=== PATIENT | male | born 1975 | race Caucasian/White ===

== ENCOUNTER 2020-09-12 13:49 | Emergency (ER) | payer OTHER, SELFPAY ==
--- NOTE | 2020-09-12 13:53 | ED.EYEPROB ---
HPI - Eye Problem General Chief complaint: Eye Problems Stated complaint: EYE IRRITATION Time Seen by Provider: 09/12/20 13:53 Source: patient and RN notes reviewed History of Present Illness HPI Narrative: Patient is a 44-year-old male who presents the urgent care with complaints of right eye irritation. Patient states that he tends to have eyelashes in his eyes and thinks one may be in the right eye . Patient states he woke up with the irritation at 11 AM today. Patient denies any known injury or trauma. Denies use of contacts. Denies of any matting in the eye or changes in vision. Patient appears to be high or under the influence of drugs, rather it be prescription or illicit drug use. No other acute complaints. Patient aware of the plan of care. Some parts of this dictation were generated by voice recognition software and may contain typographical and/or grammatical inaccuracies. Related Data Allergies Allergy/AdvReac Type Severity Reaction Status Date / Time amitriptyline Allergy Mild unknown Verified 07/20/20 13:40 ranitidine AdvReac Unknown BLURRED Verified 07/20/20 13:40 VISION Review of Systems Review of Systems: Narrative: CONSTITUTIONAL: Denies fever, chills, or sweats. EYES: Denies visual changes. Reports of right eye irritation and clear drainage ENT: Denies rhinorrhea, congestion, sore throat, or otalgia. CARDIOVASCULAR: Denies chest pain, palpitations, or edema. RESPIRATORY: Denies cough or dyspnea. GASTROINTESTINAL: Denies abdominal pain, nausea, vomiting, or diarrhea. GENITOURINARY: Denies dysuria or hematuria. SKIN: Denies rash or itching. MUSCULOSKELETAL: Denies back pain, joint pain, or myalgia. NEUROLOGIC: Denies headache, numbness, or weakness. All other systems reviewed are negative, except as documented in HPI. PMFSH Social History Social History (Updated 07/20/20 @ 13:35 by Sheryl Quick MA) Smoking status: Current every day smoker Alcohol intake: never Comments At the time of my signature, I reviewed and agree with the nursing past medical, surgical, social, and family history. There is no relevant family history pertinent to the patient complaint. Exam Narrative: Exam Narrative: GENERAL: This is a well-nourished, well-developed patient, in no apparent distress. HEAD: normocephalic, atraumatic. EYES: PERRL. Sclera clear/white. Vision is grossly intact. Mild injected conjunctive on the right EARS: External ears normal NOSE: External nose normal with no obvious nasal discharge, nares without redness, no rhinorrhea. THROAT: Mucous membranes moist NECK: Neck supple CARDIOVASCULAR: Regular rate and rhythm without murmurs, gallops, or rubs. RESPIRATORY: Clear to auscultation. Breath sounds equal bilaterally. No wheezes, rales, or rhonchi. SKIN: warm, intact with no suspicious lesions or rash, good texture and turgor. NEURO: awake, alert, and oriented to person, place and time. There were no obvious focal neurologic abnormalities. EXTREMITIES: No clubbing, cyanosis, or edema. Course Vital Signs Vital signs: Vital Signs Temperature 97.8 F 09/12/20 13:54 Pulse Rate 97 09/12/20 13:54 Respiratory Rate 16 09/12/20 13:54 Blood Pressure 140/94 H 09/12/20 13:54 Pulse Oximetry 98 09/12/20 13:54 Temperature 97.8 F 09/12/20 13:54 Pulse Rate 97 09/12/20 13:54 Respiratory Rate 16 09/12/20 13:54 Blood Pressure 140/94 H 09/12/20 13:54 Pulse Oximetry 98 09/12/20 13:54 Reviewed-patient is informed that they may have pre-hypertension or hypertension based on a blood pressure reading in the department. I recommend the patient call the primary care provider listed on their discharge instructions or a physician of their choice this week to arrange follow-up for further evaluation of possible pre-hypertension or hypertension. Procedures FB Removal Eye Foreign Body #1: Location: eye (R) Topical anesthetic used: tetracaine (1 drop) Techni
[2020-09-12 13:54] VITALS: BP 140/94; PULSE 97; RESP 16; TEMP 36.6; O2SAT 98
== END 2020-09-12 14:22 | disposition home or self-care (01) ==
PROVIDERS: Emergency Provider Nurse Practitioner Family; PCP Internal Medicine
DX: H18.891 Other specified disorders of cornea, right eye (principal); F17.200 Nicotine dependence, unspecified, uncomplicated
CPT/HCPCS: 99213; A9270; G0463

== ENCOUNTER 2024-01-13 13:09 | Inpatient (IN) | payer OTHER, SELFPAY ==
[2024-01-13] VITALS (78 sets, daily range): BP systolic 72–144; BP diastolic 50–119; PULSE 103–122; RESP 16–33; TEMP 34.4–38.4; O2SAT 59–100; BMI 25.1
--- NOTE | ~2024-01-13 | XR_ITS ---
Portable chest x-ray Comparison: 01/22/2024 Clinical History: Respiratory failure Findings: Right IJ line in place. Possible minimal residual haziness right lung base. Cardiomediast inal silhouette is stable. Bones and soft tissues are unremarkable. Impression: Possible persistent minimal residual haziness at the right lung base. Stable right IJ line. Reviewed, dictated and finalized at location . UCTION DRILLING MACHINE OPERATOR Impression: Possible persistent minimal residual haziness at the right lung base. Stable right IJ line.
--- NOTE | ~2024-01-13 | XR_ITS ---
EXAMINATION: XR chest 1V portable DATE: 01/29/2024 13:00 INDICATION: Pulmonary edema TECHNIQUE: frontal view of the chest was obtained. COMPARISON: Chest radiograph dated 01/24/2024 FINDINGS: The lungs are clear with no focal airspace opacities, pulmonary edema, pleural effusion or pneumothor ax. The cardiomediastinal silhouette is normal. Likely prior distal right clavicle resection. IMPRESSION: 1. No acute cardiopulmonary disease. Reviewed, dictated and finalized at location A. INSTRUCTOR
--- NOTE | ~2024-01-13 | XR_ITS ---
Portable chest x-ray Comparison: 01/19/2024 Clinical History: Pneumonia Findings: Endotracheal tube, NG tube, and right IJ line are in place. There is minimal haziness the right lung base. Otherwise lungs are essentially clear. Cardiomediastinal silhouette is stable. Bone s and soft tissues are unremarkable. Impression: Minimal hazy airspace disease right lung base. Support tubes, as above. Reviewed, dictated and finalized at location M. RSIONAL THERAPIST'S ASSISTANT Impression: Minimal hazy airspace disease right lung base. Support tubes, as above.
--- NOTE | ~2024-01-13 | XR_ITS ---
Portable chest x-ray Comparison: 01/18/2024 Clinical History: Respiratory failure Findings: Endotracheal tube, NG tube, and right IJ line are in place. There is minimal residual hazi ness in the right upper and lower lobes. Left lung essentially clear. Cardiomediastinal silhouette i s stable. Bones and soft tissues are unremarkable. Impression: Significantly improved airspace disease, minimal residual haziness in the right upper and lower lobes . Support tubes, as above. Reviewed, dictated and finalized at location M. CAL ASSISTANT PRN Impression: Significantly improved airspace disease, minimal residual haziness in the right upper and lower lobes. Support tubes, as above.
--- NOTE | ~2024-01-13 | CT_ITS ---
CT brain wo con Ordering provider: Garry Allen MD History: 48 years Male with . ams . Comparison: None. Technique: CT of the head without contrast. Radiation reduction technique utilized.The dose-length product was 605.33 mGy-cm FINDINGS: BRAIN PARENCHYMA AND CSF SPACES: No midline shift, mass effect or hemorrhage. The brain parenchyma a nd CSF spaces are otherwise normal. VISUALIZED PARANASAL SINUSES: Bilateral ethmoid sinus disease. Left sphenoid sinus disease. MASTOIDS: Well aerated. BONES: The bones appear intact. SOFT TISSUES: Visualized nasopharynx is normal. Superficial soft tissues are normal. IMPRESSION: No acute intracranial findings. Reviewed, dictated and finalized at location A. ETING SPECIALIST
--- NOTE | ~2024-01-13 | XR_ITS ---
EXAMINATION: XR chest 1V portable DATE: 01/17/2024 05:49 INDICATION: Respiratory failure. TECHNIQUE: A single frontal view of the chest was obtained. COMPARISON: Chest single view 01/16/2024, chest CT 01/14/2024 FINDINGS: There are airspace opacities in all right lung zones and in left mid and lower lung zones. There are small pleural effusions. No pneumothorax. The heart size is normal. The endotracheal tube t ip is 4.3 cm above the jazmin. The nasogastric tube tip is in the stomach. A right internal jugular c entral venous catheter is seen with tip at the superior cavoatrial junction. There are surgical clips in left axilla. IMPRESSION: 1. Stable airspace opacities in right lung and left mid and lower lung zones, consistent with pneumon ia. 2. Stable small pleural effusions. Reviewed, dictated and finalized at location A. [place] PRODUCT DEMO SPECIALIST IMPRESSION: 1. Stable airspace opacities in right lung and left mid and lower lung zones, c onsistent with pneumonia. 2. Stable small pleural effusions.
--- NOTE | ~2024-01-13 | CT_ITS ---
EXAMINATION: CT chest abdomen pelvis wo con DATE: 01/14/2024 11:06 INDICATION: Sepsis. Pneumonia. Constipation. TECHNIQUE: Computed tomography (CT) of the chest, abdomen, and pelvis was performed without intraveno us contrast. Automated exposure control and iterative reconstruction technique were employed. The dos e-length product was 1128.32 mGy-cm. COMPARISON: Chest single view 01/14/2024 FINDINGS: CHEST CT: There are patchy airspace and groundglass opacities in all lobes, right worse than left. There are sm all pleural effusions. The endotracheal tube is in expected position. The nasogastric tube tip is in the stomach. Calcified right hilar and mediastinal lymph nodes are consistent with old granulomatous disease. A right internal jugular central venous catheter is seen with tip at the superior cavoatrial junction. There is mild thoracic spondylosis. ABDOMEN/PELVIS CT: There is periportal edema in the liver. The gallbladder is normal in size. Gallbladder wall thickenin g is noted, likely interstitial edema. Calcifications in the spleen are consistent with old granuloma tous disease. The pancreas, adrenal glands, and kidneys are normal. The bladder is decompressed by a Bates catheter. The prostate is mildly enlarged. The appendix is normal. There are no dilated loops o f bowel. There is edema of the intra-abdominal fat. There is a small volume of ascites. There are no pathologically enlarged lymph nodes. There is mild lumbar spondylosis. IMPRESSION: 1. Diffuse lung disease, consistent with pneumonia. 2. Small pleural effusions. 3. Small volume of ascites. Reviewed, dictated and finalized at location A. ECTIONAL CLASSIFICATION COUNSELOR
--- NOTE | ~2024-01-13 | XR_ITS ---
Portable chest x-ray Comparison: 01/21/2024 Clinical History: Respiratory failure Findings: Right IJ line remains in place. Minimal residual right basilar haziness noted. Left lung c lear. Cardiomediastinal silhouette is stable. Bones and soft tissues are unremarkable. Impression: Minimal residual hazy right basilar airspace disease, nonspecific. Stable support line. Reviewed, dictated and finalized at location . CTOR OF DESIGN Impression: Minimal residual hazy right basilar airspace disease, nonspecific. Stable support line.
--- NOTE | ~2024-01-13 | XR_ITS ---
Portable chest x-ray Comparison: 01/14/2024 Clinical History: Respiratory failure Findings: Endotracheal tube, NG tube, and right IJ line are in place. There is patchy consolidation throughout the right lung, and in the left upper lobe. Airspace disease overall is improved from prio r exam. Cardiomediastinal silhouette is stable. Bones and soft tissues are unremarkable. Impression: Bilateral multilobar pneumonia, mildly improved from prior exam. Support tubes, as above. Reviewed, dictated and finalized at location . RIALS MGMT TECH Impression: Bilateral multilobar pneumonia, mildly improved from prior exam. Support tubes, as above.
--- NOTE | ~2024-01-13 | XR_ITS ---
Portable chest x-ray Comparison: 01/17/2024 Clinical History: Pneumonia Findings: Endotracheal tube, NG tube, and right IJ line are in place. There is mild haziness in the right upper and lower lobes. There is additional retrocardiac consolidation. Cardiomediastinal silho uette is stable. Bones and soft tissues are unremarkable. Impression: Bilateral airspace disease, as above. Correlate for bilateral pneumonia versus pulmonary edema. Support tubes, as above. Reviewed, dictated and finalized at location . STATION CASHIER Impression: Bilateral airspace disease, as above. Correlate for bilateral pneumonia versus pulmonary edema. Support tubes, as above.
--- NOTE | ~2024-01-13 | XR_ITS ---
Portable chest x-ray Comparison: 01/13/2024 Clinical History: Respiratory failure Findings: Endotracheal tube, NG tube, and right-sided central venous line are in place. Extensive bi lateral pulmonary consolidation is present, right lung worse than left. Cardiomediastinal silhouette is stable. Bones and soft tissues are unremarkable. Impression: Multilobar bilateral pneumonia, worst at the right upper lobe. Support tubes, as above. Reviewed, dictated and finalized at location . CTIONS COUNSELOR Impression: Multilobar bilateral pneumonia, worst at the right upper lobe. Support tubes, as above.
--- NOTE | ~2024-01-13 | XR_ITS ---
Portable chest x-ray Comparison: 01/15/2024 Clinical History: Respiratory failure Findings: Endotracheal tube, NG tube, and right IJ line are in place. Possible small bilateral pleur al effusions. There is extensive hazy airspace is in the left lung, with minimal haziness in the left lung. Cardiomediastinal silhouette is stable. Bones and soft tissues are unremarkable. Impression: Bilateral hazy airspace disease, right lung significant worse than left. Correlate for bilateral pneu monia versus possibly asymmetric pulmonary edema. Small pleural effusions. Support tubes, as above. Reviewed, dictated and finalized at [facility]. DEVELOPMENT MANAGER Impression: Bilateral hazy airspace disease, right lung significant worse than left. Correl ate for bilateral pneumonia versus possibly asymmetric pulmonary edema. Small pleural effusions. Support tubes, as above.
--- NOTE | ~2024-01-13 | XR_ITS ---
XR chest ET placement Ordering provider: Garry Allen MD History: 48 years Male with . respiratory failure . Comparison: None. FINDINGS: MEDIASTINUM: The cardiac silhouette is not enlarged. Endotracheal tube is seen with 4 cm above the jazmin. Nasogastric tube is seen extending to the stoma ch. LUNGS: No effusions or pneumothorax. Opacification of the right lung suggestive of pneumonia. Minimal opacification the left upper and lower lobes. OTHER: No free air under the diaphragm. IMPRESSION: Pneumonia seen bilaterally more extensive in the right lung. Reviewed, dictated and finalized at location A. L NURSE CONSULTANT
--- NOTE | ~2024-01-13 | XR_ITS ---
Portable chest x-ray Comparison: 01/20/2024 Clinical History: Respiratory failure Findings: Right-sided IJ line in place. There is hazy right basilar airspace disease. Left lung candy r. Cardiomediastinal silhouette is stable. Bones and soft tissues are unremarkable. Impression: Hazy right basilar airspace disease. Correlate for pulmonary edema versus infection. Support line, as above. Reviewed, dictated and finalized at location . WASHER Impression: Hazy right basilar airspace disease. Correlate for pulmonary edema versus infec tion. Support line, as above.
--- NOTE | ~2024-01-13 | XR_ITS ---
EXAMINATION: XR chest 1V portable DATE: 01/24/2024 05:45 INDICATION: Respiratory failure TECHNIQUE: frontal view of the chest was obtained. COMPARISON: Chest radiograph dated 01/23/2024 FINDINGS: Persistent mild haziness at the bilateral lower lung zones consistent with very small posterior layer ing bilateral pleural effusions. Mild increased interstitial pattern at the bilateral lung bases cons istent with mild pulmonary edema. No other airspace opacities or pneumothorax. The cardiomediastinal silhouette is normal. Surgical clips at the left axilla. IMPRESSION: 1. Likely mild pulmonary edema at the lower lung zones and very small bilateral pleural effusions. Reviewed, dictated and finalized at location A. PROCESSOR
--- NOTE | ~2024-01-13 | XR_ITS ---
CHEST RADIOGRAPH CLINICAL HISTORY: CVC placement . COMPARISON: 01/13/2024 approximately 6 hours earlier. TECHNIQUE: Single portable view of the chest. FINDINGS Endotracheal tube is identified with its tip projecting approximately 6 cm above the base of the marcus na. Orogastric tube extends below the left hemidiaphragm, presumably within the stomach. Interval placement of a right internal jugular central venous catheter with its tip projecting over t he cavoatrial junction The remainder of the cardiomediastinal silhouette is otherwise unremarkable. Interval worsening of the bilateral lung bonner when compared with earlier now affecting the left upp er lobe (which was spared on the earlier examination. Dense opacification of the right upper and to a lesser extent the right lower (the superior segment) lobe. No pleural effusions are present. The right hemithorax is fully inflated. IMPRESSION: Central venous catheter in excellent position and ready for immediate use. Interval progression of the dense infiltrate seen on earlier examination, now involving the left ana thorax in addition to the right. Remaining supportive devices are also in good position. Reviewed, dictated and finalized at location A. EN GRINDER IMPRESSION: Central venous catheter in excellent position and ready for immediate use. Interval progression of the dense infiltrate seen on earlier examination, now i nvolving the left hemithorax in addition to the right. Remaining supportive devices are also in good position.
--- NOTE | ~2024-01-13 | XR_ITS ---
EXAMINATION: XR abdomen obstructive series DATE: 01/16/2024 09:12 INDICATION: Abdominal distention. TECHNIQUE: Upright and supine views of the abdomen on 3 radiographs were obtained. COMPARISON: CT abdomen and pelvis 01/14/2024 FINDINGS: There are airspace opacities in the lungs bilaterally, right worse than left. There are sma ll pleural effusions. The endotracheal tube tip is 4.7 cm above the jazmin. The nasogastric tube tip is in the stomach. There is a central line tip at superior cavoatrial junction. A catheter overlies t he bladder. There are no dilated loops of bowel. There is a paucity of stool in colon. No free intrap eritoneal gas. IMPRESSION: 1. Normal bowel gas pattern. 2. Airspace opacities in the lungs bilaterally, right worse than left, consistent with pneumonia. 3. Small pleural effusions. Reviewed, dictated and finalized at location A. AREA NETWORK SYSTEMS ADMINISTRATOR IMPRESSION: 1. Normal bowel gas pattern. 2. Airspace opacities in the lungs bilaterally, right worse than left, consiste nt with pneumonia. 3. Small pleural effusions.
--- NOTE | 2024-01-13 13:45 | ED.GENADULT ---
HPI - General Adult General Chief complaint: Altered Mental Status Stated complaint: found face down, poss aspiration Time Seen by Provider: 01/13/24 13:34 History of Present Illness HPI narrative: Patient is a 48-year-old male who presents the ER after being found unresponsive in a hotel room. Patient was staying in a hotel with his family. He has known seizure disorder. Had a seizure last night at 3:00 a.m. and that is when he is last known to be normal. Father reports he has slept on the floor in front of a air conditioner. Family return to check on him this afternoon and found him lying face down in emesis poorly responsive. EMS reports agonal respirations and more bagging. They attempted to intubate but patient had a gag reflex. Nasal trumpet was placed. Secretions suctioned from the oral airway. A bottle of liquor (99 grapes) found on the patient. Family reports he only recently started drinking more. recently had psychiatric evaluation in [place] and was placed in facility for 2 days in [facility] before returning back. He was suicidal due to lack of access to medication. Related Data Home Medications Medication Instructions Recorded Confirmed levetiracetam 1,000 mg tablet 1,000 mg PO Q12H 01/13/24 01/13/24 Allergies Allergy/AdvReac Type Severity Reaction Status Date / Time amitriptyline Allergy Mild unknown Verified 12/21/20 14:35 ranitidine AdvReac Unknown BLURRED Verified 12/21/20 14:35 VISION zolpidem [From Ambien] AdvReac Confusion Verified 01/13/24 18:16 Review of Systems Review of Systems: ROS unobtainable: Yes unobtainable due to medical condition [facility] Past Medical History Medical History (Updated 01/13/24 @ 22:33 by Garry Allen MD) Seizure disorder Surgical History Surgical History (Updated 01/13/24 @ 22:33 by Garry Allen MD) Surgical history unknown Family History Family History (Updated 01/13/24 @ 22:34 by Court Peterson DO) Father Acute myocardial infarction S/P CABG x 5, Onset Age: 64 Mother Paroxysmal A-fib, Onset Age: 69 Sibling Muscular dystrophy Social History Social History Social History: The patient lives in his own home. He receives home health server service assistant through [facility] and his mother is his home health aide. Patient has 2 sons ages 22 and age 15. The patient's mother is raising the patient's 15-year-old son. The patient has smoked 1 pack of cigarettes per day since he was a teenager. He has history of chronic opiate dependence. He uses marijuana. He started drinking heavily in mid 2021. Smoking packs per day: 1 Smoking cigarettes per day: 20.0 Years smoked: 30 Smoking pack-years: 30.00 Smoking status: Current every day smoker Alcohol intake: current Do You Feel Safe in your Home?: Yes Lack of Transportation: No Lack of Food: Never True Current Housing: I Have Housing Concerned About Future Housing: No Difficulty Paying Gas/Electric Bills: No Difficulty Paying for Meds: No Currently Unemployed: No Education: Don't Know Difficulty w/ Childcare or Family Care: No Spiritual care concerns: No Exam Narrative: GENERAL: Ill-appearing, moderate distress. HEAD: Normocephalic, atraumatic. EYES: PERRL and EOMI. ENT: Mucous membranes moist. CHEST: coarse rales bilaterally with increased respiratory rate. HEART: Tachycardic and regular. ABDOMEN: Soft, nontender, nondistended. EXTREMITIES: Normal range of motion. No edema. Cool extremities with slow capillary refill. SKIN: Cool, dry, no rash. NEURO: Awake but altered, can only say I am cold. Moves all extremities purposefully. Course Course Emergency Course: patient intubated for airway protection. Discussed case with family. They report he was smoking some sort of drug the last night prior to all this happening. Patient is on fentanyl and Versed for sedation. He has soft restraints on his upper extremities. Is becoming more responsive now that the paralytic is 1 off. Broad-spectrum antibiotics ordered for aspiration pneumonia. Keppra load given. Neurology consulted and familiar with patient. No recommendations for valproic acid at this time as the level is pending. The ICU inspector health care facilities has been consulted and accepted the patient. Patient's ABG improving after increased lung tidal volumes. We will increase patient's minute ventilation to 22 breaths per minute. Vital Signs Vital signs: Vital Signs Pulse Rate 111 H 01/13/24 13:08 Pulse Oximetry 72 L 01/13/24 13:08 Oxygen Delivery Non-Rebreather Mask 01/13/24 13:08 Oxygen Flow Rate 15 01/13/24 13:08 Temperature 100.5 F H 01/13/24 22:16 Pulse Rate 106 H 01/13/24 22:16 Respiratory Rate 22 H 01/13/24 22:16 Blood Pressure 84/66 L 01/13/24 22:16 Pulse Oximetry 95 01/13/24 22:16 Oxygen Delivery Mechanical Ventilation 01/13/24 21:08 Oxygen Flow Rate 15 01/13/24 13:22 Fraction of Inspired Oxygen 70 01/13/24 21:42 Procedures Intubation Intubation #1: Intubation Date: 01/13/24 Intubation Time: 13:44 Time out performed: No sedative: Etomidate Mg Given: 30 paralytic: Rocuronium Mg Given: 75 Laryngoscope: Aly Tube Size (cm): Cuffed Method of Intubation: orotracheal Number of Attempts: 1 Tube Secured Depth (cm): 24 Tube Secured Location: teeth Tube Placement Confirmation: visualized tube passing through cords, equal breath sounds bilaterally, no breath sounds over epigastrium and confirmation by capnometry Patient Tolerated Procedure: well Additional Comments: Initial attempt to intubate resulted in an infiltrated IV in the patient receiving subcutaneous etomidate 30 mg and succinylcholine 100 mg. Decision was made to switch to rocuronium 75 mg and then re-dose the etomidate 30 mg about 5 minutes after 1st Attempt. Medical Decision Making Vital Signs Vital Signs: Vital Signs Pulse Rate 111 H 01/13/24 13:08 Pulse Oximetry 72 L 01/13/24 13:08 Oxygen Delivery Non-Rebreather Mask 01/13/24 13:08 Oxygen Flow Rate 15 01/13/24 13:08 Temperature 100.5 F H 01/13/24 22:16 Pulse Rate 106 H 01/13/24 22:16 Respiratory Rate 22 H 01/13/24 22:16 Blood Pressure 84/66 L 01/13/24 22:16 Pulse Oximetry 95 01/13/24 22:16 Oxygen Delivery Mechanical Ventilation 01/13/24 21:08 Oxygen Flow Rate 15 01/13/24 13:22 Fraction of Inspired Oxygen 70 01/13/24 21:42 Lab Data 01/13/24 15:12 01/13/24 15:12 Labs: Lab Results 01/13/24 01/13/2401/12/24 Range/Units 13:57 14:46 15:11 WBC (4.5-10.0) K/mm3 RBC (4.6-6.20) M/mm3 Hgb (14.0-18.0) g/dL Hct (42.0-52.0) % MCV (80-100) fl MCH (26-34) pg MCHC (32-36) g/dl RDW (11.5-14.5) % Plt Count (150-375) k/mm3 MPV (7.4-10.4) fl Immature Gran % (Auto) (0-0.5) % Neut % (Auto) (45.5-73.1) % Lymph % (Auto) (18.3-44.2) % [place] % (Auto) (2.6-8.5) % Eos % (Auto) (0-4.4) % Baso % (Auto) (0.2-1.2) % Lymph # (Auto) (0.9-3.2) K/mm3 [place] # (Auto) (0.1-0.6) K/mm3 Eos # (Auto) (0-0.3) K/mm3 Baso # (Auto) (0.0-0.1) K/mm3 Abs Immat Gran (auto) (0.00-0.031) K/mm3 Absolute Neuts (auto) (1.3-6.7) K/mm3 Absolute Nucleated RBC (0.0-0.012) K/mm3 Nucleated RBC % (0.0-0.2) % Methemoglobin 0.3 (0-1.5) %THb Minute Volume Not Reportable Vent Mode Cmv Tidal Volume 400 ml PEEP 8 cmH2O Peak Inspir Pressure Not Reportable Pressure Support Not Reportable Sodium (137-145) mmol/L Potassium (3.4-5.0) mmol/L Chloride (98-107) mmol/L Carbon Dioxide (22-30) mmol/L Anion Gap (4-12) mmol/L BUN (9-20) mg/dL Creatinine (0.7-1.3) mg/dL Estim Creat Clear Calc Estimated GFR (59 - ) Glucose (65-110) mg/dL Lactic Acid 7.1 H* (0.7-2.0) mmol/L Calcium (8.4-10.2) mg/dL Total Bilirubin (0.2-1.3) mg/dL AST (17-59) U/L ALT (6-50) U/L Alkaline Phosphatase (38-126) U/L Troponin I (0.000-0.034) ng/mL C-Reactive Protein (<1.0) mg/dL Total Protein (6.3-8.2) g/dL Albumin (3.5-5.1) g/dL Lipase (23-300) U/L Urine Color Yellow (Yellow) Urine Appearance Cloudy H (Clear) Urine pH 5.0 (5.0-9.0) Ur Specific [place] 1.017 (1.001-1.035) Urine Protein 2+ H (Negative) mg/dL Urine Glucose (UA) Negative (Negative) mg/dL Urine Ketones Negative (Negative) mg/dL Ur Blood (Man) 2+ H (Negative) Urine Nitrate Negative (Negative) Urine Bilirubin Negative (Negative) Urine Urobilinogen 0.2 (<2.0) mg/dL Add Ur Microanalysis Reviewed Leukocyte Esterase Rfl Negative (Negative) DIANE/UL Urine RBC 0-2 (0-2) /hpf Urine WBC 11-20 H (0-3) /hpf Ur Squamous Epith Cells Occasional (Few) /hpf Urine Bacteria None seen /hpf Urine Casts >20 Hyaline Casts Present (None) /lpf Sperm Presence Present Salicylates (2-20) mg/dL Urine Opiates Screen Negative (Negative) Urine Methadone Screen Positive A (Negative) Acetaminophen (10-30) ug/mL Ur Barbiturates Screen Negative (Negative) Valproic Acid (50-120) ug/mL Ur Phencyclidine Scrn Negative (Negative) Ur Amphetamine Screen Negative (Negative) U Benzodiazepines Scrn Positive A (Negative) Urine Cocaine Screen Negative (Negative) U Cannabinoids Screen Negative (Negative) Ethyl Alcohol (<10) mg/dL 01/13/24 01/13/24 01/13/24 Range/Units 15:12 15:13 15:50 WBC 6.8 (4.5-10.0) K/mm3 RBC 5.74 (4.6-6.20) M/mm3 Hgb 18.8 H (14.0-18.0) g/dL Hct 57.8 H (42.0-52.0) % MCV 100.7 H (80-100) fl MCH 32.8 (26-34) pg MCHC 32.5 (32-36) g/dl RDW 12.3 (11.5-14.5) % Plt Count 165 (150-375) k/mm3 MPV 9.1 (7.4-10.4) fl Immature Gran % (Auto) 0.4 (0-0.5) % Neut % (Auto) 89.3 H (45.5-73.1) % Lymph % (Auto) 4.1 L (18.3-44.2) % [place] % (Auto) 6.0 (2.6-8.5) % Eos % (Auto) 0.1 (0-4.4) % Baso % (Auto) 0.1 L (0.2-1.2) % Lymph # (Auto) 0.28 L (0.9-3.2) K/mm3 [place] # (Auto) 0.4 (0.1-0.6) K/mm3 Eos # (Auto) 0.0 (0-0.3) K/mm3 Baso # (Auto) 0.0 (0.0-0.1) K/mm3 Abs Immat Gran (auto) 0.03 (0.00-0.031) K/mm3 Absolute Neuts (auto) 6.1 (1.3-6.7) K/mm3 Absolute Nucleated RBC 0.000 (0.0-0.012) K/mm3 Nucleated RBC % 0.0 (0.0-0.2) % Methemoglobin (0-1.5) %THb Minute Volume Not Reportable Vent Mode Cmv Tidal Volume 500 ml PEEP 10 cmH2O Peak Inspir Pressure Not Reportable Pressure Support Not Reportable Sodium 142 (137-145) mmol/L Potassium 4.0 (3.4-5.0) mmol/L Chloride 100 (98-107) mmol/L Carbon Dioxide 25 (22-30) mmol/L Anion Gap 17 H (4-12) mmol/L BUN 24 H (9-20) mg/dL Creatinine 1.30 (0.7-1.3) mg/dL Estim Creat Clear Calc Not Reportable Estimated GFR 59 (59 - ) Glucose 115 H (65-110) mg/dL Lactic Acid (0.7-2.0) mmol/L Calcium 8.5 (8.4-10.2) mg/dL Total Bilirubin 1.0 (0.2-1.3) mg/dL AST 59 (17-59) U/L ALT 32 (6-50) U/L Alkaline Phosphatase 106 (38-126) U/L Troponin I 0.020 (0.000-0.034) ng/mL C-Reactive Protein 2.6 H (<1.0) mg/dL Total Protein 8.0 (6.3-8.2) g/dL Albumin 4.8 (3.5-5.1) g/dL Lipase 54 (23-300) U/L Urine Color (Yellow) Urine Appearance (Clear) Urine pH (5.0-9.0) Ur Specific [place] (1.001-1.035) Urine Protein (Negative) mg/dL Urine Glucose (UA) (Negative) mg/dL Urine Ketones (Negative) mg/dL Ur Blood (Man) (Negative) Urine Nitrate (Negative) Urine Bilirubin (Negative) Urine Urobilinogen (<2.0) mg/dL Add Ur Microanalysis Leukocyte Esterase Rfl (Negative) DIANE/UL Urine RBC (0-2) /hpf Urine WBC (0-3) /hpf Ur Squamous Epith Cells (Few) /hpf Urine Bacteria /hpf Urine Casts Hyaline Casts (None) /lpf Sperm Presence Salicylates < 1.0 L (2-20) mg/dL Urine Opiates Screen (Negative) Urine Methadone Screen (Negative) Acetaminophen < 10 L (10-30) ug/mL Ur Barbiturates Screen (Negative) Valproic Acid < 10.0 L (50-120) ug/mL Ur Phencyclidine Scrn (Negative) Ur Amphetamine Screen (Negative) U Benzodiazepines Scrn (Negative) Urine Cocaine Screen (Negative) U Cannabinoids Screen (Negative) Ethyl Alcohol < 10 (<10) mg/dL ABG Data ABG results: 01/13/24 01/13/24 13:57 15:50 Puncture Site Right radial Left radial ABG pH 6.928 L* 7.123 L* ABG pCO2 115.9 H* 72.6 H* ABG pO2 83.5 186.3 H ABG PO2/FiO2 Ratio 0.83 1.86 ABG HCO3 23.7 23.2 ABG O2 Saturation 86.5 L* 98.8 ABG O2 Content 24.8 H 23.5 H ABG Base Excess -13.0 -8.0 A-a Gradient 513.6 454.1 Oxyhemoglobin 90.4 96.8 Carboxyhemoglobin 2.3 H Reduced Hemoglobin 7.0 H Total Hemoglobin 19.5 H 17.0 O2 Delivery Device Ventilator Ventilator O2 Liters/Min Not Reportable Not Reportable Vent Rate 16 16 FiO2 100 100 Critical Care Time Critical Care Time Critical Care Time: Yes Total Critical Care Time: 45 Discharge Plan Discharge Clinical Impression: Aspiration pneumonia, Acute respiratory failure, Metabolic acidosis, Seizure disorder Patient Disposition: Still a Patient Condition: Critical
--- NOTE | 2024-01-13 13:46 | ECG_ITS ---
Test Date: 2024-01-13 14:10:39 Measurements Intervals [place] Rate: 108 P: 75 TX: 191 QRS: 107 QRSD: 100 T: 53 QT: 354 QTc: 476 Interpretive Statements SINUS TACHYCARDIA RIGHT AXIS DEVIATION POSSIBLE RIGHT ATRIAL ENLARGEMENT POSSIBLE LEFT ATRIAL ENLARGEMENT ANTEROSEPTAL INFARCT, AGE INDETERMINATE ABNORMAL ECG No previous ECG available for comparison Electronically Signed On 01-13-2024 14:18:02 SENIOR IT AUDITOR by Khanh Grace D.O.
[2024-01-13] MEDS: FENTANYL 2,500MCG/NS250ML(*CRX 2,500 MCG/250 ML BAG IV CONT (13:49)
[2024-01-13] MEDS: MIDAZOLAM 100MG/NS 100ML(*CRX) 100 MG/100 ML BAG IV CONT (13:50)
[2024-01-13 14:03] LABS: Alveolar/Arterial O2 Gradient 513.6 mmHg; Carboxyhemoglobin 2.3 % THb (0-2.0); Fractional Inspired Oxygen 100 %; HCO3 ABG 23.7 mEq/l (22.0-26.0); Methemoglobin ABG 0.3 %THb (0-1.5); Oxygen Content ABG 24.8 %vol (16.0-22.0); Oxyhemoglobin 90.4 % THb (90.0-100.0); PO2 ABG 83.5 mmHg (80.0-100.0); PO2 FiO2 Ratio Arterial Blood 0.83 %; Total Hemoglobin 19.5 g/dL (12.0-18.0)
[2024-01-13 14:14] LABS: PCO2 ABG 115.9 mmHg (35.0-45.0); pH ABG 6.928 (7.350-7.450)
[2024-01-13 14:15] LABS: Oxygen Saturation ABG 86.5 % (95.0-100.0); Site Drawn RIGHT RADIAL
[2024-01-13 14:16] LABS: Device VENTILATOR
[2024-01-13 14:17] LABS: Arterial Blood Gas PEEP 8 cmH2O; Arterial Blood Gas Tidal Volume 400 ml; Arterial Blood Gas Vent Mode CMV; Arterial Blood Gas Ventilator rate 16 /MIN
--- NOTE | 2024-01-13 14:26 | PC.NURSE ---
Multiple unsuccessful second IV line attempts on pt. Vascular access contacted for assistance with IV placement and blood draw.
--- NOTE | 2024-01-13 15:06 | PC.NURSE ---
1320 18g IV placed in L AC by AMBER Kidd 1323 30mg Etomidate administered in the 18g in L AC by AMBER Reyes 1324 100 Succinylcholine administered in the 18g in L AC by AMBER Reyes 1325 pt bagged by respiratory 1326 pt not responding to medication, continues to be bagged by respiratory 1327 18g L AC checked by 2nd RN, IV found to be infiltrated 1341 30mg of Etomidate administered in 20g IV R AC, placed by EMS, by AMBER Kidd 1341 75mg Rocuronium administered in 20g IV R AC by AMBER Kidd 1345 7.5 ET tube placed by EDP Dr. Allen 24 @ the lip 1345 Verbal order for bilateral soft wrist restraints and temperature indwelling catheter obtained by EDP Dr. Allen 1350 16F OG tube placed by this RN 70 @ the lip
[2024-01-13 15:24] LABS: Basophils Percent Auto 0.1 % (0.2-1.2); Eosinophils Percent Auto 0.1 % (0-4.4); Hematocrit 57.8 % (42.0-52.0); Hemoglobin 18.8 g/dL (14.0-18.0); Immature Granulocyte Absolute 0.03 K/mm3 (0.00-0.031); Immature Granulocyte Percent A 0.4 % (0-0.5); Lymphocytes Absolute Auto 0.28 K/mm3 (0.9-3.2); Lymphocytes Percent Auto 4.1 % (18.3-44.2); Mean Corpuscular HGB Conc 32.5 g/dl (32-36); Mean Corpuscular Hemoglobin 32.8 pg (26-34); Mean Corpuscular Volume 100.7 fl (80-100); Mean Platelet Volume 9.1 fl (7.4-10.4); Monocytes Absolute Auto 0.4 K/mm3 (0.1-0.6); Neutrophils Absolute Auto 6.1 K/mm3 (1.3-6.7); Neutrophils Percent Auto 89.3 % (45.5-73.1); Platelet Count Result 165 k/mm3 (150-375); Red Blood Count 5.74 M/mm3 (4.6-6.20); Red Cell Distribution Width 12.3 % (11.5-14.5); White Blood Count 6.8 K/mm3 (4.5-10.0)
[2024-01-13 15:29] LABS: Amphetamine Screen Urine Negative (Negative); Barbiturate Screen Urine Negative (Negative); Benzodiazepines Screen Urine Positive (Negative); Cannabinoid Screen Urine Negative (Negative); Cocaine Screen Urine Negative (Negative); Methadone Screen Urine Positive (Negative); Opiate Screen Urine Negative (Negative); Phencyclidine Screen Urine Negative (Negative)
[2024-01-13 15:30] LABS: Acetaminophen < 10 ug/mL (10-30); Ethanol < 10 mg/dL (<10); Salicylate < 1.0 mg/dL (2-20)
[2024-01-13 15:34] LABS: Lactic Acid Reflex 7.1 mmol/L (0.7-2.0)
[2024-01-13] MEDS: levETIRAcetam 1000MG/NACL100ML 1,000 MG/100 ML BAG 400 MG IVPB ×2 (15:35→22:29)
[2024-01-13] MEDS: SODIUM CHLORIDE 0.9% IV 1,000 ML 999 ML IV CONT ×3 (15:35→16:40)
[2024-01-13 15:37] LABS: Alanine Aminotransferase 32 U/L (6-50); Albumin Level 4.8 g/dL (3.5-5.1); Alkaline Phosphatase 106 U/L (38-126); Anion Gap 17 mmol/L (4-12); Aspartate Amino Transferase 59 U/L (17-59); Blood Urea Nitrogen 24 mg/dL (9-20); CRP 2.6 mg/dL (<1.0); Calcium 8.5 mg/dL (8.4-10.2); Carbon Dioxide 25 mmol/L (22-30); Chloride 100 mmol/L (98-107); Estimated Glomerular Filt Rate 59; Glucose 115 mg/dL (65-110); Lipase 54 U/L (23-300); Sodium 142 mmol/L (137-145)
[2024-01-13 16:02] LABS: Add Urine Microscopic? YES; Appearance Urine Cloudy (Clear); Bacteria Urine None Seen /hpf; Bilirubin Urine Negative (Negative); Blood Urine 2+ (Negative); Color Urine Yellow (Yellow); Glucose Urine UA Negative (Negative); Hyaline Casts Urine Present /lpf; Ketones Urine Negative (Negative); Leukocyte Esterase Ur Negative LEU/UL (Negative); Need Manual Microscopic Reviewed; Nitrate Urine Negative (Negative); Non Pathogenic Casts >20; Protein Urine 2+ mg/dL (Negative); RBC Urine 0-2 /hpf (0-2); Specific Grav Ur 1.017 (1.001-1.035); Spermatozoa Urine Present; Squamous Epithelial Cell Urine Occasional /hpf (Few); Urobilinogen Urine 0.2 mg/dL (<2.0)
[2024-01-13 16:04] LABS: Alveolar/Arterial O2 Gradient 454.1 mmHg; Fractional Inspired Oxygen 100 %; HCO3 ABG 23.2 mEq/l (22.0-26.0); Oxygen Content ABG 23.5 %vol (16.0-22.0); Oxygen Saturation ABG 98.8 % (95.0-100.0); Oxyhemoglobin 96.8 % THb (90.0-100.0); PO2 ABG 186.3 mmHg (80.0-100.0); PO2 FiO2 Ratio Arterial Blood 1.86 %
[2024-01-13 16:09] LABS: PCO2 ABG 72.6 mmHg (35.0-45.0); Site Drawn LEFT RADIAL; pH ABG 7.123 (7.350-7.450)
[2024-01-13 16:10] LABS: Device VENTILATOR
[2024-01-13 16:11] LABS: Arterial Blood Gas PEEP 10 cmH2O; Arterial Blood Gas Tidal Volume 500 ml; Arterial Blood Gas Vent Mode CMV; Arterial Blood Gas Ventilator rate 16 /MIN
[2024-01-13 16:30] LABS: Valproic Acid < 10.0 ug/mL (50-120)
[2024-01-13] MEDS: MIDAZOLAM HCL (*CRX) 2 MG/2 ML VIAL IV PUSH (16:33)
[2024-01-13 16:59] LABS: Prothrombin Time 14.6 Seconds (11.1-14.7)
[2024-01-13 17:00] LABS: INR 1.1; Partial Thromboplastin Time 29.6 Seconds (22.3-36.8)
--- NOTE | 2024-01-13 17:25 | PC.NURSE ---
This patient, Aiden Esposito Jr., was admitted to Intensive Care Unit-7. Patient/family oriented to hospital policies and general routines including ID bracelet, bed and alarms, visiting hours, pain management, procedures, bathroom and other care routines, personal items, smoking policy, room service/diet, and visiting hours. Information on how to activate the Rapid Response Team has been discussed. Patient/Family are encouraged to report perceived risks to care and to ask questions if they do not understand what they are told or what they should do.
[2024-01-13] MEDS: PIPERACILLN/TAZ 3.375GM/NS50ML 3.375 GM/50 ML BAG IVPB ×2 (17:45→23:04)
[2024-01-13] MEDS: LACTATED RINGERS 1,000 ML 999 ML IV CONT ×2 (18:12→20:05)
[2024-01-13 18:16] LABS: Reflex Lactic Acid Yes or No Add Lactic
[2024-01-13] MEDS: AZITHROMYCIN 500 MG/NS 250 ML 500 MG/250 ML BAG 250 MG IVPB (18:30)
[2024-01-13 19:16] LABS: Triglycerides 487 mg/dL (<150)
[2024-01-13 19:19] LABS: Lactic Acid 4.2 mmol/L (0.7-2.0)
[2024-01-13] MEDS: NOREPINEPHRINE 8 MG/D5W 250 ML 8 MG/250 ML BAG 9.38 MG IV CONT (19:34)
[2024-01-13] MEDS: PROPOFOL IV EMULSION 100 ML 2.25 MG IV CONT (19:50)
[2024-01-13] MEDS: VANCOMYCIN 2,000 MG/NS 500 ML 2,000 MG/500 ML BAG 250 MG IVPB (20:56)
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
--- NOTE | 2024-01-13 21:12 | WPDPROCEDUR ---
Procedures Central Line Placement Right IJ: Central Line Date: 01/13/24 Central Line Time: 20:10 Discussed w/ the patient/family/POA,the placement of a central venous catheter, including its clinical necessity/indication & associated potential risks, benifits and alternatives.: Yes The patient/family/POA understand(s) and acknowledge(s) the need to proceed with central venous catheter insertion as an important element of the patient's clinical management.: Yes Consent: I have discussed with the patient and/or surrogate, the non-emergent placement of a central venous catheter, including its clinical necessity/indication and associated potential risks and complications. The patient and/or surrogate understand(s) and acknowledge(s) the need to proceed with central venous catheter insertion as an important element of the patient's clinical management. Time Out Performed: Yes Patient Position: trendelenburg Patient placed on monitor/pulse ox: Yes Provider Prep: mask, sterile gown, sterile gloves, Max. sterile barrier precautions, cap and hand hygiene with conventional soap/water or alcohol based hand rub Central line prep: 2% Chlorhexidine scrub Sterile US Technique with sterile gel/sterile probe covers: Yes Central line lumen inserted: triple Azeri: 7 Length (cm): 16 Depth of Insertion (cm): 15 Post Procedure: sutured in place, good blood return, all ports aspirated, flushed, capped, transparent dressing, hemostatic product, antimicrobial product and aseptic technique maintained throughout procedure Post procedure x-ray: tip of catheter in good position Additional comments: 1st attempt unsuccessful due to guidewire cor yelling. Second attempt performed. Line placed with standard technique. Patient did have a small hematoma from the 1st attempt. X-ray reviewed and demonstrated ET tube appropriately position. Central line in the SVC/atrium junction.
[2024-01-13 21:38] LABS: MRSA (PCR) NOT DETECTED (NOT DETECTE)
[2024-01-13 21:48] LABS: Creatine Kinase 1327 U/L (55-170); Lactic Acid Reflex 2.4 mmol/L (0.7-2.0)
[2024-01-13 22:21] LABS: Procalcitonin 28.4 ng/mL
[2024-01-13] MEDS: SODIUM CHLORIDE 0.9% IV 1,000 ML 150 ML IV CONT (22:28)
[2024-01-13] MEDS: VASOPRESSIN INJ 100 UNITS in DEXTROSE 5% 95 ML IV CONT (22:33)
[2024-01-13] MEDS: CENTRAL LINE FLUSH 10 ML IV PUSH (22:48)
[2024-01-13 22:50] LABS: Alveolar/Arterial O2 Gradient 370.4 mmHg; Base Excess ABG -7.2 mEq/l (+/-2.0); Fractional Inspired Oxygen 70 %; HCO3 ABG 20.7 mEq/l (22.0-26.0); Oxyhemoglobin 93.6 % THb (90.0-100.0); PCO2 ABG 50.8 mmHg (35.0-45.0); PO2 ABG 74.1 mmHg (80.0-100.0); PO2 FiO2 Ratio Arterial Blood 1.06 %; Total Hemoglobin 14.4 g/dL (12.0-18.0)
[2024-01-13 22:52] LABS: Device VENTILATOR; Modified Allen's Test Pass; Site Drawn LEFT BRACHIAL; pH ABG 7.227 (7.350-7.450)
[2024-01-13 22:54] LABS: Arterial Blood Gas PEEP 8 cmH2O; Arterial Blood Gas Vent Mode CMV; Arterial Blood Gas Ventilator rate 22 /MIN
[2024-01-13 22:55] LABS: Arterial Blood Gas Tidal Volume 500 ml
[2024-01-13] MEDS: THIAMINE 500 MG/NS 100 ML 500 MG/100 ML BAG 200 MG IVPB (23:03)
[2024-01-13] MEDS: ACETAMINOPHEN ELIXIR 325 MG/10.15 ML UDC 650 MG FEED TUBE (23:31)
[2024-01-13] MEDS: HYDROCORTISONE SODIUM SUCCINATE 100 MG/2 ML VIAL IV PUSH (23:32)
[2024-01-14] VITALS (91 sets, daily range): BP systolic 81–147; BP diastolic 48–89; PULSE 67–104; RESP 24–26; TEMP 36.8–39.1; O2SAT 96–100; BMI 26.4
[2024-01-14] MEDS: MIDAZOLAM 100MG/NS 100ML(*CRX) 100 MG/100 ML BAG 10 MG IV CONT ×3 (00:36→20:16)
[2024-01-14] MEDS: NOREPINEPHRINE 8 MG/D5W 250 ML 8 MG/250 ML BAG 52.5 MG IV CONT (02:02)
[2024-01-14] MEDS: FENTANYL 2,500MCG/NS250ML(*CRX 2,500 MCG/250 ML BAG 20 MCG IV CONT ×2 (03:25→15:30)
[2024-01-14] MEDS: ACETAMINOPHEN ELIXIR 325 MG/10.15 ML UDC 650 MG FEED TUBE (03:56)
[2024-01-14 04:14] LABS: Basophils Percent Auto 0.4 % (0.2-1.2); Hematocrit 43.3 % (42.0-52.0); Hemoglobin 14.5 g/dL (14.0-18.0); Immature Granulocyte Absolute 0.03 K/mm3 (0.00-0.031); Immature Granulocyte Percent A 0.4 % (0-0.5); Immature Platelet Fraction Pct 2.6 % (0.9-11.2); Lymphocytes Absolute Auto 0.39 K/mm3 (0.9-3.2); Lymphocytes Percent Auto 4.8 % (18.3-44.2); Mean Corpuscular HGB Conc 33.5 g/dl (32-36); Mean Corpuscular Hemoglobin 32.7 pg (26-34); Mean Corpuscular Volume 97.7 fl (80-100); Monocytes Absolute Auto 0.5 K/mm3 (0.1-0.6); Monocytes Percent Auto 6.3 % (2.6-8.5); Neutrophils Absolute Auto 7.1 K/mm3 (1.3-6.7); Neutrophils Percent Auto 88.1 % (45.5-73.1); Platelet Count Result 151 k/mm3 (150-375); Red Blood Count 4.43 M/mm3 (4.6-6.20); Red Cell Distribution Width 12.4 % (11.5-14.5); White Blood Count 8.1 K/mm3 (4.5-10.0)
[2024-01-14 04:57] LABS: Alanine Aminotransferase 26 U/L (6-50); Albumin Level 2.7 g/dL (3.5-5.1); Alkaline Phosphatase 60 U/L (38-126); Anion Gap 5 mmol/L (4-12); Aspartate Amino Transferase 75 U/L (17-59); Bilirubin,Total 0.9 mg/dL (0.2-1.3); Blood Urea Nitrogen 21 mg/dL (9-20); Calcium 6.8 mg/dL (8.4-10.2); Carbon Dioxide 21 mmol/L (22-30); Chloride 109 mmol/L (98-107); Estimated CRCL calculation 75 ml/min; Estimated Glomerular Filt Rate > 60; Glucose 121 mg/dL (65-110); Potassium 5.8 mmol/L (3.4-5.0); Sodium 135 mmol/L (137-145)
[2024-01-14 05:03] LABS: Base Excess ABG -8.4 mEq/l (+/-2.0); Carboxyhemoglobin 0.7 % THb (0-2.0); Fractional Inspired Oxygen 70 %; HCO3 ABG 18.2 mEq/l (22.0-26.0); Methemoglobin ABG 0.2 %THb (0-1.5); Oxygen Content ABG 21.1 %vol (16.0-22.0); Oxyhemoglobin 97.8 % THb (90.0-100.0); PCO2 ABG 41.6 mmHg (35.0-45.0); PO2 ABG 125.4 mmHg (80.0-100.0); PO2 FiO2 Ratio Arterial Blood 1.79 %; Reduced Hemoglobin 1.3 %THb (0-5.0); Total Hemoglobin 15.2 g/dL (12.0-18.0)
[2024-01-14 05:07] LABS: Device VENTILATOR; Modified Allen's Test Pass; Site Drawn RIGHT RADIAL
[2024-01-14 05:08] LABS: Arterial Blood Gas Vent Mode CMV; Arterial Blood Gas Ventilator rate 24 /MIN
[2024-01-14 05:09] LABS: Arterial Blood Gas PEEP 8 cmH2O; Arterial Blood Gas Tidal Volume 500 ml
[2024-01-14 05:11] LABS: Creatine Kinase 3025 U/L (55-170)
[2024-01-14] MEDS: SODIUM CHLORIDE 0.9% IV 1,000 ML 150 ML IV CONT (05:23)
[2024-01-14] MEDS: CENTRAL LINE FLUSH 10 ML IV PUSH ×2 (05:24→20:22)
[2024-01-14] MEDS: HYDROCORTISONE SODIUM SUCCINATE 100 MG/2 ML VIAL IV PUSH ×3 (05:24→20:22)
[2024-01-14] MEDS: PIPERACILLN/TAZ 3.375GM/NS50ML 3.375 GM/50 ML BAG IVPB ×4 (05:24→23:19)
[2024-01-14] MEDS: PROPOFOL IV EMULSION 100 ML 6.75 MG IV CONT ×2 (05:28→17:19)
[2024-01-14 05:54] LABS: Folic Acid 3.2 ng/mL (2.76->20)
[2024-01-14] MEDS: NOREPINEPHRINE 8 MG/D5W 250 ML 8 MG/250 ML BAG 39.38 MG IV CONT (07:30)
[2024-01-14] MEDS: ENOXAPARIN 40 MG/0.4 ML SYRINGE SUB-Q (08:01)
[2024-01-14] MEDS: levETIRAcetam 1000MG/NACL100ML 1,000 MG/100 ML BAG 400 MG IVPB ×2 (08:01→20:19)
[2024-01-14] MEDS: MINERAL OIL/WHITE PETROLATUM OINTMENT 1 APPLIC EACH EYE ×2 (08:19→20:22)
[2024-01-14] MEDS: CALCIUM GLUC 2,000 MG/NS 100ML 2,000 MG/100 ML BAG 100 MG IVPB (09:03)
[2024-01-14] MEDS: SODIUM ZIRCONIUM CYCLOSILICATE 10 GM POWD.PACK PO ×2 (09:04→17:06)
[2024-01-14] MEDS: SODIUM BICARBONATE TAB 650 MG TABLET FEED TUBE ×2 (09:04→16:44)
[2024-01-14] MEDS: SODIUM BICARBONATE 8.4% 150 MEQ in WATER, STERILE FOR INJECTION 950 ML 100 MEQ IV CONT ×2 (09:35→20:19)
--- NOTE | 2024-01-14 11:40 | P.CONNEU_ITS ---
Assessment and Plan Assessment and plan (1) Polysubstance (including opioids) dependence with physiological dependence: Code(s): F19.20 - Other psychoactive substance dependence, uncomplicated Status: Acute (2) Chronic alcoholism: Code(s): F10.20 - Alcohol dependence, uncomplicated Status: Acute (3) Rhabdomyolysis: Qualifiers: Rhabdomyolysis type: non-traumatic Qualified Code(s): M62.82 - Rhabdomyolysis Code(s): M62.82 - Rhabdomyolysis Status: Acute (4) Septic shock: Code(s): A41.9 - Sepsis, unspecified organism; R65.21 - Severe sepsis with septic shock Status: Acute (5) Acute respiratory failure with hypoxia and hypercapnia: Code(s): J96.01 - Acute respiratory failure with hypoxia; J96.02 - Acute respiratory failure with hypercapnia Status: Acute (6) Aspiration pneumonia: Qualifiers: Aspiration pneumonia type: unspecified Laterality: bilateral Lung location: unspecified part of lung Qualified Code(s): J69.0 - Pneumonitis due to inhalation of food and vomit Code(s): J69.0 - Pneumonitis due to inhalation of food and vomit Status: Acute Plan acute respiratory failure with hypoxia and hypercapnia 2. Aspiration pneumonia 3. Chronic alcoholism 4. Seizures 5. Rhabdomyolysis 6. Polysubstance use and dependence miss physical and psychological dependence. Treatment as being continued Consult date: 01/14/24 HPI: Aiden Esposito Jr. is a 48 year old male admitted to the hospital through the emergency room with information that he was found unresponsive in a hotel room where he was staying with his family and also with history that he is known to have seizure disorder in the ER it was reported that he had seizure last night at 3:00 a.m. father reported he has slept on the floor in front of an air conditioner family return to check on him in the afternoon found him lying face down and poorly responsive EMS on the scene reported agonal respirations an attempt was made to intubate but patient was noted to have a gag reflex nasal trumpet was placed in secretions were suctioned from the oral airway a bottle of liquor 99 Graves found on the patient's side family reported that he only recently started drinking more and also recently he has had the psychiatric evaluation in [place] and was [facility] before returning back he was suicidal due to lack of access to medications. His medications included levetiracetam 1000mg q.12 hours. Is known to be allergic to amitriptyline tonight Jim and zolpidem his past history consistent with seizure disorder, he lives in his own home he has smoked 1 pack of cigarettes per day since he was teenager and also has history of chronic o piate dependence in addition to history of drinking heavily since mid 2021 currently his everyday smoker smoking pack years 30 and currently alcohol intake as well initial exam in the emergency room was grossly nonfocal he was tachycardic with pulse of 1 1 1 pulse ox 72 temperature 100.5? in the ER he was intubated his CBC was with WBC 6.8 platelet count 165 hemoglobin 18.8 BMP was normal except BUN 24 urine protein 2+ urine positive for methadone and benzodiazepine valproic acid level was less than 10 alcohol level less than 10 admitted to ICU with acute respiratory failure with metabolic acidosis seizure disorder, his small pleural effusion and small volume of ascites, CT of the head negative for the intracranial bleed, at present receiving Keppra 1000mg q.12 hours, antibiotic coverage, IV fluids, fentanyl, midazolam, on the respirator intubated sedated. Review of Systems Review of Systems: All systems reviewed & are unremarkable except as noted in HPI and below PMFSH Past Medical History Medical History Bipolar disorder Folic acid deficiency Paranoid schizophrenia Seizure disorder Surgical History Surgical History Dental root implant present Family History Family History Father Acute myocardial infarction S/P CABG x 5, Onset Age: 64 Mother Paroxysmal A-fib, Onset Age: 69 Sibling Muscular dystrophy Social History Social History Social History: The patient lives in his own home. He receives home health pharmacist assistant through [facility] and his mother is his home health aide. Patient has 2 sons ages 22 and age 15. The patient's mother is raising the patient's 15-year-old son. The patient has smoked 1 pack of cigarettes per day since he was a teenager. He has history of chronic opiate dependence. He uses marijuan a. He started drinking heavily in mid 2021. Smoking packs per day: 1 Smoking cigarettes per day: 20.0 Years smoked: 30 Smoking pack-years: 30.00 Smoking status: Current every day smoker Alcohol intake: current Do You Feel Safe in your Home?: Yes Lack of Transportation: No Lack of Food: Never True Current Housing: I Have Housing Concerned About Future Housing: No Difficulty Paying Gas/Electric Bills: No Difficulty Paying for Meds: No Currently Unemployed: No Education: Don't Know Difficulty w/ Childcare or Family Care: No Spiritual care concerns: No Meds Home Medications and Allergies Home Medications Medication Instructions Recorded Confirmed Type hydrocodone 10 mg-acetaminophen 1 tablet PO Q6H PRN pain (scale 10/10/20 01/13/24 Rx 325 mg tablet score 7-10) #56 tabs alprazolam 1 mg tablet 1.5 mg PO QID PRN anxiety #42 tabs 10/30/20 01/13/24 Rx levetiracetam 1,000 mg tablet 1,000 mg PO Q12H 01/13/24 01/13/24 History Allergies Allergy/AdvReac Type Severity Reaction Status Date / Time amitriptyline Allergy Mild unknown Verified 12/21/20 14:35 ranitidine AdvReac Unknown BLURRED Verified 12/21/20 14:35 VISION zolpidem [From Ambien] AdvReac Confusion Verified 01/13/24 18:16 Vital Signs Vital Signs - 24 hr 01/13/24 13:09 01/13/24 13:10 01/13/24 13:22 Temperature Pulse Rate 113 H Respiratory Rate 25 H Blood Pressure 130/109 H Pulse Oximetry 59 L 88 L 72 L Oxygen Delivery Room Air Non-Rebreather Mask Non-Rebreather Mask Oxygen Flow Rate 15 15 Fraction of Inspired Oxygen 01/13/24 13:23 01/13/24 13:26 01/13/24 13:30 Temperature Pulse Rate 110 H 110 H Respiratory Rate 33 H 23 H Blood Pressure Pulse Oximetry 91 95 Oxygen Delivery Bag Valve Mask Oxygen Flow Rate Fraction of Inspired Oxygen 01/13/24 13:33 01/13/24 13:08 01/13/24 13:49 Temperature Pulse Rate 112 H 111 H 116 H Respiratory Rate 27 H 16 Blood Pressure 137/119 H Pulse Oximetry 86 L Oxygen Delivery Oxygen Flow Rate Fraction of Inspired Oxygen 01/13/24 13:50 01/13/24 13:08 01/13/24 13:45 Temperature Pulse Rate 116 H 116 H Respiratory Rate 16 Blood Pressure Pulse Oximetry 72 L 100 Oxygen Delivery Non-Rebreather Mask Mechanical Ventilation Oxygen Flow Rate 15 Fraction of Inspired Oxygen 100 01/13/24 14:05 01/13/24 14:20 01/13/24 14:50 Temperature Pulse Rate 109 H 116 H 110 H Respiratory Rate 16 16 Blood Pressure Pulse Oximetry 100 Oxygen Delivery Mechanical Ventilation Oxygen Flow Rate Fraction of Inspired Oxygen 100 01/13/24 14:05 01/13/24 14:20 01/13/24 14:35 Temperature Pulse Rate 116 H 110 H 104 H Respiratory Rate 16 16 16 Blood Pressure Pulse Oximetry Oxygen Delivery Oxygen Flow Rate Fraction of Inspired Oxygen 01/13/24 13:45 01/13/24 15:20 01/13/24 15:50 Temperature Pulse Rate 114 H 119 H 115 H Respiratory Rate 20 16 16 Blood Pressure 103/63 Pulse Oximetry 97 Oxygen Delivery Oxygen Flow Rate Fraction of Inspired Oxygen 01/13/24 14:50 01/13/24 15:05 01/13/24 14:00 Temperature Pulse Rate 119 H 114 H 113 H Respiratory Rate 16 16 16 Blood Pressure 144/74 H Pulse Oximetry 100 Oxygen Delivery Oxygen Flow Rate Fraction of Inspired Oxygen 01/13/24 14:30 01/13/24 14:45 01/13/24 15:00 Temperature 34.4 C L 34.6 C L 34.9 C L Pulse Rate 105 H 105 H 105 H Respiratory Rate 16 17 16 Blood Pressure 135/84 132/87 129/76 Pulse Oximetry 100 100 100 Oxygen Delivery Oxygen Flow Rate Fraction of Inspired Oxygen 01/13/24 16:13 01/13/24 16:17 01/13/24 15:20 Temperature 35.7 C L Pulse Rate 115 H 115 H 122 H Respiratory Rate 16 16 Blood Pressure 113/72 Pulse Oximetry 100 100 Oxygen Delivery Mechanical Ventilation Oxygen Flow Rate Fraction of Inspired Oxygen 60 01/13/24 16:20 01/13/24 16:20 01/13/24 16:20 Temperature Pulse Rate 119 H 120 H 120 H Respiratory Rate 16 16 16 Blood Pressure Pulse Oximetry Oxygen Delivery Oxygen Flow Rate Fraction of Inspired Oxygen 01/13/24 16:20 01/13/24 16:28 01/13/24 16:30 Temperature 35.7 C L 35.7 C L 35.7 C L Pulse Rate 119 H 117 H 117 H Respiratory Rate 20 16 17 Blood Pressure 116/67 Pulse Oximetry 100 100 Oxygen Delivery Oxygen Flow Rate Fraction of Inspired Oxygen 01/13/24 16:31 01/13/24 16:30 01/13/24 17:10 Temperature 35.7 C L Pulse Rate 117 H 120 H Respiratory Rate 18 Blood Pressure 108/64 Pulse Oximetry 100 100 93 Oxygen Delivery Mechanical Ventilation Mechanical Ventilation Oxygen Flow Rate Fraction of Inspired Oxygen 60 60 01/13/24 18:00 01/13/24 18:00 01/13/24 18:06 Temperature 36.4 C L Pulse Rate 115 H 115 H Respiratory Rate 22 H Blood Pressure 72/58 L Pulse Oximetry 91 92 Oxygen Delivery Mechanical Ventilation Oxygen Flow Rate Fraction of Inspired Oxygen 60 01/13/24 18:06 01/13/24 17:45 01/13/24 18:15 Temperature 36.2 C L 36.6 C Pulse Rate 116 H 115 H Respiratory Rate 22 H 22 H Blood Pressure 83/59 L 80/61 L Pulse Oximetry 96 94 Oxygen Delivery Oxygen Flow Rate Fraction of Inspired Oxygen 60 01/13/24 18:30 01/13/24 19:34 01/13/24 19:35 Temperature 36.7 C 37.1 C Pulse Rate 114 H 117 H 117 H Respiratory Rate 22 H 22 H Blood Pressure 85/51 L 74/54 L 74/54 L Pulse Oximetry 92 92 Oxygen Delivery Oxygen Flow Rate Fraction of Inspired Oxygen 01/13/24 19:40 01/13/24 19:46 01/13/24 19:46 Temperature 37.1 C 37.2 C Pulse Rate 116 H 116 H 115 H Respiratory Rate 22 H 22 H Blood Pressure 81/60 L 75/62 L 75/62 L Pulse Oximetry 93 92 Oxygen Delivery Oxygen Flow Rate Fraction of Inspired Oxygen 01/13/24 19:50 01/13/24 19:58 01/13/24 19:56 Temperature Pulse Rate 116 H 117 H 116 H Respiratory Rate 22 H 22 H Blood Pressure 72/62 L Pulse Oximetry Oxygen Delivery Oxygen Flow Rate Fraction of Inspired Oxygen 01/13/24 20:54 01/13/24 21:01 01/13/24 20:00 Temperature 37.3 C Pulse Rate 110 H 113 H Respiratory Rate 22 H Blood Pressure 85/56 L 94/65 L Pulse Oximetry 90 Oxygen Delivery Oxygen Flow Rate Fraction of Inspired Oxygen 60 01/13/24 20:00 01/13/24 20:00 01/13/24 21:14 Temperature Pulse Rate 112 H 115 H 111 H Respiratory Rate 22 H 16 Blood Pressure 88/58 L Pulse Oximetry Oxygen Delivery Oxygen Flow Rate Fraction of Inspired Oxygen 01/13/24 21:15 01/13/24 20:00 01/13/24 21:24 Temperature 37.8 C H 37.9 C H Pulse Rate 110 H 110 H 110 H Respiratory Rate 22 H 22 H 22 H Blood Pressure 83/67 L 82/68 L Pulse Oximetry 94 94 94 Oxygen Delivery Mechanical Ventilation Oxygen Flow Rate Fraction of Inspired Oxygen 60 01/13/24 21:25 01/13/24 21:26 01/13/24 21:34 Temperature 38.0 C H Pulse Rate 110 H 110 H 112 H Respiratory Rate 22 H 22 H Blood Pressure 82/68 L 95/62 L Pulse Oximetry 92 Oxygen Delivery Oxygen Flow Rate Fraction of Inspired Oxygen 01/13/24 21:39 01/13/24 21:39 01/13/24 21:40 Temperature 38.0 C H Pulse Rate 110 H 109 H 111 H Respiratory Rate 26 H 22 H 22 H Blood Pressure 85/55 L Pulse Oximetry 90 Oxygen Delivery Oxygen Flow Rate Fraction of Inspired Oxygen 01/13/24 21:41 01/13/24 21:42 01/13/24 20:15 Temperature 37.3 C Pulse Rate 109 H 110 H Respiratory Rate 22 H Blood Pressure 85/55 L 88/68 L Pulse Oximetry 96 Oxygen Delivery Oxygen Flow Rate Fraction of Inspired Oxygen 70 01/13/24 20:30 01/13/24 20:45 01/13/24 21:09 Temperature 37.3 C 37.4 C 37.7 C H Pulse Rate 111 H 114 H 112 H Respiratory Rate 22 H 22 H 22 H Blood Pressure 83/70 L 93/71 L 85/56 L Pulse Oximetry 99 98 99 Oxygen Delivery Oxygen Flow Rate Fraction of Inspired Oxygen 01/13/24 21:08 01/13/24 22:00 01/13/24 22:12 Temperature 38.1 C H Pulse Rate 111 H 106 H 107 H Respiratory Rate 22 H 22 H Blood Pressure 83/62 L Pulse Oximetry 96 95 Oxygen Delivery Mechanical Ventilation Oxygen Flow Rate Fraction of Inspired Oxygen 60 01/13/24 22:00 01/13/24 21:45 01/13/24 22:16 Temperature Pulse Rate 107 H 107 H 106 H Respiratory Rate 22 H Blood Pressure 79/57 L 84/66 L Pulse Oximetry Oxygen Delivery Oxygen Flow Rate Fraction of Inspired Oxygen 01/13/24 22:16 01/13/24 20:00 01/13/24 22:33 Temperature 38.1 C H Pulse Rate 106 H 112 H 106 H Respiratory Rate 22 H Blood Pressure 84/66 L 85/62 L Pulse Oximetry 95 Oxygen Delivery Oxygen Flow Rate Fraction of Inspired Oxygen 01/13/24 22:32 01/13/24 22:00 01/13/24 22:45 Temperature 38.2 C H 38.2 C H Pulse Rate 106 H 106 H 104 H Respiratory Rate 22 H 22 H Blood Pressure 85/62 L 75/50 L Pulse Oximetry 95 95 Oxygen Delivery Oxygen Flow Rate Fraction of Inspired Oxygen 01/13/24 22:46 01/13/24 22:47 01/13/24 22:54 Temperature 38.2 C H Pulse Rate 105 H 104 H 104 H Respiratory Rate 22 H 22 H Blood Pressure 75/50 L 79/60 L Pulse Oximetry 95 Oxygen Delivery Oxygen Flow Rate Fraction of Inspired Oxygen 01/13/24 22:55 01/13/24 22:56 01/13/24 23:00 Temperature 38.3 C H Pulse Rate 104 H 105 H 104 H Respiratory Rate 24 H Blood Pressure 79/60 L 79/60 L 79/65 L Pulse Oximetry 97 Oxygen Delivery Oxygen Flow Rate Fraction of Inspired Oxygen 01/13/24 23:09 01/13/24 23:09 01/13/24 23:10 Temperature 38.3 C H Pulse Rate 103 H 104 H 104 H Respiratory Rate 24 H 24 H Blood Pressure 80/67 L 80/67 L Pulse Oximetry 97 Oxygen Delivery Oxygen Flow Rate Fraction of Inspired Oxygen 01/13/24 23:14 01/13/24 23:15 01/13/24 23:22 Temperature 38.3 C H Pulse Rate 105 H 104 H 103 H Respiratory Rate 25 H 25 H Blood Pressure 83/60 L 83/60 L Pulse Oximetry 96 Oxygen Delivery Oxygen Flow Rate Fraction of Inspired Oxygen 01/13/24 23:31 01/13/24 23:30 01/13/24 23:08 Temperature 38.4 C H 38.4 C H Pulse Rate 103 H 121 H Respiratory Rate 24 H Blood Pressure 91/64 L Pulse Oximetry 98 96 Oxygen Delivery Mechanical Ventilation Oxygen Flow Rate Fraction of Inspired Oxygen 70 01/13/24 23:50 01/13/24 23:56 01/14/24 00:00 Temperature 38.4 C H Pulse Rate 103 H 103 H Respiratory Rate 24 H 24 H Blood Pressure 81/66 L Pulse Oximetry 98 97 Oxygen Delivery Mechanical Ventilation Oxygen Flow Rate Fraction of Inspired Oxygen 70 70 01/14/24 00:00 01/14/24 00:00 01/14/24 00:00 Temperature Pulse Rate 103 H 102 H 102 H Respiratory Rate 24 H Blood Pressure 81/66 L 81/66 L Pulse Oximetry Oxygen Delivery Oxygen Flow Rate Fraction of Inspired Oxygen 01/14/24 00:00 01/14/24 00:00 01/14/24 00:15 Temperature 38.5 C H Pulse Rate 102 H 102 H 102 H Respiratory Rate 24 H 24 H 24 H Blood Pressure 86/60 L Pulse Oximetry 97 Oxygen Delivery Oxygen Flow Rate Fraction of Inspired Oxygen 01/14/24 00:00 01/14/24 00:45 01/14/24 01:00 Temperature 38.6 C H 38.7 C H Pulse Rate 102 H 102 H 102 H Respiratory Rate 24 H 24 H Blood Pressure 91/62 L 92/70 L Pulse Oximetry 98 99 Oxygen Delivery Oxygen Flow Rate Fraction of Inspired Oxygen 01/14/24 00:36 01/14/24 00:31 01/14/24 01:15 Temperature 38.6 C H 38.7 C H Pulse Rate 102 H 100 Respiratory Rate 24 H 24 H Blood Pressure 93/73 L Pulse Oximetry 99 Oxygen Delivery Oxygen Flow Rate Fraction of Inspired Oxygen 01/14/24 01:32 01/14/24 01:30 01/14/24 02:00 Temperature 38.8 C H Pulse Rate 101 H 100 101 H Respiratory Rate 24 H Blood Pressure 100/73 100/73 Pulse Oximetry 99 Oxygen Delivery Oxygen Flow Rate Fraction of Inspired Oxygen 01/14/24 02:00 01/14/24 02:00 01/14/24 02:00 Temperature 38.9 C H Pulse Rate 102 H 102 H 102 H Respiratory Rate 24 H 24 H 24 H Blood Pressure 108/84 Pulse Oximetry 100 Oxygen Delivery Oxygen Flow Rate Fraction of Inspired Oxygen 01/14/24 02:00 01/14/24 02:00 01/14/24 01:54 Temperature Pulse Rate 102 H 102 H 101 H Respiratory Rate 24 H Blood Pressure 108/84 Pulse Oximetry 98 Oxygen Delivery Mechanical Ventilation Oxygen Flow Rate Fraction of Inspired Oxygen 70 01/14/24 02:01 01/14/24 02:02 01/14/24 02:32 Temperature 39.0 C H Pulse Rate 102 H 101 H 100 Respiratory Rate 24 H Blood Pressure 108/84 108/84 97/73 L Pulse Oximetry 100 Oxygen Delivery Oxygen Flow Rate Fraction of Inspired Oxygen 01/14/24 02:38 01/14/24 03:15 01/14/24 03:22 Temperature 39.1 C H Pulse Rate 104 H 98 98 Respiratory Rate 26 H 24 H Blood Pressure 105/74 105/74 Pulse Oximetry 100 Oxygen Delivery Oxygen Flow Rate Fraction of Inspired Oxygen 01/14/24 03:30 01/14/24 03:45 01/14/24 03:00 Temperature 39.1 C H 39.1 C H 39.1 C H Pulse Rate 99 98 99 Respiratory Rate 24 H 24 H 24 H Blood Pressure 99/72 L 99/75 L 97/83 L Pulse Oximetry 99 98 100 Oxygen Delivery Oxygen Flow Rate Fraction of Inspired Oxygen 01/14/24 03:25 01/14/24 03:56 01/14/24 04:00 Temperature 39.1 C H Pulse Rate 99 Respiratory Rate 24 H Blood Pressure Pulse Oximetry Oxygen Delivery Oxygen Flow Rate Fraction of Inspired Oxygen 70 01/14/24 04:00 01/14/24 04:00 01/14/24 04:00 Temperature 39.0 C H Pulse Rate 97 96 96 Respiratory Rate 24 H 24 H Blood Pressure 97/86 L 97/86 L Pulse Oximetry 98 Oxygen Delivery Oxygen Flow Rate Fraction of Inspired Oxygen 01/14/24 04:02 01/14/24 04:00 01/14/24 04:00 Temperature Pulse Rate 97 97 96 Respiratory Rate 24 H 24 H Blood Pressure 97/86 L Pulse Oximetry Oxygen Delivery Oxygen Flow Rate Fraction of Inspired Oxygen 01/14/24 04:58 01/14/24 04:56 01/14/24 05:27 Temperature 38.8 C H Pulse Rate 94 95 Respiratory Rate Blood Pressure 114/76 Pulse Oximetry 100 Oxygen Delivery Mechanical Ventilation Oxygen Flow Rate Fraction of Inspired Oxygen 70 01/14/24 05:28 01/14/24 05:28 01/14/24 05:27 Temperature 38.8 C H Pulse Rate 94 94 92 Respiratory Rate 24 H 24 H 24 H Blood Pressure 114/76 Pulse Oximetry 100 Oxygen Delivery Oxygen Flow Rate Fraction of Inspired Oxygen 01/14/24 04:45 01/14/24 05:30 01/14/24 04:00 Temperature 38.8 C H Pulse Rate 91 91 95 Respiratory Rate 24 H 24 H Blood Pressure 107/48 L Pulse Oximetry 100 100 Oxygen Delivery Mechanical Ventilation Oxygen Flow Rate Fraction of Inspired Oxygen 70 01/14/24 05:48 01/14/24 05:45 01/14/24 06:00 Temperature 38.7 C H 38.7 C H Pulse Rate 92 92 91 Respiratory Rate 24 H 24 H Blood Pressure 112/72 112/72 120/76 Pulse Oximetry 98 100 Oxygen Delivery Oxygen Flow Rate Fraction of Inspired Oxygen 01/14/24 06:00 01/14/24 06:00 01/14/24 06:00 Temperature Pulse Rate 90 90 94 Respiratory Rate 24 H 24 H Blood Pressure 120/76 Pulse Oximetry Oxygen Delivery Oxygen Flow Rate Fraction of Inspired Oxygen 01/14/24 06:00 01/14/24 06:00 01/14/24 06:05 Temperature 38.7 C H Pulse Rate 94 94 89 Respiratory Rate 24 H 24 H Blood Pressure 120/76 107/75 Pulse Oximetry 99 Oxygen Delivery Oxygen Flow Rate Fraction of Inspired Oxygen 01/14/24 06:00 01/14/24 06:16 01/14/24 06:15 Temperature 38.7 C H Pulse Rate 89 83 92 Respiratory Rate 24 H Blood Pressure 107/77 107/77 Pulse Oximetry 100 Oxygen Delivery Oxygen Flow Rate Fraction of Inspired Oxygen 01/14/24 06:30 01/14/24 06:30 01/14/24 06:48 Temperature 38.7 C H Pulse Rate 89 89 88 Respiratory Rate 24 H Blood Pressure 113/75 113/75 108/77 Pulse Oximetry 100 Oxygen Delivery Oxygen Flow Rate Fraction of Inspired Oxygen 01/14/24 06:45 01/14/24 07:01 01/14/24 07:30 Temperature 38.7 C H 38.7 C H Pulse Rate 90 89 87 Respiratory Rate 24 H 24 H Blood Pressure 108/77 101/74 95/57 L Pulse Oximetry 100 100 Oxygen Delivery Oxygen Flow Rate Fraction of Inspired Oxygen 01/14/24 07:30 01/14/24 07:43 01/14/24 08:00 Temperature 38.5 C H Pulse Rate 87 88 88 Respiratory Rate 24 H 24 H Blood Pressure 95/57 L 114/73 Pulse Oximetry 97 Oxygen Delivery Oxygen Flow Rate Fraction of Inspired Oxygen 01/14/24 08:00 01/14/24 08:00 01/14/24 08:22 Temperature Pulse Rate 86 86 86 Respiratory Rate 24 H 24 H Blood Pressure 113/77 Pulse Oximetry Oxygen Delivery Oxygen Flow Rate Fraction of Inspired Oxygen 01/14/24 07:47 01/14/24 09:15 01/14/24 09:42 Temperature Pulse Rate 85 82 78 Respiratory Rate Blood Pressure 129/82 130/68 Pulse Oximetry 100 Oxygen Delivery Mechanical Ventilation Oxygen Flow Rate Fraction of Inspired Oxygen 70 01/14/24 09:46 01/14/24 09:46 01/14/24 10:00 Temperature Pulse Rate 83 83 76 Respiratory Rate 24 H 24 H Blood Pressure 139/81 Pulse Oximetry Oxygen Delivery Oxygen Flow Rate Fraction of Inspired Oxygen 01/14/24 10:00 01/14/24 10:00 01/14/24 08:00 Temperature Pulse Rate 76 76 86 Respiratory Rate 24 H 24 H 24 H Blood Pressure Pulse Oximetry Oxygen Delivery Oxygen Flow Rate Fraction of Inspired Oxygen 01/14/24 08:00 01/14/24 10:00 01/14/24 10:00 Temperature Pulse Rate 86 76 76 Respiratory Rate 24 H Blood Pressure 113/77 139/81 Pulse Oximetry Oxygen Delivery Oxygen Flow Rate Fraction of Inspired Oxygen 01/14/24 08:00 01/14/24 10:00 01/14/24 11:15 Temperature 37.6 C H Pulse Rate 76 75 Respiratory Rate 24 H Blood Pressure 132/71 Pulse Oximetry 98 96 Oxygen Delivery Mechanical Ventilation Oxygen Flow Rate Fraction of Inspired Oxygen 70 60 01/14/24 11:15 01/14/24 11:20 01/14/24 11:30 Temperature Pulse Rate 74 75 75 Respiratory Rate Blood Pressure 145/83 H 141/82 H 140/80 Pulse Oximetry Oxygen Delivery Oxygen Flow Rate Fraction of Inspired Oxygen Exam Narrative: At present in the ICU intubated sedated no spontaneous or obvious movements normocephalic neck supple heart regular lungs coarse breath sounds, abdomen is soft, neurologically unresponsive no spontaneous movements and no movements on sternal rub flexes absence plantar responses neutral Results Labs 01/14/24 04:08 01/14/24 04:08 Labs: Short CBC 01/13/24 01/14/24 Range/Units 15:12 04:08 WBC 6.8 8.1 (4.5-10.0) K/mm3 Hgb 18.8 H 14.5 D (14.0-18.0) g/dL Hct 57.8 H 43.3 (42.0-52.0) % Plt Count 165 151 (150-375) k/mm3 BMP 01/13/24 01/14/24 15:12 04:08 Sodium 142 135 L Potassium 4.0 5.8 H Chloride 100 109 H Carbon Dioxide 25 21 L BUN 24 H 21 H Creatinine 1.30 1.10 Glucose 115 H 121 H Calcium 8.5 6.8 L Cardiac Enzymes 01/13/24 01/13/24 01/14/24 Range/Units 15:12 21:33 04:08 Total Creatine Kinase 1327 H 3025 H (55-170) U/L Troponin I 0.020 (0.000-0.034) ng/mL Liver Function 01/13/24 01/14/24 Range/Units 15:12 04:08 Total Bilirubin 1.0 0.9 (0.2-1.3) mg/dL AST 59 75 H (17-59) U/L ALT 32 26 (6-50) U/L Alkaline Phosphatase 106 60 (38-126) U/L Albumin 4.8 2.7 L (3.5-5.1) g/dL Urine 01/13/24 Range/Units 14:46 Urine Color Yellow (Yellow) Urine Appearance Cloudy H (Clear) Urine pH 5.0 (5.0-9.0) Ur Specific [place] 1.017 (1.001-1.035) Urine Protein 2+ H (Negative) mg/dL Urine Glucose (UA) Negative (Negative) mg/dL
--- NOTE | 2024-01-14 12:15 | WPDCNINT ---
Assessment and Plan Assessment and plan (1) Acute respiratory failure with hypoxia and hypercapnia: Code(s): J96.01 - Acute respiratory failure with hypoxia; J96.02 - Acute respiratory failure with hypercapnia Status: Acute Assessment and Plan: acute respiratory failure secondary to encephalopathy and aspiration pneumonia CT chest confirmed diffuse lung disease consistent with pneumonia ABG and ventilator settings reviewed wean FiO2 low tidal volume ventilation (2) Aspiration pneumonia: Qualifiers: Aspiration pneumonia type: unspecified Laterality: bilateral Lung location: unspecified part of lung Qualified Code(s): J69.0 - Pneumonitis due to inhalation of food and vomit Code(s): J69.0 - Pneumonitis due to inhalation of food and vomit Status: Acute Assessment and Plan: blood and sputum culture sent empiric vanc and Zosyn. Will discontinue azithromycin. Will deescalate antibiotics further depending on culture results (3) Polysubstance (including opioids) dependence with physiological dependence: Code(s): F19.20 - Other psychoactive substance dependence, uncomplicated Status: Acute Assessment and Plan: patient will be counseled once extubated (4) Encephalopathy: Code(s): G93.40 - Encephalopathy, unspecified Status: Acute Assessment and Plan: Patient when brought in was encephalopathy this could be either postictal from seizures or overdose from opioid. head CT currently sedated and and intubated. Check TSH and ammonia level (5) Septic shock: Code(s): A41.9 - Sepsis, unspecified organism; R65.21 - Severe sepsis with septic shock Status: Acute Assessment and Plan: septic shock secondary to aspiration pneumonia continue but decrease further IV fluids at continue Levophed and vasopressin continue hydrocortisone stress dose (6) Chronic alcoholism: Code(s): F10.20 - Alcohol dependence, uncomplicated Status: Acute Assessment and Plan: thiamine and folic acid or (7) Rhabdomyolysis: Qualifiers: Rhabdomyolysis type: non-traumatic Qualified Code(s): M62.82 - Rhabdomyolysis Code(s): M62.82 - Rhabdomyolysis Status: Acute Assessment and Plan: could be secondary to seizures or from laying on the floor for prolonged period of time. change IV fluids to bicarb continued low rate Monitor CK level (8) Acidosis: Code(s): E87.20 - Acidosis, unspecified Status: Acute Assessment and Plan: per tube by carbon IV fluids with bicarb ordered. (9) Electrolyte abnormality: Code(s): E87.8 - Other disorders of electrolyte and fluid balance, not elsewhere classified Status: Acute Assessment and Plan: Look ill monitor for elevated potassium including bicarb calcium replacement ordered repeat BMP ordered Plan DVT prophylaxis - Lovenox Stress ulcer prophylaxis - PPI Nutrition - start Tube Feeds Code Status - Full Code I spoke to and updated patient's mother at bedside and answered all questions . Total Critical Care Time - 35 minutes Due to a high probability of clinically significant, life threatening deterioration, the patient required my highest level of preparedness to intervene emergently and I personally spent this critical care time directly and personally managing the patient. This critical care time included obtaining a history; examining the patient; pulse oximetry; ordering and review of studies; arranging urgent treatment with development of a management plan; evaluation of patient's response to treatment; frequent reassessment; and discussions with other providers. It was exclusive of separately billable procedures and treating other patients and teaching time. Please see Assessment and Plan section and the rest of the note for further information on patient assessment and treatment [facility] Therapist'S Assistant Consult Note Consult date: 01/14/24 Reason for consult: acute respiratory failure, sepsis, altered mental status HPI: Aiden Esposito Jr. is a 48 year old male with past medical history of polysubstance abuse was found unresponsive in a hotel room. Patient was staying in hotel with his family he has history of seizure disorder and abuse of alcohol opioids and other drugs. He was lying down with his face in vomitus. EMS arrived and found him a agonal breathing but was unable to intubate him. They bag ventilated him with nasal trumpet and brought him to the ER. Significant amount of secretion was suctioned out of his oral airway. A bottle of liquor was found at his side. He was intubated in the ER. He was given IV fluids and admitted to ICU in the ICU patient became hypotensive and was started on vasopressors. IJ central venous catheter was placed. At this time patient is on fentanyl worsened propofol for sedation and on Levophed and vasopressin for blood pressure support. He is on 60% FiO2 8 of PEEP Review of Systems Review of Systems: ROS unobtainable: Yes unobtainable due to endotracheal tube, unobtainable due to medical condition and unobtainable due to mental status PMF Past Medical History Medical History Bipolar disorder Folic acid deficiency Paranoid schizophrenia Seizure disorder Surgical History Surgical History Dental root implant present Family History Family History Father Acute myocardial infarction S/P CABG x 5, Onset Age: 64 Mother Paroxysmal A-fib, Onset Age: 69 Sibling Muscular dystrophy Social History Social History Social History: The patient lives in his own home. He receives home health assistant program manager through [facility] and his mother is his home health aide. Patient has 2 sons ages 22 and age 15. The patient's mother is raising the patient's 15-year-old son. The patient has smoked 1 pack of cigarettes per day since he was a teenager. He has history of chronic opiate dependence. He uses marijuana. He started drinking heavily in mid 2021. Smoking packs per day: 1 Smoking cigarettes per day: 20.0 Years smoked: 30 Smoking pack-years: 30.00 Smoking status: Current every day smoker Alcohol intake: current Do You Feel Safe in your Home?: Yes Lack of Transportation: No Lack of Food: Never True Current Housing: I Have Housing Concerned About Future Housing: No Difficulty Paying Gas/Electric Bills: No Difficulty Paying for Meds: No Currently Unemployed: No Education: Don't Know Difficulty w/ Childcare or Family Care: No Spiritual care concerns: No Meds Home Medications and Allergies Home Medications Medication Instructions Recorded Confirmed Type hydrocodone 10 mg-acetaminophen 1 tablet PO Q6H PRN pain (scale 10/10/20 01/13/24 Rx 325 mg tablet score 7-10) #56 tabs alprazolam 1 mg tablet 1.5 mg PO QID PRN anxiety #42 tabs 10/30/20 01/13/24 Rx levetiracetam 1,000 mg tablet 1,000 mg PO Q12H 01/13/24 01/13/24 History Allergies Allergy/AdvReac Type Severity Reaction Status Date / Time amitriptyline Allergy Mild unknown Verified 12/21/20 14:35 ranitidine AdvReac Unknown BLURRED Verified 10/21/21 14:35 VISION zolpidem [From Ambien] AdvReac Confusion Verified 01/13/24 18:16 Vital Signs Vital Signs - 24 hr 01/13/24 13:09 01/13/24 13:10 01/13/24 13:22 Temperature Pulse Rate 113 H Respiratory Rate 25 H Blood Pressure 130/109 H Pulse Oximetry 59 L 88 L 72 L Oxygen Delivery Room Air Non-Rebreather Mask Non-Rebreather Mask Oxygen Flow Rate 15 15 Fraction of Inspired Oxygen 01/13/24 13:23 01/13/24 13:26 01/13/24 13:30 Temperature Pulse Rate 110 H 110 H Respiratory Rate 33 H 23 H Blood Pressure Pulse Oximetry 91 95 Oxygen Delivery Bag Valve Mask Oxygen Flow Rate Fraction of Inspired Oxygen 01/13/24 13:33 01/13/24 13:08 01/13/24 13:49 Temperature Pulse Rate 112 H 111 H 116 H Respiratory Rate 27 H 16 Blood Pressure 137/119 H Pulse Oximetry 86 L Oxygen Delivery Oxygen Flow Rate Fraction of Inspired Oxygen 01/13/24 13:50 01/13/24 13:08 01/13/24 13:45 Temperature Pulse Rate 116 H 116 H Respiratory Rate 16 Blood Pressure Pulse Oximetry 72 L 100 Oxygen Delivery Non-Rebreather Mask Mechanical Ventilation Oxygen Flow Rate 15 Fraction of Inspired Oxygen 100 01/13/24 14:05 01/13/24 14:20 01/13/24 14:50 Temperature Pulse Rate 109 H 116 H 110 H Respiratory Rate 16 16 Blood Pressure Pulse Oximetry 100 Oxygen Delivery Mechanical Ventilation Oxygen Flow Rate Fraction of Inspired Oxygen 100 01/13/24 14:05 01/13/24 14:20 01/13/24 14:35 Temperature Pulse Rate 116 H 110 H 104 H Respiratory Rate 16 16 16 Blood Pressure Pulse Oximetry Oxygen Delivery Oxygen Flow Rate Fraction of Inspired Oxygen 01/13/24 13:45 01/13/24 15:20 01/13/24 15:50 Temperature Pulse Rate 114 H 119 H 115 H Respiratory Rate 20 16 16 Blood Pressure 103/63 Pulse Oximetry 97 Oxygen Delivery Oxygen Flow Rate Fraction of Inspired Oxygen 01/13/24 14:50 01/13/24 15:05 01/13/24 14:00 Temperature Pulse Rate 119 H 114 H 113 H Respiratory Rate 16 16 16 Blood Pressure 144/74 H Pulse Oximetry 100 Oxygen Delivery Oxygen Flow Rate Fraction of Inspired Oxygen 01/13/24 14:30 01/13/24 14:45 01/13/24 15:00 Temperature 34.4 C L 34.6 C L 34.9 C L Pulse Rate 105 H 105 H 105 H Respiratory Rate 16 17 16 Blood Pressure 135/84 132/87 129/76 Pulse Oximetry 100 100 100 Oxygen Delivery Oxygen Flow Rate Fraction of Inspired Oxygen 01/13/24 16:13 01/13/24 16:17 01/13/24 15:20 Temperature 35.7 C L Pulse Rate 115 H 115 H 122 H Respiratory Rate 16 16 Blood Pressure 113/72 Pulse Oximetry 100 100 Oxygen Delivery Mechanical Ventilation Oxygen Flow Rate Fraction of Inspired Oxygen 60 01/13/24 16:20 01/13/24 16:20 01/13/24 16:20 Temperature Pulse Rate 119 H 120 H 120 H Respiratory Rate 16 16 16 Blood Pressure Pulse Oximetry Oxygen Delivery Oxygen Flow Rate Fraction of Inspired Oxygen 01/13/24 16:20 01/13/24 16:28 01/13/24 16:30 Temperature 35.7 C L 35.7 C L 35.7 C L Pulse Rate 119 H 117 H 117 H Respiratory Rate 20 16 17 Blood Pressure 116/67 Pulse Oximetry 100 100 Oxygen Delivery Oxygen Flow Rate Fraction of Inspired Oxygen 01/13/24 16:31 01/13/24 16:30 01/13/24 17:10 Temperature 35.7 C L Pulse Rate 117 H 120 H Respiratory Rate 18 Blood Pressure 108/64 Pulse Oximetry 100 100 93 Oxygen Delivery Mechanical Ventilation Mechanical Ventilation Oxygen Flow Rate Fraction of Inspired Oxygen 60 60 01/13/24 18:00 01/13/24 18:00 01/13/24 18:06 Temperature 36.4 C L Pulse Rate 115 H 115 H Respiratory Rate 22 H Blood Pressure 72/58 L Pulse Oximetry 91 92 Oxygen Delivery Mechanical Ventilation Oxygen Flow Rate Fraction of Inspired Oxygen 60 01/13/24 18:06 01/13/24 17:45 01/13/24 18:15 Temperature 36.2 C L 36.6 C Pulse Rate 116 H 115 H Respiratory Rate 22 H 22 H Blood Pressure 83/59 L 80/61 L Pulse Oximetry 96 94 Oxygen Delivery Oxygen Flow Rate Fraction of Inspired Oxygen 60 01/13/24 18:30 01/13/24 19:34 01/13/24 19:35 Temperature 36.7 C 37.1 C Pulse Rate 114 H 117 H 117 H Respiratory Rate 22 H 22 H Blood Pressure 85/51 L 74/54 L 74/54 L Pulse Oximetry 92 92 Oxygen Delivery Oxygen Flow Rate Fraction of Inspired Oxygen 01/13/24 19:40 01/13/24 19:46 01/13/24 19:46 Temperature 37.1 C 37.2 C Pulse Rate 116 H 116 H 115 H Respiratory Rate 22 H 22 H Blood Pressure 81/60 L 75/62 L 75/62 L Pulse Oximetry 93 92 Oxygen Delivery Oxygen Flow Rate Fraction of Inspired Oxygen 01/13/24 19:50 01/13/24 19:58 01/13/24 19:56 Temperature Pulse Rate 116 H 117 H 116 H Respiratory Rate 22 H 22 H Blood Pressure 72/62 L Pulse Oximetry Oxygen Delivery Oxygen Flow Rate Fraction of Inspired Oxygen 01/13/24 20:54 01/13/24 21:01 01/13/24 20:00 Temperature 37.3 C Pulse Rate 110 H 113 H Respiratory Rate 22 H Blood Pressure 85/56 L 94/65 L Pulse Oximetry 90 Oxygen Delivery Oxygen Flow Rate Fraction of Inspired Oxygen 60 01/13/24 20:00 01/13/24 20:00 01/13/24 21:14 Temperature Pulse Rate 112 H 115 H 111 H Respiratory Rate 22 H 16 Blood Pressure 88/58 L Pulse Oximetry Oxygen Delivery Oxygen Flow Rate Fraction of Inspired Oxygen 01/13/24 21:15 01/13/24 20:00 01/13/24 21:24 Temperature 37.8 C H 37.9 C H Pulse Rate 110 H 110 H 110 H Respiratory Rate 22 H 22 H 22 H Blood Pressure 83/67 L 82/68 L Pulse Oximetry 94 94 94 Oxygen Delivery Mechanical Ventilation Oxygen Flow Rate Fraction of Inspired Oxygen 60 01/13/24 21:25 01/13/24 21:26 01/13/24 21:34 Temperature 38.0 C H Pulse Rate 110 H 110 H 112 H Respiratory Rate 22 H 22 H Blood Pressure 82/68 L 95/62 L Pulse Oximetry 92 Oxygen Delivery Oxygen Flow Rate Fraction of Inspired Oxygen 01/13/24 21:39 01/13/24 21:39 01/13/24 21:40 Temperature 38.0 C H Pulse Rate 110 H 109 H 111 H Respiratory Rate 26 H 22 H 22 H Blood Pressure 85/55 L Pulse Oximetry 90 Oxygen Delivery Oxygen Flow Rate Fraction of Inspired Oxygen 01/13/24 21:41 01/13/24 21:42 01/13/24 20:15 Temperature 37.3 C Pulse Rate 109 H 110 H Respiratory Rate 22 H Blood Pressure 85/55 L 88/68 L Pulse Oximetry 96 Oxygen Delivery Oxygen Flow Rate Fraction of Inspired Oxygen 70 01/13/24 20:30 01/13/24 20:45 01/13/24 21:09 Temperature 37.3 C 37.4 C 37.7 C H Pulse Rate 111 H 114 H 112 H Respiratory Rate 22 H 22 H 22 H Blood Pressure 83/70 L 93/71 L 85/56 L Pulse Oximetry 99 98 99 Oxygen Delivery Oxygen Flow Rate Fraction of Inspired Oxygen 01/13/24 21:08 01/13/24 22:00 01/13/24 22:12 Temperature 38.1 C H Pulse Rate 111 H 106 H 107 H Respiratory Rate 22 H 22 H Blood Pressure 83/62 L Pulse Oximetry 96 95 Oxygen Delivery Mechanical Ventilation Oxygen Flow Rate Fraction of Inspired Oxygen 60 01/13/24 22:00 01/13/24 21:45 01/13/24 22:16 Temperature Pulse Rate 107 H 107 H 106 H Respiratory Rate 22 H Blood Pressure 79/57 L 84/66 L Pulse Oximetry Oxygen Delivery Oxygen Flow Rate Fraction of Inspired Oxygen 01/13/24 22:16 01/13/24 20:00 01/13/24 22:33 Temperature 38.1 C H Pulse Rate 106 H 112 H 106 H Respiratory Rate 22 H Blood Pressure 84/66 L 85/62 L Pulse Oximetry 95 Oxygen Delivery Oxygen Flow Rate Fraction of Inspired Oxygen 01/13/24 22:32 01/13/24 22:00 01/13/24 22:45 Temperature 38.2 C H 38.2 C H Pulse Rate 106 H 106 H 104 H Respiratory Rate 22 H 22 H Blood Pressure 85/62 L 75/50 L Pulse Oximetry 95 95 Oxygen Delivery Oxygen Flow Rate Fraction of Inspired Oxygen 01/13/24 22:46 01/13/24 22:47 01/13/24 22:54 Temperature 38.2 C H Pulse Rate 105 H 104 H 104 H Respiratory Rate 22 H 22 H Blood Pressure 75/50 L 79/60 L Pulse Oximetry 95 Oxygen Delivery Oxygen Flow Rate Fraction of Inspired Oxygen 01/13/24 22:55 01/13/24 22:56 01/13/24 23:00 Temperature 38.3 C H Pulse Rate 104 H 105 H 104 H Respiratory Rate 24 H Blood Pressure 79/60 L 79/60 L 79/65 L Pulse Oximetry 97 Oxygen Delivery Oxygen Flow Rate Fraction of Inspired Oxygen 01/13/24 23:09 01/13/24 23:09 01/13/24 23:10 Temperature 38.3 C H Pulse Rate 103 H 104 H 104 H Respiratory Rate 24 H 24 H Blood Pressure 80/67 L 80/67 L Pulse Oximetry 97 Oxygen Delivery Oxygen Flow Rate Fraction of Inspired Oxygen 01/13/24 23:14 01/13/24 23:15 01/13/24 23:22 Temperature 38.3 C H Pulse Rate 105 H 104 H 103 H Respiratory Rate 25 H 25 H Blood Pressure 83/60 L 83/60 L Pulse Oximetry 96 Oxygen Delivery Oxygen Flow Rate Fraction of Inspired Oxygen 01/13/24 23:31 01/13/24 23:30 01/13/24 23:08 Temperature 38.4 C H 38.4 C H Pulse Rate 103 H 121 H Respiratory Rate 24 H Blood Pressure 91/64 L Pulse Oximetry 98 96 Oxygen Delivery Mechanical Ventilation Oxygen Flow Rate Fraction of Inspired Oxygen 70 01/13/24 23:50 01/13/24 23:56 01/14/24 00:00 Temperature 38.4 C H Pulse Rate 103 H 103 H Respiratory Rate 24 H 24 H Blood Pressure 81/66 L Pulse Oximetry 98 97 Oxygen Delivery Mechanical Ventilation Oxygen Flow Rate Fraction of Inspired Oxygen 70 70 01/14/24 00:00 01/14/24 00:00 01/14/24 00:00 Temperature Pulse Rate 103 H 102 H 102 H Respiratory Rate 24 H Blood Pressure 81/66 L 81/66 L Pulse Oximetry Oxygen Delivery Oxygen Flow Rate Fraction of Inspired Oxygen 01/14/24 00:00 01/14/24 00:00 01/14/24 00:15 Temperature 38.5 C H Pulse Rate 102 H 102 H 102 H Respiratory Rate 24 H 24 H 24 H Blood Pressure 86/60 L Pulse Oximetry 97 Oxygen Delivery Oxygen Flow Rate Fraction of Inspired Oxygen 01/14/24 00:00 01/14/24 00:45 01/14/24 01:00 Temperature 38.6 C H 38.7 C H Pulse Rate 102 H 102 H 102 H Respiratory Rate 24 H 24 H Blood Pressure 91/62 L 92/70 L Pulse Oximetry 98 99 Oxygen Delivery Oxygen Flow Rate Fraction of Inspired Oxygen 01/14/24 00:36 01/14/24 00:31 01/14/24 01:15 Temperature 38.6 C H 38.7 C H Pulse Rate 102 H 100 Respiratory Rate 24 H 24 H Blood Pressure 93/73 L Pulse Oximetry 99 Oxygen Delivery Oxygen Flow Rate Fraction of Inspired Oxygen 01/14/24 01:32 01/14/24 01:30 01/14/24 02:00 Temperature 38.8 C H Pulse Rate 101 H 100 101 H Respiratory Rate 24 H Blood Pressure 100/73 100/73 Pulse Oximetry 99 Oxygen Delivery Oxygen Flow Rate Fraction of Inspired Oxygen 01/14/24 02:00 01/14/24 02:00 01/14/24 02:00 Temperature 38.9 C H Pulse Rate 102 H 102 H 102 H Respiratory Rate 24 H 24 H 24 H Blood Pressure 108/84 Pulse Oximetry 100 Oxygen Delivery Oxygen Flow Rate Fraction of Inspired Oxygen 01/14/24 02:00 01/14/24 02:00 01/14/24 01:54 Temperature Pulse Rate 102 H 102 H 101 H Respiratory Rate 24 H Blood Pressure 108/84 Pulse Oximetry 98 Oxygen Delivery Mechanical Ventilation Oxygen Flow Rate Fraction of Inspired Oxygen 70 01/14/24 02:01 01/14/24 02:02 01/14/24 02:32 Temperature 39.0 C H Pulse Rate 102 H 101 H 100 Respiratory Rate 24 H Blood Pressure 108/84 108/84 97/73 L Pulse Oximetry 100 Oxygen Delivery Oxygen Flow Rate Fraction of Inspired Oxygen 01/14/24 02:38 01/14/24 03:15 01/14/24 03:22 Temperature 39.1 C H Pulse Rate 104 H 98 98 Respiratory Rate 26 H 24 H Blood Pressure 105/74 105/74 Pulse Oximetry 100 Oxygen Delivery Oxygen Flow Rate Fraction of Inspired Oxygen 01/14/24 03:30 01/14/24 03:45 01/14/24 03:00 Temperature 39.1 C H 39.1 C H 39.1 C H Pulse Rate 99 98 99 Respiratory Rate 24 H 24 H 24 H Blood Pressure 99/72 L 99/75 L 97/83 L Pulse Oximetry 99 98 100 Oxygen Delivery Oxygen Flow Rate Fraction of Inspired Oxygen 01/14/24 03:25 01/14/24 03:56 01/14/24 04:00 Temperature 39.1 C H Pulse Rate 99 Respiratory Rate 24 H Blood Pressure Pulse Oximetry Oxygen Delivery Oxygen Flow Rate Fraction of Inspired Oxygen 70 01/14/24 04:00 01/14/24 04:00 01/14/24 04:00 Temperature 39.0 C H Pulse Rate 97 96 96 Respiratory Rate 24 H 24 H Blood Pressure 97/86 L 97/86 L Pulse Oximetry 98 Oxygen Delivery Oxygen Flow Rate Fraction of Inspired Oxygen 01/14/24 04:02 01/14/24 04:00 01/14/24 04:00 Temperature Pulse Rate 97 97 96 Respiratory Rate 24 H 24 H Blood Pressure 97/86 L Pulse Oximetry Oxygen Delivery Oxygen Flow Rate Fraction of Inspired Oxygen 01/14/24 04:58 01/14/24 04:56 01/14/24 05:27 Temperature 38.8 C H Pulse Rate 94 95 Respiratory Rate Blood Pressure 114/76 Pulse Oximetry 100 Oxygen Delivery Mechanical Ventilation Oxygen Flow Rate Fraction of Inspired Oxygen 70 01/14/24 05:28 01/14/24 05:28 01/14/24 05:27 Temperature 38.8 C H Pulse Rate 94 94 92 Respiratory Rate 24 H 24 H 24 H Blood Pressure 114/76 Pulse Oximetry 100 Oxygen Delivery Oxygen Flow Rate Fraction of Inspired Oxygen 01/14/24 04:45 01/14/24 05:30 01/14/24 04:00 Temperature 38.8 C H Pulse Rate 91 91 95 Respiratory Rate 24 H 24 H Blood Pressure 107/48 L Pulse Oximetry 100 100 Oxygen Delivery Mechanical Ventilation Oxygen Flow Rate Fraction of Inspired Oxygen 70 01/14/24 05:48 01/14/24 05:45 01/14/24 06:00 Temperature 38.7 C H 38.7 C H Pulse Rate 92 92 91 Respiratory Rate 24 H 24 H Blood Pressure 112/72 112/72 120/76 Pulse Oximetry 98 100 Oxygen Delivery Oxygen Flow Rate Fraction of Inspired Oxygen 01/14/24 06:00 01/14/24 06:00 01/14/24 06:00 Temperature Pulse Rate 90 90 94 Respiratory Rate 24 H 24 H Blood Pressure 120/76 Pulse Oximetry Oxygen Delivery Oxygen Flow Rate Fraction of Inspired Oxygen 01/14/24 06:00 01/14/24 06:00 01/14/24 06:05 Temperature 38.7 C H Pulse Rate 94 94 89 Respiratory Rate 24 H 24 H Blood Pressure 120/76 107/75 Pulse Oximetry 99 Oxygen Delivery Oxygen Flow Rate Fraction of Inspired Oxygen 01/14/24 06:00 01/14/24 06:16 01/14/24 06:15 Temperature 38.7 C H Pulse Rate 89 83 92 Respiratory Rate 24 H Blood Pressure 107/77 107/77 Pulse Oximetry 100 Oxygen Delivery Oxygen Flow Rate Fraction of Inspired Oxygen 01/14/24 06:30 01/14/24 06:30 01/14/24 06:48 Temperature 38.7 C H Pulse Rate 89 89 88 Respiratory Rate 24 H Blood Pressure 113/75 113/75 108/77 Pulse Oximetry 100 Oxygen Delivery Oxygen Flow Rate Fraction of Inspired Oxygen 01/14/24 06:45 01/14/24 07:01 01/14/24 07:30 Temperature 38.7 C H 38.7 C H Pulse Rate 90 89 87 Respiratory Rate 24 H 24 H Blood Pressure 108/77 101/74 95/57 L Pulse Oximetry 100 100 Oxygen Delivery Oxygen Flow Rate Fraction of Inspired Oxygen 01/14/24 07:30 01/14/24 07:43 01/14/24 08:00 Temperature 38.5 C H Pulse Rate 87 88 88 Respiratory Rate 24 H 24 H Blood Pressure 95/57 L 114/73 Pulse Oximetry 97 Oxygen Delivery Oxygen Flow Rate Fraction of Inspired Oxygen 01/14/24 08:00 01/14/24 08:00 01/14/24 08:22 Temperature Pulse Rate 86 86 86 Respiratory Rate 24 H 24 H Blood Pressure 113/77 Pulse Oximetry Oxygen Delivery Oxygen Flow Rate Fraction of Inspired Oxygen 01/14/24 07:47 01/14/24 09:15 01/14/24 09:42 Temperature Pulse Rate 85 82 78 Respiratory Rate Blood Pressure 129/82 130/68 Pulse Oximetry 100 Oxygen Delivery Mechanical Ventilation Oxygen Flow Rate Fraction of Inspired Oxygen 70 01/14/24 09:46 01/14/24 09:46 01/14/24 10:00 Temperature Pulse Rate 83 83 76 Respiratory Rate 24 H 24 H Blood Pressure 139/81 Pulse Oximetry Oxygen Delivery Oxygen Flow Rate Fraction of Inspired Oxygen 01/14/24 10:00 01/14/24 10:00 01/14/24 08:00 Temperature Pulse Rate 76 76 86 Respiratory Rate 24 H 24 H 24 H Blood Pressure Pulse Oximetry Oxygen Delivery Oxygen Flow Rate Fraction of Inspired Oxygen 01/14/24 08:00 01/14/24 10:00 01/14/24 10:00 Temperature Pulse Rate 86 76 76 Respiratory Rate 24 H Blood Pressure 113/77 139/81 Pulse Oximetry Oxygen Delivery Oxygen Flow Rate Fraction of Inspired Oxygen 01/14/24 08:00 01/14/24 10:00 01/14/24 11:15 Temperature 37.6 C H Pulse Rate 76 75 Respiratory Rate 24 H Blood Pressure 132/71 Pulse Oximetry 98 96 Oxygen Delivery Mechanical Ventilation Oxygen Flow Rate Fraction of Inspired Oxygen 70 60 01/14/24 11:15 01/14/24 11:20 01/14/24 11:30 Temperature Pulse Rate 74 75 75 Respiratory Rate Blood Pressure 145/83 H 141/82 H 140/80 Pulse Oximetry Oxygen Delivery Oxygen Flow Rate Fraction of Inspired Oxygen 01/14/24 12:00 01/14/24 12:00 Temperature 37.2 C Pulse Rate 73 74 Respiratory Rate 24 H Blood Pressure 147/89 H 147/89 H Pulse Oximetry 99 Oxygen Delivery Oxygen Flow Rate Fraction of Inspired Oxygen Exam Narrative: General: Pt is sedated, intubated and on mechanical ventilation Lungs/Chest: Trachea central Coarse BS B/L, No crackles or wheezing. Cardiac: RRR. Normal S1 S2. No murmurs Circulation: Pedal pulses are intact and symmetrical. Abdomen: Decreased bowel sounds. Soft. NT. ND. Extremities: No clubbing, cyanosis or edema. Warm : Bates in place Neurologic: Unable to assess due to sedation. Moves all 4 extremities to painful stimuli. PERRL Results Labs 01/14/24 04:08 01/14/24 04:08 Labs: Impressions Chest X-Ray 01/13/24 14:47 IMPRESSION: Pneumonia seen bilaterally more extensive in the right lung. Head CT 01/13/24 15:43 IMPRESSION: No acute intracranial findings. Chest X-Ray 01/13/24 21:19 IMPRESSION: Central venous catheter in excellent position and ready for immediate use. Interval progression of the dense infiltrate seen on earlier examination, now involving the left hemithorax in addition to the right. Remaining supportive devices are also in good position. Chest X-Ray 01/14/24 06:39 Impression: Multilobar bilateral pneumonia, worst at the right upper lobe. Support tubes, as above. Chest/Abdomen/Pelvis CT 01/14/24 11:18 IMPRESSION: 1. Diffuse lung disease, consistent with pneumonia. 2. Small pleural effusions. 3. Small volume of ascites. Short CBC 01/13/24 01/14/24 Range/Units 15:12 04:08 WBC 6.8 8.1 (4.5-10.0) K/mm3 Hgb 18.8 H 14.5 D (14.0-18.0) g/dL Hct 57.8 H 43.3 (42.0-52.0) % Plt Count 165 151 (150-375) k/mm3 BMP 01/13/24 01/14/24 15:12 04:08 Sodium 142 135 L Potassium 4.0 5.8 H Chloride 100 109 H Carbon Dioxide 25 21 L BUN 24 H 21 H Creatinine 1.30 1.10 Glucose 115 H 121 H Calcium 8.5 6.8 L Cardiac Enzymes 01/13/24 01/13/24 01/14/24 Range/Units 15:12 21:33 04:08 Total Creatine Kinase 1327 H 3025 H (55-170) U/L Troponin I 0.020 (0.000-0.034) ng/mL Liver Function 01/13/24 01/14/24 Range/Units 15:12 04:08 Total Bilirubin 1.0 0.9 (0.2-1.3) mg/dL AST 59 75 H (17-59) U/L ALT 32 26 (6-50) U/L Alkaline Phosphatase 106 60 (38-126) U/L Albumin 4.8 2.7 L (3.5-5.1) g/dL Urine 01/13/24 Range/Units 14:46 Urine Color Yellow (Yellow) Urine Appearance Cloudy H (Clear) Urine pH 5.0 (5.0-9.0) Ur Specific [place] 1.017 (1.001-1.035) Urine Protein 2+ H (Negative) mg/dL Urine Glucose (UA) Negative (Negative) mg/dL Quality VTE Prophylaxis VTE prophylaxis: pharmacologic ordered Hospitalist MIPS Advance Care Plan I have confirmed that the patient's Advanced Care Plan is present, code status is documented, or surrogate decision maker is listed in patient medical record.: Yes Medication Reconciliation I have utilized all available resources to obtain, update and review the patients current medications (includes all prescriptions, OTC, herbals, cannabis, and nutritional supplements).: Yes
[2024-01-14 13:31] LABS: Ammonia 17 umol/L (9-30)
[2024-01-14 13:33] LABS: Anion Gap 6 mmol/L (4-12); Blood Urea Nitrogen 20 mg/dL (9-20); Calcium 7.6 mg/dL (8.4-10.2); Carbon Dioxide 23 mmol/L (22-30); Chloride 105 mmol/L (98-107); Estimated CRCL calculation 75 ml/min; Estimated Glomerular Filt Rate > 60; Glucose 161 mg/dL (65-110); Potassium 4.9 mmol/L (3.4-5.0); Sodium 134 mmol/L (137-145)
--- NOTE | 2024-01-14 13:47 | PM.IMPN ---
Progress Note: A&P Assessment and Plan (1) Acute respiratory failure with hypoxia and hypercapnia: Code(s): J96.01 - Acute respiratory failure with hypoxia; J96.02 - Acute respiratory failure with hypercapnia Status: Acute Assessment and Plan: acute respiratory failure secondary to encephalopathy and aspiration pneumonia CT chest confirmed diffuse lung disease consistent with pneumonia ABG and ventilator settings reviewed sedation protocol and vent management per [employer] (2) Aspiration pneumonia: Qualifiers: Aspiration pneumonia type: unspecified Laterality: bilateral Lung location: unspecified part of lung Qualified Code(s): J69.0 - Pneumonitis due to inhalation of food and vomit Code(s): J69.0 - Pneumonitis due to inhalation of food and vomit Status: Acute Assessment and Plan: blood and sputum culture sent Continue ZOsyn and Vancomycin MRSA pending (3) Polysubstance (including opioids) dependence with physiological dependence: Code(s): F19.20 - Other psychoactive substance dependence, uncomplicated Status: Acute Assessment and Plan: patient will be counseled once extubated (4) Encephalopathy: Code(s): G93.40 - Encephalopathy, unspecified Status: Acute Assessment and Plan: Patient when brought in was encephalopathy this could be either postictal from seizures or overdose from opioid. head CT currently sedated and and intubated. Ammonia 17, TSH pending likely from seizure neurology consulted continue Keppra 1000mg bid and adjust per neurology (5) Septic shock: Code(s): A41.9 - Sepsis, unspecified organism; R65.21 - Severe sepsis with septic shock Status: Acute Assessment and Plan: septic shock secondary to aspiration pneumonia continue but decrease further IV fluids at continue Levophed and vasopressin continue hydrocortisone stress dose Continue Abx as above and follow up cultures (6) Chronic alcoholism: Code(s): F10.20 - Alcohol dependence, uncomplicated Status: Acute Assessment and Plan: thiamine and folic acid or monitor closely budget counselor when awake (7) Rhabdomyolysis: Qualifiers: Rhabdomyolysis type: non-traumatic Qualified Code(s): M62.82 - Rhabdomyolysis Code(s): M62.82 - Rhabdomyolysis Status: Acute Assessment and Plan: could be secondary to seizures or from laying on the floor for prolonged period of time. change IV fluids to bicarb continued low rate CK this am 3025, monitor (8) Acidosis: Code(s): E87.20 - Acidosis, unspecified Status: Acute Assessment and Plan: per tube by carbon IV fluids with bicarb ordered. (9) Electrolyte abnormality: Code(s): E87.8 - Other disorders of electrolyte and fluid balance, not elsewhere classified Status: Acute Assessment and Plan: Look ill monitor for elevated potassium including bicarb calcium replacement ordered repeat BMP ordered Plan Breaththrough seizures with history of Epilepsy mother noted patient has been having breakthrough seizures the last 6 months continue Keppra EEG and further adjustments per neurology Neurology consulted DVT prophylaxis - Lovenox Stress ulcer prophylaxis - PPI Nutrition - start Tube Feeds Code Status - Full Code Subjective Date/time seen: 01/14/24 13:47 Interval history: Patient intubated and sedated at bedside Mother was at bedside who noted that patient in the last six months has been having breakthrough seizures. he was found unresponsive at home and was brought to the ER. Review of Systems Review of Systems: ROS unobtainable: Yes unobtainable due to endotracheal tube, unobtainable due to medical condition and unobtainable due to mental status Exam Narrative: General: Pt is sedated, intubated and on mechanical ventilation Lungs/Chest: Trachea central Coarse BS B/L, No crackles or wheezing. Cardiac: RRR. Normal S1 S2. No murmurs Circulation: Pedal pulses are intact and symmetrical. Abdomen: Decreased bowel sounds. Soft. NT. ND. Extremities: No clubbing, cyanosis or edema. Warm : Bates in place Neurologic: Unable to assess due to sedation. Moves all 4 extremities to painful stimuli. PERRL Const: Other: No acute distress, intubated, sedated head of the bed at 30? HENMT: Other: Head is normocephalic atraumatic, mucous membranes are dry, dental implants in place Eyes: Other: Pupils are equal and reactive, no scleral icterus, no conjunctival pallor Neck: Other: No JVD, mild anterior cervical lymphadenopathy Resp: Other: Coarse crackles bilaterally, tachypneic, equal breath sounds Cardio: Other: Mildly tachycardic, 2+ bilateral radial pedal pulses GI: Other: Soft, nondistended, nontender, positive bowel sounds : Other: Bates catheter in place with clear dark yellow urine Skin: Other: Numerous tattoos on bilateral hands, chest, arms, no jaundice, no petechiae, 4-5 second cap refill, no mottling, he was linear scarring tracking up the lateral dorsal forearms history due to history of cutting Neuro: Other: Patient is moving all extremities has gag reflex PEEP pupils are equal and reactive, patient is difficult to redirect despite multiple sedatives Extrem: Other: No clubbing, cyanosis or edema Psych: Other: Pulling at tubes and lines, restraints in place, on multiple sedatives Objective Data Vital Signs Vital Signs: Vital Signs - 24 hr 01/13/24 13:49 01/13/24 13:50 01/13/24 14:05 Temperature Pulse Rate 116 H 116 H 109 H Respiratory Rate 16 16 Blood Pressure Pulse Oximetry 100 Oxygen Delivery Mechanical Ventilation Fraction of Inspired Oxygen 100 01/13/24 14:20 01/13/24 14:50 01/13/24 14:05 Temperature Pulse Rate 116 H 110 H 116 H Respiratory Rate 16 16 16 Blood Pressure Pulse Oximetry Oxygen Delivery Fraction of Inspired Oxygen 01/13/24 14:20 01/13/24 14:35 01/13/24 15:20 Temperature Pulse Rate 110 H 104 H 119 H Respiratory Rate 16 16 16 Blood Pressure Pulse Oximetry Oxygen Delivery Fraction of Inspired Oxygen 01/13/24 15:50 01/13/24 14:50 01/13/24 15:05 Temperature Pulse Rate 115 H 119 H 114 H Respiratory Rate 16 16 16 Blood Pressure Pulse Oximetry Oxygen Delivery Fraction of Inspired Oxygen 01/13/24 14:00 01/13/24 14:30 01/13/24 14:45 Temperature 93.9 F L 94.2 F L Pulse Rate 113 H 105 H 105 H Respiratory Rate 16 16 17 Blood Pressure 144/74 H 135/84 132/87 Pulse Oximetry 100 100 100 Oxygen Delivery Fraction of Inspired Oxygen 01/13/24 15:00 01/13/24 16:13 01/13/24 16:17 Temperature 94.8 F L 96.2 F L Pulse Rate 105 H 115 H 115 H Respiratory Rate 16 16 Blood Pressure 129/76 113/72 Pulse Oximetry 100 100 100 Oxygen Delivery Mechanical Ventilation Fraction of Inspired Oxygen 60 01/13/24 15:20 01/13/24 16:20 01/13/24 16:20 Temperature Pulse Rate 122 H 119 H 120 H Respiratory Rate 16 16 16 Blood Pressure Pulse Oximetry Oxygen Delivery Fraction of Inspired Oxygen 01/13/24 16:20 01/13/24 16:20 01/13/24 16:28 Temperature 96.2 F L 96.2 F L Pulse Rate 120 H 119 H 117 H Respiratory Rate 16 20 16 Blood Pressure 116/67 Pulse Oximetry 100 Oxygen Delivery Fraction of Inspired Oxygen 01/13/24 16:30 01/13/24 16:31 01/13/24 16:30 Temperature 96.3 F L 96.3 F L Pulse Rate 117 H 117 H Respiratory Rate 17 18 Blood Pressure 108/64 Pulse Oximetry 100 100 100 Oxygen Delivery Mechanical Ventilation Fraction of Inspired Oxygen 60 01/13/24 17:10 01/13/24 18:00 01/13/24 18:00 Temperature 97.5 F L Pulse Rate 120 H 115 H 115 H Respiratory Rate 22 H Blood Pressure 72/58 L Pulse Oximetry 93 91 Oxygen Delivery Mechanical Ventilation Fraction of Inspired Oxygen 60 01/13/24 18:06 01/13/24 18:06 01/13/24 17:45 Temperature 97.2 F L Pulse Rate 116 H Respiratory Rate 22 H Blood Pressure 83/59 L Pulse Oximetry 92 96 Oxygen Delivery Mechanical Ventilation Fraction of Inspired Oxygen 60 60 01/13/24 18:15 01/13/24 18:30 01/13/24 19:34 Temperature 97.8 F 98.0 F Pulse Rate 115 H 114 H 117 H Respiratory Rate 22 H 22 H Blood Pressure 80/61 L 85/51 L 74/54 L Pulse Oximetry 94 92 Oxygen Delivery Fraction of Inspired Oxygen 01/13/24 19:35 01/13/24 19:40 01/13/24 19:46 Temperature 98.8 F 98.8 F 98.9 F Pulse Rate 117 H 116 H 116 H Respiratory Rate 22 H 22 H 22 H Blood Pressure 74/54 L 81/60 L 75/62 L Pulse Oximetry 92 93 92 Oxygen Delivery Fraction of Inspired Oxygen 01/13/24 19:46 01/13/24 19:50 01/13/24 19:58 Temperature Pulse Rate 115 H 116 H 117 H Respiratory Rate 22 H 22 H Blood Pressure 75/62 L Pulse Oximetry Oxygen Delivery Fraction of Inspired Oxygen 01/13/24 19:56 01/13/24 20:54 01/13/24 21:01 Temperature Pulse Rate 116 H 110 H Respiratory Rate Blood Pressure 72/62 L 85/56 L Pulse Oximetry Oxygen Delivery Fraction of Inspired Oxygen 60 01/13/24 20:00 11/12/24 20:00 01/13/24 20:00 Temperature 99.1 F Pulse Rate 113 H 112 H 115 H Respiratory Rate 22 H 22 H 16 Blood Pressure 94/65 L Pulse Oximetry 90 Oxygen Delivery Fraction of Inspired Oxygen 01/13/24 21:14 01/13/24 21:15 01/13/24 20:00 Temperature 100.1 F H Pulse Rate 111 H 110 H 110 H Respiratory Rate 22 H 22 H Blood Pressure 88/58 L 83/67 L Pulse Oximetry 94 94 Oxygen Delivery Mechanical Ventilation Fraction of Inspired Oxygen 60 01/13/24 21:24 01/13/24 21:25 01/13/24 21:26 Temperature 100.2 F H Pulse Rate 110 H 110 H 110 H Respiratory Rate 22 H 22 H Blood Pressure 82/68 L 82/68 L Pulse Oximetry 94 Oxygen Delivery Fraction of Inspired Oxygen 01/13/24 21:34 01/13/24 21:39 01/13/24 21:39 Temperature 100.4 F H Pulse Rate 112 H 110 H 109 H Respiratory Rate 22 H 26 H 22 H Blood Pressure 95/62 L Pulse Oximetry 92 Oxygen Delivery Fraction of Inspired Oxygen 01/13/24 21:40 01/13/24 21:41 01/13/24 21:42 Temperature 100.4 F H Pulse Rate 111 H 109 H Respiratory Rate 22 H Blood Pressure 85/55 L 85/55 L Pulse Oximetry 90 Oxygen Delivery Fraction of Inspired Oxygen 70 01/13/24 20:15 01/13/24 20:30 01/13/24 20:45 Temperature 99.1 F 99.2 F 99.3 F Pulse Rate 110 H 111 H 114 H Respiratory Rate 22 H 22 H 22 H Blood Pressure 88/68 L 83/70 L 93/71 L Pulse Oximetry 96 99 98 Oxygen Delivery Fraction of Inspired Oxygen 01/13/24 21:09 01/13/24 21:08 01/13/24 22:00 Temperature 99.8 F H 100.5 F H Pulse Rate 112 H 111 H 106 H Respiratory Rate 22 H 22 H Blood Pressure 85/56 L 83/62 L Pulse Oximetry 99 96 95 Oxygen Delivery Mechanical Ventilation Fraction of Inspired Oxygen 60 01/13/24 22:12 01/13/24 22:00 01/13/24 21:45 Temperature Pulse Rate 107 H 107 H 107 H Respiratory Rate 22 H 22 H Blood Pressure 79/57 L Pulse Oximetry Oxygen Delivery Fraction of Inspired Oxygen 01/13/24 22:16 01/13/24 22:16 01/13/24 20:00 Temperature 100.5 F H Pulse Rate 106 H 106 H 112 H Respiratory Rate 22 H Blood Pressure 84/66 L 84/66 L Pulse Oximetry 95 Oxygen Delivery Fraction of Inspired Oxygen 01/13/24 22:33 01/13/24 22:32 01/13/24 22:00 Temperature 100.7 F H Pulse Rate 106 H 106 H 106 H Respiratory Rate 22 H Blood Pressure 85/62 L 85/62 L Pulse Oximetry 95 Oxygen Delivery Fraction of Inspired Oxygen 01/13/24 22:45 01/13/24 22:46 01/13/24 22:47 Temperature 100.8 F H Pulse Rate 104 H 105 H 104 H Respiratory Rate 22 H 22 H Blood Pressure 75/50 L 75/50 L Pulse Oximetry 95 Oxygen Delivery Fraction of Inspired Oxygen 01/13/24 22:54 01/13/24 22:55 01/13/24 22:56 Temperature 100.8 F H Pulse Rate 104 H 104 H 105 H Respiratory Rate 22 H Blood Pressure 79/60 L 79/60 L 79/60 L Pulse Oximetry 95 Oxygen Delivery Fraction of Inspired Oxygen 01/13/24 23:00 01/13/24 23:09 01/13/24 23:09 Temperature 100.9 F H 100.9 F H Pulse Rate 104 H 103 H 104 H Respiratory Rate 24 H 24 H 24 H Blood Pressure 79/65 L 80/67 L Pulse Oximetry 97 97 Oxygen Delivery Fraction of Inspired Oxygen 01/13/24 23:10 01/13/24 23:14 01/13/24 23:15 Temperature 101 F H Pulse Rate 104 H 105 H 104 H Respiratory Rate 25 H Blood Pressure 80/67 L 83/60 L 83/60 L Pulse Oximetry 96 Oxygen Delivery Fraction of Inspired Oxygen 01/13/24 23:22 01/13/24 23:31 01/13/24 23:30 Temperature 101.1 F H 101.1 F H Pulse Rate 103 H 103 H Respiratory Rate 25 H 24 H Blood Pressure 91/64 L Pulse Oximetry 98 Oxygen Delivery Fraction of Inspired Oxygen 01/13/24 23:08 01/13/24 23:50 01/13/24 23:56 Temperature Pulse Rate 121 H 103 H Respiratory Rate 24 H Blood Pressure Pulse Oximetry 96 98 Oxygen Delivery Mechanical Ventilation Mechanical Ventilation Fraction of Inspired Oxygen 70 70 70 01/14/24 00:00 01/14/24 00:00 01/14/24 00:00 Temperature 101.2 F H Pulse Rate 103 H 103 H 102 H Respiratory Rate 24 H 24 H Blood Pressure 81/66 L 81/66 L Pulse Oximetry 97 Oxygen Delivery Fraction of Inspired Oxygen 01/14/24 00:00 01/14/24 00:00 01/14/24 00:00 Temperature Pulse Rate 102 H 102 H 102 H Respiratory Rate 24 H 24 H Blood Pressure 81/66 L Pulse Oximetry Oxygen Delivery Fraction of Inspired Oxygen 01/14/24 00:15 01/14/24 00:00 01/14/24 00:45 Temperature 101.3 F H 101.4 F H Pulse Rate 102 H 102 H 102 H Respiratory Rate 24 H 24 H Blood Pressure 86/60 L 91/62 L Pulse Oximetry 97 98 Oxygen Delivery Fraction of Inspired Oxygen 01/14/24 01:00 01/14/24 00:36 01/14/24 00:31 Temperature 101.6 F H 101.4 F H Pulse Rate 102 H 102 H Respiratory Rate 24 H 24 H Blood Pressure 92/70 L Pulse Oximetry 99 Oxygen Delivery Fraction of Inspired Oxygen 01/14/24 01:15 01/14/24 01:32 01/14/24 01:30 Temperature 101.7 F H 102 F H Pulse Rate 100 101 H 100 Respiratory Rate 24 H 24 H Blood Pressure 93/73 L 100/73 100/73 Pulse Oximetry 99 99 Oxygen Delivery Fraction of Inspired Oxygen 01/14/24 02:00 01/14/24 02:00 01/14/24 02:00 Temperature 102.0 F H Pulse Rate 101 H 102 H 102 H Respiratory Rate 24 H 24 H Blood Pressure 108/84 Pulse Oximetry 100 Oxygen Delivery Fraction of Inspired Oxygen 01/14/24 02:00 01/14/24 02:00 01/14/24 02:00 Temperature Pulse Rate 102 H 102 H 102 H Respiratory Rate 24 H 24 H Blood Pressure 108/84 Pulse Oximetry Oxygen Delivery Fraction of Inspired Oxygen 01/14/24 01:54 01/14/24 02:01 01/14/24 02:02 Temperature Pulse Rate 101 H 102 H 101 H Respiratory Rate Blood Pressure 108/84 108/84 Pulse Oximetry 98 Oxygen Delivery Mechanical Ventilation Fraction of Inspired Oxygen 70 01/14/24 02:32 01/14/24 02:38 01/14/24 03:15 Temperature 102.2 F H 102.3 F H Pulse Rate 100 104 H 98 Respiratory Rate 24 H 26 H 24 H Blood Pressure 97/73 L 105/74 Pulse Oximetry 100 100 Oxygen Delivery Fraction of Inspired Oxygen 01/14/24 03:22 01/14/24 03:30 01/14/24 03:45 Temperature 102.3 F H 102.3 F H Pulse Rate 98 99 98 Respiratory Rate 24 H 24 H Blood Pressure 105/74 99/72 L 99/75 L Pulse Oximetry 99 98 Oxygen Delivery Fraction of Inspired Oxygen 01/14/24 03:00 01/14/24 03:25 01/14/24 03:56 Temperature 102.3 F H 102.3 F H Pulse Rate 99 99 Respiratory Rate 24 H 24 H Blood Pressure 97/83 L Pulse Oximetry 100 Oxygen Delivery Fraction of Inspired Oxygen 01/14/24 04:00 01/14/24 04:00 01/14/24 04:00 Temperature 102.2 F H Pulse Rate 97 96 Respiratory Rate 24 H Blood Pressure 97/86 L 97/86 L Pulse Oximetry 98 Oxygen Delivery Fraction of Inspired Oxygen 70 01/14/24 04:00 01/14/24 04:02 01/14/24 04:00 Temperature Pulse Rate 96 97 97 Respiratory Rate 24 H 24 H 24 H Blood Pressure Pulse Oximetry Oxygen Delivery Fraction of Inspired Oxygen 01/14/24 04:00 01/14/24 04:58 01/14/24 04:56 Temperature 101.9 F H Pulse Rate 96 94 Respiratory Rate Blood Pressure 97/86 L Pulse Oximetry 100 Oxygen Delivery Mechanical Ventilation Fraction of Inspired Oxygen 70 01/14/24 05:27 01/14/24 05:28 01/14/24 05:28 Temperature Pulse Rate 95 94 94 Respiratory Rate 24 H 24 H Blood Pressure 114/76 Pulse Oximetry Oxygen Delivery Fraction of Inspired Oxygen 01/14/24 05:27 01/14/24 04:45 01/14/24 05:30 Temperature 101.9 F H 101.8 F H Pulse Rate 92 91 91 Respiratory Rate 24 H 24 H 24 H Blood Pressure 114/76 107/48 L Pulse Oximetry 100 100 100 Oxygen Delivery Mechanical Ventilation Fraction of Inspired Oxygen 70 01/14/24 04:00 01/14/24 05:48 01/14/24 05:45 Temperature 101.7 F H Pulse Rate 95 92 92 Respiratory Rate 24 H Blood Pressure 112/72 112/72 Pulse Oximetry 98 Oxygen Delivery Fraction of Inspired Oxygen 01/14/24 06:00 01/14/24 06:00 01/14/24 06:00 Temperature 101.7 F H Pulse Rate 91 90 90 Respiratory Rate 24 H 24 H Blood Pressure 120/76 120/76 Pulse Oximetry 100 Oxygen Delivery Fraction of Inspired Oxygen 01/14/24 06:00 01/14/24 06:00 01/14/24 06:00 Temperature Pulse Rate 94 94 94 Respiratory Rate 24 H 24 H Blood Pressure 120/76 Pulse Oximetry Oxygen Delivery Fraction of Inspired Oxygen 01/14/24 06:05 01/14/24 06:00 01/14/24 06:16 Temperature 101.6 F H Pulse Rate 89 89 83 Respiratory Rate 24 H Blood Pressure 107/75 107/77 Pulse Oximetry 99 Oxygen Delivery Fraction of Inspired Oxygen 01/14/24 06:15 01/14/24 06:30 01/14/24 06:30 Temperature 101.7 F H 101.6 F H Pulse Rate 92 89 89 Respiratory Rate 24 H 24 H Blood Pressure 107/77 113/75 113/75 Pulse Oximetry 100 100 Oxygen Delivery Fraction of Inspired Oxygen 01/14/24 06:48 01/14/24 06:45 01/14/24 07:01 Temperature 101.6 F H 101.6 F H Pulse Rate 88 90 89 Respiratory Rate 24 H 24 H Blood Pressure 108/77 108/77 101/74 Pulse Oximetry 100 100 Oxygen Delivery Fraction of Inspired Oxygen 01/14/24 07:30 01/14/24 07:30 01/14/24 07:43 Temperature Pulse Rate 87 87 88 Respiratory Rate 24 H Blood Pressure 95/57 L 95/57 L Pulse Oximetry Oxygen Delivery Fraction of Inspired Oxygen 01/14/24 08:00 01/14/24 08:00 01/14/24 08:00 Temperature 101.3 F H Pulse Rate 88 86 86 Respiratory Rate 24 H 24 H Blood Pressure 114/73 113/77 Pulse Oximetry 97 Oxygen Delivery Fraction of Inspired Oxygen 01/14/24 08:22 01/14/24 07:47 01/14/24 09:15 Temperature Pulse Rate 86 85 82 Respiratory Rate 24 H Blood Pressure 129/82 Pulse Oximetry 100 Oxygen Delivery Mechanical Ventilation Fraction of Inspired Oxygen 70 01/14/24 09:42 01/14/24 09:46 01/14/24 09:46 Temperature Pulse Rate 78 83 83 Respiratory Rate 24 H 24 H Blood Pressure 130/68 Pulse Oximetry Oxygen Delivery Fraction of Inspired Oxygen 01/14/24 10:00 01/14/24 10:00 01/14/24 10:00 Temperature Pulse Rate 76 76 76 Respiratory Rate 24 H 24 H Blood Pressure 139/81 Pulse Oximetry Oxygen Delivery Fraction of Inspired Oxygen 01/14/24 08:00 01/14/24 08:00 01/14/24 10:00 Temperature Pulse Rate 86 86 76 Respiratory Rate 24 H 24 H Blood Pressure 113/77 Pulse Oximetry Oxygen Delivery Fraction of Inspired Oxygen 01/14/24 10:00 01/14/24 08:00 01/14/24 10:00 Temperature 99.7 F H Pulse Rate 76 76 Respiratory Rate 24 H Blood Pressure 139/81 132/71 Pulse Oximetry 98 Oxygen Delivery Fraction of Inspired Oxygen 70 01/14/24 11:15 01/14/24 11:15 01/14/24 11:20 Temperature Pulse Rate 75 74 75 Respiratory Rate Blood Pressure 145/83 H 141/82 H Pulse Oximetry 96 Oxygen Delivery Mechanical Ventilation Fraction of Inspired Oxygen 60 01/14/24 11:30 01/14/24 12:00 01/14/24 12:00 Temperature 99 F Pulse Rate 75 73 74 Respiratory Rate 24 H Blood Pressure 140/80 147/89 H 147/89 H Pulse Oximetry 99 Oxygen Delivery Fraction of Inspired Oxygen 01/14/24 12:15 01/14/24 12:00 01/14/24 12:00 Temperature Pulse Rate 74 76 76 Respiratory Rate 24 H 24 H Blood Pressure 136/70 Pulse Oximetry Oxygen Delivery Fraction of Inspired Oxygen 01/14/24 12:00 01/14/24 12:00 01/14/24 12:55 Temperature Pulse Rate 76 76 74 Respiratory Rate 24 H Blood Pressure 147/89 H 135/87 Pulse Oximetry Oxygen Delivery Fraction of Inspired Oxygen 01/14/24 13:05 01/14/24 13:20 01/14/24 08:00 Temperature Pulse Rate 72 74 Respiratory Rate Blood Pressure 138/79 134/71 Pulse Oximetry Oxygen Delivery Mechanical Ventilation Fraction of Inspired Oxygen 60 01/14/24 08:00 01/14/24 10:00 01/14/24 12:00 Temperature Pulse Rate 88 72 72 Respiratory Rate Blood Pressure Pulse Oximetry Oxygen Delivery Fraction of Inspired Oxygen 01/14/24 12:00 01/14/24 12:00 Temperature Pulse Rate Respiratory Rate Blood Pressure Pulse Oximetry Oxygen Delivery Mechanical Ventilation Fraction of Inspired Oxygen 60 60 Intake/Output Intake/Output: Intake & Output 01/11/24 01/12/24 01/13/24 01/14/24 23:59 23:59 23:59 23:59 Intake Total 6467.3 3160.0 Output Total 600 850 Balance 5867.3 2310.0 Meds/Results Medications: Active Medications Generic Name Dose Route Start Last Admin Trade Name Freq PRN Reason Stop Dose Admin Acetaminophen 650 mg 01/13/24 22:59 01/14/24 03:56 Acetaminophen Elixir 325 Mg/10.15 Ml Udc FEED TUBE 650 mg Q4H PRN Administration Mild Pain (1-3) or Fever Albuterol/Ipratropium 3 ml 01/14/24 12:30 Ipratropium 0.5 Mg/Albuterol Sulfate 2.5 Mg Ampul.Neb 3 Ml NEBULIZE Q6HRT PRN wheezing Enoxaparin Sodium 40 mg 01/14/24 09:00 01/14/24 08:01 Enoxaparin 40 Mg/0.4 Ml Syringe SUB-Q 40 mg DAILY GERBER Administration Folic Acid 1 mg 01/15/24 09:00 Folic Acid 1 Mg Tablet FEED TUBE DAILY GERBER Hydrocortisone Sodium Succinate 100 mg 01/14/24 06:00 01/14/24 05:24 Hydrocortisone Sodium Succinate 100 Mg/2 Ml Vial IV PUSH 100 mg Q8HR GERBER Administration Levetiracetam 1,000 mg in 100 mls @ 400 mls/hr 01/13/24 21:00 01/14/24 08:16 Keppra Iv IVPB Infused Q12HR GERBER Infusion Piperacillin/Tazobactam/Dextrose 3.375 gm in 50 mls @ 100 mls/hr 01/14/24 00:00 01/14/24 12:04 Zosyn 3.375 Gm/Ns 50 Ml IVPB Infused Q6HR GERBER Infusion Propofol 100 mls @ 6.75 mls/hr 01/13/24 18:05 01/14/24 12:00 Diprivan IV CONT 15 mcg/kg/min .[id number] GERBER 6.75 mls/hr Titration Protocol 15 MCG/KG/MIN Norepinephrine Bitartrate 8 mg in 250 mls @ 20.625 mls/hr 01/13/24 18:10 01/14/24 13:20 Levophed 8 Mg/D5w 250 Ml IV CONT 11 mcg/min .Q12H8M GERBER 20.63 mls/hr Titration Protocol 11 MCG/MIN Fentanyl Citrate 2,500 mcg in 250 mls @ 20 mls/hr 01/13/24 21:20 01/14/24 12:00 Fentanyl 2,500 Mcg/Ns 250 Ml IV CONT 200 mcg/hr .[id number] GERBER 20 mls/hr Titration Protocol 200 MCG/HR Midazolam HCl 100 mg in 100 mls @ 10 mls/hr 01/13/24 21:20 01/14/24 12:00 Versed 100 Mg/Ns 100 Ml IV CONT 10 mg/hr .Q10H GERBER 10 mls/hr Titration Protocol 10 MG/HR Vancomycin HCl 1,500 mg in 500 mls @ 250 mls/hr 01/14/24 15:00 Vancomycin 1,500 Mg/Ns 500 Ml IVPB Q18H GERBER Vasopressin 100 units/ 100 mls @ 2.4 mls/hr 01/13/24 22:20 01/14/24 12:00 Dextrose IV CONT 0.04 units/min .[id number] GERBER 2.4 mls/hr Titration Protocol 0.04 UNITS/MIN Sodium Bicarbonate 150 meq/ 1,100 mls @ 100 mls/hr 01/14/24 09:30 01/14/24 09:35 Sterile Water IV CONT 100 mls/hr .Q11H GERBER Administration Morphine Sulfate 2 mg 01/13/24 16:22 Morphine Sulfate (*Crx) 2 Mg/Ml Inj IV PUSH Q2H PRN Pain Rated 7-10 Multi-Ingred Cream/Lotion/Oil/Oint 1 applic 01/14/24 09:00 01/14/24 08:19 Mineral Oil/White Petrolatum Ointment EACH EYE 1 applic Q12HR GERBER Administration Ondansetron HCl 4 mg 01/13/24 16:22 Ondansetron Inj 4 Mg/2 Ml Vial IV PUSH Q4H PRN Nausea Sodium Bicarbonate 650 mg 01/14/24 09:00 01/14/24 09:04 Sodium Bicarbonate Tab 650 Mg Tablet FEED TUBE 650 mg BID GERBER Administration Sodium Chloride 10 ml 01/13/24 22:00 01/14/24 05:24 Central Line Flush IV PUSH 10 ml Q8HR GERBER Administration Sodium Chloride 20 ml 01/13/24 20:18 Central Line Flush IV PUSH PRN PRN after blood draws Sodium Zirconium Cyclosilicate 10 gm 01/14/24 10:00 01/14/24 09:04 Sodium Zirconium Cyclosilicate 10 Gm Powd.Pack PO 10 gm BID@1000,1800 GERBER Administration Thiamine HCl 100 mg 01/15/24 09:00 Thiamine Hcl 100 Mg Tablet FEED TUBE QAM [facility] Radiology Results: ITS Impressions Head CT 01/13/24 15:43 IMPRESSION: No acute intracranial findings. Chest X-Ray 01/14/24 06:39 Impression: Multilobar bilateral pneumonia, worst at the right upper lobe. Support tubes, as above. Chest/Abdomen/Pelvis CT 01/14/24 11:18 IMPRESSION: 1. Diffuse lung disease, consistent with pneumonia. 2. Small pleural effusions. 3. Small volume of ascites. Labs Labs: Laboratory Results - last 24 hr 01/13/24 01/13/24 01/13/24 13:57 14:46 15:11 WBC RBC Hgb Hct MCV MCH MCHC RDW Plt Count MPV Immature Gran % (Auto) Neut % (Auto) Lymph % (Auto) [place] % (Auto) Eos % (Auto) Baso % (Auto) Lymph # (Auto) [place] # (Auto) Eos # (Auto) Baso # (Auto) Abs Immat Gran (auto) Absolute Neuts (auto) Absolute Nucleated RBC Nucleated RBC % % Immature Plt Fraction PT INR APTT Puncture Site Right radial ABG pH 6.928 L* ABG pCO2 115.9 H* ABG pO2 83.5 ABG PO2/FiO2 Ratio 0.83 ABG HCO3 23.7 ABG O2 Saturation 86.5 L* ABG O2 Content 24.8 H ABG Base Excess -13.0 A-a Gradient 513.6 Oxyhemoglobin 90.4 Carboxyhemoglobin 2.3 H Methemoglobin 0.3 Reduced Hemoglobin 7.0 H Total Hemoglobin 19.5 H O2 Delivery Device Ventilator O2 Liters/Min Not Reportable Minute Volume Not Reportable Vent Rate 16 Vent Mode Cmv FiO2 100 Tidal Volume 400 PEEP 8 Peak Inspir Pressure Not Reportable Pressure Support Not Reportable Sodium Potassium Chloride Carbon Dioxide Anion Gap BUN Creatinine Estim Creat Clear Calc Estimated GFR Glucose Lactic Acid 7.1 H* Calcium Total Bilirubin AST ALT Alkaline Phosphatase Ammonia Total Creatine Kinase Troponin I C-Reactive Protein Total Protein Albumin Triglycerides Lipase Vitamin B12 Folate Procalcitonin Random Cortisol Urine Color Yellow Urine Appearance Cloudy H Urine pH 5.0 Ur Specific [place] 1.017 Urine Protein 2+ H Urine Glucose (UA) Negative Urine Ketones Negative Ur Blood (Man) 2+ H Urine Nitrate Negative Urine Bilirubin Negative Urine Urobilinogen 0.2 Add Ur Microanalysis Reviewed Leukocyte Esterase Rfl Negative Urine RBC 0-2 Urine WBC 11-20 H Ur Squamous Epith Cells Occasional Urine Bacteria None seen Urine Casts >20 Hyaline Casts Present Nasal MRSA (PCR) Sperm Presence Present Salicylates Urine Opiates Screen Negative Urine Methadone Screen Positive A Acetaminophen Ur Barbiturates Screen Negative Valproic Acid Ur Phencyclidine Scrn Negative Ur Amphetamine Screen Negative U Benzodiazepines Scrn Positive A Urine Cocaine Screen Negative U Cannabinoids Screen Negative Ethyl Alcohol 01/13/24 01/13/24 01/13/24 15:12 15:13 15:50 WBC 6.8 RBC 5.74 Hgb 18.8 H Hct 57.8 H MCV 100.7 H MCH 32.8 MCHC 32.5 RDW 12.3 Plt Count 165 MPV 9.1 Immature Gran % (Auto) 0.4 Neut % (Auto) 89.3 H Lymph % (Auto) 4.1 L [place] % (Auto) 6.0 Eos % (Auto) 0.1 Baso % (Auto) 0.1 L Lymph # (Auto) 0.28 L [place] # (Auto) 0.4 Eos # (Auto) 0.0 Baso # (Auto) 0.0 Abs Immat Gran (auto) 0.03 Absolute Neuts (auto) 6.1 Absolute Nucleated RBC 0.000 Nucleated RBC % 0.0 % Immature Plt Fraction PT INR APTT Puncture Site Left radial ABG pH 7.123 L* ABG pCO2 72.6 H* ABG pO2 186.3 H ABG PO2/FiO2 Ratio 1.86 ABG HCO3 23.2 ABG O2 Saturation 98.8 ABG O2 Content 23.5 H ABG Base Excess -8.0 A-a Gradient 454.1 Oxyhemoglobin 96.8 Carboxyhemoglobin Methemoglobin Reduced Hemoglobin Total Hemoglobin 17.0 O2 Delivery Device Ventilator O2 Liters/Min Not Reportable Minute Volume Not Reportable Vent Rate 16 Vent Mode Cmv FiO2 100 Tidal Volume 500 PEEP 10 Peak Inspir Pressure Not Reportable Pressure Support Not Reportable Sodium 142 Potassium 4.0 Chloride 100 Carbon Dioxide 25 Anion Gap 17 H BUN 24 H Creatinine 1.30 Estim Creat Clear Calc Not Reportable Estimated GFR 59 Glucose 115 H Lactic Acid Calcium 8.5 Total Bilirubin 1.0 AST 59 ALT 32 Alkaline Phosphatase 106 Ammonia Total Creatine Kinase Troponin I 0.020 C-Reactive Protein 2.6 H Total Protein 8.0 Albumin 4.8 Triglycerides Lipase 54 Vitamin B12 Folate Procalcitonin Random Cortisol Urine Color Urine Appearance Urine pH Ur Specific [place] Urine Protein Urine Glucose (UA) Urine Ketones Ur Blood (Man) Urine Nitrate Urine Bilirubin Urine Urobilinogen Add Ur Microanalysis Leukocyte Esterase Rfl Urine RBC Urine WBC Ur Squamous Epith Cells Urine Bacteria Urine Casts Hyaline Casts Nasal MRSA (PCR) Sperm Presence Salicylates < 1.0 L Urine Opiates Screen Urine Methadone Screen Acetaminophen < 10 L Ur Barbiturates Screen Valproic Acid < 10.0 L Ur Phencyclidine Scrn Ur Amphetamine Screen U Benzodiazepines Scrn Urine Cocaine Screen U Cannabinoids Screen Ethyl Alcohol < 10 01/13/24 01/13/24 01/13/24 16:40 17:50 18:58 WBC RBC Hgb Hct MCV MCH MCHC RDW Plt Count MPV Immature Gran % (Auto) Neut % (Auto) Lymph % (Auto) [place] % (Auto) Eos % (Auto) Baso % (Auto) Lymph # (Auto) [place] # (Auto) Eos # (Auto) Baso # (Auto) Abs Immat Gran (auto) Absolute Neuts (auto) Absolute Nucleated RBC Nucleated RBC % % Immature Plt Fraction PT 14.6 INR 1.1 APTT 29.6 Puncture Site ABG pH ABG pCO2 ABG pO2 ABG PO2/FiO2 Ratio ABG HCO3 ABG O2 Saturation ABG O2 Content ABG Base Excess A-a Gradient Oxyhemoglobin Carboxyhemoglobin Methemoglobin Reduced Hemoglobin Total Hemoglobin O2 Delivery Device O2 Liters/Min Minute Volume Vent Rate Vent Mode FiO2 Tidal Volume PEEP Peak Inspir Pressure Pressure Support Sodium Potassium Chloride Carbon Dioxide Anion Gap BUN Creatinine Estim Creat Clear Calc Estimated GFR Glucose Lactic Acid 4.2 H* Calcium Total Bilirubin AST ALT Alkaline Phosphatase Ammonia Total Creatine Kinase Troponin I C-Reactive Protein Total Protein Albumin Triglycerides 487 H Lipase Vitamin B12 Folate Procalcitonin Random Cortisol Urine Color Urine Appearance Urine pH Ur Specific [place] Urine Protein Urine Glucose (UA) Urine Ketones Ur Blood (Man) Urine Nitrate Urine Bilirubin Urine Urobilinogen Add Ur Microanalysis Leukocyte Esterase Rfl Urine RBC Urine WBC Ur Squamous Epith Cells Urine Bacteria Urine Casts Hyaline Casts Nasal MRSA (PCR) Not detected Sperm Presence Salicylates Urine Opiates Screen Urine Methadone Screen Acetaminophen Ur Barbiturates Screen Valproic Acid Ur Phencyclidine Scrn Ur Amphetamine Screen U Benzodiazepines Scrn Urine Cocaine Screen U Cannabinoids Screen Ethyl Alcohol 01/13/24 01/13/24 01/13/24 21:30 21:33 22:31 WBC RBC Hgb Hct MCV MCH MCHC RDW Plt Count MPV Immature Gran % (Auto) Neut % (Auto) Lymph % (Auto) [place] % (Auto) Eos % (Auto) Baso % (Auto) Lymph # (Auto) [place] # (Auto) Eos # (Auto) Baso # (Auto) Abs Immat Gran (auto) Absolute Neuts (auto) Absolute Nucleated RBC Nucleated RBC % % Immature Plt Fraction PT INR APTT Puncture Site Left brachial ABG pH 7.227 L* ABG pCO2 50.8 H ABG pO2 74.1 L ABG PO2/FiO2 Ratio 1.06 ABG HCO3 20.7 L ABG O2 Saturation 92.0 L ABG O2 Content 19.0 ABG Base Excess -7.2 A-a Gradient 370.4 Oxyhemoglobin 93.6 Carboxyhemoglobin Methemoglobin Reduced Hemoglobin Total Hemoglobin 14.4 O2 Delivery Device Ventilator O2 Liters/Min Not Reportable Minute Volume Not Reportable Vent Rate 22 Vent Mode Cmv FiO2 70 Tidal Volume 500 PEEP 8 Peak Inspir Pressure Not Reportable Pressure Support Not Reportable Sodium Potassium Chloride Carbon Dioxide Anion Gap BUN Creatinine Estim Creat Clear Calc Estimated GFR Glucose Lactic Acid 2.4 H Calcium Total Bilirubin AST ALT Alkaline Phosphatase Ammonia Total Creatine Kinase 1327 H Troponin I C-Reactive Protein Total Protein Albumin Triglycerides Lipase Vitamin B12 Folate Procalcitonin 28.4 Random Cortisol 10.30 Urine Color Urine Appearance Urine pH Ur Specific [place] Urine Protein Urine Glucose (UA) Urine Ketones Ur Blood (Man) Urine Nitrate Urine Bilirubin Urine Urobilinogen Add Ur Microanalysis Leukocyte Esterase Rfl Urine RBC Urine WBC Ur Squamous Epith Cells Urine Bacteria Urine Casts Hyaline Casts Nasal MRSA (PCR) Sperm Presence Salicylates Urine Opiates Screen Urine Methadone Screen Acetaminophen Ur Barbiturates Screen Valproic Acid Ur Phencyclidine Scrn Ur Amphetamine Screen U Benzodiazepines Scrn Urine Cocaine Screen U Cannabinoids Screen Ethyl Alcohol 01/14/24 01/14/24 01/14/24 04:08 04:49 13:03 WBC 8.1 RBC 4.43 L Hgb 14.5 D Hct 43.3 MCV 97.7 MCH 32.7 MCHC 33.5 RDW 12.4 Plt Count 151 MPV 9.0 Immature Gran % (Auto) 0.4 Neut % (Auto) 88.1 H Lymph % (Auto) 4.8 L [place] % (Auto) 6.3 Eos % (Auto) 0.0 Baso % (Auto) 0.4 Lymph # (Auto) 0.39 L [place] # (Auto) 0.5 Eos # (Auto) 0.0 Baso # (Auto) 0.0 Abs Immat Gran (auto) 0.03 Absolute Neuts (auto) 7.1 H Absolute Nucleated RBC 0.000 Nucleated RBC % 0.0 % Immature Plt Fraction 2.6 PT INR APTT Puncture Site Right radial ABG pH 7.260 L* ABG pCO2 41.6 ABG pO2 125.4 H ABG PO2/FiO2 Ratio 1.79 ABG HCO3 18.2 L ABG O2 Saturation 98.0 ABG O2 Content 21.1 ABG Base Excess -8.4 A-a Gradient 329.0 Oxyhemoglobin 97.8 Carboxyhemoglobin 0.7 Methemoglobin 0.2 Reduced Hemoglobin 1.3 Total Hemoglobin 15.2 O2 Delivery Device Ventilator O2 Liters/Min Not Reportable Minute Volume Not Reportable Vent Rate 24 Vent Mode Cmv FiO2 70 Tidal Volume 500 PEEP 8 Peak Inspir Pressure Not Reportable Pressure Support Not Reportable Sodium 135 L 134 L Potassium 5.8 H 4.9 Chloride 109 H 105 Carbon Dioxide 21 L 23 Anion Gap 5 6 BUN 21 H 20 Creatinine 1.10 1.10 Estim Creat Clear Calc 75 75 Estimated GFR > 60 > 60 Glucose 121 H 161 H Lactic Acid Calcium 6.8 L 7.6 L Total Bilirubin 0.9 AST 75 H ALT 26 Alkaline Phosphatase 60 Ammonia 17 Total Creatine Kinase 3025 H Troponin I C-Reactive Protein Total Protein 5.0 L Albumin 2.7 L Triglycerides Lipase Vitamin B12 888.0 Folate 3.2 Procalcitonin Random Cortisol Urine Color Urine Appearance Urine pH Ur Specific [place] Urine Protein Urine Glucose (UA) Urine Ketones Ur Blood (Man) Urine Nitrate Urine Bilirubin Urine Urobilinogen Add Ur Microanalysis Leukocyte Esterase Rfl Urine RBC Urine WBC Ur Squamous Epith Cells Urine Bacteria Urine Casts Hyaline Casts Nasal MRSA (PCR) Sperm Presence Salicylates Urine Opiates Screen Urine Methadone Screen Acetaminophen Ur Barbiturates Screen Valproic Acid Ur Phencyclidine Scrn Ur Amphetamine Screen U Benzodiazepines Scrn Urine Cocaine Screen U Cannabinoids Screen Ethyl Alcohol Quality VTE Prophylaxis VTE prophylaxis: pharmacologic ordered
[2024-01-14] MEDS: VANCOMYCIN 1,500 MG/NS 500 ML 1,500 MG/500 ML BAG 250 MG IVPB (15:08)
[2024-01-14] MEDS: NOREPINEPHRINE 8 MG/D5W 250 ML 8 MG/250 ML BAG 18.75 MG IV CONT (16:02)
[2024-01-14 17:35] LABS: Thyroid Stimulating Hormone Reflex 0.172 uIU/mL (0.465-4.68)
[2024-01-14 18:16] LABS: Free T4 Free Thyroxine Reflex 0.76 ng/dL (0.78-2.19)
[2024-01-15] VITALS (43 sets, daily range): BP systolic 90–127; BP diastolic 59–80; PULSE 56–99; RESP 16–26; TEMP 36.7–37.1; O2SAT 90–100
[2024-01-15] MEDS: PROPOFOL IV EMULSION 100 ML 6.75 MG IV CONT ×2 (04:48→16:53)
[2024-01-15 04:52] LABS: Basophils Percent Auto 0.2 % (0.2-1.2); Hemoglobin 11.8 g/dL (14.0-18.0); Immature Granulocyte Absolute 0.18 K/mm3 (0.00-0.031); Immature Platelet Fraction Pct 3.6 % (0.9-11.2); Lymphocytes Absolute Auto 0.67 K/mm3 (0.9-3.2); Lymphocytes Percent Auto 7.5 % (18.3-44.2); Mean Corpuscular HGB Conc 34.7 g/dl (32-36); Mean Corpuscular Hemoglobin 33.1 pg (26-34); Mean Corpuscular Volume 95.2 fl (80-100); Mean Platelet Volume 9.8 fl (7.4-10.4); Monocytes Absolute Auto 0.5 K/mm3 (0.1-0.6); Monocytes Percent Auto 5.6 % (2.6-8.5); Neutrophils Absolute Auto 7.6 K/mm3 (1.3-6.7); Neutrophils Percent Auto 84.7 % (45.5-73.1); Platelet Count Result 101 k/mm3 (150-375); Red Blood Count 3.57 M/mm3 (4.6-6.20); Red Cell Distribution Width 12.5 % (11.5-14.5)
[2024-01-15 04:58] LABS: Alveolar/Arterial O2 Gradient 307.3 mmHg; Base Excess ABG 2.6 mEq/l (+/-2.0); Carboxyhemoglobin 0.4 % THb (0-2.0); Fractional Inspired Oxygen 60 %; HCO3 ABG 28.4 mEq/l (22.0-26.0); Methemoglobin ABG 0.3 %THb (0-1.5); Oxygen Content ABG 17.1 %vol (16.0-22.0); Oxyhemoglobin 92.2 % THb (90.0-100.0); PCO2 ABG 48.4 mmHg (35.0-45.0); PO2 ABG 67.3 mmHg (80.0-100.0); PO2 FiO2 Ratio Arterial Blood 1.12 %; Reduced Hemoglobin 7.1 %THb (0-5.0); Total Hemoglobin 13.2 g/dL (12.0-18.0); pH ABG 7.386 (7.350-7.450)
[2024-01-15] MEDS: PIPERACILLN/TAZ 3.375GM/NS50ML 3.375 GM/50 ML BAG IVPB ×3 (04:58→17:39)
[2024-01-15] MEDS: CENTRAL LINE FLUSH 10 ML IV PUSH ×3 (04:58→21:01)
[2024-01-15] MEDS: HYDROCORTISONE SODIUM SUCCINATE 100 MG/2 ML VIAL IV PUSH ×3 (04:58→21:01)
[2024-01-15 05:01] LABS: Alanine Aminotransferase 30 U/L (6-50); Albumin Level 2.7 g/dL (3.5-5.1); Alkaline Phosphatase 55 U/L (38-126); Anion Gap 4 mmol/L (4-12); Aspartate Amino Transferase 93 U/L (17-59); Bilirubin,Total 0.8 mg/dL (0.2-1.3); Blood Urea Nitrogen 18 mg/dL (9-20); Calcium 7.9 mg/dL (8.4-10.2); Carbon Dioxide 33 mmol/L (22-30); Chloride 101 mmol/L (98-107); Creatine Kinase 1446 U/L (55-170); Estimated CRCL calculation 90 ml/min; Estimated Glomerular Filt Rate > 60; Glucose 163 mg/dL (65-110); Potassium 3.9 mmol/L (3.4-5.0); Sodium 138 mmol/L (137-145)
[2024-01-15] MEDS: FENTANYL 2,500MCG/NS250ML(*CRX 2,500 MCG/250 ML BAG 17.5 MCG IV CONT ×2 (05:24→22:34)
[2024-01-15 05:26] LABS: Modified Allen's Test Pass; Site Drawn RIGHT RADIAL
[2024-01-15] MEDS: MIDAZOLAM 100MG/NS 100ML(*CRX) 100 MG/100 ML BAG 10 MG IV CONT (05:26)
[2024-01-15 05:27] LABS: Arterial Blood Gas PEEP 8 cmH2O; Arterial Blood Gas Tidal Volume 500 ml; Arterial Blood Gas Vent Mode CMV; Arterial Blood Gas Ventilator rate 24 /MIN; Device VENTILATOR
[2024-01-15] MEDS: SODIUM BICARBONATE 8.4% 150 MEQ in WATER, STERILE FOR INJECTION 950 ML 100 MEQ IV CONT (06:18)
--- NOTE | 2024-01-15 08:33 | P.PNINT_ITS ---
Progress Note: A&P Assessment and Plan (1) Acute respiratory failure with hypoxia and hypercapnia: Code(s): J96.01 - Acute respiratory failure with hypoxia; J96.02 - Acute respiratory failure with hypercapnia Status: Acute Assessment and Plan: acute respiratory failure secondary to encephalopathy and aspiration pneumonia CT chest confirmed diffuse lung disease consistent with pneumonia Chest x-ray reviewed. ABG and ventilator settings reviewed increase PEEP to 10. FiO2 is at 60%. wean FiO2 low tidal volume ventilation (2) Aspiration pneumonia: Qualifiers: Aspiration pneumonia type: unspecified Laterality: bilateral Lung location: unspecified part of lung Qualified Code(s): J69.0 - Pneumonitis due to inhalation of food and vomit Code(s): J69.0 - Pneumonitis due to inhalation of food and vomit Status: Acute Assessment and Plan: blood and sputum culture sent continue Zosyn. discontinued vancomycin and azithromycin. (3) Polysubstance (including opioids) dependence with physiological dependence: Code(s): F19.20 - Other psychoactive substance dependence, uncomplicated Status: Acute Assessment and Plan: patient will be counseled once extubated (4) Encephalopathy: Code(s): G93.40 - Encephalopathy, unspecified Status: Acute Assessment and Plan: Patient when brought in was encephalopathy this could be either postictal from seizures or overdose from opioid. head CT currently sedated and and intubated. Normal ammonia level (5) Septic shock: Code(s): A41.9 - Sepsis, unspecified organism; R65.21 - Severe sepsis with septic shock Status: Acute Assessment and Plan: septic shock secondary to aspiration pneumonia continue but decrease further IV fluids continue Levophed . Off vasopressin. continue hydrocortisone stress dose (6) Chronic alcoholism: Code(s): F10.20 - Alcohol dependence, uncomplicated Status: Acute Assessment and Plan: thiamine and folic acid or (7) Rhabdomyolysis: Qualifiers: Rhabdomyolysis type: non-traumatic Qualified Code(s): M62.82 - Rhabdomyolysis Code(s): M62.82 - Rhabdomyolysis Status: Acute Assessment and Plan: could be secondary to seizures or from laying on the floor for prolonged period of time. Monitor CK level which is improving change IV fluids LR (8) Acidosis: Code(s): E87.20 - Acidosis, unspecified Status: Acute Assessment and Plan: improved hence will DC bicarb (9) Electrolyte abnormality: Code(s): E87.8 - Other disorders of electrolyte and fluid balance, not elsewhere classified Status: Acute Assessment and Plan: potassium improved after treatment (10) Abnormal thyroid function test: Code(s): R94.6 - Abnormal results of thyroid function studies Status: Acute Assessment and Plan: TSH and T4 level low. free T3 is pending Plan DVT prophylaxis - Lovenox Stress ulcer prophylaxis - PPI Nutrition - continueTube Feeds Code Status - Full Code I spoke to and updated patient's mother at bedside and answered all questions . Total Critical Care Time - 32 minutes Due to a high probability of clinically significant, life threatening deterioration, the patient required my highest level of preparedness to interv moriah emergently and I personally spent this critical care time directly and personally managing the patient. This critical care time included obtaining a history; examining the patient; pulse oximetry; ordering and review of studies; arranging urgent treatment with development of a management plan; evaluation of patient's response to treatment; frequent reassessment; and discussions with other providers. It was exclusive of separately billable procedures and treating other patients and teaching time. Please see Assessment and Plan section and the rest of the note for further information on patient assessment and treatment Subjective Date/time seen: 01/15/24 Overnight events reviewed. Afebrile Continues to be on mechanical ventilation 60% FiO2 and 8 of PEEP now on low-dose Levophed Continues to be sedated with Versed fentanyl and propofol improved urine output tolerating tube feeds Review of Systems Review of Systems: ROS unobtainable: Yes unobtainable due to endotracheal tube, unobtainable due to medical condition and unobtainable due to mental status Exam Narrative: General: Pt is sedated, intubated and on mechanical ventilation Lungs/Chest: Trachea central Coarse BS B/L, No crackles or wheezing. Cardiac: RRR. Normal S1 S2. No murmurs Circulation: Pedal pulses are intact and symmetrical. Abdomen: Decreased bowel sounds. Soft. NT. ND. Extremities: No clubbing, cyanosis or edema. Warm : Bates in place Neurologic: Unable to assess due to sedation. Moves all 4 extremities to painful stimuli. PERRL Objective Data Vital Signs Vital Signs: Vital Signs - 24 hr 01/14/24 09:15 01/14/24 09:42 01/14/24 09:46 Temperature Pulse Rate 82 78 83 Respiratory Rate 24 H Blood Pressure 129/82 130/68 Pulse Oximetry Oxygen Delivery Fraction of Inspired Oxygen 01/14/24 09:46 01/14/24 10:00 01/14/24 10:00 Temperature Pulse Rate 83 76 76 Respiratory Rate 24 H 24 H Blood Pressure 139/81 Pulse Oximetry Oxygen Delivery Fraction of Inspired Oxygen 01/14/24 10:00 01/14/24 10:00 01/14/24 10:00 Temperature Pulse Rate 76 76 76 Respiratory Rate 24 H 24 H Blood Pressure 139/81 Pulse Oximetry Oxygen Delivery Fraction of Inspired Oxygen 01/14/24 10:00 01/14/24 11:15 01/14/24 11:15 Temperature 37.6 C H Pulse Rate 76 75 74 Respiratory Rate 24 H Blood Pressure 132/71 145/83 H Pulse Oximetry 98 96 Oxygen Delivery Mechanical Ventilation Fraction of Inspired Oxygen 60 01/14/24 11:20 01/14/24 11:30 01/14/24 12:00 Temperature Pulse Rate 75 75 73 Respiratory Rate Blood Pressure 141/82 H 140/80 147/89 H Pulse Oximetry Oxygen Delivery Fraction of Inspired Oxygen 01/14/24 12:00 01/14/24 12:15 01/14/24 12:00 Temperature 37.2 C Pulse Rate 74 74 76 Respiratory Rate 24 H 24 H Blood Pressure 147/89 H 136/70 Pulse Oximetry 99 Oxygen Delivery Fraction of Inspired Oxygen 01/14/24 12:00 01/14/24 12:00 01/14/24 12:00 Temperature Pulse Rate 76 76 76 Respiratory Rate 24 H 24 H Blood Pressure 147/89 H Pulse Oximetry Oxygen Delivery Fraction of Inspired Oxygen 01/14/24 12:55 01/14/24 13:05 01/14/24 13:20 Temperature Pulse Rate 74 72 74 Respiratory Rate Blood Pressure 135/87 138/79 134/71 Pulse Oximetry Oxygen Delivery Fraction of Inspired Oxygen 01/14/24 10:00 01/14/24 12:00 01/14/24 12:00 Temperature Pulse Rate 72 72 Respiratory Rate Blood Pressure Pulse Oximetry Oxygen Delivery Fraction of Inspired Oxygen 60 01/14/24 12:00 01/14/24 13:40 01/14/24 14:00 Temperature Pulse Rate 72 76 Respiratory Rate Blood Pressure 130/79 Pulse Oximetry 99 Oxygen Delivery Mechanical Ventilation Mechanical Ventilation Fraction of Inspired Oxygen 60 60 01/14/24 14:00 01/14/24 14:00 01/14/24 14:00 Temperature Pulse Rate 76 76 76 Respiratory Rate 24 H 24 H 24 H Blood Pressure Pulse Oximetry Oxygen Delivery Fraction of Inspired Oxygen 01/14/24 14:04 01/14/24 14:00 01/14/24 14:00 Temperature Pulse Rate 76 76 76 Respiratory Rate 24 H Blood Pressure 130/79 130/79 Pulse Oximetry 96 Oxygen Delivery Fraction of Inspired Oxygen 01/14/24 15:30 01/14/24 15:30 01/14/24 15:38 Temperature Pulse Rate 74 74 74 Respiratory Rate 24 H 24 H Blood Pressure 136/85 Pulse Oximetry Oxygen Delivery Fraction of Inspired Oxygen 01/14/24 16:24 01/14/24 16:02 01/14/24 16:02 Temperature Pulse Rate 73 69 69 Respiratory Rate Blood Pressure 144/85 H 142/83 H 142/83 H Pulse Oximetry Oxygen Delivery Fraction of Inspired Oxygen 01/14/24 16:33 01/14/24 16:00 01/14/24 17:19 Temperature 37.1 C Pulse Rate 70 75 68 Respiratory Rate 24 H 24 H Blood Pressure 142/83 H Pulse Oximetry 98 98 Oxygen Delivery Mechanical Ventilation Fraction of Inspired Oxygen 60 01/14/24 17:19 01/14/24 17:48 01/14/24 18:00 Temperature 36.9 C Pulse Rate 68 68 67 Respiratory Rate 24 H 24 H Blood Pressure 138/78 141/86 H Pulse Oximetry 98 Oxygen Delivery Fraction of Inspired Oxygen 01/14/24 16:00 01/14/24 16:00 01/14/24 16:00 Temperature Pulse Rate 75 Respiratory Rate Blood Pressure Pulse Oximetry Oxygen Delivery Mechanical Ventilation Fraction of Inspired Oxygen 60 60 01/14/24 18:00 01/14/24 19:11 01/14/24 18:00 Temperature Pulse Rate 68 68 68 Respiratory Rate Blood Pressure 138/77 141/86 H Pulse Oximetry Oxygen Delivery Fraction of Inspired Oxygen 01/14/24 16:00 01/14/24 18:00 01/14/24 18:00 Temperature Pulse Rate 75 68 68 Respiratory Rate 24 H 24 H 24 H Blood Pressure Pulse Oximetry Oxygen Delivery Fraction of Inspired Oxygen 01/14/24 16:00 01/14/24 18:00 01/14/24 16:00 Temperature Pulse Rate 75 68 75 Respiratory Rate 24 H 24 H 24 H Blood Pressure Pulse Oximetry Oxygen Delivery Fraction of Inspired Oxygen 01/14/24 19:20 01/14/24 19:20 01/14/24 19:30 Temperature 36.9 C 36.9 C Pulse Rate 71 70 70 Respiratory Rate 24 H 24 H Blood Pressure 129/80 129/80 128/80 Pulse Oximetry 98 98 Oxygen Delivery Fraction of Inspired Oxygen 01/14/24 19:35 01/14/24 19:45 01/14/24 19:52 Temperature 36.9 C Pulse Rate 69 69 69 Respiratory Rate 24 H 24 H Blood Pressure 128/80 117/72 Pulse Oximetry 98 98 Oxygen Delivery Mechanical Ventilation Fraction of Inspired Oxygen 60 01/14/24 19:58 01/14/24 20:00 01/14/24 20:00 Temperature Pulse Rate 69 69 Respiratory Rate 24 H Blood Pressure 123/77 Pulse Oximetry Oxygen Delivery Fraction of Inspired Oxygen 60 01/14/24 20:00 01/14/24 20:15 01/14/24 20:00 Temperature Pulse Rate 69 72 70 Respiratory Rate 24 H 24 H Blood Pressure 123/77 Pulse Oximetry Oxygen Delivery Fraction of Inspired Oxygen 01/14/24 20:16 01/14/24 20:00 01/14/24 20:15 Temperature 36.9 C 36.9 C Pulse Rate 71 71 71 Respiratory Rate 24 H 24 H 24 H Blood Pressure 123/77 113/76 Pulse Oximetry 98 98 Oxygen Delivery Fraction of Inspired Oxygen 01/14/24 20:30 01/14/24 20:31 01/14/24 20:37 Temperature 36.9 C Pulse Rate 69 69 71 Respiratory Rate 24 H 24 H Blood Pressure 114/76 114/76 Pulse Oximetry 98 Oxygen Delivery Fraction of Inspired Oxygen 01/14/24 20:00 01/14/24 19:58 01/14/24 22:00 Temperature Pulse Rate 68 70 68 Respiratory Rate Blood Pressure Pulse Oximetry 98 Oxygen Delivery Mechanical Ventilation Fraction of Inspired Oxygen 60 01/14/24 22:00 01/14/24 22:00 01/14/24 22:00 Temperature 36.8 C Pulse Rate 68 68 69 Respiratory Rate 24 H 24 H Blood Pressure 108/73 108/73 Pulse Oximetry 98 Oxygen Delivery Fraction of Inspired Oxygen 01/14/24 22:20 01/14/24 22:00 01/14/24 22:00 Temperature Pulse Rate 69 69 69 Respiratory Rate 24 H 24 H Blood Pressure 115/76 Pulse Oximetry Oxygen Delivery Fraction of Inspired Oxygen 01/14/24 22:00 01/14/24 22:15 01/14/24 22:30 Temperature 36.8 C 36.8 C Pulse Rate 69 71 71 Respiratory Rate 24 H 24 H Blood Pressure 108/73 115/76 103/69 Pulse Oximetry 98 98 Oxygen Delivery Fraction of Inspired Oxygen 01/14/24 22:51 01/14/24 22:45 01/14/24 23:00 Temperature 36.8 C 36.8 C Pulse Rate 67 70 70 Respiratory Rate 24 H 24 H Blood Pressure 113/72 113/72 102/69 Pulse Oximetry 98 97 Oxygen Delivery Fraction of Inspired Oxygen 01/14/24 23:28 01/14/24 23:00 01/15/24 00:00 Temperature Pulse Rate 70 74 66 Respiratory Rate 24 H Blood Pressure Pulse Oximetry 97 99 Oxygen Delivery Mechanical Ventilation Mechanical Ventilation Fraction of Inspired Oxygen 60 60 01/15/24 00:00 01/15/24 00:00 01/15/24 01:00 Temperature 36.8 C 36.8 C Pulse Rate 65 64 Respiratory Rate 24 H 24 H Blood Pressure 101/64 103/68 Pulse Oximetry 98 98 Oxygen Delivery Fraction of Inspired Oxygen 60 01/15/24 00:00 01/15/24 00:00 01/15/24 00:00 Temperature Pulse Rate 68 64 65 Respiratory Rate 24 H 24 H Blood Pressure 123/77 Pulse Oximetry Oxygen Delivery Fraction of Inspired Oxygen 01/15/24 00:00 01/15/24 00:00 01/15/24 01:10 Temperature Pulse Rate 68 68 68 Respiratory Rate 24 H 24 H Blood Pressure 123/77 Pulse Oximetry Oxygen Delivery Fraction of Inspired Oxygen 01/15/24 01:10 01/15/24 01:15 01/15/24 02:00 Temperature 36.7 C Pulse Rate 65 66 62 Respiratory Rate 24 H Blood Pressure 103/68 94/62 L Pulse Oximetry 96 Oxygen Delivery Fraction of Inspired Oxygen 01/15/24 02:00 01/15/24 02:00 01/15/24 02:00 Temperature 36.7 C Pulse Rate 63 62 62 Respiratory Rate 24 H 24 H Blood Pressure 98/64 L 98/64 L Pulse Oximetry 98 Oxygen Delivery Fraction of Inspired Oxygen 01/15/24 02:00 01/15/24 02:00 01/15/24 02:00 Temperature Pulse Rate 63 63 63 Respiratory Rate 24 H 24 H Blood Pressure 98/64 L Pulse Oximetry Oxygen Delivery Fraction of Inspired Oxygen 01/15/24 01:45 01/15/24 03:55 01/15/24 03:56 Temperature Pulse Rate 64 63 Respiratory Rate 24 H Blood Pressure Pulse Oximetry 97 98 Oxygen Delivery Mechanical Ventilation Mechanical Ventilation Fraction of Inspired Oxygen 60 60 60 01/15/24 04:00 01/15/24 04:00 01/15/24 04:00 Temperature 36.7 C Pulse Rate 64 63 64 Respiratory Rate 24 H 24 H Blood Pressure 96/65 L 96/65 L Pulse Oximetry 96 Oxygen Delivery Fraction of Inspired Oxygen 01/15/24 04:00 01/15/24 04:00 01/15/24 04:00 Temperature Pulse Rate 63 63 63 Respiratory Rate 24 H 24 H Blood Pressure 96/65 L Pulse Oximetry Oxygen Delivery Fraction of Inspired Oxygen 01/15/24 04:48 01/15/24 04:48 01/15/24 05:02 Temperature Pulse Rate 85 85 97 Respiratory Rate 25 H 24 H Blood Pressure 127/74 Pulse Oximetry Oxygen Delivery Fraction of Inspired Oxygen 01/15/24 05:03 01/15/24 05:13 01/15/24 04:00 Temperature 36.8 C Pulse Rate 91 99 65 Respiratory Rate 24 H 26 H Blood Pressure 127/74 Pulse Oximetry 92 Oxygen Delivery Fraction of Inspired Oxygen 01/15/24 05:16 01/15/24 05:24 01/15/24 05:24 Temperature 36.8 C Pulse Rate 88 91 91 Respiratory Rate 24 H 24 H 24 H Blood Pressure 103/64 Pulse Oximetry 90 Oxygen Delivery Fraction of Inspired Oxygen 01/15/24 05:26 01/15/24 05:26 01/15/24 05:20 Temperature Pulse Rate 91 91 Respiratory Rate 24 H 24 H Blood Pressure Pulse Oximetry Oxygen Delivery Fraction of Inspired Oxygen 70 01/15/24 05:29 01/15/24 06:00 01/15/24 06:00 Temperature 37.1 C Pulse Rate 93 93 94 Respiratory Rate 24 H Blood Pressure 97/66 L Pulse Oximetry 93 93 Oxygen Delivery Mechanical Ventilation Fraction of Inspired Oxygen 60 01/15/24 06:00 01/15/24 06:00 01/15/24 06:00 Temperature Pulse Rate 97 95 92 Respiratory Rate 24 H 24 H Blood Pressure 97/66 L Pulse Oximetry Oxygen Delivery Fraction of Inspired Oxygen 01/15/24 06:00 01/15/24 06:00 01/15/24 06:26 Temperature Pulse Rate 92 94 85 Respiratory Rate 24 H Blood Pressure 97/66 L 111/74 Pulse Oximetry Oxygen Delivery Fraction of Inspired Oxygen 01/15/24 07:06 01/15/24 07:57 01/15/24 07:59 Temperature Pulse Rate 71 61 61 Respiratory Rate 24 H 24 H Blood Pressure 107/68 Pulse Oximetry Oxygen Delivery Fraction of Inspired Oxygen 01/15/24 07:59 Temperature Pulse Rate 61 Respiratory Rate 24 H Blood Pressure Pulse Oximetry Oxygen Delivery Fraction of Inspired Oxygen Intake/Output Intake/Output: Intake & Output 01/12/24 01/13/24 01/14/24 01/15/24 23:59 23:59 23:59 23:59 Intake Total 6467.3 5468.7 1951.2 Output Total 600 1400 2250 Balance 5867.3 4068.7 -298.8 Meds/Results Medications: Active Medications Generic Name Dose Route Start Last Admin Trade Name Freq PRN Reason Stop Dose Admin Acetaminophen 650 mg 01/13/24 22:59 01/14/24 03:56 Acetaminophen Elixir 325 Mg/10.15 Ml Udc FEED TUBE 650 mg Q4H PRN Administration Mild Pain (1-3) or Fever Albuterol/Ipratropium 3 ml 01/14/24 12:30 Ipratropium 0.5 Mg/Albuterol Sulfate 2.5 Mg Ampul.Neb 3 Ml NEBULIZE Q6HRT PRN wheezing Enoxaparin Sodium 40 mg 01/14/24 09:00 01/14/24 08:01 Enoxaparin 40 Mg/0.4 Ml Syringe SUB-Q 40 mg DAILY GERBER Administration Folic Acid 1 mg 01/15/24 09:00 Folic Acid 1 Mg Tablet FEED TUBE DAILY GERBER Hydrocortisone Sodium Succinate 100 mg 01/14/24 06:00 01/15/24 04:58 Hydrocortisone Sodium Succinate 100 Mg/2 Ml Vial IV PUSH 100 mg Q8HR GERBER Administration Levetiracetam 1,000 mg in 100 mls @ 400 mls/hr 01/13/24 21:00 01/14/24 20:35 Keppra Iv IVPB Infused Q12HR [facility] Infusion Piperacillin/Tazobactam/Dextrose 3.375 gm in 50 mls @ 100 mls/hr 01/14/24 00:00 01/15/24 05:30 Zosyn 3.375 Gm/Ns 50 Ml IVPB Infused Q6HR [facility] Infusion Propofol 100 mls @ 6.75 mls/hr 01/13/24 18:05 01/15/24 07:59 Diprivan IV CONT 15 mcg/kg/min .[id number] GERBER 6.75 mls/hr Titration Protocol 15 MCG/KG/MIN Norepinephrine Bitartrate 8 mg in 250 mls @ 0 mls/hr 01/13/24 18:10 01/15/24 07:06 Levophed 8 Mg/D5w 250 Ml IV CONT 0 mcg/min .Q0M GERBER 0 mls/hr Titration Protocol 0 MCG/MIN Fentanyl Citrate 2,500 mcg in 250 mls @ 15 mls/hr 01/13/24 21:20 01/15/24 07:57 Fentanyl 2,500 Mcg/Ns 250 Ml IV CONT 150 mcg/hr .[id number] GERBER 15 mls/hr Titration Protocol 150 MCG/HR Midazolam HCl 100 mg in 100 mls @ 9 mls/hr 01/13/24 21:20 01/15/24 07:59 Versed 100 Mg/Ns 100 Ml IV CONT 9 mg/hr .[id number] GER[facility] 9 mls/hr Titration Protocol 9 MG/HR Vancomycin HCl 1,500 mg in 500 mls @ 250 mls/hr 01/14/24 15:00 01/14/24 17:08 Vancomycin 1,500 Mg/Ns 500 Ml IVPB 01/15/24 23:00 Infused Q18H [facility] Infusion Morphine Sulfate 2 mg 01/13/24 16:22 Morphine Sulfate (*Crx) 2 Mg/Ml Inj IV PUSH Q2H PRN Pain Rated 7-10 Multi-Ingred Cream/Lotion/Oil/Oint 1 applic 01/14/24 09:00 01/14/24 20:22 Mineral Oil/White Petrolatum Ointment EACH EYE 1 applic Q12HR GERBER Administration Ondansetron HCl 4 mg 01/13/24 16:22 Ondansetron Inj 4 Mg/2 Ml Vial IV PUSH Q4H PRN Nausea Sodium Chloride 10 ml 01/13/24 22:00 01/15/24 04:58 Central Line Flush IV PUSH 10 ml Q8HR [facility] Administration Sodium Chloride 20 ml 01/13/24 20:18 Central Line Flush IV PUSH PRN PRN after blood draws Thiamine HCl 100 mg 01/15/24 09:00 Thiamine Hcl 100 Mg [facility] [facility] [place]: ITS Impressions Head CT 01/13/24 15:43 IMPRESSION: No acute intracranial findings. Chest/Abdomen/Pelvis CT 01/14/24 11:18 IMPRESSION: 1. Diffuse lung disease, consistent with pneumonia. 2. Small pleural effusions. 3. Small volume of ascites. Chest X-Ray 01/15/24 06:44 Impression: Bilateral multilobar pneumonia, mildly improved from prior exam. Support tubes, as above. Labs Labs: Laboratory Results - last 24 hr 01/14/24 01/15/24 01/15/24 13:03 04:41 04:56 WBC 9.0 RBC 3.57 L Hgb 11.8 L Hct 34.0 L MCV 95.2 MCH 33.1 MCHC 34.7 RDW 12.5 Plt Count 101 L MPV 9.8 Immature Gran % (Auto) 2.0 H Neut % (Auto) 84.7 H Lymph % (Auto) 7.5 L Saline % (Auto) 5.6 Eos % (Auto) 0.0 Baso % (Auto) 0.2 Lymph # (Auto) 0.67 L Saline # (Auto) 0.5 Eos # (Auto) 0.0 Baso # (Auto) 0.0 Abs Immat Gran (auto) 0.18 H Absolute Neuts (auto) 7.6 H Absolute Nucleated RBC 0.000 Nucleated RBC % 0.0 % Immature Plt Fraction 3.6 Puncture Site Right radial ABG pH 7.386 ABG pCO2 48.4 H ABG pO2 67.3 L ABG PO2/FiO2 Ratio 1.12 ABG HCO3 28.4 H ABG O2 Saturation 93.0 L ABG O2 Content 17.1 ABG Base Excess 2.6 A-a Gradient 307.3 Oxyhemoglobin 92.2 Carboxyhemoglobin 0.4 Methemoglobin 0.3 Reduced Hemoglobin 7.1 H Total Hemoglobin 13.2 O2 Delivery Device Ventilator O2 Liters/Min Not Reportable Minute Volume Not Reportable Vent Rate 24 Vent Mode Cmv FiO2 60 Tidal Volume 500 PEEP 8 Peak Inspir Pressure Not Reportable Pressure Support Not Reportable Sodium 134 L 138 Potassium 4.9 3.9 Chloride 105 101 Carbon Dioxide 23 33 H Anion Gap 6 4 BUN 20 18 Creatinine 1.10 0.90 Estim Creat Clear Calc 75 90 Estimated GFR > 60 > 60 Glucose 161 H 163 H Calcium 7.6 L 7.9 L Total Bilirubin 0.8 AST 93 H ALT 30 Alkaline Phosphatase 55 Ammonia 17 Total Creatine Kinase 1446 H Total Protein 5.0 L Albumin 2.7 L TSH (Reflex) 0.172 L Free T4 0.76 L Quality VTE Prophylaxis VTE prophylaxis: pharmacologic ordered
[2024-01-15] MEDS: ENOXAPARIN 40 MG/0.4 ML SYRINGE SUB-Q (09:39)
[2024-01-15] MEDS: levETIRAcetam 1000MG/NACL100ML 1,000 MG/100 ML BAG 400 MG IVPB ×2 (09:39→20:57)
[2024-01-15] MEDS: THIAMINE HCL 100 MG TABLET FEED TUBE (09:39)
[2024-01-15] MEDS: FOLIC ACID 1 MG TABLET FEED TUBE (09:39)
[2024-01-15] MEDS: MINERAL OIL/WHITE PETROLATUM OINTMENT 1 APPLIC EACH EYE ×2 (09:41→20:58)
[2024-01-15] MEDS: LACTATED RINGERS 1,000 ML 75 ML IV CONT ×2 (09:50→22:34)
--- NOTE | 2024-01-15 11:22 | PCFNICU ---
ICU Rounding Note: Pt current nutrition is Vital AF 1.2 at 50 ml/hr. Last recorded weight is 82.8 kg, up from 81.4 kg on admit. Bowel Motility: No BM reported at this time Labs Reviewed:Glu 163, Alb 2.7 Meds Noted:Propofol 15 iglz=146 kcal, Versed, Fentanyl, Thiamine, Zosyn, Keppra. Skin: WNL Additional Notes: Patient remains on mechanical vent. Tube feedings are currently being tolerated of Vital AF 1.2 at 50 ml/hr. Propofol providing an additional 178 kcal. Total Nutrition: 1498 kcal/83 gm protein/ 892 ml water. Meeting 74% kcal needs and 85% protein needs. Would recommend to continue current rate today and will reassess tomorrow for possible rate changes. Following daily in ICU rounds. Will monitor weight, labs, skin, tube feeding tolerance, meds every Friday and Friday.
[2024-01-15 11:48] LABS: Vancomycin Trough 6.3 ug/mL (10.0-20.0)
[2024-01-15] MEDS: VANCOMYCIN 1,500 MG/NS 500 ML 1,500 MG/500 ML BAG 250 MG IVPB (12:15)
[2024-01-15] MEDS: MIDAZOLAM 100MG/NS 100ML(*CRX) 100 MG/100 ML BAG 8 MG IV CONT (16:50)
[2024-01-15 17:24] LABS: Triglycerides 506 mg/dL (<150)
[2024-01-15] MEDS: MORPHINE SULFATE (*CRX) 2 MG/ML INJ IV PUSH (21:28)
[2024-01-16] VITALS (34 sets, daily range): BP systolic 98–148; BP diastolic 68–106; PULSE 47–97; RESP 20–27; TEMP 36.8–37.4; O2SAT 91–98
--- NOTE | 2024-01-16 | ECHO_ITS ---
Patient Info Name: Aiden Esposito Age: 48 years : 1975 Gender: Male Ht: 69 in Wt: 182 lbs BSA: 2.02 m2 HR: 53 bpm BP: 123 / 81 mmHg Technical Quality: Good, Fair Exam Date: 01/16/2024 9:38 AM Exam Location: Echo Lab Patient Status: Inpatient Admit Date: 01/13/2024 Staff Ordering Physician: Alayna Potter MD Flat Knitter Helper: Van Hunt RDCS Attending Provider: Chuck Rudolph MD Referring Physician: Tariq REYES; Exam Type: CA echo doppler color flow Study Info Indications - septic shock, r/o cardiomegaly Complete two-dimensional, color flow and Doppler transthoracic echocardiogram is performed. Summary 1. Technically difficult study with limited views. 2. Left ventricular chamber dimension is normal. 3. Left ventricular systolic function is normal, estimated at 55-60%. 4. There is mildly increased left ventricular wall thickness. 5. The left ventricular diastolic function is grade I diastolic dysfunction. 6. Right ventricular systolic function is normal. 7. No significant valvular disease. Left Ventricle Left ventricular chamber dimension is normal. Left ventricular systolic function is normal, estimated at 55-60%. There is mildly increased left ventricular wall thickness. The left ventricular diastolic function is grade I diastolic dysfunction. Right Ventricle Right ventricular chamber dimension is normal. Right ventricular systolic function is normal. Left Atria Left atrial chamber dimension is normal. Right Atria Right atrial chamber dimension is normal. Atrial Septum Intact interatrial septum visualized by color flow imaging. Aortic Valve The aortic valve is not well visualized. There is no aortic valve stenosis. There is no aortic valve regurgitation. Pulmonic Valve The pulmonic valve is not well visualized. Mitral Valve There is trace mitral valve regurgitation. Tricuspid Valve There is trace tricuspid valve regurgitation. Pericardium/Pleural There is no pericardial effusion. Inferior Vena Cava Inferior vena cava is not well visualized. Aorta The aortic root size at the sinus of Valsalva is normal. Left Ventricular Outflow Tract Name Value Normal LVOT 2D LVOT Diameter 1.9 cm LVOT Doppler LVOT Peak Gradient 2 mmHg LVOT Mean Gradient 1 mmHg LVOT VTI 16 cm LVOT VTI/AV VTI Ratio 1.0 LVOT Stroke Volume 46 ml LVOT CO 2.9 l/min LVOT CI 1.4 l/min/m2 Mitral Valve Name Value Normal MV Doppler MV Decel Pender 303 cm/s2 MV PHT 64 ms MV Area (PHT) 3.4 cm2 4.0-5.0 MV Diastolic Function MV E Peak Velocity 67 cm/s MV A Peak Velocity 63 cm/s MV E/A 1.1 MV Decel Time 222 ms MV Annular TDI MV E/e' (Septal) 6.8 <=8.0 MV E/e' (Lateral) 6.5 <=8.0 MV E/e' (Average) 6.6 Tricuspid Valve Name Value Normal TV Regurgitation Doppler TR Peak Velocity 189 cm/s TR Peak Gradient 6 mmHg Estimated PAP/RSVP RV Systolic Pressure 16 mmHg <36 Aortic Valve Name Value Normal AV Doppler AV Peak Velocity 88 cm/s AV Peak Gradient 3 mmHg AV Mean Gradient 2 mmHg AV VTI 16 cm AV Area (Cont Eq VTI) 2.9 cm2 >=3.0 AV Area (Cont Eq Jaylen) 2.6 cm2 AV Regurgitation 2D LVOT Area 2.9 cm2 Ventricles Name Value Normal LV Dimensions 2D/MM IVS Diastolic Thickness (2D) 1.2 cm 0.6-1.0 LVID Diastole (2D) 3.6 cm 4.2-5.8 LVIW Diastolic Thickness (2D) 1.1 cm 0.6-1.0 LVID Systole (2D) 2.5 cm 2.5-4.0 LVOT Diameter 1.9 cm LV Mass (2D Cubed) 135.40 g 88.00-224.00 LV Mass Index (2D Cubed) 67 g/m2 49-115 Relative Wall Thickness (2D) 0.60 LV Fractional Shortening/Ejection Fraction 2D/MM LV Fractional Shortening (2D) 30 % 25-43 LV EF (2D Teicholz) 58 % 52-72 LV Diastolic Volume (4C MOD) 134 ml LV EF (4C MOD) 70 % LV Diastolic Volume (2C MOD) 83 ml LV EF (2C MOD) 58 % LV Diastolic Volume (BP MOD) 107 ml 62-150 LV Diastolic Volume Index (BP MOD) 53 ml/m2 34-74 LV Systolic Volume (BP MOD) 37 ml 21-61 LV Systolic Volume Index (BP MOD) 18 ml/m2 11-31 LV EF (BP MOD) 66 % 52-72 LV Diastolic Length (4C) 8.7 cm LV Systolic Length (4C) 6.5 cm LV Stroke Volume (4C MOD) 94 ml Atria Name Value Normal LA Dimensions LA Volume (4C A-L) 35 ml LA Volume (BP A-L) 31 ml RA Dimensions RA Area (4C) 10.8 cm2 <=18.0 Report Signatures
[2024-01-16] MEDS: PIPERACILLN/TAZ 3.375GM/NS50ML 3.375 GM/50 ML BAG IVPB ×3 (00:56→12:51)
[2024-01-16] MEDS: PROPOFOL IV EMULSION 100 ML 9 MG IV CONT ×3 (02:50→22:10)
[2024-01-16] MEDS: MIDAZOLAM 100MG/NS 100ML(*CRX) 100 MG/100 ML BAG 9 MG IV CONT (04:00)
[2024-01-16 05:19] LABS: Basophils Percent Auto 0.1 % (0.2-1.2); Hematocrit 32.2 % (42.0-52.0); Hemoglobin 10.9 g/dL (14.0-18.0); Immature Granulocyte Percent A 1.4 % (0-0.5); Immature Platelet Fraction Pct 4.3 % (0.9-11.2); Lymphocytes Absolute Auto 0.73 K/mm3 (0.9-3.2); Lymphocytes Percent Auto 9.9 % (18.3-44.2); Mean Corpuscular HGB Conc 33.9 g/dl (32-36); Mean Corpuscular Hemoglobin 32.5 pg (26-34); Mean Corpuscular Volume 96.1 fl (80-100); Mean Platelet Volume 10.6 fl (7.4-10.4); Monocytes Absolute Auto 0.4 K/mm3 (0.1-0.6); Neutrophils Absolute Auto 6.2 K/mm3 (1.3-6.7); Neutrophils Percent Auto 83.6 % (45.5-73.1); Platelet Count Result 92 k/mm3 (150-375); Red Blood Count 3.35 M/mm3 (4.6-6.20); Red Cell Distribution Width 12.7 % (11.5-14.5); White Blood Count 7.4 K/mm3 (4.5-10.0)
[2024-01-16 05:26] LABS: Alanine Aminotransferase 33 U/L (6-50); Albumin Level 2.9 g/dL (3.5-5.1); Alkaline Phosphatase 81 U/L (38-126); Anion Gap 3 mmol/L (4-12); Aspartate Amino Transferase 93 U/L (17-59); Bilirubin,Total 0.7 mg/dL (0.2-1.3); Blood Urea Nitrogen 20 mg/dL (9-20); Calcium 8.2 mg/dL (8.4-10.2); Carbon Dioxide 34 mmol/L (22-30); Chloride 103 mmol/L (98-107); Creatine Kinase 1250 U/L (55-170); Estimated CRCL calculation 90 ml/min; Estimated Glomerular Filt Rate > 60; Glucose 143 mg/dL (65-110); Potassium 3.4 mmol/L (3.4-5.0); Sodium 140 mmol/L (137-145)
--- NOTE | 2024-01-16 05:30 | PC.NURSE ---
Patient desaturating to 77%, FiO2 increased to 100%, patient suctioned, lungs auscultated, tube feeds held. No changes to respiratory assessment, ETT placement unchanged, bowels sounds still hypoactive and abdomen continues to be firm. Residuals elevated at 200ml. No sign or symptom of aspiration noted.
[2024-01-16] MEDS: MORPHINE SULFATE (*CRX) 2 MG/ML INJ IV PUSH (05:33)
[2024-01-16] MEDS: HYDROCORTISONE SODIUM SUCCINATE 100 MG/2 ML VIAL IV PUSH (05:33)
[2024-01-16] MEDS: CENTRAL LINE FLUSH 10 ML IV PUSH ×3 (05:36→21:16)
[2024-01-16 06:22] LABS: Alveolar/Arterial O2 Gradient 450.3 mmHg; Base Excess ABG 6.9 mEq/l (+/-2.0); Carboxyhemoglobin 0.4 % THb (0-2.0); Fractional Inspired Oxygen 80 %; HCO3 ABG 33.7 mEq/l (22.0-26.0); Oxygen Content ABG 22.1 %vol (16.0-22.0); Oxygen Saturation ABG 91.8 % (95.0-100.0); Oxyhemoglobin 91.5 % THb (90.0-100.0); PCO2 ABG 54.6 mmHg (35.0-45.0); PO2 ABG 62.8 mmHg (80.0-100.0); PO2 FiO2 Ratio Arterial Blood 0.78 %; Reduced Hemoglobin 8.1 %THb (0-5.0); Total Hemoglobin 17.2 g/dL (12.0-18.0); pH ABG 7.408 (7.350-7.450)
[2024-01-16 06:23] LABS: Device VENTILATOR; Modified Allen's Test Pass; Site Drawn RIGHT RADIAL
[2024-01-16 06:24] LABS: Arterial Blood Gas PEEP 10 cmH2O; Arterial Blood Gas Vent Mode CMV; Arterial Blood Gas Ventilator rate 24 /MIN
[2024-01-16 06:25] LABS: Arterial Blood Gas Tidal Volume 500 ml
[2024-01-16] MEDS: FUROSEMIDE INJ 40 MG/4 ML VIAL IV PUSH (09:16)
[2024-01-16] MEDS: FOLIC ACID 1 MG TABLET FEED TUBE (09:16)
[2024-01-16] MEDS: THIAMINE HCL 100 MG TABLET FEED TUBE (09:16)
--- NOTE | 2024-01-16 09:16 | P.PNINT_ITS ---
Progress Note: A&P Assessment and Plan (1) Acute respiratory failure with hypoxia and hypercapnia: Code(s): J96.01 - Acute respiratory failure with hypoxia; J96.02 - Acute respiratory failure with hypercapnia Status: Acute Assessment and Plan: 01/12: Patient admitted with Acute respiratory failure, encephalopathy, likely secondary to seizures, aspiration pneumonia as he was found in a hotel room lying in emesis on the bed unknown amount of time, rhabdomyolysis, septic shock, alcohol dependence, illicit drug use with methadone, seizures and patient has been out of seizure medications for patient's mother. -patient has been having cough with thick sputum for almost over a month according to mother, has refused to be evaluated by a doctor or come to the ER. - CT chest confirmed diffuse lung disease consistent with pneumonia -chest x-ray this morning continues to show bilateral diffuse infiltrates right greater than left, -ABGs reviewed, ventilator adjusted, decrease tidal volume, will maintain low tidal volume strategy and high PEEP as patient probably has ARDS -continue bronchodilators, -continue antibiotics as under (2) Septic shock: Code(s): A41.9 - Sepsis, unspecified organism; R65.21 - Severe sepsis with septic shock Status: Acute Assessment and Plan: Patient with septic shock likely secondary to pneumonia, ARDS -Off IV fluids -off pressors -wean as stress dose steroids -01/12: Preliminary blood cultures are negative x2 -01/12: Urine culture negative -01/13: Sputum culture negative -continue Zosyn (01/13) -vancomycin was discontinued, MRSA screen was negative (3) Aspiration pneumonia: Qualifiers: Aspiration pneumonia type: unspecified Laterality: bilateral Lung location: unspecified part of lung Qualified Code(s): J69.0 - Pneumonitis due to inhalation of food and vomit Code(s): J69.0 - Pneumonitis due to inhalation of food and vomit Status: Acute Assessment and Plan: As above (4) Polysubstance (including opioids) dependence with physiological dependence: Code(s): F19.20 - Other psychoactive substance dependence, uncomplicated Status: Acute Assessment and Plan: patient will be counseled once extubated -according the mother patient does not take any illicit drugs -he did take methadone which was given to him by a neighbor, the mother states that was the only time he did drugs -patient does drink alcohol and has alcohol dependence (5) Encephalopathy: Code(s): G93.40 - Encephalopathy, unspecified Status: Acute Assessment and Plan: 01/12: Patient when brought in to the ED was encephalopathic which likely was secondary to either postictal from seizures or overdose from opioid. head CT was negative on admission currently sedated and and intubated. Normal ammonia level (6) Chronic alcoholism: Code(s): F10.20 - Alcohol dependence, uncomplicated Status: Acute Assessment and Plan: Continue thiamine, folic acid (7) Rhabdomyolysis: Qualifiers: Rhabdomyolysis type: non-traumatic Qualified Code(s): M62.82 - Rhabdomyolysis Code(s): M62.82 - Rhabdomyolysis Status: Acute Assessment and Plan: could be secondary to seizures or from laying on the floor for prolonged period of time. Monitor CK level which is improving -patient significantly edematous and significantly positive fluid overload -renal functions are normal -will diurese (8) Acidosis: Code(s): E87.20 - Acidosis, unspecified Status: Acute Assessment and Plan: improved hence will DC bicarb (9) Electrolyte abnormality: Code(s): E87.8 - Other disorders of electrolyte and fluid balance, not elsewhere classified Status: Acute Assessment and Plan: potassium improved after treatment (10) Abnormal thyroid function test: Code(s): R94.6 - Abnormal results of thyroid function studies Status: Acute Assessment and Plan: TSH and T4 level low. free T3 is still pending (11) Seizures: Code(s): R56.9 - Unspecified convulsions Status: Acute Assessment and Plan: Patient has a history of seizures, has been out of seizure medications. -this could be the cause of probably is encephalopathy. Also that he took methadone which does decrease seizure threshold -currently on Keppra Plan DVT prophylaxis -hold Lovenox due to low platelet count, ordered SCDs Stress ulcer prophylaxis -Protonix IV Nutrition -tolerating tube feeds Code Status - Full Code Total Critical Care Time - 38 minutes Discussed with patient's mother and his father and updated them with patient's condition, plan of care. I did go over the radiology and lab reports, they are aware that the patient's kidney functions have normalized. I answered all questions Due to a high probability of clinically significant, life threatening deterioration, the patient required my highest level of preparedness to intervene emergently and I personally spent this critical care time directly and personally managing the patient. This critical care time included obtaining a history; examining the patient; pulse oximetry; ordering and review of studies; arranging urgent treatment with development of a management plan; evaluation of patient's response to treatment; frequent reassessment; and discussions with other providers. It was exclusive of separately billable procedures and treating other patients and teaching time. Please see Assessment and Plan section and the rest of the note for further information on patient assessment and treatment This dictation may have been done utilizing a voice recognition system. Attempts have been made to correct errors. However, there may be uncorrected grammatical, spelling, and recognitions errors present. Subjective Date/time seen: 01/16/24 09:16 Interval history: Reason for consult: Acute respiratory failure, encephalopathy, likely secondary to seizures, aspiration pneumonia as he was found in a hotel room lying in emesis on the bed unknown amount of time, rhabdomyolysis, septic shock, alcohol dependence, illicit drug use, seizures and patient has been out of seizure medications 01/12: Intubated in the ER 01/16/2024: Patient seen and examined the ICU, remains intubated on CMV mode of ventilation, peep of 10, FiO2 of 80%. Sedated with propofol, Versed, fentanyl. Patient opens his eyes, does not follow simple commands. Urine output has been adequate, patient is afebrile. Tolerating tube feeds Review of Systems Review of Systems: ROS unobtainable: Yes unobtainable due to endotracheal tube, unobtainable due to medical condition and unobtainable due to mental status Exam Narrative: General: Pt is sedated, intubated and on mechanical ventilation HEENT: Pupils equal and reactive, sclera is clear, ETT in place Lungs/Chest: Bilateral coarse rales right greater than left, decreased air ent ry at bases, no wheezing, overall air increase adequate Cardiac: RRR. Normal S1 S2. No murmurs Abdomen: Decreased bowel sounds. Soft. NT. ND. Extremities: Bilateral upper and lower extremity edema, pitting in nature, palpable pedal pulses : Bates in place Neurologic: Patient intubated and sedated, opens his eyes to name, does not follow simple commands but moves all extremities to pain stimulus Psych: Unable to assess at this time Objective Data Vital Signs Vital Signs: Vital Signs - 24 hr 01/15/24 10:00 01/15/24 10:00 01/15/24 10:00 Temperature Pulse Rate 89 89 89 Respiratory Rate 24 H 24 H Blood Pressure 105/80 Pulse Oximetry Oxygen Delivery Fraction of Inspired Oxygen 01/15/24 10:00 01/15/24 10:00 01/15/24 10:00 Temperature 98.7 F Pulse Rate 89 89 89 Respiratory Rate 24 H 24 H Blood Pressure 103/71 Pulse Oximetry 100 Oxygen Delivery Fraction of Inspired Oxygen 01/15/24 11:36 01/15/24 12:00 01/15/24 12:00 Temperature Pulse Rate 63 Respiratory Rate Blood Pressure Pulse Oximetry 95 Oxygen Delivery Mechanical Ventilation Mechanical Ventilation Fraction of Inspired Oxygen 70 70 70 01/15/24 12:00 01/15/24 12:00 01/15/24 12:00 Temperature 98.6 F Pulse Rate 63 64 64 Respiratory Rate 24 H 24 H Blood Pressure 98/62 L Pulse Oximetry 96 Oxygen Delivery Fraction of Inspired Oxygen 01/15/24 12:00 01/15/24 12:00 01/15/24 12:00 Temperature Pulse Rate 64 64 64 Respiratory Rate 24 H 24 H Blood Pressure 98/62 L Pulse Oximetry Oxygen Delivery Fraction of Inspired Oxygen 01/15/24 13:49 01/15/24 14:00 01/15/24 14:00 Temperature Pulse Rate 58 L 62 62 Respiratory Rate 24 H 24 H Blood Pressure Pulse Oximetry 98 Oxygen Delivery Mechanical Ventilation Fraction of Inspired Oxygen 60 01/15/24 14:00 01/15/24 14:00 01/15/24 14:00 Temperature Pulse Rate 62 62 62 Respiratory Rate 24 H Blood Pressure 90/59 L Pulse Oximetry Oxygen Delivery Fraction of Inspired Oxygen 01/15/24 14:00 01/15/24 16:44 01/15/24 16:00 Temperature 98.5 F Pulse Rate 62 74 62 Respiratory Rate 24 H 24 H Blood Pressure 90/59 L Pulse Oximetry 96 95 Oxygen Delivery Mechanical Ventilation Fraction of Inspired Oxygen 50 01/15/24 16:33 01/15/24 16:50 01/15/24 16:53 Temperature Pulse Rate 69 69 69 Respiratory Rate 24 H 24 H 16 Blood Pressure Pulse Oximetry Oxygen Delivery Fraction of Inspired Oxygen 01/15/24 16:53 01/15/24 17:28 01/15/24 16:00 Temperature Pulse Rate 69 69 Respiratory Rate 16 24 H Blood Pressure Pulse Oximetry 93 Oxygen Delivery Mechanical Ventilation Fraction of Inspired Oxygen 60 01/15/24 16:00 01/15/24 16:00 01/15/24 16:00 Temperature Pulse Rate 63 Respiratory Rate Blood Pressure Pulse Oximetry Oxygen Delivery Mechanical Ventilation Fraction of Inspired Oxygen 70 60 01/15/24 16:00 01/15/24 18:00 01/15/24 18:00 Temperature 98.5 F Pulse Rate 61 66 66 Respiratory Rate 24 H 24 H 24 H Blood Pressure 95/63 L Pulse Oximetry 96 Oxygen Delivery Fraction of Inspired Oxygen 01/15/24 18:00 01/15/24 18:00 01/15/24 18:00 Temperature Pulse Rate 66 66 66 Respiratory Rate 24 H Blood Pressure 109/74 Pulse Oximetry Oxygen Delivery Fraction of Inspired Oxygen 01/15/24 18:00 01/15/24 20:11 01/15/24 20:29 Temperature 98.8 F 98.3 F Pulse Rate 66 64 Respiratory Rate 24 H 22 H Blood Pressure 109/74 104/67 Pulse Oximetry 90 91 93 Oxygen Delivery Mechanical Ventilation Fraction of Inspired Oxygen 60 01/15/24 20:00 01/15/24 20:00 01/15/24 20:00 Temperature Pulse Rate 63 62 62 Respiratory Rate 24 H 24 H Blood Pressure Pulse Oximetry Oxygen Delivery Fraction of Inspired Oxygen 01/15/24 20:00 01/15/24 20:00 01/15/24 20:00 Temperature Pulse Rate 62 64 Respiratory Rate 24 H 24 H Blood Pressure Pulse Oximetry 98 Oxygen Delivery Mechanical Ventilation Fraction of Inspired Oxygen 60 60 01/15/24 21:39 01/15/24 22:00 01/15/24 22:00 Temperature Pulse Rate 84 72 72 Respiratory Rate 26 H 26 H Blood Pressure Pulse Oximetry Oxygen Delivery Fraction of Inspired Oxygen 01/15/24 22:00 01/15/24 22:00 01/15/24 22:08 Temperature 98.7 F Pulse Rate 72 72 72 Respiratory Rate 26 H 26 H 22 H Blood Pressure 105/67 Pulse Oximetry 94 Oxygen Delivery Fraction of Inspired Oxygen 01/15/24 22:34 01/15/24 23:44 01/16/24 00:03 Temperature 98.4 F Pulse Rate 59 L 56 L 55 L Respiratory Rate 24 H 22 H Blood Pressure 102/69 Pulse Oximetry 97 96 Oxygen Delivery Mechanical Ventilation Fraction of Inspired Oxygen 60 01/16/24 00:00 01/16/24 00:00 01/16/24 00:00 Temperature Pulse Rate 56 L 56 L 56 L Respiratory Rate 24 H 24 H 24 H Blood Pressure Pulse Oximetry Oxygen Delivery Fraction of Inspired Oxygen 01/15/24 20:00 01/16/24 00:00 01/16/24 00:00 Temperature Pulse Rate 62 56 L 56 L Respiratory Rate 24 H Blood Pressure 104/67 102/69 Pulse Oximetry 96 Oxygen Delivery Mechanical Ventilation Fraction of Inspired Oxygen 60 01/16/24 00:00 01/16/24 02:00 01/16/24 02:50 Temperature Pulse Rate 53 L 51 L Respiratory Rate 24 H 24 H Blood Pressure Pulse Oximetry Oxygen Delivery Fraction of Inspired Oxygen 60 01/16/24 02:50 01/16/24 02:00 01/16/24 02:00 Temperature Pulse Rate 51 L 52 L 52 L Respiratory Rate 24 H 24 H 24 H Blood Pressure Pulse Oximetry Oxygen Delivery Fraction of Inspired Oxygen 01/16/24 02:00 01/16/24 04:00 01/16/24 04:35 Temperature 98.3 F 98.2 F Pulse Rate 49 L 49 L 62 Respiratory Rate 24 H 24 H Blood Pressure 102/70 98/68 L Pulse Oximetry 97 98 93 Oxygen Delivery Mechanical Ventilation Fraction of Inspired Oxygen 60 01/16/24 04:00 01/16/24 04:00 01/16/24 04:00 Temperature Pulse Rate 52 L 52 L 52 L Respiratory Rate 24 H 24 H 24 H Blood Pressure Pulse Oximetry Oxygen Delivery Fraction of Inspired Oxygen 01/16/24 04:00 01/16/24 04:00 01/16/24 04:00 Temperature Pulse Rate 52 L 52 L Respiratory Rate 24 H Blood Pressure 101/70 Pulse Oximetry 98 Oxygen Delivery Mechanical Ventilation Fraction of Inspired Oxygen 60 60 01/16/24 00:00 01/16/24 02:00 01/16/24 04:00 Temperature Pulse Rate 55 L 53 L 51 L Respiratory Rate Blood Pressure Pulse Oximetry Oxygen Delivery Fraction of Inspired Oxygen 01/16/24 06:00 01/16/24 04:00 01/16/24 06:00 Temperature Pulse Rate 72 51 L 72 Respiratory Rate 24 H 24 H Blood Pressure Pulse Oximetry Oxygen Delivery Fraction of Inspired Oxygen 01/16/24 06:00 01/16/24 06:00 01/16/24 06:12 Temperature 98.7 F Pulse Rate 72 72 75 Respiratory Rate 24 H 24 H 20 Blood Pressure 123/81 Pulse Oximetry 92 Oxygen Delivery Fraction of Inspired Oxygen 01/16/24 07:15 01/16/24 08:00 01/16/24 08:00 Temperature Pulse Rate 53 L 50 L 50 L Respiratory Rate 24 H 24 H Blood Pressure Pulse Oximetry 96 Oxygen Delivery Mechanical Ventilation Fraction of Inspired Oxygen 80 01/16/24 08:00 01/16/24 08:00 01/16/24 09:12 Temperature 98.6 F Pulse Rate 50 L 52 L 53 L Respiratory Rate 24 H 24 H 24 H Blood Pressure 110/75 Pulse Oximetry 97 Oxygen Delivery Fraction of Inspired Oxygen Intake/Output Intake/Output: Intake & Output 01/13/24 01/14/24 01/15/24 01/16/24 23:59 23:59 23:59 23:59 Intake Total 6467.3 5468.7 4885.8 1093.2 Output Total 600 1400 2950 600 Balance 5867.3 4068.7 1935.8 493.2 Meds/Results Medications: Active Medications Generic Name Dose Route Start Last Admin Trade Name Freq PRN Reason Stop Dose Admin Acetaminophen 650 mg 01/13/24 22:59 01/14/24 03:56 Acetaminophen Elixir 325 Mg/10.15 Ml Udc FEED TUBE 650 mg Q4H PRN Administration Mild Pain (1-3) or Fever Albuterol/Ipratropium 3 ml 01/14/24 12:30 Ipratropium 0.5 Mg/Albuterol Sulfate 2.5 Mg Ampul.Neb 3 Ml NEBULIZE Q6HRT PRN wheezing Enoxaparin Sodium 40 mg 01/14/24 09:00 01/15/24 09:39 Enoxaparin 40 Mg/0.4 Ml Syringe SUB-Q 40 mg DAILY GERBER Administration Folic Acid 1 mg 01/15/24 09:00 01/15/24 09:39 Folic Acid 1 Mg Tablet FEED TUBE 1 mg DAILY GERBER Administration Hydrocortisone Sodium Succinate 100 mg 01/14/24 06:00 01/16/24 05:33 Hydrocortisone Sodium Succinate 100 Mg/2 Ml Vial IV PUSH 100 mg Q8HR GERBER Administration Levetiracetam 1,000 mg in 100 mls @ 400 mls/hr 01/13/24 21:00 01/15/24 21:17 Keppra Iv IVPB Infused Q12HR GERBER Infusion Piperacillin/Tazobactam/Dextrose 3.375 gm in 50 mls @ 100 mls/hr 01/14/24 00:00 01/16/24 06:14 Zosyn 3.375 Gm/Ns 50 Ml IVPB Infused Q6HR GERBER Infusion Propofol 100 mls @ 6.75 mls/hr 01/13/24 18:05 01/16/24 09:12 Diprivan IV CONT 10 mcg/kg/min .[id number] GERBER 4.5 mls/hr Titration Protocol 15 MCG/KG/MIN Norepinephrine Bitartrate 8 mg in 250 mls @ 0 mls/hr 01/13/24 18:10 01/16/24 04:00 Levophed 8 Mg/D5w 250 Ml IV CONT 0 mcg/min .Q0M GERBER 0 mls/hr Titration Protocol 0 MCG/MIN Fentanyl Citrate 2,500 mcg in 250 mls @ 17.5 mls/hr 01/13/24 21:20 01/16/24 08:00 Fentanyl 2,500 Mcg/Ns 250 Ml IV CONT 175 mcg/hr .[id number] GERBER 17.5 mls/hr Titration Protocol 175 MCG/HR Midazolam HCl 100 mg in 100 mls @ 9 mls/hr 01/13/24 21:20 01/16/24 08:00 Versed 100 Mg/Ns 100 Ml IV CONT 9 mg/hr .[id number] GERBER 9 mls/hr Titration Protocol 9 MG/HR Morphine Sulfate 2 mg 01/13/24 16:22 01/16/24 05:33 Morphine Sulfate (*Crx) 2 Mg/Ml Inj IV PUSH 2 mg Q2H PRN Administration Pain Rated 7-10 Multi-Ingred Cream/Lotion/Oil/Oint 1 applic 01/14/24 09:00 01/15/24 20:58 Mineral Oil/White Petrolatum Ointment EACH EYE 1 applic Q12HR GERBER Administration Ondansetron HCl 4 mg 01/13/24 16:22 Ondansetron Inj 4 Mg/2 Ml Vial IV PUSH Q4H PRN Nausea Perflutren Lipid Microsphere 0 ml 01/16/24 07:46 Perflutren Lipid Microspheres 1.5 Ml Vial Diluted To 10 Ml Total Volume IV PUSH 01/19/24 07:46 ONCE PRN adequate visualization Protocol Sodium Chloride 10 ml 01/13/24 22:00 01/16/24 05:36 Central Line Flush IV PUSH 10 ml Q8HR GERBER Administration Sodium Chloride 20 ml 01/13/24 20:18 Central Line Flush IV PUSH PRN PRN after blood draws Thiamine HCl 100 mg 01/15/24 09:00 01/15/24 09:39 Thiamine Hcl 100 Mg Tablet FEED TUBE 100 mg QAM GERBER Administration Radiology Results: ITS Impressions Head CT 01/13/24 15:43 IMPRESSION: No acute intracranial findings. Chest/Abdomen/Pelvis CT 01/14/24 11:18 IMPRESSION: 1. Diffuse lung disease, consistent with pneumonia. 2. Small pleural effusions. 3. Small volume of ascites. Chest X-Ray 01/16/24 06:02 Impression: Bilateral hazy airspace disease, right lung significant worse than left. Correlate for bilateral pneumonia versus possibly asymmetric pulmonary edema. Small pleural effusions. Support tubes, as above. Labs Labs: Laboratory Results - last 24 hr 01/15/24 01/15/24 01/16/24 04:37 11:00 04:56 WBC 7.4 RBC 3.35 L Hgb 10.9 L Hct 32.2 L MCV 96.1 MCH 32.5 MCHC 33.9 RDW 12.7 Plt Count 92 L MPV 10.6 H Immature Gran % (Auto) 1.4 H Neut % (Auto) 83.6 H Lymph % (Auto) 9.9 L [place] % (Auto) 5.0 Eos % (Auto) 0.0 Baso % (Auto) 0.1 L Lymph # (Auto) 0.73 L [place] # (Auto) 0.4 Eos # (Auto) 0.0 Baso # (Auto) 0.0 Abs Immat Gran (auto) 0.10 H Absolute Neuts (auto) 6.2 Absolute Nucleated RBC 0.000 Nucleated RBC % 0.0 % Immature Plt Fraction 4.3 Puncture Site ABG pH ABG pCO2 ABG pO2 ABG PO2/FiO2 Ratio ABG HCO3 ABG O2 Saturation ABG O2 Content ABG Base Excess A-a Gradient Oxyhemoglobin Carboxyhemoglobin Methemoglobin Reduced Hemoglobin Total Hemoglobin O2 Delivery Device O2 Liters/Min Minute Volume Vent Rate Vent Mode FiO2 Tidal Volume PEEP Peak Inspir Pressure Pressure Support Sodium 140 Potassium 3.4 Chloride 103 Carbon Dioxide 34 H Anion Gap 3 L BUN 20 Creatinine 0.90 Estim Creat Clear Calc 90 Estimated GFR > 60 Glucose 143 H Calcium 8.2 L Total Bilirubin 0.7 AST 93 H ALT 33 Alkaline Phosphatase 81 Total Creatine Kinase 1250 H Total Protein 6.0 L Albumin 2.9 L Triglycerides 506 H Vancomycin Trough 6.3 L 01/16/24 05:23 WBC RBC Hgb Hct MCV MCH MCHC RDW Plt Count MPV Immature Gran % (Auto) Neut % (Auto) Lymph % (Auto) [place] % (Auto) Eos % (Auto) Baso % (Auto) Lymph # (Auto) [place] # (Auto) Eos # (Auto) Baso # (Auto) Abs Immat Gran (auto) Absolute Neuts (auto) Absolute Nucleated RBC Nucleated RBC % % Immature Plt Fraction Puncture Site Right radial ABG pH 7.408 ABG pCO2 54.6 H ABG pO2 62.8 L ABG PO2/FiO2 Ratio 0.78 ABG HCO3 33.7 H ABG O2 Saturation 91.8 L ABG O2 Content 22.1 H ABG Base Excess 6.9 A-a Gradient 450.3 Oxyhemoglobin 91.5 Carboxyhemoglobin 0.4 Methemoglobin 0.0 Reduced Hemoglobin 8.1 H Total Hemoglobin 17.2 O2 Delivery Device Ventilator O2 Liters/Min Not Reportable Minute Volume Not Reportable Vent Rate 24 Vent Mode Cmv FiO2 80 Tidal Volume 500 PEEP 10 Peak Inspir Pressure Not Reportable Pressure Support Not Reportable Sodium Potassium Chloride Carbon Dioxide Anion Gap BUN Creatinine Estim Creat Clear Calc Estimated GFR Glucose Calcium Total Bilirubin AST ALT Alkaline Phosphatase Total Creatine Kinase Total Protein Albumin Triglycerides Vancomycin Trough Quality VTE Prophylaxis VTE prophylaxis: pharmacologic ordered
[2024-01-16] MEDS: levETIRAcetam 1000MG/NACL100ML 1,000 MG/100 ML BAG 400 MG IVPB ×2 (09:18→21:01)
[2024-01-16] MEDS: MINERAL OIL/WHITE PETROLATUM OINTMENT 1 APPLIC EACH EYE ×2 (09:18→21:01)
[2024-01-16 10:27] LABS: T3 Free 0.8 pg/mL (2.3-4.2)
--- NOTE | 2024-01-16 11:26 | PCNFU ---
Nutrition Follow-Up Complete: Suboptimal Energy Intake as related to mechanical ventilation as evidenced by NPO. goal: Meet estimated nutritional needs. Patient is progressing towards goal. We will continue current goal. Pt current nutrition is Vital AF 1.2 at 50 ml/hr. Nutrition recommendation: Prosource BID Last recorded weight is 83 kg, up from 81.4 kg on admit. Bowel Motility: No BM reported. Labs Reviewed: Glu 143, Alb 2.9 Meds Noted: Propofol 15 lnli=163 kcals, Versed, Fentanyl, Miralax, Folic Acid, Keppra Skin: +2 pitting edema-lower legs. Additional Notes: Patient remains on mechanical vent. Tube feedings at goal 50 ml/hr. Residual noted at 140 ml. Recommend adding Prosource BID for additional protein/kcal needs. Total Nutrition with propofol: 1658 kcals/123 gm protein/892 ml water. Flush 30 ml q 4 hours. Meeting 81% kcal needs and 100% protein needs. Agree with diet orders at this time. Will monitor weight, labs, skin, tube feeding tolerance, meds every Friday and Friday.
[2024-01-16] MEDS: FENTANYL 2,500MCG/NS250ML(*CRX 2,500 MCG/250 ML BAG 17.5 MCG IV CONT (12:52)
[2024-01-16] MEDS: polyethylene glycoL 3350 17 GM POWD.PACK PO (13:09)
[2024-01-16] MEDS: MIDAZOLAM 100MG/NS 100ML(*CRX) 100 MG/100 ML BAG 10 MG IV CONT (14:26)
[2024-01-16] MEDS: PIPERACILLIN/TAZ 4.5G/NS 100ML 4.5 GM/100 ML BAG IVPB (17:34)
[2024-01-16] MEDS: HYDROCORTISONE SODIUM SUCCINATE 100 MG/2 ML VIAL 50 MG IV PUSH (17:37)
[2024-01-16] MEDS: PANTOPRAZOLE SODIUM IV 40 MG VIAL IV PUSH (21:01)
[2024-01-17] VITALS (62 sets, daily range): BP systolic 109–147; BP diastolic 48–90; PULSE 47–87; RESP 16–32; TEMP 37.2–38.2; O2SAT 93–99
[2024-01-17] MEDS: PIPERACILLIN/TAZ 4.5G/NS 100ML 4.5 GM/100 ML BAG IVPB ×4 (00:27→17:35)
[2024-01-17] MEDS: MIDAZOLAM 100MG/NS 100ML(*CRX) 100 MG/100 ML BAG 10 MG IV CONT ×3 (01:05→21:10)
[2024-01-17] MEDS: FENTANYL 2,500MCG/NS250ML(*CRX 2,500 MCG/250 ML BAG 20 MCG IV CONT ×2 (02:46→15:03)
[2024-01-17 04:59] LABS: Basophils Percent Auto 0.2 % (0.2-1.2); Eosinophils Percent Auto 0.3 % (0-4.4); Hematocrit 33.2 % (42.0-52.0); Hemoglobin 11.2 g/dL (14.0-18.0); Immature Granulocyte Absolute 0.11 K/mm3 (0.00-0.031); Immature Granulocyte Percent A 1.2 % (0-0.5); Immature Platelet Fraction Pct 3.5 % (0.9-11.2); Lymphocytes Absolute Auto 1.27 K/mm3 (0.9-3.2); Lymphocytes Percent Auto 13.8 % (18.3-44.2); Mean Corpuscular HGB Conc 33.7 g/dl (32-36); Mean Corpuscular Hemoglobin 32.3 pg (26-34); Mean Corpuscular Volume 95.7 fl (80-100); Mean Platelet Volume 10.3 fl (7.4-10.4); Monocytes Absolute Auto 0.7 K/mm3 (0.1-0.6); Monocytes Percent Auto 7.2 % (2.6-8.5); Neutrophils Absolute Auto 7.1 K/mm3 (1.3-6.7); Neutrophils Percent Auto 77.3 % (45.5-73.1); Nucleated Red Blood Cells Perc 0.3 % (0.0-0.2); Platelet Count Result 111 k/mm3 (150-375); Red Blood Count 3.47 M/mm3 (4.6-6.20); Red Cell Distribution Width 13.1 % (11.5-14.5); White Blood Count 9.2 K/mm3 (4.5-10.0)
[2024-01-17 05:01] LABS: Alveolar/Arterial O2 Gradient 429.8 mmHg; Base Excess ABG 8.8 mEq/l (+/-2.0); Carboxyhemoglobin 0.3 % THb (0-2.0); Fractional Inspired Oxygen 80 %; HCO3 ABG 31.8 mEq/l (22.0-26.0); Oxygen Content ABG 16.1 %vol (16.0-22.0); Oxygen Saturation ABG 98.2 % (95.0-100.0); Oxyhemoglobin 97.6 % THb (90.0-100.0); PCO2 ABG 37.9 mmHg (35.0-45.0); PO2 ABG 100.8 mmHg (80.0-100.0); PO2 FiO2 Ratio Arterial Blood 1.26 %; Reduced Hemoglobin 2.1 %THb (0-5.0); Total Hemoglobin 11.6 g/dL (12.0-18.0)
[2024-01-17 05:02] LABS: Device VENTILATOR; Modified Allen's Test Pass; Site Drawn RIGHT RADIAL; pH ABG 7.542 (7.350-7.450)
[2024-01-17 05:03] LABS: Arterial Blood Gas PEEP 10 cmH2O; Arterial Blood Gas Tidal Volume 450 ml; Arterial Blood Gas Vent Mode CMV; Arterial Blood Gas Ventilator rate 26 /MIN
[2024-01-17 05:07] LABS: Alanine Aminotransferase 37 U/L (6-50); Albumin Level 3.1 g/dL (3.5-5.1); Alkaline Phosphatase 91 U/L (38-126); Anion Gap 4 mmol/L (4-12); Aspartate Amino Transferase 76 U/L (17-59); Bilirubin,Total 0.7 mg/dL (0.2-1.3); Blood Urea Nitrogen 29 mg/dL (9-20); Calcium 8.2 mg/dL (8.4-10.2); Carbon Dioxide 36 mmol/L (22-30); Chloride 103 mmol/L (98-107); Creatine Kinase 883 U/L (55-170); Estimated CRCL calculation 90 ml/min; Estimated Glomerular Filt Rate > 60; Glucose 105 mg/dL (65-110); Potassium 2.9 mmol/L (3.4-5.0); Sodium 143 mmol/L (137-145)
[2024-01-17 05:10] LABS: Lactic Acid Reflex 1.1 mmol/L (0.7-2.0)
[2024-01-17 05:12] LABS: Partial Thromboplastin Time 30.7 Seconds (22.3-36.8); Prothrombin Time 13.6 Seconds (11.1-14.7)
[2024-01-17 05:13] LABS: CRP 8.1 mg/dL (<1.0); Magnesium 2.2 mg/dL (1.6-2.3)
[2024-01-17 05:18] LABS: Phosphorus < 1.0 mg/dL (2.5-4.5)
[2024-01-17] MEDS: HYDROCORTISONE SODIUM SUCCINATE 100 MG/2 ML VIAL 50 MG IV PUSH ×3 (06:29→17:35)
[2024-01-17] MEDS: CENTRAL LINE FLUSH 10 ML IV PUSH ×3 (06:29→20:17)
[2024-01-17] MEDS: PROPOFOL IV EMULSION 100 ML 15.75 MG IV CONT (08:42)
[2024-01-17] MEDS: levETIRAcetam 1000MG/NACL100ML 1,000 MG/100 ML BAG 400 MG IVPB ×2 (08:45→20:11)
[2024-01-17] MEDS: PANTOPRAZOLE SODIUM IV 40 MG VIAL IV PUSH ×2 (08:45→20:15)
[2024-01-17] MEDS: THIAMINE HCL 100 MG TABLET FEED TUBE (08:45)
[2024-01-17] MEDS: MINERAL OIL/WHITE PETROLATUM OINTMENT 1 APPLIC EACH EYE ×2 (08:45→20:18)
[2024-01-17] MEDS: FOLIC ACID 1 MG TABLET FEED TUBE (08:46)
[2024-01-17] MEDS: ENOXAPARIN 40 MG/0.4 ML SYRINGE SUB-Q (08:46)
[2024-01-17] MEDS: POTASSIUM/PHOSPHORUS/SODIUM 1.5 GM PACKET 2 PACKET PO (08:59)
[2024-01-17] MEDS: [UNRECOGNIZED DRUG - REMARK] 1 EACH XX (08:59)
--- NOTE | 2024-01-17 09:30 | WPDINTPN ---
Progress Note: A&P Assessment and Plan (1) Acute respiratory failure with hypoxia and hypercapnia: Code(s): J96.01 - Acute respiratory failure with hypoxia; J96.02 - Acute respiratory failure with hypercapnia Status: Acute Assessment and Plan: 01/12: Patient admitted with Acute respiratory failure, encephalopathy, likely secondary to seizures, aspiration pneumonia as he was found in a hotel room lying in emesis on the bed unknown amount of time, rhabdomyolysis, septic shock, alcohol dependence, illicit drug use with methadone, seizures and patient has been out of seizure medications for patient's mother. -patient has been having cough with thick sputum for almost over a month according to mother, has refused to be evaluated by a doctor or come to the ER. - CT chest confirmed diffuse lung disease consistent with pneumonia -chest x-ray this mornin. Stable airspace opacities in right lung and left mid and lower lung zones, consistent with pneumonia.2. Stable small pleural effusions., -ABGs reviewed, ventilator adjusted, wean FiO2 to maintain O2 sats > 92% - will maintain low tidal volume strategy and high PEEP as patient has -continue bronchodilators, -continue antibiotics as under -patient is thick secretion, will start Mucomyst and Pulmozyme nebs (2) Septic shock: Code(s): A41.9 - Sepsis, unspecified organism; R65.21 - Severe sepsis with septic shock Status: Acute Assessment and Plan: Patient with septic shock likely secondary to pneumonia, ARDS -Off IV fluids -off pressors -continue steroids -01/12: Preliminary blood cultures are negative x2 -01/12: Urine culture negative -01/13: Sputum culture - yeast -continue Zosyn (01/13) -vancomycin was discontinued, MRSA screen was negative (3) Aspiration pneumonia: Qualifiers: Aspiration pneumonia type: unspecified Laterality: bilateral Lung location: unspecified part of lung Qualified Code(s): J69.0 - Pneumonitis due to inhalation of food and vomit Code(s): J69.0 - Pneumonitis due to inhalation of food and vomit Status: Acute Assessment and Plan: As above (4) Polysubstance (including opioids) dependence with physiological dependence: Code(s): F19.20 - Other psychoactive substance dependence, uncomplicated Status: Acute Assessment and Plan: patient will be counseled once extubated -according the mother patient does not take any illicit drugs -he did take methadone which was given to him by a neighbor, the mother states that was the only time he did drugs -patient does drink alcohol and has alcohol dependence (5) Encephalopathy: Code(s): G93.40 - Encephalopathy, unspecified Status: Acute Assessment and Plan: 01/12: Patient when brought in to the ED was encephalopathic which likely was secondary to either postictal from seizures or overdose from opioid. head CT was negative on admission currently sedated and and intubated. Normal ammonia level (6) Chronic alcoholism: Code(s): F10.20 - Alcohol dependence, uncomplicated Status: Acute Assessment and Plan: Continue thiamine, folic acid (7) Rhabdomyolysis: Qualifiers: Rhabdomyolysis type: non-traumatic Qualified Code(s): M62.82 - Rhabdomyolysis Code(s): M62.82 - Rhabdomyolysis Status: Acute Assessment and Plan: could be secondary to seizures or from laying on the floor for prolonged period of time. Monitor CK level which is improving -patient significantly edematous and significantly positive fluid overload -renal functions are normal -continue diuresis due to volume overload and edema -CK levels continue trending down (8) Acidosis: Code(s): E87.20 - Acidosis, unspecified Status: Acute Assessment and Plan: improved hence will DC bicarb (9) Electrolyte abnormality: Code(s): E87.8 - Other disorders of electrolyte and fluid balance, not elsewhere classified Status: Acute Assessment and Plan: potassium improved after treatment (10) Abnormal thyroid function test: Code(s): R94.6 - Abnormal results of thyroid function studies Status: Acute Assessment and Plan: TSH and T4 level low. free T3 is still pending (11) Seizures: Code(s): R56.9 - Unspecified convulsions Status: Acute Assessment and Plan: Patient has a history of seizures, has been out of seizure medications. -this could be the cause of probably is encephalopathy. Also that he took methadone which does decrease seizure threshold -currently on Keppra -no more seizures observed since patient has been in the ICU Plan DVT prophylaxis -platelet counts have improved, continue Lovenox for DVT prophylaxis Stress ulcer prophylaxis -Protonix IV Nutrition -tolerating tube feeds Code Status - Full Code Total Critical Care Time - 35 minutes Discussed with patient's mother and his father and updated them with patient's condition, plan of care. I did go over the radiology and lab reports, they are aware that the patient's kidney functions have normalized. I answered all questions Due to a high probability of clinically significant, life threatening deterioration, the patient required my highest level of preparedness to intervene emergently and I personally spent this critical care time directly and personally managing the patient. This critical care time included obtaining a history; examining the patient; pulse oximetry; ordering and review of studies; arranging urgent treatment with development of a management plan; evaluation of patient's response to treatment; frequent reassessment; and discussions with other providers. It was exclusive of separately billable procedures and treating other patients and teaching time. Please see Assessment and Plan section and the rest of the note for further information on patient assessment and treatment This dictation may have been done utilizing a voice recognition system. Attempts have been made to correct errors. However, there may be uncorrected grammatical, spelling, and recognitions errors present. Subjective Date/time seen: 01/17/24 09:30 Interval history: Reason for consult: Acute respiratory failure, encephalopathy, likely secondary to seizures, aspiration pneumonia as he was found in a hotel room lying in emesis on the bed unknown amount of time, rhabdomyolysis, septic shock, alcohol dependence, illicit drug use, seizures and patient has been out of seizure medications 01/12: Intubated in the ER 01/17/2024: Patient seen and examined the ICU, remains intubated on CMV mode of ventilation, peep of 10, FiO2 of 80%. Sedated with propofol, Versed, fentanyl. Patient opens his eyes, nods to understanding what I am saying, follows commands with lower extremity, shows me a thumbs up on the right. Urine output has been good in response to diuresis, afebrile, hemodynamically stable. Tolerating tube feeds Review of Systems Review of Systems: ROS unobtainable: Yes unobtainable due to endotracheal tube, unobtainable due to medical condition and unobtainable due to mental status Exam Narrative: General: Pt is sedated, intubated and on mechanical ventilation HEENT: Pupils equal and reactive, sclera is clear, ETT in place Lungs/Chest: Bilateral coarse rales right greater than left, decreased air entry at bases, no wheezing, overall air increase adequate Cardiac: RRR. Normal S1 S2. No murmurs Abdomen: Decreased bowel sounds. Soft. NT. ND. Extremities: Bilateral upper and lower extremity edema, pitting in nature, palpable pedal pulses : Bates in place Neurologic: Patient intubated and sedated,Patient opens his eyes, nods to understanding what I am saying, follows commands with lower extremity, shows me a thumbs up on the right. Psych: Unable to assess at this time Objective Data Vital Signs Vital Signs: Vital Signs - 24 hr 01/16/24 09:31 01/16/24 09:32 01/16/24 09:33 Temperature Pulse Rate 69 69 69 Respiratory Rate 24 H 24 H 24 H Blood Pressure Pulse Oximetry Oxygen Delivery Fraction of Inspired Oxygen 01/16/24 09:54 01/16/24 10:04 01/16/24 10:04 Temperature Pulse Rate 72 75 74 Respiratory Rate 24 H 24 H Blood Pressure Pulse Oximetry 96 Oxygen Delivery Mechanical Ventilation Fraction of Inspired Oxygen 80 01/16/24 10:05 01/16/24 10:00 01/16/24 10:00 Temperature 99.2 F Pulse Rate 74 76 76 Respiratory Rate 24 H 24 H Blood Pressure 124/92 H Pulse Oximetry 92 Oxygen Delivery Fraction of Inspired Oxygen 01/16/24 12:00 01/16/24 12:00 01/16/24 12:00 Temperature 98.9 F Pulse Rate 54 L 47 L Respiratory Rate 24 H 24 H Blood Pressure 118/87 Pulse Oximetry 98 Oxygen Delivery Fraction of Inspired Oxygen 80 01/16/24 12:00 01/16/24 12:00 01/16/24 12:31 Temperature Pulse Rate 47 L 47 L 48 L Respiratory Rate 24 H 24 H 24 H Blood Pressure Pulse Oximetry Oxygen Delivery Fraction of Inspired Oxygen 01/16/24 12:52 01/16/24 12:00 01/16/24 12:00 Temperature Pulse Rate 48 L 49 L Respiratory Rate 24 H Blood Pressure Pulse Oximetry Oxygen Delivery Mechanical Ventilation Fraction of Inspired Oxygen 80 01/16/24 13:45 01/16/24 13:45 01/16/24 13:20 Temperature Pulse Rate 71 71 51 L Respiratory Rate 26 H 26 H Blood Pressure Pulse Oximetry 97 Oxygen Delivery Mechanical Ventilation Fraction of Inspired Oxygen 80 01/16/24 14:00 01/16/24 14:00 01/16/24 14:00 Temperature Pulse Rate 85 87 87 Respiratory Rate 26 H 26 H 26 H Blood Pressure Pulse Oximetry Oxygen Delivery Fraction of Inspired Oxygen 01/16/24 14:26 01/16/24 14:26 01/16/24 14:00 Temperature 99.0 F Pulse Rate 97 97 73 Respiratory Rate 26 H 26 H 26 H Blood Pressure 148/106 H Pulse Oximetry 98 Oxygen Delivery Fraction of Inspired Oxygen 01/16/24 14:00 01/16/24 16:03 01/16/24 16:00 Temperature Pulse Rate 84 63 Respiratory Rate Blood Pressure Pulse Oximetry 92 Oxygen Delivery Mechanical Ventilation Mechanical Ventilation Fraction of Inspired Oxygen 80 80 01/16/24 16:00 01/16/24 16:00 01/16/24 16:00 Temperature 99.3 F Pulse Rate 59 L 60 Respiratory Rate 26 H Blood Pressure 113/76 Pulse Oximetry 91 Oxygen Delivery Fraction of Inspired Oxygen 80 01/16/24 16:00 01/16/24 16:00 01/16/24 16:00 Temperature Pulse Rate 60 60 60 Respiratory Rate 26 H 26 H 26 H Blood Pressure Pulse Oximetry Oxygen Delivery Fraction of Inspired Oxygen 01/16/24 18:00 01/16/24 18:00 01/16/24 18:00 Temperature 98.4 F Pulse Rate 49 L 49 L 49 L Respiratory Rate 26 H 26 H Blood Pressure 105/70 Pulse Oximetry 96 Oxygen Delivery Fraction of Inspired Oxygen 01/16/24 18:00 01/16/24 18:00 01/16/24 20:25 Temperature Pulse Rate 49 L 49 L 63 Respiratory Rate 26 H 26 H Blood Pressure Pulse Oximetry 92 Oxygen Delivery Mechanical Ventilation Fraction of Inspired Oxygen 80 01/16/24 20:00 01/16/24 20:00 01/16/24 20:00 Temperature Pulse Rate 48 L 48 L 48 L Respiratory Rate 26 H 26 H 26 H Blood Pressure Pulse Oximetry Oxygen Delivery Fraction of Inspired Oxygen 01/16/24 20:00 01/16/24 20:00 01/16/24 20:00 Temperature 98.4 F Pulse Rate 48 L 48 L Respiratory Rate 26 H 26 H Blood Pressure 111/75 Pulse Oximetry 96 96 Oxygen Delivery Mechanical Ventilation Fraction of Inspired Oxygen 80 80 01/16/24 20:00 01/16/24 22:00 01/16/24 22:00 Temperature Pulse Rate 48 L 74 77 Respiratory Rate 27 H 27 H Blood Pressure Pulse Oximetry Oxygen Delivery Fraction of Inspired Oxygen 01/16/24 22:00 01/16/24 22:00 01/16/24 22:00 Temperature 98.8 F Pulse Rate 77 77 77 Respiratory Rate 27 H 27 H Blood Pressure 141/89 H Pulse Oximetry 95 Oxygen Delivery Fraction of Inspired Oxygen 01/16/24 22:10 01/16/24 22:10 01/16/24 23:25 Temperature Pulse Rate 64 64 64 Respiratory Rate 26 H 26 H Blood Pressure Pulse Oximetry 98 Oxygen Delivery Mechanical Ventilation Fraction of Inspired Oxygen 80 01/17/24 00:00 01/16/24 22:30 01/17/24 00:00 Temperature Pulse Rate 61 66 61 Respiratory Rate 26 H 26 H 26 H Blood Pressure Pulse Oximetry Oxygen Delivery Fraction of Inspired Oxygen 01/17/24 00:00 01/17/24 00:00 01/17/24 00:00 Temperature 99.4 F Pulse Rate 61 74 61 Respiratory Rate 26 H 26 H 26 H Blood Pressure 135/79 Pulse Oximetry 99 96 Oxygen Delivery Mechanical Ventilation Fraction of Inspired Oxygen 80 01/17/24 00:00 01/17/24 01:05 01/17/24 01:05 Temperature Pulse Rate 58 L 58 L Respiratory Rate 26 H 26 H Blood Pressure Pulse Oximetry Oxygen Delivery Fraction of Inspired Oxygen 80 01/17/24 00:00 01/17/24 02:00 01/17/24 02:00 Temperature Pulse Rate 78 63 63 Respiratory Rate 26 H 26 H Blood Pressure Pulse Oximetry Oxygen Delivery Fraction of Inspired Oxygen 01/17/24 02:00 01/17/24 02:00 01/17/24 02:00 Temperature 99.6 F Pulse Rate 63 63 63 Respiratory Rate 26 H 26 H Blood Pressure 136/89 Pulse Oximetry 98 Oxygen Delivery Fraction of Inspired Oxygen 01/17/24 02:16 01/17/24 02:46 01/17/24 02:46 Temperature Pulse Rate 65 68 68 Respiratory Rate 26 H 26 H Blood Pressure Pulse Oximetry 97 Oxygen Delivery Mechanical Ventilation Fraction of Inspired Oxygen 80 01/17/24 04:00 01/17/24 04:00 01/17/24 04:00 Temperature 99.7 F H Pulse Rate 83 83 83 Respiratory Rate 26 H 26 H 26 H Blood Pressure 145/90 H Pulse Oximetry 98 Oxygen Delivery Fraction of Inspired Oxygen 01/17/24 04:00 01/17/24 04:00 01/17/24 04:00 Temperature Pulse Rate 83 83 Respiratory Rate 26 H 26 H Blood Pressure Pulse Oximetry 99 Oxygen Delivery Mechanical Ventilation Fraction of Inspired Oxygen 80 80 01/17/24 05:03 01/17/24 06:00 01/17/24 06:00 Temperature Pulse Rate 80 78 78 Respiratory Rate 26 H 16 Blood Pressure Pulse Oximetry 97 Oxygen Delivery Mechanical Ventilation Fraction of Inspired Oxygen 80 01/17/24 06:00 01/17/24 04:00 01/17/24 06:00 Temperature Pulse Rate 78 78 76 Respiratory Rate 26 H Blood Pressure Pulse Oximetry Oxygen Delivery Fraction of Inspired Oxygen 01/17/24 06:00 01/17/24 07:37 01/17/24 08:16 Temperature 100.2 F H Pulse Rate 76 81 80 Respiratory Rate 26 H 32 H 30 H Blood Pressure 143/82 H Pulse Oximetry 96 Oxygen Delivery Fraction of Inspired Oxygen 01/17/24 08:00 01/17/24 08:00 01/17/24 08:15 Temperature Pulse Rate 76 76 72 Respiratory Rate 29 H 26 H Blood Pressure Pulse Oximetry 97 Oxygen Delivery Mechanical Ventilation Fraction of Inspired Oxygen 80 01/17/24 08:42 01/17/24 08:42 01/17/24 07:00 Temperature 100.3 F H Pulse Rate 78 78 75 Respiratory Rate 24 H 24 H 16 Blood Pressure 124/80 Pulse Oximetry 98 Oxygen Delivery Fraction of Inspired Oxygen 01/17/24 07:01 01/17/24 07:15 01/17/24 07:30 Temperature 100.3 F H 100.3 F H 100.4 F H Pulse Rate 72 73 72 Respiratory Rate 26 H 22 H 26 H Blood Pressure 132/77 Pulse Oximetry 98 98 98 Oxygen Delivery Fraction of Inspired Oxygen 01/17/24 07:31 01/17/24 07:45 01/17/24 08:00 Temperature 100.4 F H 100.4 F H 100.5 F H Pulse Rate 68 78 69 Respiratory Rate 26 H 22 H 27 H Blood Pressure 138/84 Pulse Oximetry 98 97 97 Oxygen Delivery Fraction of Inspired Oxygen 01/17/24 08:01 01/17/24 08:15 01/17/24 08:30 Temperature 100.5 F H 100.5 F H 100.6 F H Pulse Rate 71 78 68 Respiratory Rate 26 H 20 24 H Blood Pressure 130/74 Pulse Oximetry 97 97 95 Oxygen Delivery Fraction of Inspired Oxygen 01/17/24 08:31 01/17/24 08:45 Temperature 100.6 F H 100.6 F H Pulse Rate 73 78 Respiratory Rate 24 H 22 H Blood Pressure Pulse Oximetry 95 96 Oxygen Delivery Fraction of Inspired Oxygen Intake/Output Intake/Output: Intake & Output 01/14/24 01/15/24 01/16/24 01/17/24 23:59 23:59 23:59 23:59 Intake Total 5468.7 5255.8 3176.6 1186.6 Output Total 1400 2950 3100 450 Balance 4068.7 2305.8 76.6 736.6 Meds/Results Medications: Active Medications Generic Name Dose Route Start Last Admin Trade Name Freq PRN Reason Stop Dose Admin Acetaminophen 650 mg 01/13/24 22:59 01/14/24 03:56 Acetaminophen Elixir 325 Mg/10.15 Ml Udc FEED TUBE 650 mg Q4H PRN Administration Mild Pain (1-3) or Fever Albuterol/Ipratropium 3 ml 01/14/24 12:30 Ipratropium 0.5 Mg/Albuterol Sulfate 2.5 Mg Ampul.Neb 3 Ml NEBULIZE Q6HRT PRN wheezing Enoxaparin Sodium 40 mg 01/14/24 09:00 01/17/24 08:46 Enoxaparin 40 Mg/0.4 Ml Syringe SUB-Q 40 mg DAILY GERBER Administration Folic Acid 1 mg 01/15/24 09:00 01/17/24 08:46 Folic Acid 1 Mg Tablet FEED TUBE 1 mg DAILY GERBER Administration Hydrocortisone Sodium Succinate 50 mg 01/17/24 12:00 Hydrocortisone Sodium Succinate 100 Mg/2 Ml Vial IV PUSH 01/21/24 11:59 Q6H GERBER Levetiracetam 1,000 mg in 100 mls @ 400 mls/hr 01/13/24 21:00 01/17/24 09:00 Keppra Iv IVPB Infused Q12HR GERBER Infusion Propofol 100 mls @ 15.75 mls/hr 01/13/24 18:05 01/17/24 08:42 Diprivan IV CONT 35 mcg/kg/min .Q6H21M GERBER 15.75 mls/hr Administration Protocol 35 MCG/KG/MIN Fentanyl Citrate 2,500 mcg in 250 mls @ 20 mls/hr 01/13/24 21:20 01/17/24 06:00 Fentanyl 2,500 Mcg/Ns 250 Ml IV CONT 200 mcg/hr .[id number] GERBER 20 mls/hr Titration Protocol 200 MCG/HR Midazolam HCl 100 mg in 100 mls @ 10 mls/hr 01/13/24 21:20 01/17/24 06:00 Versed 100 Mg/Ns 100 Ml IV CONT 10 mg/hr .Q10H GERBER 10 mls/hr Titration Protocol 10 MG/HR Piperacillin Sod/Tazobactam Sod 4.5 gm in 100 mls @ 200 mls/hr 01/16/24 18:00 01/17/24 07:10 Zosyn 4.5 Gm/Ns 100 Ml IVPB Infused Q6H GERBER Infusion Potassium Chloride 100 mls @ 25 mls/hr 01/17/24 07:31 Kcl 40 Meq/Water 100 Ml IVPB 01/17/24 11:30 ONCE ONE Morphine Sulfate 2 mg 01/13/24 16:22 01/16/24 05:33 Morphine Sulfate (*Crx) 2 Mg/Ml Inj IV PUSH 2 mg Q2H PRN Administration Pain Rated 7-10 Multi-Ingred Cream/Lotion/Oil/Oint 1 applic 01/14/24 09:00 01/17/24 08:45 Mineral Oil/White Petrolatum Ointment EACH EYE 1 applic Q12HR GERBER Administration Ondansetron HCl 4 mg 01/13/24 16:22 Ondansetron Inj 4 Mg/2 Ml Vial IV PUSH Q4H PRN Nausea Pantoprazole Sodium 40 mg 01/16/24 21:00 01/17/24 08:45 Pantoprazole Sodium Iv 40 Mg Vial IV PUSH 40 mg Q12HR GERBER Administration Perflutren Lipid Microsphere 0 ml 01/16/24 07:46 Perflutren Lipid Microspheres 1.5 Ml Vial Diluted To 10 Ml Total Volume IV PUSH 01/19/24 07:46 ONCE PRN adequate visualization Protocol Polyethylene Glycol 17 gm 01/16/24 10:17 01/16/24 13:09 Polyethylene Glycol 3350 17 Gm Powd.Pack PO 17 gm QAM PRN Administration Constipation Sodium Chloride 10 ml 01/13/24 22:00 01/17/24 06:29 Central Line Flush IV PUSH 10 ml Q8HR GERBER Administration Sodium Chloride 20 ml 01/13/24 20:18 Central Line Flush IV PUSH PRN PRN after blood draws Thiamine HCl 100 mg 01/15/24 09:00 01/17/24 08:45 Thiamine Hcl 100 Mg Tablet FEED TUBE 100 mg QAM GERBER Administration Radiology Results: ITS Impressions Head CT 01/13/24 15:43 IMPRESSION: No acute intracranial findings. Chest/Abdomen/Pelvis CT 01/14/24 11:18 IMPRESSION: 1. Diffuse lung disease, consistent with pneumonia. 2. Small pleural effusions. 3. Small volume of ascites. Abdomen X-Ray 01/16/24 09:15 IMPRESSION: 1. Normal bowel gas pattern. 2. Airspace opacities in the lungs bilaterally, right worse than left, consistent with pneumonia. 3. Small pleural effusions. Chest X-Ray 01/17/24 06:07 IMPRESSION: 1. Stable airspace opacities in right lung and left mid and lower lung zones, consistent with pneumonia. 2. Stable small pleural effusions. Labs Labs: Laboratory Results - last 24 hr 01/15/24 01/17/24 01/17/24 09:31 04:49 04:53 WBC 9.2 RBC 3.47 L Hgb 11.2 L Hct 33.2 L MCV 95.7 MCH 32.3 MCHC 33.7 RDW 13.1 Plt Count 111 L MPV 10.3 Immature Gran % (Auto) 1.2 H Neut % (Auto) 77.3 H Lymph % (Auto) 13.8 L [place] % (Auto) 7.2 Eos % (Auto) 0.3 Baso % (Auto) 0.2 Lymph # (Auto) 1.27 [place] # (Auto) 0.7 H Eos # (Auto) 0.0 Baso # (Auto) 0.0 Abs Immat Gran (auto) 0.11 H Absolute Neuts (auto) 7.1 H Absolute Nucleated RBC 0.030 H Nucleated RBC % 0.3 H % Immature Plt Fraction 3.5 PT 13.6 INR 1.0 APTT 30.7 Puncture Site Right radial ABG pH 7.542 H* ABG pCO2 37.9 ABG pO2 100.8 H ABG PO2/FiO2 Ratio 1.26 ABG HCO3 31.8 H ABG O2 Saturation 98.2 ABG O2 Content 16.1 ABG Base Excess 8.8 A-a Gradient 429.8 Oxyhemoglobin 97.6 Carboxyhemoglobin 0.3 Methemoglobin 0.0 Reduced Hemoglobin 2.1 Total Hemoglobin 11.6 L O2 Delivery Device Ventilator O2 Liters/Min Not Reportable Minute Volume Not Reportable Vent Rate 26 Vent Mode Cmv FiO2 80 Tidal Volume 450 PEEP 10 Peak Inspir Pressure Not Reportable Pressure Support Not Reportable Sodium 143 Potassium 2.9 L Chloride 103 Carbon Dioxide 36 H Anion Gap 4 BUN 29 H Creatinine 0.90 Estim Creat Clear Calc 90 Estimated GFR > 60 Glucose 105 Lactic Acid 1.1 Calcium 8.2 L Phosphorus < 1.0 L Magnesium 2.2 Total Bilirubin 0.7 AST 76 H ALT 37 Alkaline Phosphatase 91 Total Creatine Kinase 883 H C-Reactive Protein 8.1 H Total Protein 6.0 L Albumin 3.1 L Free T3 pg/mL 0.8 L Quality VTE Prophylaxis VTE prophylaxis: pharmacologic ordered
[2024-01-17] MEDS: KCL 40 MEQ/WATER 100 ML 100 ML 25 ML IVPB ×2 (09:42→17:27)
[2024-01-17] MEDS: FUROSEMIDE INJ 40 MG/4 ML VIAL IV PUSH (09:42)
[2024-01-17] MEDS: DORNASE ALFA INH SOLN 1 MG/ML 2.5 ML AMP 2.5 MG INHALATION ×2 (11:04→20:18)
[2024-01-17] MEDS: IPRATROPIUM 0.5 MG/ALBUTEROL SULFATE 2.5 MG AMPUL.NEB 3 ML NEBULIZE ×2 (13:34→20:17)
[2024-01-17] MEDS: ACETYLCYSTEINE 20% INHAL SOLN 800 MG/4 ML VIAL 200 MG INHALATION ×2 (13:34→20:17)
[2024-01-17] MEDS: PROPOFOL IV EMULSION 100 ML 22.5 MG IV CONT ×3 (13:45→22:13)
[2024-01-17 16:46] LABS: Anion Gap 5 mmol/L (4-12); Blood Urea Nitrogen 31 mg/dL (9-20); Calcium 8.1 mg/dL (8.4-10.2); Carbon Dioxide 34 mmol/L (22-30); Chloride 102 mmol/L (98-107); Estimated CRCL calculation 82 ml/min; Estimated Glomerular Filt Rate > 60; Glucose 136 mg/dL (65-110); Phosphorus 2.3 mg/dL (2.5-4.5); Potassium 2.8 mmol/L (3.4-5.0); Sodium 141 mmol/L (137-145); Triglycerides 398 mg/dL (<150)
[2024-01-17] MEDS: POTASSIUM CHLORIDE 20 MEQ PACKET (FOR LIQUID) 40 MEQ FEED TUBE (17:27)
[2024-01-17] MEDS: POTASSIUM/PHOSPHORUS/SODIUM 1.5 GM PACKET 1 PACKET PO (17:27)
[2024-01-18] VITALS (42 sets, daily range): BP systolic 112–150; BP diastolic 68–87; PULSE 44–92; RESP 21–24; TEMP 37–38.3; O2SAT 93–97
[2024-01-18] MEDS: HYDROCORTISONE SODIUM SUCCINATE 100 MG/2 ML VIAL 50 MG IV PUSH ×4 (00:57→17:13)
[2024-01-18] MEDS: PIPERACILLIN/TAZ 4.5G/NS 100ML 4.5 GM/100 ML BAG IVPB ×4 (00:58→17:13)
[2024-01-18] MEDS: ACETYLCYSTEINE 20% INHAL SOLN 800 MG/4 ML VIAL 200 MG INHALATION ×3 (02:26→20:32)
[2024-01-18] MEDS: PROPOFOL IV EMULSION 100 ML 22.5 MG IV CONT ×5 (02:28→22:02)
[2024-01-18] MEDS: IPRATROPIUM 0.5 MG/ALBUTEROL SULFATE 2.5 MG AMPUL.NEB 3 ML NEBULIZE ×3 (02:28→14:48)
[2024-01-18] MEDS: FENTANYL 2,500MCG/NS250ML(*CRX 2,500 MCG/250 ML BAG 20 MCG IV CONT ×2 (03:49→17:19)
[2024-01-18 04:36] LABS: Basophils Percent Auto 0.2 % (0.2-1.2); Hematocrit 32.4 % (42.0-52.0); Hemoglobin 11.1 g/dL (14.0-18.0); Immature Granulocyte Absolute 0.25 K/mm3 (0.00-0.031); Immature Granulocyte Percent A 3.8 % (0-0.5); Lymphocytes Absolute Auto 0.51 K/mm3 (0.9-3.2); Lymphocytes Percent Auto 7.7 % (18.3-44.2); Mean Corpuscular HGB Conc 34.3 g/dl (32-36); Mean Corpuscular Hemoglobin 32.9 pg (26-34); Mean Corpuscular Volume 96.1 fl (80-100); Mean Platelet Volume 9.5 fl (7.4-10.4); Monocytes Absolute Auto 0.7 K/mm3 (0.1-0.6); Neutrophils Absolute Auto 5.1 K/mm3 (1.3-6.7); Neutrophils Percent Auto 77.3 % (45.5-73.1); Nucleated Red Blood Cells Perc 0.3 % (0.0-0.2); Platelet Count Result 131 k/mm3 (150-375); Red Blood Count 3.37 M/mm3 (4.6-6.20); Red Cell Distribution Width 13.3 % (11.5-14.5); White Blood Count 6.6 K/mm3 (4.5-10.0)
[2024-01-18 04:46] LABS: Magnesium 2.2 mg/dL (1.6-2.3); Phosphorus 2.8 mg/dL (2.5-4.5)
[2024-01-18 04:47] LABS: Alanine Aminotransferase 34 U/L (6-50); Albumin Level 3.2 g/dL (3.5-5.1); Alkaline Phosphatase 88 U/L (38-126); Anion Gap 6 mmol/L (4-12); Aspartate Amino Transferase 52 U/L (17-59); Bilirubin,Total 0.5 mg/dL (0.2-1.3); Blood Urea Nitrogen 33 mg/dL (9-20); Calcium 8.1 mg/dL (8.4-10.2); Carbon Dioxide 33 mmol/L (22-30); Chloride 105 mmol/L (98-107); Creatine Kinase 374 U/L (55-170); Estimated CRCL calculation 90 ml/min; Estimated Glomerular Filt Rate > 60; Glucose 158 mg/dL (65-110); Sodium 144 mmol/L (137-145)
[2024-01-18 05:51] LABS: Alveolar/Arterial O2 Gradient 169.1 mmHg; Base Excess ABG 3.6 mEq/l (+/-2.0); Carboxyhemoglobin 0.1 % THb (0-2.0); Fractional Inspired Oxygen 40 %; HCO3 ABG 26.6 mEq/l (22.0-26.0); Oxygen Content ABG 15.6 %vol (16.0-22.0); Oxygen Saturation ABG 96.3 % (95.0-100.0); Oxyhemoglobin 94.7 % THb (90.0-100.0); PCO2 ABG 34.8 mmHg (35.0-45.0); PO2 ABG 76.1 mmHg (80.0-100.0); Reduced Hemoglobin 5.2 %THb (0-5.0); Total Hemoglobin 11.7 g/dL (12.0-18.0)
[2024-01-18 05:56] LABS: Arterial Blood Gas Ventilator rate 24 /MIN; Device VENTILATOR; Modified Allen's Test Pass; Site Drawn LEFT RADIAL; pH ABG 7.501 (7.350-7.450)
[2024-01-18 05:58] LABS: Arterial Blood Gas PEEP 10 cmH2O; Arterial Blood Gas Tidal Volume 450 ml; Arterial Blood Gas Vent Mode CMV
[2024-01-18] MEDS: CENTRAL LINE FLUSH 10 ML IV PUSH ×3 (06:27→21:01)
[2024-01-18] MEDS: PROPOFOL IV EMULSION 100 ML 20.25 MG IV CONT (06:35)
[2024-01-18] MEDS: MIDAZOLAM 100MG/NS 100ML(*CRX) 100 MG/100 ML BAG 10 MG IV CONT ×2 (06:38→17:10)
[2024-01-18] MEDS: THIAMINE HCL 100 MG TABLET FEED TUBE (08:23)
[2024-01-18] MEDS: FOLIC ACID 1 MG TABLET FEED TUBE (08:24)
[2024-01-18] MEDS: PANTOPRAZOLE SODIUM IV 40 MG VIAL IV PUSH ×2 (08:24→20:57)
[2024-01-18] MEDS: POTASSIUM CHLORIDE 20 MEQ PACKET (FOR LIQUID) 40 MEQ FEED TUBE (08:24)
[2024-01-18] MEDS: KCL 40 MEQ/WATER 100 ML 100 ML 25 ML IVPB ×3 (08:24→22:41)
[2024-01-18] MEDS: levETIRAcetam 1000MG/NACL100ML 1,000 MG/100 ML BAG 400 MG IVPB ×2 (08:24→20:57)
[2024-01-18] MEDS: ENOXAPARIN 40 MG/0.4 ML SYRINGE SUB-Q (08:24)
[2024-01-18] MEDS: DORNASE ALFA INH SOLN 1 MG/ML 2.5 ML AMP 2.5 MG INHALATION ×2 (08:26→20:32)
[2024-01-18] MEDS: MINERAL OIL/WHITE PETROLATUM OINTMENT 1 APPLIC EACH EYE ×2 (08:40→20:58)
--- NOTE | 2024-01-18 09:39 | P.PNINT_ITS ---
Progress Note: A&P Assessment and Plan (1) Acute respiratory failure with hypoxia and hypercapnia: Code(s): J96.01 - Acute respiratory failure with hypoxia; J96.02 - Acute respiratory failure with hypercapnia Status: Acute Assessment and Plan: 01/12: Patient admitted with Acute respiratory failure, encephalopathy, likely secondary to seizures, aspiration pneumonia as he was found in a hotel room lying in emesis on the bed unknown amount of time, rhabdomyolysis, septic shock, alcohol dependence, illicit drug use with methadone, seizures and patient has been out of seizure medications for patient's mother. -patient has been having cough with thick sputum for almost over a month according to mother, has refused to be evaluated by a doctor or come to the ER. - CT chest confirmed diffuse lung disease consistent with pneumonia -ABGs reviewed, ventilator adjusted, wean FiO2 to maintain O2 sats > 92% - will maintain low tidal volume strategy and high PEEP as patient has -continue bronchodilators, -continue antibiotics as under -01/16: patient is thick secretion, started on Mucomyst and Pulmozyme nebs, continue chest x-ray this morning: Bilateral airspace disease.. Correlate for bilateral pneumonia versus pulmonary edema -will diurese again today as patient is significantly volume overload since admission (2) Septic shock: Code(s): A41.9 - Sepsis, unspecified organism; R65.21 - Severe sepsis with septic shock Status: Acute Assessment and Plan: Patient with septic shock likely secondary to pneumonia, ARDS -Off IV fluids -off pressors -continue steroids -01/12: Preliminary blood cultures are negative x2 -01/12: Urine culture negative -01/13: Sputum culture - yeast -continue Zosyn (01/13) for at least 7-10 days -vancomycin was discontinued, MRSA screen was negative (3) Aspiration pneumonia: Qualifiers: Aspiration pneumonia type: unspecified Laterality: bilateral Lung location: unspecified part of lung Qualified Code(s): J69.0 - Pneumonitis due to inhalation of food and vomit Code(s): J69.0 - Pneumonitis due to inhalation of food and vomit Status: Acute Assessment and Plan: As above (4) Polysubstance (including opioids) dependence with physiological dependence: Code(s): F19.20 - Other psychoactive substance dependence, uncomplicated Status: Acute Assessment and Plan: patient will be counseled once extubated -according the mother patient does not take any illicit drugs -he did take methadone which was given to him by a neighbor, the mother states that was the only time he did drugs -patient does drink alcohol and has alcohol dependence (5) Encephalopathy: Code(s): G93.40 - Encephalopathy, unspecified Status: Acute Assessment and Plan: 01/12: Patient when brought in to the ED was encephalopathic which likely was secondary to either postictal from seizures or overdose from opioid. head CT was negative on admission currently sedated and and intubated. Normal ammonia level (6) Chronic alcoholism: Code(s): F10.20 - Alcohol dependence, uncomplicated Status: Acute Assessment and Plan: Continue thiamine, folic acid (7) Rhabdomyolysis: Qualifiers: Rhabdomyolysis type: non-traumatic Qualified Code(s): M62.82 - Rhabdomyolysis Code(s): M62.82 - Rhabdomyolysis Status: Acute Assessment and Plan: could be secondary to seizures or from laying on the floor for prolonged period of time. -initially CK levels were elevated on admission -received adequate amount of IV fluids, normal renal function -continue diuresis due to volume overload and edema -CK levels continue trending down (8) Acidosis: Code(s): E87.20 - Acidosis, unspecified Status: Acute Assessment and Plan: improved , status post bicarb infusion (9) Electrolyte abnormality: Code(s): E87.8 - Other disorders of electrolyte and fluid balance, not elsewhere classified Status: Acute Assessment and Plan: Continue to replace potassium (10) Abnormal thyroid function test: Code(s): R94.6 - Abnormal results of thyroid function studies Status: Acute Assessment and Plan: TSH and T4 level low. Free T3 is low, likely euthyroid syndrome, will recheck TSH and thyroid hormones and 1-2 weeks (11) Seizures: Code(s): R56.9 - Unspecified convulsions Status: Acute Assessment and Plan: Patient has a history of seizures, has been out of seizure medications. -this could be the cause of probably is encephalopathy. Also that he took methadone which does decrease seizure threshold -currently on Keppra -no more seizures observed since patient has been in the ICU Plan DVT prophylaxis -platelet counts have improved, continue Lovenox for DVT prophylaxis Stress ulcer prophylaxis -Protonix IV Nutrition -tolerating tube feeds Code Status - Full Code Total Critical Care Time - 36 minutes Discussed with patient's mother and his father and updated them with patient's condition, plan of care. I did the dated them with radiology and lab reports. They are aware that he is getting diurese due to his edema. I answered all questions Due to a high probability of clinically significant, life threatening deterioration, the patient required my highest level of preparedness to intervene emergently and I personally spent this critical care time directly and personally managing the patient. This critical care time included obtaining a history; examining the patient; pulse oximetry; ordering and review of studies; arranging urgent treatment with development of a management plan; evaluation of patient's response to treatment; frequent reassessment; and discussions with other providers. It was exclusive of separately billable procedures and treating other patients and teaching time. Please see Assessment and Plan section and the rest of the note for further information on patient assessment and treatment This dictation may have been done utilizing a voice recognition system. Attempts have been made to correct errors. However, there may be uncorrected grammatical, spelling, and recognitions errors present. Subjective Date/time seen: 01/18/24 09:39 Interval history: Reason for consult: Acute respiratory failure, encephalopathy, likely secondary to seizures, aspiration pneumonia as he was found in a hotel room lying in emesis on the bed unknown amount of time, rhabdomyolysis, septic shock, alcohol dependence, illicit drug use, seizures and patient has been out of seizure medications 01/12: Intubated in the ER 01/18/2024: Patient seen and examined the ICU, remains intubated on CMV mode of ventilation, peep of 10, FiO2 of 40%. Sedated with propofol, Versed and fentanyl, patient does open his eyes, nods to understanding what I am saying, follows simple commands with lower extremities, urine output has been adequate in response to diuresis, patient has been hypokalemic is aggressively being replaced. Patient is hemodynamically stable, tolerating tube feeds Review of Systems Review of Systems: ROS unobtainable: Yes unobtainable due to endotracheal tube, unobtainable due to medical condition and unobtainable due to mental status Exam Narrative: General: Pt is sedated, intubated and on mechanical ventilation HEENT: Pupils equal and reactive, sclera is clear, ETT in place Lungs/Chest: Bilateral coarse rales right greater than left, decreased air entry at bases, no wheezing, overall air increase adequate Cardiac: RRR. Normal S1 S2. No murmurs Abdomen: Decreased bowel sounds. Soft. NT. ND. Extremities: Bilateral upper and lower extremity edema, pitting in nature, palpable pedal pulses : Bates in place Neurologic: Patient intubated and sedated,Patient opens his eyes, nods to understanding what I am saying, follows commands with lower extremity, shows me a thumbs up on the right. Psych: Unable to assess at this time Objective Data Vital Signs Vital Signs: Vital Signs - 24 hr 01/17/24 09:45 01/17/24 10:51 01/17/24 10:00 Temperature Pulse Rate 73 86 85 Respiratory Rate 32 H 27 H 24 H Blood Pressure Pulse Oximetry Oxygen Delivery Fraction of Inspired Oxygen 01/17/24 10:00 01/17/24 10:00 01/17/24 10:45 Temperature Pulse Rate 85 84 71 Respiratory Rate 24 H 24 H Blood Pressure Pulse Oximetry 96 Oxygen Delivery Mechanical Ventilation Fraction of Inspired Oxygen 60 01/17/24 09:51 01/17/24 10:03 01/17/24 10:24 Temperature 100.7 F H 100.6 F H 100.6 F H Pulse Rate 68 66 74 Respiratory Rate 24 H 24 H 26 H Blood Pressure 140/82 Pulse Oximetry 97 97 97 Oxygen Delivery Fraction of Inspired Oxygen 01/17/24 11:05 01/17/24 11:14 01/17/24 11:05 Temperature Pulse Rate 82 87 81 Respiratory Rate 24 H 25 H 26 H Blood Pressure Pulse Oximetry Oxygen Delivery Fraction of Inspired Oxygen 01/17/24 11:15 01/17/24 11:36 01/17/24 10:00 Temperature Pulse Rate 81 87 70 Respiratory Rate 26 H 25 H Blood Pressure Pulse Oximetry Oxygen Delivery Fraction of Inspired Oxygen 01/17/24 12:00 01/17/24 12:00 01/17/24 12:00 Temperature 100.4 F H Pulse Rate 82 81 Respiratory Rate 24 H Blood Pressure 139/87 Pulse Oximetry 97 Oxygen Delivery Fraction of Inspired Oxygen 60 01/17/24 12:00 01/17/24 12:00 01/17/24 12:00 Temperature Pulse Rate 81 81 81 Respiratory Rate 24 H 24 H 24 H Blood Pressure Pulse Oximetry Oxygen Delivery Fraction of Inspired Oxygen 01/17/24 12:00 01/17/24 13:45 01/17/24 13:45 Temperature Pulse Rate 82 82 Respiratory Rate 24 H 24 H Blood Pressure Pulse Oximetry 96 Oxygen Delivery Mechanical Ventilation Fraction of Inspired Oxygen 60 01/17/24 13:46 01/17/24 14:00 01/17/24 14:00 Temperature Pulse Rate 83 81 81 Respiratory Rate 24 H 24 H Blood Pressure Pulse Oximetry 96 Oxygen Delivery Mechanical Ventilation Fraction of Inspired Oxygen 50 01/17/24 14:00 01/17/24 14:00 01/17/24 14:00 Temperature 100.3 F H Pulse Rate 81 81 81 Respiratory Rate 24 H 24 H Blood Pressure 146/84 H Pulse Oximetry 95 Oxygen Delivery Fraction of Inspired Oxygen 01/17/24 13:46 01/17/24 14:02 01/17/24 15:03 Temperature Pulse Rate 84 78 72 Respiratory Rate 25 H 24 H 25 H Blood Pressure Pulse Oximetry Oxygen Delivery Fraction of Inspired Oxygen 01/17/24 15:03 01/17/24 16:00 01/17/24 16:00 Temperature 100.2 F H Pulse Rate 72 53 L Respiratory Rate 25 H 24 H Blood Pressure 128/71 Pulse Oximetry 96 Oxygen Delivery Fraction of Inspired Oxygen 40 01/17/24 16:00 01/17/24 16:00 01/17/24 16:00 Temperature Pulse Rate 53 L 53 L 53 L Respiratory Rate 24 H 24 H 24 H Blood Pressure Pulse Oximetry Oxygen Delivery Fraction of Inspired Oxygen 01/17/24 16:00 01/17/24 17:18 01/17/24 17:37 Temperature Pulse Rate 52 L 54 L Respiratory Rate 24 H Blood Pressure Pulse Oximetry 95 95 Oxygen Delivery Mechanical Ventilation Mechanical Ventilation Fraction of Inspired Oxygen 40 40 01/17/24 17:37 01/17/24 16:00 01/17/24 18:00 Temperature 99.6 F Pulse Rate 54 L 57 L 56 L Respiratory Rate 24 H 24 H Blood Pressure 116/69 Pulse Oximetry 93 Oxygen Delivery Fraction of Inspired Oxygen 01/17/24 18:00 01/17/24 18:00 01/17/24 18:00 Temperature Pulse Rate 56 L 56 L 56 L Respiratory Rate 24 H 24 H 24 H Blood Pressure Pulse Oximetry Oxygen Delivery Fraction of Inspired Oxygen 01/17/24 18:00 01/17/24 19:20 01/17/24 19:43 Temperature Pulse Rate 56 L 49 L 49 L Respiratory Rate 24 H 24 H Blood Pressure Pulse Oximetry Oxygen Delivery Fraction of Inspired Oxygen 01/17/24 19:56 01/17/24 19:00 01/17/24 20:00 Temperature 99.2 F 98.9 F Pulse Rate 47 L 51 L 48 L Respiratory Rate 24 H 24 H 24 H Blood Pressure 109/70 119/48 L Pulse Oximetry 93 95 Oxygen Delivery Fraction of Inspired Oxygen 01/17/24 20:00 01/17/24 20:00 01/17/24 20:20 Temperature Pulse Rate 48 L 48 L 51 L Respiratory Rate 24 H 24 H 24 H Blood Pressure Pulse Oximetry Oxygen Delivery Fraction of Inspired Oxygen 01/17/24 20:00 01/17/24 20:00 01/17/24 20:32 Temperature Pulse Rate 70 Respiratory Rate 24 H Blood Pressure Pulse Oximetry 96 Oxygen Delivery Mechanical Ventilation Fraction of Inspired Oxygen 40 40 01/17/24 20:00 01/17/24 21:05 01/17/24 21:10 Temperature Pulse Rate 49 L 83 82 Respiratory Rate 24 H 25 H Blood Pressure Pulse Oximetry Oxygen Delivery Fraction of Inspired Oxygen 01/17/24 21:10 01/17/24 22:05 01/17/24 22:00 Temperature 99.3 F Pulse Rate 82 79 73 Respiratory Rate 25 H 26 H 24 H Blood Pressure 147/88 H Pulse Oximetry 95 Oxygen Delivery Fraction of Inspired Oxygen 01/17/24 22:00 01/17/24 22:00 01/17/24 22:13 Temperature Pulse Rate 79 79 66 Respiratory Rate 24 H 24 H 24 H Blood Pressure Pulse Oximetry Oxygen Delivery Fraction of Inspired Oxygen 01/17/24 22:13 01/17/24 22:00 01/17/24 20:20 Temperature Pulse Rate 66 79 52 L Respiratory Rate 24 H 24 H Blood Pressure Pulse Oximetry Oxygen Delivery Fraction of Inspired Oxygen 01/17/24 20:15 01/17/24 23:09 01/17/24 20:45 Temperature Pulse Rate 52 L 50 L 55 L Respiratory Rate 24 H 24 H Blood Pressure Pulse Oximetry 95 Oxygen Delivery Mechanical Ventilation Fraction of Inspired Oxygen 40 01/17/24 23:08 01/18/24 00:00 01/18/24 02:00 Temperature Pulse Rate 53 L 52 L 69 Respiratory Rate Blood Pressure Pulse Oximetry 94 Oxygen Delivery Mechanical Ventilation Fraction of Inspired Oxygen 40 01/18/24 00:00 01/18/24 02:00 01/18/24 00:00 Temperature Pulse Rate 54 L 73 54 L Respiratory Rate 24 H 24 H 24 H Blood Pressure Pulse Oximetry Oxygen Delivery Fraction of Inspired Oxygen 01/18/24 02:00 01/18/24 00:00 01/18/24 02:00 Temperature Pulse Rate 73 54 L 73 Respiratory Rate 24 H 24 H 24 H Blood Pressure Pulse Oximetry Oxygen Delivery Fraction of Inspired Oxygen 01/18/24 02:28 01/18/24 02:28 01/18/24 00:00 Temperature 99.6 F Pulse Rate 72 72 54 L Respiratory Rate 24 H 24 H 24 H Blood Pressure 124/80 Pulse Oximetry 96 Oxygen Delivery Fraction of Inspired Oxygen 01/18/24 02:00 01/18/24 02:30 01/18/24 02:30 Temperature 99.3 F Pulse Rate 73 72 72 Respiratory Rate 24 H 24 H Blood Pressure 140/78 Pulse Oximetry 94 93 Oxygen Delivery Mechanical Ventilation Fraction of Inspired Oxygen 40 01/18/24 00:00 01/18/24 00:00 01/18/24 03:33 Temperature Pulse Rate 88 Respiratory Rate 24 H Blood Pressure Pulse Oximetry 93 Oxygen Delivery Mechanical Ventilation Fraction of Inspired Oxygen 40 40 01/18/24 03:49 01/18/24 03:59 01/18/24 04:00 Temperature Pulse Rate 88 Respiratory Rate 24 H Blood Pressure Pulse Oximetry 95 Oxygen Delivery Mechanical Ventilation Fraction of Inspired Oxygen 40 40 01/18/24 04:00 01/18/24 04:00 01/18/24 04:00 Temperature Pulse Rate 88 88 88 Respiratory Rate 24 H 24 H Blood Pressure Pulse Oximetry Oxygen Delivery Fraction of Inspired Oxygen 01/18/24 04:00 01/18/24 04:00 01/18/24 02:45 Temperature 99.3 F Pulse Rate 88 90 76 Respiratory Rate 24 H 24 H 24 H Blood Pressure 146/77 H Pulse Oximetry 95 Oxygen Delivery Fraction of Inspired Oxygen 01/18/24 05:38 01/18/24 06:00 01/18/24 06:00 Temperature 99.9 F H Pulse Rate 88 85 84 Respiratory Rate 24 H Blood Pressure 142/74 H Pulse Oximetry 95 95 Oxygen Delivery Mechanical Ventilation Fraction of Inspired Oxygen 40 01/18/24 06:00 01/18/24 06:00 01/18/24 06:00 Temperature Pulse Rate 85 85 85 Respiratory Rate 24 H 24 H 24 H Blood Pressure Pulse Oximetry Oxygen Delivery Fraction of Inspired Oxygen 01/18/24 06:35 01/18/24 06:35 01/18/24 06:38 Temperature Pulse Rate 84 84 82 Respiratory Rate 24 H 24 H 24 H Blood Pressure Pulse Oximetry Oxygen Delivery Fraction of Inspired Oxygen 01/18/24 06:38 01/18/24 07:50 01/18/24 07:57 Temperature Pulse Rate 82 86 88 Respiratory Rate 24 H 24 H Blood Pressure Pulse Oximetry 95 Oxygen Delivery Mechanical Ventilation Fraction of Inspired Oxygen 40 01/18/24 08:02 01/18/24 08:00 01/18/24 08:27 Temperature 100.7 F H Pulse Rate 91 92 86 Respiratory Rate 24 H 21 H 24 H Blood Pressure 150/74 H Pulse Oximetry 97 Oxygen Delivery Fraction of Inspired Oxygen 01/18/24 08:00 01/18/24 08:00 01/18/24 08:00 Temperature Pulse Rate 86 86 86 Respiratory Rate 24 H 24 H 24 H Blood Pressure Pulse Oximetry Oxygen Delivery Fraction of Inspired Oxygen 01/18/24 08:00 01/18/24 08:00 Temperature Pulse Rate Respiratory Rate Blood Pressure Pulse Oximetry 95 Oxygen Delivery Mechanical Ventilation Fraction of Inspired Oxygen 30 30 Intake/Output Intake/Output: Intake & Output 01/15/24 01/16/24 01/17/24 01/18/24 23:59 23:59 23:59 23:59 Intake Total 5255.8 3176.6 3172.8 1473.2 Output Total 2950 3100 3950 1000 Balance 2305.8 76.6 -777.2 473.2 Meds/Results Medications: Active Medications Generic Name Dose Route Start Last Admin Trade Name Freq PRN Reason Stop Dose Admin Acetaminophen 650 mg 01/13/24 22:59 01/14/24 03:56 Acetaminophen Elixir 325 Mg/10.15 Ml Udc FEED TUBE 650 mg Q4H PRN Administration Mild Pain (1-3) or Fever Acetylcysteine 200 mg 01/17/24 14:00 01/18/24 07:47 Acetylcysteine 20% Inhal Soln 800 Mg/4 Ml Vial INHALATION 200 mg Q6HRT GERBER Administration Albuterol/Ipratropium 3 ml 01/14/24 12:30 01/18/24 07:59 Ipratropium 0.5 Mg/Albuterol Sulfate 2.5 Mg Ampul.Neb 3 Ml NEBULIZE 3 ml Q6HRT PRN Administration wheezing Dornase Tao 2.5 mg 01/17/24 10:00 01/18/24 08:26 Dornase Tao Inh Soln 1 Mg/Ml 2.5 Ml Amp INHALATION 2.5 mg Q12HRT GERBER Administration Enoxaparin Sodium 40 mg 01/14/24 09:00 01/18/24 08:24 Enoxaparin 40 Mg/0.4 Ml Syringe SUB-Q 40 mg DAILY GERBER Administration Folic Acid 1 mg 01/15/24 09:00 01/18/24 08:24 Folic Acid 1 Mg Tablet FEED TUBE 1 mg DAILY GERBER Administration Hydrocortisone Sodium Succinate 50 mg 01/17/24 12:00 01/18/24 05:30 Hydrocortisone Sodium Succinate 100 Mg/2 Ml Vial IV PUSH 01/21/24 11:59 50 mg Q6H GERBER Administration Levetiracetam 1,000 mg in 100 mls @ 400 mls/hr 01/13/24 21:00 01/18/24 08:48 Keppra Iv IVPB Infused Q12HR GERBER Infusion Propofol 100 mls @ 22.5 mls/hr 01/13/24 18:05 01/18/24 08:00 Diprivan IV CONT 50 mcg/kg/min .Q4H27M GERBER 22.5 mls/hr Titration Protocol 50 MCG/KG/MIN Fentanyl Citrate 2,500 mcg in 250 mls @ 20 mls/hr 01/13/24 21:20 01/18/24 08:00 Fentanyl 2,500 Mcg/Ns 250 Ml IV CONT 200 mcg/hr .[id number] GERBER 20 mls/hr Titration Protocol 200 MCG/HR Midazolam HCl 100 mg in 100 mls @ 10 mls/hr 01/13/24 21:20 01/18/24 08:00 Versed 100 Mg/Ns 100 Ml IV CONT 10 mg/hr .Q10H GERBER 10 mls/hr Titration Protocol 10 MG/HR Piperacillin Sod/Tazobactam Sod 4.5 gm in 100 mls @ 200 mls/hr 01/16/24 18:00 01/18/24 06:00 Zosyn 4.5 Gm/Ns 100 Ml IVPB Infused Q6H GERBER Infusion Potassium Chloride 100 mls @ 25 mls/hr 01/18/24 07:25 01/18/24 08:24 Kcl 40 Meq/Water 100 Ml IVPB 01/18/24 11:24 25 mls/hr ONCE ONE Administration Miscellaneous Information 1 each 01/18/24 00:01 Propofol Needs To Be Renewed Or It Will Automatically Discontinue. XX 02/17/24 00:00 CLARIFY GERBER Morphine Sulfate 2 mg 01/13/24 16:22 01/16/24 05:33 Morphine Sulfate (*Crx) 2 Mg/Ml Inj IV PUSH 2 mg Q2H PRN Administration Pain Rated 7-10 Multi-Ingred Cream/Lotion/Oil/Oint 1 applic 01/14/24 09:00 01/18/24 08:40 Mineral Oil/White Petrolatum Ointment EACH EYE 1 applic Q12HR GERBER Administration Ondansetron HCl 4 mg 01/13/24 16:22 Ondansetron Inj 4 Mg/2 Ml Vial IV PUSH Q4H PRN Nausea Pantoprazole Sodium 40 mg 01/16/24 21:00 01/18/24 08:24 Pantoprazole Sodium Iv 40 Mg Vial IV PUSH 40 mg Q12HR GERBER Administration Perflutren Lipid Microsphere 0 ml 01/16/24 07:46 Perflutren Lipid Microspheres 1.5 Ml Vial Diluted To 10 Ml Total Volume IV PUSH 01/19/24 07:46 ONCE PRN adequate visualization Protocol Polyethylene Glycol 17 gm 01/16/24 10:17 01/16/24 13:09 Polyethylene Glycol 3350 17 Gm Powd.Pack PO 17 gm QAM PRN Administration Constipation Sodium Chloride 10 ml 01/13/24 22:00 01/18/24 06:27 Central Line Flush IV PUSH 10 ml Q8HR GERBER Administration Sodium Chloride 20 ml 01/13/24 20:18 Central Line Flush IV PUSH PRN PRN after blood draws Thiamine HCl 100 mg 01/15/24 09:00 01/18/24 08:23 Thiamine Hcl 100 Mg Tablet FEED TUBE 100 mg QAM GERBER Administration Radiology Results: ITS Impressions Head CT 01/13/24 15:43 IMPRESSION: No acute intracranial findings. Chest/Abdomen/Pelvis CT 01/14/24 11:18 IMPRESSION: 1. Diffuse lung disease, consistent with pneumonia. 2. Small pleural effusions. 3. Small volume of ascites. Abdomen X-Ray 01/16/24 09:15 IMPRESSION: 1. Normal bowel gas pattern. 2. Airspace opacities in the lungs bilaterally, right worse than left, consistent with pneumonia. 3. Small pleural effusions. Chest X-Ray 01/18/24 09:12 Impression: Bilateral airspace disease, as above. Correlate for bilateral pneumonia versus pulmonary edema. Support tubes, as above. Labs Labs: Laboratory Results - last 24 hr 01/17/24 01/18/24 01/18/24 16:26 04:25 04:26 WBC 6.6 RBC 3.37 L Hgb 11.1 L Hct 32.4 L MCV 96.1 MCH 32.9 MCHC 34.3 RDW 13.3 Plt Count 131 L MPV 9.5 Immature Gran % (Auto) 3.8 H Neut % (Auto) 77.3 H Lymph % (Auto) 7.7 L Moore % (Auto) 11.0 H Eos % (Auto) 0.0 Baso % (Auto) 0.2 Lymph # (Auto) 0.51 L Moore # (Auto) 0.7 H Eos # (Auto) 0.0 Baso # (Auto) 0.0 Abs Immat Gran (auto) 0.25 H Absolute Neuts (auto) 5.1 Absolute Nucleated RBC 0.020 H Nucleated RBC % 0.3 H Puncture Site ABG pH ABG pCO2 ABG pO2 ABG PO2/FiO2 Ratio ABG HCO3 ABG O2 Saturation ABG O2 Content ABG Base Excess A-a Gradient Oxyhemoglobin Carboxyhemoglobin Methemoglobin Reduced Hemoglobin Total Hemoglobin O2 Delivery Device O2 Liters/Min Minute Volume Vent Rate Vent Mode FiO2 Tidal Volume PEEP Peak Inspir Pressure Pressure Support Sodium 141 144 Potassium 2.8 L* 3.0 L Chloride 102 105 Carbon Dioxide 34 H 33 H Anion Gap 5 6 BUN 31 H 33 H Creatinine 1.00 0.90 Estim Creat Clear Calc 82 90 Estimated GFR > 60 > 60 Glucose 136 H 158 H Calcium 8.1 L 8.1 L Phosphorus 2.3 L 2.8 Magnesium 2.2 Total Bilirubin 0.5 AST 52 ALT 34 Alkaline Phosphatase 88 Total Creatine Kinase 374 H Total Protein 6.0 L Albumin 3.2 L Triglycerides 398 H 01/18/24 05:45 WBC RBC Hgb Hct MCV MCH MCHC RDW Plt Count MPV Immature Gran % (Auto) Neut % (Auto) Lymph % (Auto) Moore % (Auto) Eos % (Auto) Baso % (Auto) Lymph # (Auto) Moore # (Auto) Eos # (Auto) Baso # (Auto) Abs Immat Gran (auto) Absolute Neuts (auto) Absolute Nucleated RBC Nucleated RBC % Puncture Site Left radial ABG pH 7.501 H ABG pCO2 34.8 L ABG pO2 76.1 L ABG PO2/FiO2 Ratio 1.90 ABG HCO3 26.6 H ABG O2 Saturation 96.3 ABG O2 Content 15.6 L ABG Base Excess 3.6 A-a Gradient 169.1 Oxyhemoglobin 94.7 Carboxyhemoglobin 0.1 Methemoglobin 0.0 Reduced Hemoglobin 5.2 H Total Hemoglobin 11.7 L O2 Delivery Device Ventilator O2 Liters/Min Not Reportable Minute Volume Not Reportable Vent Rate 24 Vent Mode Cmv FiO2 40 Tidal Volume 450 PEEP 10 Peak Inspir Pressure Not Reportable Pressure Support Not Reportable Sodium Potassium Chloride Carbon Dioxide Anion Gap BUN Creatinine Estim Creat Clear Calc Estimated GFR Glucose Calcium Phosphorus Magnesium Total Bilirubin AST ALT Alkaline Phosphatase Total Creatine Kinase Total Protein Albumin Triglycerides Quality VTE Prophylaxis VTE prophylaxis: pharmacologic ordered
[2024-01-18] MEDS: polyethylene glycoL 3350 17 GM POWD.PACK PO (10:29)
[2024-01-18] MEDS: FUROSEMIDE INJ 40 MG/4 ML VIAL IV PUSH (13:00)
[2024-01-18 20:25] LABS: Anion Gap 8 mmol/L (4-12); Blood Urea Nitrogen 29 mg/dL (9-20); Calcium 8.3 mg/dL (8.4-10.2); Carbon Dioxide 31 mmol/L (22-30); Chloride 105 mmol/L (98-107); Estimated CRCL calculation 100 ml/min; Estimated Glomerular Filt Rate > 60; Glucose 151 mg/dL (65-110); Potassium 3.1 mmol/L (3.4-5.0); Sodium 144 mmol/L (137-145)
[2024-01-19] VITALS (70 sets, daily range): BP systolic 112–188; BP diastolic 69–102; PULSE 39–84; RESP 16–27; TEMP 37.1–38.8; O2SAT 93–97
[2024-01-19] MEDS: HYDROCORTISONE SODIUM SUCCINATE 100 MG/2 ML VIAL 50 MG IV PUSH ×5 (00:09→23:57)
[2024-01-19] MEDS: PIPERACILLIN/TAZ 4.5G/NS 100ML 4.5 GM/100 ML BAG IVPB ×5 (00:10→23:56)
[2024-01-19] MEDS: ACETYLCYSTEINE 20% INHAL SOLN 800 MG/4 ML VIAL 200 MG INHALATION ×4 (02:31→20:31)
[2024-01-19] MEDS: IPRATROPIUM 0.5 MG/ALBUTEROL SULFATE 2.5 MG AMPUL.NEB 3 ML NEBULIZE ×3 (02:32→20:31)
[2024-01-19] MEDS: PROPOFOL IV EMULSION 100 ML 22.5 MG IV CONT ×3 (02:40→10:41)
[2024-01-19] MEDS: MIDAZOLAM 100MG/NS 100ML(*CRX) 100 MG/100 ML BAG 10 MG IV CONT ×2 (03:21→13:29)
[2024-01-19 05:19] LABS: Alveolar/Arterial O2 Gradient 82.6 mmHg; Carboxyhemoglobin 0.5 % THb (0-2.0); Fractional Inspired Oxygen 30 %; HCO3 ABG 24.8 mEq/l (22.0-26.0); Methemoglobin ABG 0.3 %THb (0-1.5); Oxygen Content ABG 20.4 %vol (16.0-22.0); Oxygen Saturation ABG 97.6 % (95.0-100.0); Oxyhemoglobin 96.4 % THb (90.0-100.0); PCO2 ABG 33.3 mmHg (35.0-45.0); PO2 ABG 92.2 mmHg (80.0-100.0); PO2 FiO2 Ratio Arterial Blood 3.07 %; Reduced Hemoglobin 2.8 %THb (0-5.0); pH ABG 7.489 (7.350-7.450)
[2024-01-19 05:20] LABS: Device VENTILATOR; Modified Allen's Test Pass; Site Drawn RIGHT BRACHIAL
[2024-01-19 05:21] LABS: Arterial Blood Gas PEEP 10 cmH2O; Arterial Blood Gas Tidal Volume 450 ml; Arterial Blood Gas Vent Mode CMV; Arterial Blood Gas Ventilator rate 24 /MIN
[2024-01-19] MEDS: FENTANYL 2,500MCG/NS250ML(*CRX 2,500 MCG/250 ML BAG 20 MCG IV CONT (05:21)
[2024-01-19 06:30] LABS: Basophils Percent Auto 0.2 % (0.2-1.2); Eosinophils Percent Auto 0.2 % (0-4.4); Hematocrit 32.1 % (42.0-52.0); Hemoglobin 10.7 g/dL (14.0-18.0); Immature Granulocyte Absolute 0.18 K/mm3 (0.00-0.031); Immature Granulocyte Percent A 3.8 % (0-0.5); Lymphocytes Absolute Auto 0.76 K/mm3 (0.9-3.2); Lymphocytes Percent Auto 16.2 % (18.3-44.2); Mean Corpuscular HGB Conc 33.3 g/dl (32-36); Mean Corpuscular Hemoglobin 32.5 pg (26-34); Mean Corpuscular Volume 97.6 fl (80-100); Mean Platelet Volume 9.5 fl (7.4-10.4); Monocytes Absolute Auto 0.6 K/mm3 (0.1-0.6); Monocytes Percent Auto 13.5 % (2.6-8.5); Neutrophils Absolute Auto 3.1 K/mm3 (1.3-6.7); Neutrophils Percent Auto 66.1 % (45.5-73.1); Platelet Count Result 157 k/mm3 (150-375); Red Blood Count 3.29 M/mm3 (4.6-6.20); Red Cell Distribution Width 13.9 % (11.5-14.5); White Blood Count 4.7 K/mm3 (4.5-10.0)
[2024-01-19] MEDS: CENTRAL LINE FLUSH 10 ML IV PUSH ×3 (06:31→21:10)
[2024-01-19 06:41] LABS: Alanine Aminotransferase 38 U/L (6-50); Albumin Level 3.2 g/dL (3.5-5.1); Alkaline Phosphatase 72 U/L (38-126); Anion Gap 7 mmol/L (4-12); Aspartate Amino Transferase 40 U/L (17-59); Bilirubin,Total 0.5 mg/dL (0.2-1.3); Blood Urea Nitrogen 31 mg/dL (9-20); Calcium 8.4 mg/dL (8.4-10.2); Carbon Dioxide 30 mmol/L (22-30); Chloride 107 mmol/L (98-107); Estimated CRCL calculation 100 ml/min; Estimated Glomerular Filt Rate > 60; Glucose 134 mg/dL (65-110); Magnesium 2.3 mg/dL (1.6-2.3); Phosphorus 3.6 mg/dL (2.5-4.5); Potassium 3.5 mmol/L (3.4-5.0); Sodium 144 mmol/L (137-145)
[2024-01-19] MEDS: DORNASE ALFA INH SOLN 1 MG/ML 2.5 ML AMP 2.5 MG INHALATION ×2 (07:49→20:42)
[2024-01-19] MEDS: FOLIC ACID 1 MG TABLET FEED TUBE (08:56)
[2024-01-19] MEDS: levETIRAcetam 1000MG/NACL100ML 1,000 MG/100 ML BAG 400 MG IVPB ×2 (08:56→20:34)
[2024-01-19] MEDS: FUROSEMIDE INJ 40 MG/4 ML VIAL IV PUSH (08:56)
[2024-01-19] MEDS: THIAMINE HCL 100 MG TABLET FEED TUBE (08:56)
[2024-01-19] MEDS: PANTOPRAZOLE SODIUM IV 40 MG VIAL IV PUSH ×2 (08:56→20:33)
[2024-01-19] MEDS: POTASSIUM CHLORIDE 20 MEQ PACKET (FOR LIQUID) 40 MEQ FEED TUBE (08:56)
[2024-01-19] MEDS: ENOXAPARIN 40 MG/0.4 ML SYRINGE SUB-Q (08:57)
[2024-01-19] MEDS: polyethylene glycoL 3350 17 GM POWD.PACK PO (08:57)
[2024-01-19] MEDS: MINERAL OIL/WHITE PETROLATUM OINTMENT 1 APPLIC EACH EYE ×2 (08:58→20:35)
--- NOTE | 2024-01-19 09:19 | WPDINTPN ---
Progress Note: A&P Assessment and Plan (1) Acute respiratory failure with hypoxia and hypercapnia: Code(s): J96.01 - Acute respiratory failure with hypoxia; J96.02 - Acute respiratory failure with hypercapnia Status: Acute Assessment and Plan: 01/12: Patient admitted with Acute respiratory failure, encephalopathy, likely secondary to seizures, aspiration pneumonia as he was found in a hotel room lying in emesis on the bed unknown amount of time, rhabdomyolysis, septic shock, alcohol dependence, illicit drug use with methadone, seizures and patient has been out of seizure medications for patient's mother. -patient has been having cough with thick sputum for almost over a month according to mother, has refused to be evaluated by a doctor or come to the ER. - CT chest confirmed diffuse lung disease consistent with pneumonia -ABGs reviewed, ventilator adjusted, wean FiO2 to maintain O2 sats > 92% - will maintain low tidal volume strategy and high PEEP as patient has -continue bronchodilators, -continue antibiotics as under -01/16: patient is thick secretion, started on Mucomyst and Pulmozyme nebs, continue -on fentanyl, Versed and propofol for sedation, will have bedside RN start Precedex and start weaning sedation to evaluate for SBT and extubation chest x-ray this morning: Significantly improved airspace disease, minimal residual haziness in the right upper and lower lobes. -will diurese again today as patient is significantly volume overload since admission (2) Septic shock: Code(s): A41.9 - Sepsis, unspecified organism; R65.21 - Severe sepsis with septic shock Status: Acute Assessment and Plan: Patient with septic shock likely secondary to pneumonia, ARDS -Off IV fluids -off pressors -continue steroids -01/12: Preliminary blood cultures are negative x2 -01/12: Urine culture negative -01/13: Sputum culture - yeast -continue Zosyn (01/13) for at least 7-10 days -vancomycin was discontinued, MRSA screen was negative (3) Aspiration pneumonia: Qualifiers: Aspiration pneumonia type: unspecified Laterality: bilateral Lung location: unspecified part of lung Qualified Code(s): J69.0 - Pneumonitis due to inhalation of food and vomit Code(s): J69.0 - Pneumonitis due to inhalation of food and vomit Status: Acute Assessment and Plan: As above (4) Polysubstance (including opioids) dependence with physiological dependence: Code(s): F19.20 - Other psychoactive substance dependence, uncomplicated Status: Acute Assessment and Plan: patient will be counseled once extubated -according the mother patient does not take any illicit drugs -he did take methadone which was given to him by a neighbor, the mother states that was the only time he did drugs -patient does drink alcohol and has alcohol dependence (5) Encephalopathy: Code(s): G93.40 - Encephalopathy, unspecified Status: Acute Assessment and Plan: 01/12: Patient when brought in to the ED was encephalopathic which likely was secondary to either postictal from seizures or overdose from opioid. head CT was negative on admission currently sedated and and intubated. Normal ammonia level (6) Chronic alcoholism: Code(s): F10.20 - Alcohol dependence, uncomplicated Status: Acute Assessment and Plan: Continue thiamine, folic acid (7) Rhabdomyolysis: Qualifiers: Rhabdomyolysis type: non-traumatic Qualified Code(s): M62.82 - Rhabdomyolysis Code(s): M62.82 - Rhabdomyolysis Status: Acute Assessment and Plan: could be secondary to seizures or from laying on the floor for prolonged period of time. -initially CK levels were elevated on admission -received adequate amount of IV fluids, normal renal function -continue diuresis due to volume overload and edema -CK levels continue trending down (8) Acidosis: Code(s): E87.20 - Acidosis, unspecified Status: Acute Assessment and Plan: improved , status post bicarb infusion (9) Electrolyte abnormality: Code(s): E87.8 - Other disorders of electrolyte and fluid balance, not elsewhere classified Status: Acute Assessment and Plan: Continue to replace potassium since he is being diuresed (10) Abnormal thyroid function test: Code(s): R94.6 - Abnormal results of thyroid function studies Status: Acute Assessment and Plan: TSH and T4 level low. Free T3 is low, likely euthyroid syndrome, will recheck TSH and thyroid hormones and 1-2 weeks (11) Seizures: Code(s): R56.9 - Unspecified convulsions Status: Acute Assessment and Plan: Patient has a history of seizures, has been out of seizure medications. -this could be the cause of probably is encephalopathy. Also that he took methadone which does decrease seizure threshold -currently on Keppra -no more seizures observed since patient has been in the ICU Plan DVT prophylaxis -platelet counts have improved, continue Lovenox for DVT prophylaxis Stress ulcer prophylaxis -Protonix IV Nutrition -tolerating tube feeds Code Status - Full Code Total Critical Care Time - 34 minutes Discussed with patient's mother and his father and updated them with patient's condition, plan of care. I did the dated them with radiology and lab reports. They are aware that he is getting diurese due to his edema. I answered all questions Due to a high probability of clinically significant, life threatening deterioration, the patient required my highest level of preparedness to intervene emergently and I personally spent this critical care time directly and personally managing the patient. This critical care time included obtaining a history; examining the patient; pulse oximetry; ordering and review of studies; arranging urgent treatment with development of a management plan; evaluation of patient's response to treatment; frequent reassessment; and discussions with other providers. It was exclusive of separately billable procedures and treating other patients and teaching time. Please see Assessment and Plan section and the rest of the note for further information on patient assessment and treatment This dictation may have been done utilizing a voice recognition system. Attempts have been made to correct errors. However, there may be uncorrected grammatical, spelling, and recognitions errors present. Subjective Date/time seen: 01/19/24 09:19 Interval history: Reason for consult: Acute respiratory failure, encephalopathy, likely secondary to seizures, aspiration pneumonia as he was found in a hotel room lying in emesis on the bed unknown amount of time, rhabdomyolysis, septic shock, alcohol dependence, illicit drug use, seizures and patient has been out of seizure medications 01/12: Intubated in the ER 01/19/2024: Patient seen and examined the ICU, remains intubated on CMV mode of ventilation, peep of 10, 30% FiO2. Sedated with propofol, Versed and fentanyl. He does open his eyes, nods to questions and does follow simple commands and lower extremities. Urine output has been very good in response to diuresis, potassium is being replaced. Patient is hemodynamically stable, in tube feeds, afebrile Review of Systems Review of Systems: ROS unobtainable: Yes unobtainable due to endotracheal tube, unobtainable due to medical condition and unobtainable due to mental status Exam Narrative: General: Pt is sedated, intubated and on mechanical ventilation HEENT: Pupils equal and reactive, sclera is clear, ETT in place Lungs/Chest: Better air entry bilaterally, coarse breath sounds at bases, no wheezing, overall air increase adequate Cardiac: RRR. Normal S1 S2. No murmurs Abdomen: Decreased bowel sounds. Soft. NT. ND. Extremities: Bilateral upper and lower extremity edema is improving, palpable pedal pulses : Bates in place Neurologic: Patient intubated and sedated,Patient opens his eyes, , follows commands with lower extremity, Psych: Unable to assess at this time Objective Data Vital Signs Vital Signs: Vital Signs - 24 hr 01/18/24 10:29 01/18/24 10:29 01/18/24 10:00 Temperature Pulse Rate 63 63 71 Respiratory Rate 24 H 24 H Blood Pressure Pulse Oximetry Oxygen Delivery Fraction of Inspired Oxygen 01/18/24 10:34 01/18/24 10:00 01/18/24 10:00 Temperature Pulse Rate 63 71 71 Respiratory Rate 24 H 24 H Blood Pressure Pulse Oximetry 95 Oxygen Delivery Mechanical Ventilation Fraction of Inspired Oxygen 30 01/18/24 10:00 01/18/24 12:00 01/18/24 12:00 Temperature 100.9 F H 99.3 F Pulse Rate 71 52 L 52 L Respiratory Rate 24 H 24 H 24 H Blood Pressure 133/72 115/72 Pulse Oximetry 94 95 Oxygen Delivery Fraction of Inspired Oxygen 01/18/24 12:00 01/18/24 12:00 01/18/24 12:00 Temperature Pulse Rate 52 L 52 L Respiratory Rate 24 H 24 H Blood Pressure Pulse Oximetry 96 Oxygen Delivery Mechanical Ventilation Fraction of Inspired Oxygen 30 01/18/24 12:00 01/18/24 12:00 01/18/24 14:00 Temperature Pulse Rate 53 L 69 Respiratory Rate 24 H Blood Pressure Pulse Oximetry Oxygen Delivery Fraction of Inspired Oxygen 30 01/18/24 14:24 01/18/24 14:24 01/18/24 14:00 Temperature Pulse Rate 66 66 62 Respiratory Rate 24 H 24 H 24 H Blood Pressure Pulse Oximetry Oxygen Delivery Fraction of Inspired Oxygen 01/18/24 14:00 01/18/24 14:00 01/18/24 14:00 Temperature 98.9 F Pulse Rate 62 62 62 Respiratory Rate 24 H 24 H Blood Pressure 143/87 H Pulse Oximetry 94 Oxygen Delivery Fraction of Inspired Oxygen 01/18/24 14:48 01/18/24 14:50 01/18/24 14:56 Temperature Pulse Rate 61 63 60 Respiratory Rate 24 H 24 H Blood Pressure Pulse Oximetry 94 Oxygen Delivery Mechanical Ventilation Fraction of Inspired Oxygen 30 01/18/24 16:00 01/18/24 16:00 01/18/24 16:00 Temperature Pulse Rate 67 67 67 Respiratory Rate 24 H 24 H 24 H Blood Pressure Pulse Oximetry Oxygen Delivery Fraction of Inspired Oxygen 01/18/24 16:00 01/18/24 16:38 01/18/24 17:10 Temperature 98.7 F Pulse Rate 67 50 L 50 L Respiratory Rate 24 H 24 H 24 H Blood Pressure 137/84 Pulse Oximetry 96 Oxygen Delivery Fraction of Inspired Oxygen 01/18/24 16:19 01/18/24 17:19 01/18/24 17:20 Temperature Pulse Rate 50 L 50 L 50 L Respiratory Rate 24 H 24 H Blood Pressure Pulse Oximetry 95 Oxygen Delivery Mechanical Ventilation Fraction of Inspired Oxygen 30 01/18/24 17:35 01/18/24 17:35 01/18/24 16:00 Temperature Pulse Rate 50 L 50 L Respiratory Rate 24 H 24 H Blood Pressure Pulse Oximetry Oxygen Delivery Fraction of Inspired Oxygen 30 01/18/24 16:00 01/18/24 16:00 01/18/24 18:00 Temperature Pulse Rate 70 51 L Respiratory Rate Blood Pressure Pulse Oximetry 93 Oxygen Delivery Mechanical Ventilation Fraction of Inspired Oxygen 30 01/18/24 18:00 01/18/24 18:00 01/18/24 18:00 Temperature Pulse Rate 51 L 51 L 51 L Respiratory Rate 24 H 24 H 24 H Blood Pressure Pulse Oximetry Oxygen Delivery Fraction of Inspired Oxygen 01/18/24 18:00 01/18/24 20:33 01/18/24 20:34 Temperature 98.6 F Pulse Rate 51 L 71 72 Respiratory Rate 24 H 24 H Blood Pressure 112/68 Pulse Oximetry 93 97 Oxygen Delivery Mechanical Ventilation Fraction of Inspired Oxygen 30 01/18/24 20:54 01/18/24 20:00 01/18/24 20:00 Temperature Pulse Rate 73 55 L 55 L Respiratory Rate 24 H 24 H 24 H Blood Pressure Pulse Oximetry Oxygen Delivery Fraction of Inspired Oxygen 01/18/24 20:00 01/18/24 22:02 01/18/24 22:02 Temperature Pulse Rate 55 L 54 L 54 L Respiratory Rate 24 H 24 H 24 H Blood Pressure Pulse Oximetry Oxygen Delivery Fraction of Inspired Oxygen 01/18/24 22:00 01/18/24 22:00 01/18/24 20:00 Temperature Pulse Rate 54 L 54 L 44 L Respiratory Rate 24 H 24 H 24 H Blood Pressure Pulse Oximetry 95 Oxygen Delivery Mechanical Ventilation Fraction of Inspired Oxygen 30 01/18/24 20:00 01/18/24 20:00 01/18/24 20:00 Temperature 98.7 F Pulse Rate 44 L 44 L Respiratory Rate 24 H Blood Pressure 118/77 Pulse Oximetry 95 Oxygen Delivery Fraction of Inspired Oxygen 30 01/18/24 22:00 01/18/24 22:00 01/18/24 23:22 Temperature 98.8 F Pulse Rate 49 L 49 L 71 Respiratory Rate 24 H Blood Pressure 116/70 Pulse Oximetry 95 97 Oxygen Delivery Mechanical Ventilation Fraction of Inspired Oxygen 30 01/19/24 00:00 01/19/24 00:00 01/19/24 00:00 Temperature Pulse Rate 57 L 57 L 57 L Respiratory Rate 24 H 24 H 24 H Blood Pressure Pulse Oximetry Oxygen Delivery Fraction of Inspired Oxygen 01/19/24 02:00 01/19/24 02:00 01/19/24 02:00 Temperature Pulse Rate 48 L 48 L 48 L Respiratory Rate 24 H 24 H 24 H Blood Pressure Pulse Oximetry Oxygen Delivery Fraction of Inspired Oxygen 01/19/24 02:29 01/19/24 02:40 01/19/24 02:32 Temperature Pulse Rate 55 L 55 L 54 L Respiratory Rate 24 H 24 H Blood Pressure Pulse Oximetry 95 Oxygen Delivery Mechanical Ventilation Fraction of Inspired Oxygen 30 01/19/24 02:05 01/19/24 02:19 01/19/24 03:11 Temperature Pulse Rate 71 77 58 L Respiratory Rate 24 H 24 H 24 H Blood Pressure Pulse Oximetry Oxygen Delivery Fraction of Inspired Oxygen 01/19/24 03:21 01/19/24 00:00 01/19/24 00:00 Temperature Pulse Rate 58 L 57 L 57 L Respiratory Rate 24 H 24 H Blood Pressure Pulse Oximetry 95 Oxygen Delivery Mechanical Ventilation Fraction of Inspired Oxygen 30 01/19/24 00:00 01/19/24 00:00 01/19/24 02:00 Temperature 98.9 F Pulse Rate 57 L 47 L Respiratory Rate 24 H Blood Pressure 112/69 Pulse Oximetry 95 Oxygen Delivery Fraction of Inspired Oxygen 30 01/19/24 02:00 01/19/24 05:06 01/19/24 04:00 Temperature 98.7 F Pulse Rate 48 L 72 63 Respiratory Rate 24 H 24 H Blood Pressure 120/77 Pulse Oximetry 93 95 Oxygen Delivery Mechanical Ventilation Fraction of Inspired Oxygen 30 01/19/24 04:00 01/19/24 05:21 01/19/24 05:21 Temperature Pulse Rate 67 67 67 Respiratory Rate 24 H 24 H 24 H Blood Pressure Pulse Oximetry Oxygen Delivery Fraction of Inspired Oxygen 01/19/24 06:27 01/19/24 06:27 01/19/24 04:00 Temperature Pulse Rate 68 68 67 Respiratory Rate 24 H 24 H 24 H Blood Pressure Pulse Oximetry Oxygen Delivery Fraction of Inspired Oxygen 01/19/24 06:00 01/19/24 06:00 01/19/24 04:00 Temperature Pulse Rate 64 49 L 57 L Respiratory Rate 24 H 24 H 24 H Blood Pressure Pulse Oximetry 95 Oxygen Delivery Mechanical Ventilation Fraction of Inspired Oxygen 30 01/19/24 04:00 01/19/24 04:00 01/19/24 04:00 Temperature 98.9 F Pulse Rate 63 63 Respiratory Rate 24 H Blood Pressure 166/99 H Pulse Oximetry 95 Oxygen Delivery Fraction of Inspired Oxygen 30 01/19/24 06:00 01/19/24 06:00 01/19/24 07:55 Temperature 99.2 F Pulse Rate 49 L 49 L 50 L Respiratory Rate 24 H 24 H Blood Pressure 122/73 Pulse Oximetry 95 Oxygen Delivery Fraction of Inspired Oxygen 01/19/24 07:56 01/19/24 08:00 01/19/24 08:28 Temperature 99.2 F Pulse Rate 50 L 53 L Respiratory Rate 24 H 24 H Blood Pressure 130/73 Pulse Oximetry 96 95 Oxygen Delivery Mechanical Ventilation Fraction of Inspired Oxygen 30 Intake/Output Intake/Output: Intake & Output 01/16/24 01/17/24 01/18/24 01/19/24 23:59 23:59 23:59 23:59 Intake Total 3176.6 3172.8 3254.4 1420.3 Output Total 3100 3950 5025 650 Balance 76.6 -777.2 -1770.6 770.3 Meds/Results Medications: Active Medications Generic Name Dose Route Start Last Admin Trade Name Freq PRN Reason Stop Dose Admin Acetaminophen 650 mg 01/13/24 22:59 01/14/24 03:56 Acetaminophen Elixir 325 Mg/10.15 Ml Udc FEED TUBE 650 mg Q4H PRN Administration Mild Pain (1-3) or Fever Acetylcysteine 200 mg 01/17/24 14:00 01/19/24 07:49 Acetylcysteine 20% Inhal Soln 800 Mg/4 Ml Vial INHALATION 200 mg Q6HRT GERBER Administration Albuterol/Ipratropium 3 ml 01/14/24 12:30 01/19/24 02:32 Ipratropium 0.5 Mg/Albuterol Sulfate 2.5 Mg Ampul.Neb 3 Ml NEBULIZE 3 ml Q6HRT PRN Administration wheezing Dornase Tao 2.5 mg 01/17/24 10:00 01/19/24 07:49 Dornase Tao Inh Soln 1 Mg/Ml 2.5 Ml Amp INHALATION 01/19/24 23:59 2.5 mg Q12HRT GERBER Administration Enoxaparin Sodium 40 mg 01/14/24 09:00 01/19/24 08:57 Enoxaparin 40 Mg/0.4 Ml Syringe SUB-Q 40 mg DAILY GERBER Administration Folic Acid 1 mg 01/15/24 09:00 01/19/24 08:56 Folic Acid 1 Mg Tablet FEED TUBE 1 mg DAILY GERBER Administration Hydrocortisone Sodium Succinate 50 mg 01/17/24 12:00 01/19/24 06:26 Hydrocortisone Sodium Succinate 100 Mg/2 Ml Vial IV PUSH 01/21/24 11:59 50 mg Q6H GERBER Administration Levetiracetam 1,000 mg in 100 mls @ 400 mls/hr 01/13/24 21:00 01/19/24 08:56 Keppra Iv IVPB 400 mls/hr Q12HR GERBER Administration Propofol 100 mls @ 22.5 mls/hr 01/13/24 18:05 01/19/24 06:27 Diprivan IV CONT 50 mcg/kg/min .Q4H27M GERBER 22.5 mls/hr Administration Protocol 50 MCG/KG/MIN Fentanyl Citrate 2,500 mcg in 250 mls @ 20 mls/hr 01/13/24 21:20 01/19/24 06:00 Fentanyl 2,500 Mcg/Ns 250 Ml IV CONT 200 mcg/hr .[id number] GERBER 20 mls/hr Titration Protocol 200 MCG/HR Midazolam HCl 100 mg in 100 mls @ 10 mls/hr 01/13/24 21:20 01/19/24 06:00 Versed 100 Mg/Ns 100 Ml IV CONT 10 mg/hr .Q10H GERBER 10 mls/hr Titration Protocol 10 MG/HR Piperacillin Sod/Tazobactam Sod 4.5 gm in 100 mls @ 200 mls/hr 01/16/24 18:00 01/19/24 06:26 Zosyn 4.5 Gm/Ns 100 Ml IVPB 200 mls/hr Q6H GERBER Administration Potassium Chloride 100 mls @ 25 mls/hr 01/19/24 08:00 Kcl 40 Meq/Water 100 Ml IVPB 01/19/24 11:59 ONCE ONE Miscellaneous Information 1 each 01/19/24 00:01 Dornase_ Needs To Be Renewed Or It Will Automatically Discontinue. XX 02/18/24 00:00 CLARIFY GERBER Morphine Sulfate 2 mg 01/13/24 16:22 01/16/24 05:33 Morphine Sulfate (*Crx) 2 Mg/Ml Inj IV PUSH 2 mg Q2H PRN Administration Pain Rated 7-10 Multi-Ingred Cream/Lotion/Oil/Oint 1 applic 01/14/24 09:00 01/19/24 08:58 Mineral Oil/White Petrolatum Ointment EACH EYE 1 applic Q12HR GERBER Administration Ondansetron HCl 4 mg 01/13/24 16:22 Ondansetron Inj 4 Mg/2 Ml Vial IV PUSH Q4H PRN Nausea Pantoprazole Sodium 40 mg 01/16/24 21:00 01/19/24 08:56 Pantoprazole Sodium Iv 40 Mg Vial IV PUSH 40 mg Q12HR GERBER Administration Polyethylene Glycol 17 gm 01/18/24 10:20 01/19/24 08:57 Polyethylene Glycol 3350 17 Gm Powd.Pack PO 17 gm QAM GERBER Administration Sodium Chloride 10 ml 01/13/24 22:00 01/19/24 06:31 Central Line Flush IV PUSH 10 ml Q8HR GERBER Administration Sodium Chloride 20 ml 01/13/24 20:18 Central Line Flush IV PUSH PRN PRN after blood draws Thiamine HCl 100 mg 01/15/24 09:00 01/19/24 08:56 Thiamine Hcl 100 Mg Tablet FEED TUBE 100 mg QAM GERBER Administration Radiology Results: ITS Impressions Head CT 01/13/24 15:43 IMPRESSION: No acute intracranial findings. Chest/Abdomen/Pelvis CT 01/14/24 11:18 IMPRESSION: 1. Diffuse lung disease, consistent with pneumonia. 2. Small pleural effusions. 3. Small volume of ascites. Abdomen X-Ray 01/16/24 09:15 IMPRESSION: 1. Normal bowel gas pattern. 2. Airspace opacities in the lungs bilaterally, right worse than left, consistent with pneumonia. 3. Small pleural effusions. Chest X-Ray 01/19/24 06:18 Impression: Significantly improved airspace disease, minimal residual haziness in the right upper and lower lobes. Support tubes, as above. Labs Labs: Laboratory Results - last 24 hr 01/18/24 01/19/24 01/19/24 20:08 04:57 06:24 WBC 4.7 RBC 3.29 L Hgb 10.7 L Hct 32.1 L MCV 97.6 MCH 32.5 MCHC 33.3 RDW 13.9 Plt Count 157 MPV 9.5 Immature Gran % (Auto) 3.8 H Neut % (Auto) 66.1 Lymph % (Auto) 16.2 L [place] % (Auto) 13.5 H Eos % (Auto) 0.2 Baso % (Auto) 0.2 Lymph # (Auto) 0.76 L [place] # (Auto) 0.6 Eos # (Auto) 0.0 Baso # (Auto) 0.0 Abs Immat Gran (auto) 0.18 H Absolute Neuts (auto) 3.1 Absolute Nucleated RBC 0.000 Nucleated RBC % 0.0 Puncture Site Right brachial ABG pH 7.489 H ABG pCO2 33.3 L ABG pO2 92.2 ABG PO2/FiO2 Ratio 3.07 ABG HCO3 24.8 ABG O2 Saturation 97.6 ABG O2 Content 20.4 ABG Base Excess 2.0 A-a Gradient 82.6 Oxyhemoglobin 96.4 Carboxyhemoglobin 0.5 Methemoglobin 0.3 Reduced Hemoglobin 2.8 Total Hemoglobin 15.0 O2 Delivery Device Ventilator O2 Liters/Min Not Reportable Minute Volume Not Reportable Vent Rate 24 Vent Mode Cmv FiO2 30 Tidal Volume 450 PEEP 10 Peak Inspir Pressure Not Reportable Pressure Support Not Reportable Sodium 144 144 Potassium 3.1 L 3.5 Chloride 105 107 Carbon Dioxide 31 H 30 Anion Gap 8 7 BUN 29 H 31 H Creatinine 0.80 0.80 Estim Creat Clear Calc 100 100 Estimated GFR > 60 > 60 Glucose 151 H 134 H Calcium 8.3 L 8.4 Phosphorus 3.6 Magnesium 2.3 Total Bilirubin 0.5 AST 40 ALT 38 Alkaline Phosphatase 72 Total Protein 6.0 L Albumin 3.2 L Quality VTE Prophylaxis VTE prophylaxis: pharmacologic ordered
[2024-01-19] MEDS: KCL 40 MEQ/WATER 100 ML 100 ML 25 ML IVPB (09:52)
[2024-01-19] MEDS: LACTULOSE 20 GM/30 ML UDC PO (10:43)
[2024-01-19] MEDS: dexmedeTOMIDine 400 MCG/100 ML 400 MCG/100 ML BAG IV CONT (10:46)
--- NOTE | 2024-01-19 11:24 | PCFNICU ---
Addendum entered by Marisela Camarena, RD, LDN 01/19/24 11:37: ICU Rounding Note: Pt current nutrition is Vital 1.2 @ 50 ml/h with Prosource TF BID. Total 1658 kcal, 123 g protein, 892 ml free water. Nutrition recommendation: No changes to current tube feeding orders. Continue current nutrition care plan. Agree with orders Last recorded weight is 86.1 kg. Bowel Motility: No BM charted. Discussed in rounds. Miralax given. +Lactulose Labs Reviewed: Hgb 10.7, Hct 32.1, Alb 3.2, BUN 31, Glu 134 Meds Noted:Precedex, lactulose, Miralax, lovenox. Propofol @ 22.5 ml/h 594 kcal, to start weaning down today. Skin: No skin issues Additional Notes: Remains on vent. Weaning down on sedation and possible breathing trial later today. Following daily in ICU rounds. Will monitor weight, labs, skin, tube feeding tolerance, meds every Friday and Friday. . Original Note: ICU Rounding Note: Pt current nutrition is Vital 1.2 @ 50 ml/h with Prosource TF BID. Total 1658 kcal, 123 g protein, 892 ml free water. Nutrition recommendation: No changes to current tube feeding orders. Continue current nutrition care plan. Agree with orders Last recorded weight is 86.1 kg. Bowel Motility: No BM charted. Discussed in rounds. Miralax given. +Lactulose Labs Reviewed: Hgb 10.7, Hct 32.1, Alb 3.2, BUN 31, Glu 134 Meds Noted:Precedex, lactulose, Miralax, lovenox Skin: No skin issues Additional Notes: Remains on vent. Weaning down on sedation and possible breathing trial later today. Following daily in ICU rounds. Will monitor weight, labs, skin, tube feeding tolerance, meds every Friday and Friday. .
[2024-01-19] MEDS: PROPOFOL IV EMULSION 100 ML 15.75 MG IV CONT (15:56)
[2024-01-19] MEDS: ACETAMINOPHEN ELIXIR 325 MG/10.15 ML UDC 650 MG FEED TUBE ×2 (15:58→20:30)
[2024-01-19] MEDS: FENTANYL 2,500MCG/NS250ML(*CRX 2,500 MCG/250 ML BAG 17.5 MCG IV CONT (18:14)
[2024-01-19] MEDS: dexmedeTOMIDine 400 MCG/100 ML 400 MCG/100 ML BAG 15.07 MCG IV CONT (18:26)
[2024-01-19 19:16] LABS: Triglycerides 289 mg/dL (<150)
[2024-01-19] MEDS: PROPOFOL IV EMULSION 100 ML 20.25 MG IV CONT (21:08)
[2024-01-20] VITALS (49 sets, daily range): BP systolic 115–180; BP diastolic 75–95; PULSE 39–109; RESP 12–30; TEMP 36.6–38; O2SAT 91–98
[2024-01-20] MEDS: MIDAZOLAM 100MG/NS 100ML(*CRX) 100 MG/100 ML BAG 9 MG IV CONT (00:10)
[2024-01-20] MEDS: PROPOFOL IV EMULSION 100 ML 18 MG IV CONT (02:32)
[2024-01-20] MEDS: IPRATROPIUM 0.5 MG/ALBUTEROL SULFATE 2.5 MG AMPUL.NEB 3 ML NEBULIZE (02:36)
[2024-01-20] MEDS: ACETYLCYSTEINE 20% INHAL SOLN 800 MG/4 ML VIAL 200 MG INHALATION (02:36)
[2024-01-20 05:43] LABS: Basophils Percent Auto 0.4 % (0.2-1.2); Eosinophils Percent Auto 0.5 % (0-4.4); Hematocrit 33.5 % (42.0-52.0); Hemoglobin 10.8 g/dL (14.0-18.0); Immature Granulocyte Absolute 0.13 K/mm3 (0.00-0.031); Immature Granulocyte Percent A 2.4 % (0-0.5); Lymphocytes Absolute Auto 0.96 K/mm3 (0.9-3.2); Lymphocytes Percent Auto 17.5 % (18.3-44.2); Mean Corpuscular HGB Conc 32.2 g/dl (32-36); Mean Corpuscular Hemoglobin 31.8 pg (26-34); Mean Corpuscular Volume 98.5 fl (80-100); Mean Platelet Volume 9.9 fl (7.4-10.4); Monocytes Absolute Auto 0.7 K/mm3 (0.1-0.6); Monocytes Percent Auto 12.4 % (2.6-8.5); Neutrophils Absolute Auto 3.7 K/mm3 (1.3-6.7); Neutrophils Percent Auto 66.8 % (45.5-73.1); Platelet Count Result 191 k/mm3 (150-375); White Blood Count 5.5 K/mm3 (4.5-10.0)
--- NOTE | 2024-01-20 05:53 | PCRCNOTE ---
Rt attempt to draw morning ABG, patient awake, agitated and tightening his arm up. Rn aware.
[2024-01-20 06:06] LABS: Alanine Aminotransferase 40 U/L (6-50); Albumin Level 3.1 g/dL (3.5-5.1); Alkaline Phosphatase 74 U/L (38-126); Anion Gap 4 mmol/L (4-12); Aspartate Amino Transferase 37 U/L (17-59); Bilirubin,Total 0.6 mg/dL (0.2-1.3); Blood Urea Nitrogen 33 mg/dL (9-20); Calcium 8.3 mg/dL (8.4-10.2); Carbon Dioxide 29 mmol/L (22-30); Chloride 109 mmol/L (98-107); Estimated CRCL calculation 90 ml/min; Estimated Glomerular Filt Rate > 60; Glucose 129 mg/dL (65-110); Magnesium 2.3 mg/dL (1.6-2.3); Potassium 3.2 mmol/L (3.4-5.0); Sodium 142 mmol/L (137-145)
[2024-01-20] MEDS: PROPOFOL IV EMULSION 100 ML 22.5 MG IV CONT ×2 (06:19→10:25)
[2024-01-20] MEDS: LORazepam INJ (*CRX) 2 MG/ML VIAL IV PUSH ×3 (06:22→23:00)
[2024-01-20] MEDS: CENTRAL LINE FLUSH 10 ML IV PUSH ×3 (06:23→20:47)
[2024-01-20] MEDS: HYDROCORTISONE SODIUM SUCCINATE 100 MG/2 ML VIAL 50 MG IV PUSH ×3 (06:23→17:23)
[2024-01-20] MEDS: PIPERACILLIN/TAZ 4.5G/NS 100ML 4.5 GM/100 ML BAG IVPB ×3 (06:27→17:23)
[2024-01-20] MEDS: FENTANYL 2,500MCG/NS250ML(*CRX 2,500 MCG/250 ML BAG 10 MCG IV CONT ×2 (07:55→08:55)
[2024-01-20] MEDS: FOLIC ACID 1 MG TABLET FEED TUBE (08:02)
[2024-01-20] MEDS: levETIRAcetam 1000MG/NACL100ML 1,000 MG/100 ML BAG 400 MG IVPB ×2 (08:02→20:46)
[2024-01-20] MEDS: THIAMINE HCL 100 MG TABLET FEED TUBE (08:02)
[2024-01-20] MEDS: PANTOPRAZOLE SODIUM IV 40 MG VIAL IV PUSH ×2 (08:03→20:46)
[2024-01-20] MEDS: POTASSIUM CHLORIDE 20 MEQ PACKET (FOR LIQUID) 40 MEQ FEED TUBE ×2 (08:03→13:11)
[2024-01-20] MEDS: MINERAL OIL/WHITE PETROLATUM OINTMENT 1 APPLIC EACH EYE (08:03)
[2024-01-20] MEDS: ENOXAPARIN 40 MG/0.4 ML SYRINGE SUB-Q (08:03)
[2024-01-20] MEDS: FUROSEMIDE INJ 40 MG/4 ML VIAL IV PUSH (08:57)
--- NOTE | 2024-01-20 09:42 | WPDINTPN ---
Progress Note: A&P Assessment and Plan (1) Acute respiratory failure with hypoxia and hypercapnia: Code(s): J96.01 - Acute respiratory failure with hypoxia; J96.02 - Acute respiratory failure with hypercapnia Status: Acute Assessment and Plan: 01/12: Patient admitted with Acute respiratory failure, encephalopathy, likely secondary to seizures, aspiration pneumonia as he was found in a hotel room lying in emesis on the bed unknown amount of time, rhabdomyolysis, septic shock, alcohol dependence, illicit drug use with methadone, seizures and patient has been out of seizure medications for patient's mother. -patient has been having cough with thick sputum for almost over a month according to mother, has refused to be evaluated by a doctor or come to the ER. - CT chest confirmed diffuse lung disease consistent with pneumonia -ABGs reviewed, ventilator adjusted, wean FiO2 to maintain O2 sats > 92% - will maintain low tidal volume strategy and high PEEP as patient has -continue bronchodilators, -continue antibiotics as under -01/16: patient is thick secretion, started on Mucomyst and Pulmozyme nebs, continue -on fentanyl, Versed and propofol for sedation, Precedex was started but discontinued due to bradycardia. Patient gets agitated on lowering his sedation and is making weaning difficult. Will start decreasing sedatives slowly. Patient has history of combative and violent behavior. -chest x-ray and ABG reviewed. Decrease rate to 20 and PEEP to 8. -continue diuresis (2) Septic shock: Code(s): A41.9 - Sepsis, unspecified organism; R65.21 - Severe sepsis with septic shock Status: Acute Assessment and Plan: Patient with septic shock likely secondary to pneumonia, ARDS -Off IV fluids -off pressors -continue steroids -01/12: Preliminary blood cultures are negative x2 -01/12: Urine culture negative -01/13: Sputum culture - yeast -continue Zosyn (01/13) for at least 7-10 days -vancomycin was discontinued, MRSA screen was negative (3) Aspiration pneumonia: Qualifiers: Aspiration pneumonia type: unspecified Laterality: bilateral Lung location: unspecified part of lung Qualified Code(s): J69.0 - Pneumonitis due to inhalation of food and vomit Code(s): J69.0 - Pneumonitis due to inhalation of food and vomit Status: Acute Assessment and Plan: As above (4) Polysubstance (including opioids) dependence with physiological dependence: Code(s): F19.20 - Other psychoactive substance dependence, uncomplicated Status: Acute Assessment and Plan: patient will be counseled once extubated -according the mother patient does not take any illicit drugs -he did take methadone which was given to him by a neighbor, the mother states that was the only time he did drugs -patient does drink alcohol and has alcohol dependence (5) Encephalopathy: Code(s): G93.40 - Encephalopathy, unspecified Status: Acute Assessment and Plan: 01/12: Patient when brought in to the ED was encephalopathic which likely was secondary to either postictal from seizures or overdose from opioid. head CT was negative on admission currently sedated and and intubated. Follows commands with all 4 extremities Normal ammonia level (6) Chronic alcoholism: Code(s): F10.20 - Alcohol dependence, uncomplicated Status: Acute Assessment and Plan: Continue thiamine, folic acid (7) Rhabdomyolysis: Qualifiers: Rhabdomyolysis type: non-traumatic Qualified Code(s): M62.82 - Rhabdomyolysis Code(s): M62.82 - Rhabdomyolysis Status: Acute Assessment and Plan: could be secondary to seizures or from laying on the floor for prolonged period of time. -initially CK levels were elevated on admission -received adequate amount of IV fluids, normal renal function -continue diuresis due to volume overload and edema -CK levels continue trending down (8) Acidosis: Code(s): E87.20 - Acidosis, unspecified Status: Acute Assessment and Plan: improved , status post bicarb infusion (9) Electrolyte abnormality: Code(s): E87.8 - Other disorders of electrolyte and fluid balance, not elsewhere classified Status: Acute Assessment and Plan: Continue to replace potassium since he is being diuresed (10) Abnormal thyroid function test: Code(s): R94.6 - Abnormal results of thyroid function studies Status: Acute Assessment and Plan: TSH and T4 level low. Free T3 is low, likely euthyroid syndrome, will recheck TSH and thyroid hormones and 1-2 weeks (11) Seizures: Code(s): R56.9 - Unspecified convulsions Status: Acute Assessment and Plan: Patient has a history of seizures, has been out of seizure medications. -this could be the cause of probably is encephalopathy. Also that he took methadone which does decrease seizure threshold -currently on Keppra -no more seizures observed since patient has been in the ICU Plan DVT prophylaxis -platelet counts have improved, continue Lovenox for DVT prophylaxis Stress ulcer prophylaxis -Protonix IV Nutrition -tolerating tube feeds Code Status - Full Code Total Critical Care Time - 35 minutes Discussed with patient's mother and his father and updated them with patient's condition, plan of care. I did the dated them with radiology and lab reports. They are aware that he is getting diurese due to his edema. I answered all questions Due to a high probability of clinically significant, life threatening deterioration, the patient required my highest level of preparedness to intervene emergently and I personally spent this critical care time directly and personally managing the patient. This critical care time included obtaining a history; examining the patient; pulse oximetry; ordering and review of studies; arranging urgent treatment with development of a management plan; evaluation of patient's response to treatment; frequent reassessment; and discussions with other providers. It was exclusive of separately billable procedures and treating other patients and teaching time. Please see Assessment and Plan section and the rest of the note for further information on patient assessment and treatment This dictation may have been done utilizing a voice recognition system. Attempts have been made to correct errors. However, there may be uncorrected grammatical, spelling, and recognitions errors present. Subjective Date/time seen: 01/20/24 Overnight events reviewed. Afebrile Continues to be on mechanical ventilation 30% FiO2 and 10 of PEEP Good urine output in response to diuretics. Continues to be sedated with high-dose propofol Versed and fentanyl. Despite sedation patient is awake and following commands. Other Vitals acceptable Interval history: Reason for consult: Acute respiratory failure, encephalopathy, likely secondary to seizures, aspiration pneumonia as he was found in a hotel room lying in emesis on the bed unknown amount of time, rhabdomyolysis, septic shock, alcohol dependence, illicit drug use, seizures and patient has been out of seizure medications 01/12: Intubated in the ER Review of Systems Review of Systems: ROS unobtainable: Yes unobtainable due to endotracheal tube, unobtainable due to medical condition and unobtainable due to mental status Exam Narrative: General: Pt is sedated, intubated and on mechanical ventilation HEENT: Pupils equal and reactive, sclera is clear, ETT in place Lungs/Chest: Better air entry bilaterally, coarse breath sounds at bases, no wheezing, overall air increase adequate Cardiac: RRR. Normal S1 S2. No murmurs Abdomen: Decreased bowel sounds. Soft. NT. ND. Extremities: Bilateral upper and lower extremity edema is improving, palpable pedal pulses : Bates in place Neurologic: Patient intubated and sedated,Patient opens his eyes, , follows commands with all 4 extremities Psych: Unable to assess at this time Objective Data Vital Signs Vital Signs: Vital Signs - 24 hr 01/19/24 10:00 01/19/24 10:00 01/19/24 10:41 Temperature Pulse Rate 61 73 74 Respiratory Rate 24 H 24 H Blood Pressure Pulse Oximetry Oxygen Delivery Fraction of Inspired Oxygen 01/19/24 10:41 01/19/24 10:46 01/19/24 10:51 Temperature Pulse Rate 74 64 65 Respiratory Rate 24 H 24 H 24 H Blood Pressure Pulse Oximetry Oxygen Delivery Fraction of Inspired Oxygen 01/19/24 10:00 01/19/24 10:58 01/19/24 10:40 Temperature 37.3 C Pulse Rate 67 69 66 Respiratory Rate 24 H 24 H Blood Pressure 127/77 Pulse Oximetry 93 95 Oxygen Delivery Mechanical Ventilation Fraction of Inspired Oxygen 30 01/19/24 12:04 01/19/24 12:00 01/19/24 12:00 Temperature 37.6 C H Pulse Rate 69 69 64 Respiratory Rate 26 H 23 H 24 H Blood Pressure 141/85 H Pulse Oximetry 96 Oxygen Delivery Fraction of Inspired Oxygen 01/19/24 12:09 01/19/24 12:11 01/19/24 10:00 Temperature Pulse Rate 71 66 73 Respiratory Rate 24 H 24 H 24 H Blood Pressure Pulse Oximetry Oxygen Delivery Fraction of Inspired Oxygen 01/19/24 12:00 01/19/24 10:00 01/19/24 12:00 Temperature Pulse Rate 69 73 69 Respiratory Rate 26 H 24 H 26 H Blood Pressure Pulse Oximetry Oxygen Delivery Fraction of Inspired Oxygen 01/19/24 12:30 01/19/24 12:00 01/19/24 12:00 Temperature Pulse Rate 71 69 Respiratory Rate 19 Blood Pressure Pulse Oximetry Oxygen Delivery Fraction of Inspired Oxygen 30 01/19/24 12:00 01/19/24 13:10 01/19/24 13:21 Temperature Pulse Rate 83 73 Respiratory Rate 16 24 H Blood Pressure Pulse Oximetry 96 Oxygen Delivery Mechanical Ventilation Fraction of Inspired Oxygen 30 01/19/24 13:29 01/19/24 13:39 01/19/24 14:02 Temperature Pulse Rate 73 78 81 Respiratory Rate 24 H 22 H 24 H Blood Pressure Pulse Oximetry Oxygen Delivery Fraction of Inspired Oxygen 01/19/24 14:16 01/19/24 14:16 01/19/24 14:22 Temperature Pulse Rate 84 77 Respiratory Rate 27 H 22 H Blood Pressure Pulse Oximetry 95 Oxygen Delivery Mechanical Ventilation Fraction of Inspired Oxygen 30 01/19/24 14:23 01/19/24 14:00 01/19/24 14:00 Temperature 38.1 C H Pulse Rate 74 70 81 Respiratory Rate 26 H 17 Blood Pressure 157/88 H Pulse Oximetry 94 Oxygen Delivery Fraction of Inspired Oxygen 01/19/24 14:00 01/19/24 14:00 01/19/24 15:28 Temperature Pulse Rate 81 81 72 Respiratory Rate 17 17 21 H Blood Pressure Pulse Oximetry Oxygen Delivery Fraction of Inspired Oxygen 01/19/24 15:56 01/19/24 15:56 01/19/24 15:58 Temperature 38.4 C H Pulse Rate 69 69 Respiratory Rate 24 H 24 H Blood Pressure Pulse Oximetry Oxygen Delivery Fraction of Inspired Oxygen 01/19/24 16:11 01/19/24 16:00 01/19/24 16:21 Temperature 38.4 C H Pulse Rate 63 70 62 Respiratory Rate 16 22 H 27 H Blood Pressure 167/102 H Pulse Oximetry 96 Oxygen Delivery Fraction of Inspired Oxygen 01/19/24 16:21 01/19/24 16:00 01/19/24 17:09 Temperature Pulse Rate 62 72 66 Respiratory Rate 21 H 26 H Blood Pressure Pulse Oximetry 97 Oxygen Delivery Mechanical Ventilation Fraction of Inspired Oxygen 30 01/19/24 17:12 01/19/24 17:28 01/19/24 18:04 Temperature Pulse Rate 71 73 75 Respiratory Rate 17 19 22 H Blood Pressure Pulse Oximetry Oxygen Delivery Fraction of Inspired Oxygen 01/19/24 18:14 01/19/24 18:00 01/19/24 18:26 Temperature Pulse Rate 75 71 56 L Respiratory Rate 22 H 23 H 26 H Blood Pressure Pulse Oximetry Oxygen Delivery Fraction of Inspired Oxygen 01/19/24 18:26 01/19/24 18:29 01/19/24 18:00 Temperature 38.6 C H Pulse Rate 56 L 59 L 72 Respiratory Rate 26 H 26 H 24 H Blood Pressure 167/95 H Pulse Oximetry 96 Oxygen Delivery Fraction of Inspired Oxygen 01/19/24 18:00 01/19/24 18:00 01/19/24 16:00 Temperature Pulse Rate 56 L 56 L Respiratory Rate 22 H 22 H Blood Pressure Pulse Oximetry Oxygen Delivery Fraction of Inspired Oxygen 30 01/19/24 16:00 01/19/24 16:00 01/19/24 18:00 Temperature Pulse Rate 67 52 L Respiratory Rate Blood Pressure Pulse Oximetry 96 Oxygen Delivery Mechanical Ventilation Fraction of Inspired Oxygen 30 01/19/24 19:39 01/19/24 20:30 01/19/24 20:00 Temperature 38.8 C H Pulse Rate 60 51 L Respiratory Rate 27 H 24 H Blood Pressure Pulse Oximetry Oxygen Delivery Fraction of Inspired Oxygen 01/19/24 20:31 01/19/24 20:31 01/19/24 20:42 Temperature Pulse Rate 48 L 48 L 48 L Respiratory Rate 24 H 24 H Blood Pressure Pulse Oximetry 94 Oxygen Delivery Mechanical Ventilation Fraction of Inspired Oxygen 30 01/19/24 20:59 01/19/24 21:05 01/19/24 21:08 Temperature Pulse Rate 48 L 48 L 48 L Respiratory Rate 24 H 24 H 24 H Blood Pressure Pulse Oximetry Oxygen Delivery Fraction of Inspired Oxygen 01/19/24 20:00 01/19/24 20:00 01/19/24 19:48 Temperature Pulse Rate 50 L 50 L Respiratory Rate 24 H 24 H Blood Pressure 188/100 H Pulse Oximetry Oxygen Delivery Fraction of Inspired Oxygen 01/19/24 22:07 01/19/24 22:00 01/19/24 22:00 Temperature Pulse Rate 44 L 44 L 44 L Respiratory Rate 24 H 24 H 24 H Blood Pressure Pulse Oximetry Oxygen Delivery Fraction of Inspired Oxygen 01/19/24 22:19 01/19/24 21:30 01/19/24 22:58 Temperature 38.6 C H Pulse Rate 43 L 41 L Respiratory Rate 24 H 24 H Blood Pressure Pulse Oximetry Oxygen Delivery Fraction of Inspired Oxygen 01/19/24 23:00 01/19/24 23:26 01/19/24 23:45 Temperature Pulse Rate 41 L 40 L 39 L Respiratory Rate 24 H 24 H 24 H Blood Pressure Pulse Oximetry Oxygen Delivery Fraction of Inspired Oxygen 01/20/24 00:10 01/20/24 00:10 01/20/24 00:16 Temperature Pulse Rate 58 L 58 L 57 L Respiratory Rate 28 H 28 H 25 H Blood Pressure Pulse Oximetry Oxygen Delivery Fraction of Inspired Oxygen 01/19/24 23:22 01/20/24 00:36 01/20/24 00:37 Temperature Pulse Rate 43 L 64 64 Respiratory Rate 27 H 27 H Blood Pressure Pulse Oximetry 97 Oxygen Delivery Mechanical Ventilation Fraction of Inspired Oxygen 30 01/20/24 00:37 01/20/24 00:56 01/20/24 00:57 Temperature Pulse Rate 64 59 L 59 L Respiratory Rate 27 H 26 H 26 H Blood Pressure Pulse Oximetry Oxygen Delivery Fraction of Inspired Oxygen 01/20/24 01:47 01/20/24 01:59 01/20/24 02:12 Temperature Pulse Rate 39 L 40 L 41 L Respiratory Rate 24 H 24 H 24 H Blood Pressure Pulse Oximetry Oxygen Delivery Fraction of Inspired Oxygen 01/20/24 02:32 01/20/24 02:37 01/20/24 02:38 Temperature Pulse Rate 41 L 39 L 40 L Respiratory Rate 24 H 24 H 24 H Blood Pressure Pulse Oximetry Oxygen Delivery Fraction of Inspired Oxygen 01/20/24 02:37 01/20/24 02:37 01/19/24 20:00 Temperature Pulse Rate 39 L 39 L 50 L Respiratory Rate 24 H 24 H Blood Pressure Pulse Oximetry 95 95 Oxygen Delivery Mechanical Ventilation Mechanical Ventilation Fraction of Inspired Oxygen 30 30 01/19/24 20:00 01/19/24 20:00 01/19/24 20:00 Temperature 38.8 C H Pulse Rate 50 L 50 L Respiratory Rate 24 H Blood Pressure 150/93 H Pulse Oximetry 95 Oxygen Delivery Fraction of Inspired Oxygen 30 01/19/24 22:00 01/19/24 22:00 01/20/24 02:50 Temperature 38.3 C H Pulse Rate 45 L 45 L 42 L Respiratory Rate 24 H 24 H Blood Pressure 138/92 H Pulse Oximetry 96 Oxygen Delivery Fraction of Inspired Oxygen 01/20/24 00:00 01/20/24 00:00 01/20/24 00:00 Temperature Pulse Rate 52 L 52 L Respiratory Rate 24 H Blood Pressure Pulse Oximetry 97 Oxygen Delivery Mechanical Ventilation Fraction of Inspired Oxygen 30 30 01/20/24 00:00 01/20/24 02:00 01/20/24 02:00 Temperature 36.9 C 36.6 C Pulse Rate 52 L 40 L 40 L Respiratory Rate 24 H 24 H Blood Pressure 137/86 115/77 Pulse Oximetry 97 96 Oxygen Delivery Fraction of Inspired Oxygen 01/20/24 04:00 01/20/24 04:00 01/20/24 04:00 Temperature Pulse Rate 52 L 52 L 52 L Respiratory Rate 24 H 24 H 24 H Blood Pressure Pulse Oximetry Oxygen Delivery Fraction of Inspired Oxygen 01/20/24 05:33 01/20/24 05:20 01/20/24 05:36 Temperature Pulse Rate 67 58 L 59 L Respiratory Rate 24 H 29 H Blood Pressure Pulse Oximetry 96 Oxygen Delivery Mechanical Ventilation Fraction of Inspired Oxygen 30 01/20/24 05:38 01/20/24 06:19 01/20/24 06:19 Temperature Pulse Rate 64 59 L 58 L Respiratory Rate 30 H 24 H 24 H Blood Pressure Pulse Oximetry Oxygen Delivery Fraction of Inspired Oxygen 01/20/24 04:00 01/20/24 04:00 01/20/24 04:00 Temperature Pulse Rate 62 62 Respiratory Rate Blood Pressure Pulse Oximetry Oxygen Delivery Mechanical Ventilation Fraction of Inspired Oxygen 30 30 01/20/24 04:00 01/20/24 06:00 01/20/24 06:00 Temperature 36.9 C 36.9 C Pulse Rate 62 69 64 Respiratory Rate 24 H 24 H Blood Pressure 128/80 129/77 Pulse Oximetry 96 95 Oxygen Delivery Fraction of Inspired Oxygen 01/20/24 06:00 01/20/24 06:00 01/20/24 07:55 Temperature Pulse Rate 69 69 52 L Respiratory Rate 24 H 24 H 21 H Blood Pressure Pulse Oximetry Oxygen Delivery Fraction of Inspired Oxygen 01/20/24 08:00 01/20/24 08:28 01/20/24 08:55 Temperature 36.9 C Pulse Rate 54 L 57 L 62 Respiratory Rate 20 21 H Blood Pressure 127/80 Pulse Oximetry 98 91 Oxygen Delivery Mechanical Ventilation Fraction of Inspired Oxygen 30 01/20/24 08:55 Temperature Pulse Rate 62 Respiratory Rate 21 H Blood Pressure Pulse Oximetry Oxygen Delivery Fraction of Inspired Oxygen Intake/Output Intake/Output: Intake & Output 01/17/24 01/18/24 01/19/24 01/20/24 23:59 23:59 23:59 23:59 Intake Total 3172.8 3254.4 3561.6 976.2 Output Total 3950 5025 4050 350 Balance -777.2 -1770.6 -488.4 626.2 Meds/Results Medications: Active Medications Generic Name Dose Route Start Last Admin Trade Name Freq PRN Reason Stop Dose Admin Acetaminophen 650 mg 01/13/24 22:59 01/19/24 20:30 Acetaminophen Elixir 325 Mg/10.15 Ml Udc FEED TUBE 650 mg Q4H PRN Administration Mild Pain (1-3) or Fever Albuterol/Ipratropium 3 ml 01/14/24 12:30 01/20/24 02:36 Ipratropium 0.5 Mg/Albuterol Sulfate 2.5 Mg Ampul.Neb 3 Ml NEBULIZE 3 ml Q6HRT PRN Administration wheezing Enoxaparin Sodium 40 mg 01/14/24 09:00 01/20/24 08:03 Enoxaparin 40 Mg/0.4 Ml Syringe SUB-Q 40 mg DAILY GERBER Administration Folic Acid 1 mg 01/15/24 09:00 01/20/24 08:02 Folic Acid 1 Mg Tablet FEED TUBE 1 mg DAILY GERBER Administration Hydralazine HCl 20 mg 01/19/24 19:50 Hydralazine Hcl 20 Mg/Ml Vial IV PUSH Q4H PRN SBP >160 Hydrocortisone Sodium Succinate 50 mg 01/17/24 12:00 01/20/24 06:23 Hydrocortisone Sodium Succinate 100 Mg/2 Ml Vial IV PUSH 01/21/24 11:59 50 mg Q6H GERBER Administration Levetiracetam 1,000 mg in 100 mls @ 400 mls/hr 01/13/24 21:00 01/20/24 08:02 Keppra Iv IVPB 400 mls/hr Q12HR GERBER Administration Propofol 100 mls @ 22.5 mls/hr 01/13/24 18:05 01/20/24 06:19 Diprivan IV CONT 50 mcg/kg/min .Q4H27M GERBER 22.5 mls/hr Administration Protocol 50 MCG/KG/MIN Midazolam HCl 100 mg in 100 mls @ 10 mls/hr 01/13/24 21:20 01/20/24 06:00 Versed 100 Mg/Ns 100 Ml IV CONT 10 mg/hr .Q10H GERBER 10 mls/hr Titration Protocol 10 MG/HR Piperacillin Sod/Tazobactam Sod 4.5 gm in 100 mls @ 200 mls/hr 01/16/24 18:00 01/20/24 06:27 Zosyn 4.5 Gm/Ns 100 Ml IVPB 01/22/24 23:59 200 mls/hr Q6H GERBER Administration Fentanyl Citrate 2,500 mcg in 250 mls @ 10 mls/hr 01/20/24 07:50 01/20/24 08:55 Fentanyl 2,500 Mcg/Ns 250 Ml IV CONT 100 mcg/hr .Q25H GERBER 10 mls/hr Administration Protocol 100 MCG/HR Morphine Sulfate 2 mg 01/13/24 16:22 01/16/24 05:33 Morphine Sulfate (*Crx) 2 Mg/Ml Inj IV PUSH 2 mg Q2H PRN Administration Pain Rated 7-10 Multi-Ingred Cream/Lotion/Oil/Oint 1 applic 01/14/24 09:00 01/20/24 08:03 Mineral Oil/White Petrolatum Ointment EACH EYE 1 applic Q12HR GERBER Administration Ondansetron HCl 4 mg 01/13/24 16:22 Ondansetron Inj 4 Mg/2 Ml Vial IV PUSH Q4H PRN Nausea Pantoprazole Sodium 40 mg 01/16/24 21:00 01/20/24 08:03 Pantoprazole Sodium Iv 40 Mg Vial IV PUSH 40 mg Q12HR GERBER Administration Polyethylene Glycol 17 gm 01/18/24 10:20 01/19/24 08:57 Polyethylene Glycol 3350 17 Gm Powd.Pack PO 17 gm QAM GERBER Administration Potassium Chloride 40 meq 01/20/24 08:00 01/20/24 08:03 Potassium Chloride 20 Meq Packet (For Liquid) FEED TUBE 01/20/24 14:01 40 meq Q6H GERBER Administration Sodium Chloride 10 ml 01/13/24 22:00 01/20/24 06:23 Central Line Flush IV PUSH 10 ml Q8HR GERBER Administration Sodium Chloride 20 ml 01/13/24 20:18 Central Line Flush IV PUSH PRN PRN after blood draws Thiamine HCl 100 mg 01/15/24 09:00 01/20/24 08:02 Thiamine Hcl 100 Mg Tablet FEED TUBE 100 mg QAM GERBER Administration Radiology Results: ITS Impressions Head CT 01/13/24 15:43 IMPRESSION: No acute intracranial findings. Chest/Abdomen/Pelvis CT 01/14/24 11:18 IMPRESSION: 1. Diffuse lung disease, consistent with pneumonia. 2. Small pleural effusions. 3. Small volume of ascites. Abdomen X-Ray 01/16/24 09:15 IMPRESSION: 1. Normal bowel gas pattern. 2. Airspace opacities in the lungs bilaterally, right worse than left, consistent with pneumonia. 3. Small pleural effusions. Chest X-Ray 01/20/24 06:16 Impression: Minimal hazy airspace disease right lung base. Support tubes, as above. Labs Labs: Laboratory Results - last 24 hr 01/19/24 01/20/24 18:58 05:14 WBC 5.5 RBC 3.40 L Hgb 10.8 L Hct 33.5 L MCV 98.5 MCH 31.8 MCHC 32.2 RDW 14.0 Plt Count 191 MPV 9.9 Immature Gran % (Auto) 2.4 H Neut % (Auto) 66.8 Lymph % (Auto) 17.5 L [place] % (Auto) 12.4 H Eos % (Auto) 0.5 Baso % (Auto) 0.4 Lymph # (Auto) 0.96 [place] # (Auto) 0.7 H Eos # (Auto) 0.0 Baso # (Auto) 0.0 Abs Immat Gran (auto) 0.13 H Absolute Neuts (auto) 3.7 Absolute Nucleated RBC 0.000 Nucleated RBC % 0.0 Sodium 142 Potassium 3.2 L Chloride 109 H Carbon Dioxide 29 Anion Gap 4 BUN 33 H Creatinine 0.90 Estim Creat Clear Calc 90 Estimated GFR > 60 Glucose 129 H Calcium 8.3 L Phosphorus 4.0 Magnesium 2.3 Total Bilirubin 0.6 AST 37 ALT 40 Alkaline Phosphatase 74 Total Protein 6.0 L Albumin 3.1 L Triglycerides 289 H Quality VTE Prophylaxis VTE prophylaxis: pharmacologic ordered
[2024-01-20] MEDS: MIDAZOLAM 100MG/NS 100ML(*CRX) 100 MG/100 ML BAG 10 MG IV CONT (10:24)
--- NOTE | 2024-01-20 11:28 | PCNFU ---
Nutrition Follow-Up Complete: Suboptimal Energy Intake as related to mechanical ventilation as evidenced by NPO. goal: Meet estimated nutritional needs. Patient is progressing towards goal. We will continue current goal. Pt current nutrition is Vital AF 1.2 at 50 ml/hr with Prosource BID. Last recorded weight is 84 kg, up from 81.4 kg on admit. Bowel Motility: FMS Labs Reviewed:TG 289, Glu 129, BUN 33, Alb 3.1 Meds Noted:Fentanyl, Versed, Propofol 50 gqt=573 kcals, Lovenox, Miralax, Protonix, Thiamine. Skin: WNL Additional Notes: Patient remains on mechanical vent. Tube feedings are being tolerated of Vital AF 1.2 at 50 ml/hr. Patient is tolerating tube feedings. Discussions in ICU rounds regarding breathing trial today. Total nutrition including propofol= 2074 kcals/123 gm protein/892 ml water. Meeting 100% kcal needs at 25 kcal/kg and 100% protein needs at 1.2-1.4 gm protein. Flush 30 ml q 4 hours. Agree with diet orders at this time. Will monitor weight, labs, skin, tube feeding tolerance, meds every Friday and Friday.
[2024-01-20 13:31] LABS: Alveolar/Arterial O2 Gradient 113.1 mmHg; Base Excess ABG 4.7 mEq/l (+/-2.0); Fractional Inspired Oxygen 30 %; Oxygen Content ABG 17.9 %vol (16.0-22.0); Oxygen Saturation ABG 97.4 % (95.0-100.0); Oxyhemoglobin 95.5 % THb (90.0-100.0); PO2 ABG 74.5 mmHg (80.0-100.0); PO2 FiO2 Ratio Arterial Blood 2.48 %; Total Hemoglobin 13.3 g/dL (12.0-18.0)
[2024-01-20 13:33] LABS: PCO2 ABG 22.4 mmHg (35.0-45.0); pH ABG 7.647 (7.350-7.450)
[2024-01-20 13:34] LABS: Device VENTILATOR; Modified Allen's Test Pass; Site Drawn LEFT RADIAL
[2024-01-20 13:36] LABS: Arterial Blood Gas PEEP 8 cmH2O; Arterial Blood Gas Tidal Volume 470 ml; Arterial Blood Gas Vent Mode CMV; Arterial Blood Gas Ventilator rate 20 /MIN
[2024-01-20] MEDS: dexmedeTOMIDine 400 MCG/100 ML 400 MCG/100 ML BAG 10.5 MCG IV CONT (13:40)
--- NOTE | 2024-01-20 14:27 | P.PNCROSS_ITS ---
Event Note Event Note Event Note: Patient sedation was lowered slowly where he was awake and following commands. 5/8 PSV SBT done for more than 1/2 hour. RSBI, ABGI and Vitals are acceptable. Pt awake and following commands. I extubated the patient. Post extubation patient was agitated. He is clearly delusional and does hallucinate. He is stating that he has been shot and keeps on pointing towards his abdomen. Security was called earlier. Patient's mother is at bedside. Patient keeps on and cussing at her asking her to leave stating that 'they will cut you out'. Patient also keeps on repeating that they are going to 'cut me out'. I tried to reassure the patient explained him that what has happened over last few days of his hospital course and what is the current treatment plan. Patient tries to sit up in the bed and using abusive language. He is partially oriented and knows that he is in hospital and who is the president. He states this 2021. Now at discussing with the mother mother gave additional history states that 1 month ago patient had a 8 hours stand off at home and he tried to kill himself. Was taken to [facility] where he was on 72 hour hold. After that he was discharged to inpatient psychiatric facility where he was for 2 days and was discharged. She does not know his diagnosis. I requested a sitter at bedside. Patient is currently physically restrained until week and a certain safety of patient and staff. I will continue Precedex at this time to keep him calm. I will also consult Psychiatry manager social responsibility to see if we can obtain more information regarding his recent admissions. Additional Critical Care Time - 45 minutes Due to a high probability of clinically significant, life threatening deterioration, the patient required my highest level of preparedness to intervene emergently and I personally spent this critical care time directly and personally managing the patient. This critical care time included obtaining a history; examining the patient; pulse oximetry; ordering and review of studies; arranging urgent treatment with development of a management plan; evaluation of patient's response to treatment; frequent reassessment; and discussions with other providers. It was exclusive of separately billable procedures and treating other patients and teaching time. Please see Assessment and Plan section and the rest of the note for further information on patient assessment and treatment
[2024-01-20] MEDS: dexmedeTOMIDine 400 MCG/100 ML 400 MCG/100 ML BAG 21 MCG IV CONT (17:57)
[2024-01-21] VITALS (19 sets, daily range): BP systolic 116–173; BP diastolic 69–101; PULSE 40–87; RESP 11–27; TEMP 37.2–37.3; O2SAT 92–98
[2024-01-21] MEDS: HYDROCORTISONE SODIUM SUCCINATE 100 MG/2 ML VIAL 50 MG IV PUSH ×2 (00:30→05:53)
[2024-01-21] MEDS: PIPERACILLIN/TAZ 4.5G/NS 100ML 4.5 GM/100 ML BAG IVPB ×2 (00:30→05:53)
[2024-01-21] MEDS: dexmedeTOMIDine 400 MCG/100 ML 400 MCG/100 ML BAG 10.5 MCG IV CONT ×2 (02:42→07:33)
--- NOTE | 2024-01-21 05:52 | PCRCNOTE ---
ABG not drawn Pt was agitated and uncooperative.
[2024-01-21] MEDS: CENTRAL LINE FLUSH 10 ML IV PUSH ×3 (05:54→20:10)
[2024-01-21 06:10] LABS: Hematocrit 36.4 % (42.0-52.0); Hemoglobin 12.2 g/dL (14.0-18.0); Mean Corpuscular HGB Conc 33.5 g/dl (32-36); Mean Corpuscular Hemoglobin 32.3 pg (26-34); Mean Corpuscular Volume 96.3 fl (80-100); Mean Platelet Volume 9.7 fl (7.4-10.4); Platelet Count Result 213 k/mm3 (150-375); Red Blood Count 3.78 M/mm3 (4.6-6.20); White Blood Count 7.1 K/mm3 (4.5-10.0)
[2024-01-21 06:28] LABS: Alanine Aminotransferase 53 U/L (6-50); Albumin Level 3.5 g/dL (3.5-5.1); Alkaline Phosphatase 70 U/L (38-126); Anion Gap 4 mmol/L (4-12); Aspartate Amino Transferase 61 U/L (17-59); Blood Urea Nitrogen 32 mg/dL (9-20); Calcium 8.3 mg/dL (8.4-10.2); Carbon Dioxide 26 mmol/L (22-30); Chloride 107 mmol/L (98-107); Estimated CRCL calculation 100 ml/min; Estimated Glomerular Filt Rate > 60; Glucose 104 mg/dL (65-110); Magnesium 2.2 mg/dL (1.6-2.3); Potassium 3.3 mmol/L (3.4-5.0); Sodium 137 mmol/L (137-145)
[2024-01-21] MEDS: ENOXAPARIN 40 MG/0.4 ML SYRINGE SUB-Q (09:05)
[2024-01-21] MEDS: FOLIC ACID 1 MG TABLET FEED TUBE (09:05)
[2024-01-21] MEDS: POTASSIUM CHLORIDE 20 MEQ PACKET (FOR LIQUID) 40 MEQ PO (09:05)
[2024-01-21] MEDS: MINERAL OIL/WHITE PETROLATUM OINTMENT 1 APPLIC EACH EYE (09:06)
[2024-01-21] MEDS: THIAMINE HCL 100 MG TABLET FEED TUBE (09:06)
[2024-01-21] MEDS: levETIRAcetam 1000MG/NACL100ML 1,000 MG/100 ML BAG 400 MG IVPB ×2 (09:06→20:20)
[2024-01-21] MEDS: PANTOPRAZOLE SODIUM IV 40 MG VIAL IV PUSH (09:06)
--- NOTE | 2024-01-21 09:13 | WPDINTPN ---
Progress Note: A&P Assessment and Plan (1) Acute respiratory failure with hypoxia and hypercapnia: Code(s): J96.01 - Acute respiratory failure with hypoxia; J96.02 - Acute respiratory failure with hypercapnia Status: Acute Assessment and Plan: 01/12: Patient admitted with Acute respiratory failure, encephalopathy, likely secondary to seizures, aspiration pneumonia as he was found in a hotel room lying in emesis on the bed unknown amount of time, rhabdomyolysis, septic shock, alcohol dependence, illicit drug use with methadone, seizures and patient has been out of seizure medications for patient's mother. -patient has been having cough with thick sputum for almost over a month according to mother, has refused to be evaluated by a doctor or come to the ER. - CT chest confirmed diffuse lung disease consistent with pneumonia 01/19 extubated On room air now. Add incentive spirometry -continue bronchodilators, -continue antibiotics as below (2) Septic shock: Code(s): A41.9 - Sepsis, unspecified organism; R65.21 - Severe sepsis with septic shock Status: Acute Assessment and Plan: Patient with septic shock likely secondary to pneumonia, ARDS -Off IV fluids -off pressors Off steroid -01/12: Preliminary blood cultures are negative x2 -01/12: Urine culture negative -01/13: Sputum culture - yeast -continue Zosyn (01/13) for at least 7-10 days -vancomycin was discontinued, MRSA screen was negative -depending on p.o. intake will try to switch to p.o. antibiotics (3) Aspiration pneumonia: Qualifiers: Aspiration pneumonia type: unspecified Laterality: bilateral Lung location: unspecified part of lung Qualified Code(s): J69.0 - Pneumonitis due to inhalation of food and vomit Code(s): J69.0 - Pneumonitis due to inhalation of food and vomit Status: Acute Assessment and Plan: As above (4) Polysubstance (including opioids) dependence with physiological dependence: Code(s): F19.20 - Other psychoactive substance dependence, uncomplicated Status: Acute Assessment and Plan: Psych evaluation pending -according the mother patient does not take any illicit drugs -he did take methadone which was given to him by a neighbor, the mother states that was the only time he did drugs -patient does drink alcohol and has alcohol dependence (5) Encephalopathy: Code(s): G93.40 - Encephalopathy, unspecified Status: Acute Assessment and Plan: 01/12: Patient when brought in to the ED was encephalopathic which likely was secondary to either postictal from seizures or overdose from opioid. head CT was negative on admission Patient now AO x3 Normal ammonia level (6) Chronic alcoholism: Code(s): F10.20 - Alcohol dependence, uncomplicated Status: Acute Assessment and Plan: Continue thiamine, folic acid (7) Rhabdomyolysis: Qualifiers: Rhabdomyolysis type: non-traumatic Qualified Code(s): M62.82 - Rhabdomyolysis Code(s): M62.82 - Rhabdomyolysis Status: Acute Assessment and Plan: could be secondary to seizures or from laying on the floor for prolonged period of time. -initially CK levels were elevated on admission -received adequate amount of IV fluids, normal renal function -continue diuresis due to volume overload and edema -CK levels continue trending down (8) Acidosis: Code(s): E87.20 - Acidosis, unspecified Status: Acute Assessment and Plan: improved , status post bicarb infusion (9) Electrolyte abnormality: Code(s): E87.8 - Other disorders of electrolyte and fluid balance, not elsewhere classified Status: Acute Assessment and Plan: Continue to replace potassium since he is being diuresed (10) Abnormal thyroid function test: Code(s): R94.6 - Abnormal results of thyroid function studies Status: Acute Assessment and Plan: TSH and T4 level low. Free T3 is low, likely euthyroid syndrome, will recheck TSH and thyroid hormones and 1-2 weeks (11) Seizures: Code(s): R56.9 - Unspecified convulsions Status: Acute Assessment and Plan: Patient has a history of seizures, has been out of seizure medications. -this could be the cause of probably is encephalopathy. Also that he took methadone which does decrease seizure threshold -currently on Keppra -no more seizures observed since patient has been in the ICU (12) Paranoid schizophrenia: Code(s): F20.0 - Paranoid schizophrenia Status: Acute Assessment and Plan: Yesterday after extubation patient was clearly delusional and hallucinating. He he was also agitated. Yesterday patient's mother gave additional history stating that approximately 1 month ago patient had a 8 hours stand off at home and he tried to kill himself. Was taken to [facility] where he was on 72 hour hold. After that he was discharged to inpatient psychiatric facility [facility] where he was for 2 days and was discharged. She does not know his diagnosis. I have requested records from both facilities. Continue sitter at bedside and suicide precautions Will try to wean off Precedex Will request crisis evaluation Plan DVT prophylaxis -platelet counts have improved, continue Lovenox for DVT prophylaxis Incentive spirometry Removed Bates catheter Nutrition -start diet Code Status - Full Code Total Critical Care Time - 32 minutes Due to a high probability of clinically significant, life threatening deterioration, the patient required my highest level of preparedness to intervene emergently and I personally spent this critical care time directly and personally managing the patient. This critical care time included obtaining a history; examining the patient; pulse oximetry; ordering and review of studies; arranging urgent treatment with development of a management plan; evaluation of patient's response to treatment; frequent reassessment; and discussions with other providers. It was exclusive of separately billable procedures and treating other patients and teaching time. Please see Assessment and Plan section and the rest of the note for further information on patient assessment and treatment This dictation may have been done utilizing a voice recognition system. Attempts have been made to correct errors. However, there may be uncorrected grammatical, spelling, and recognitions errors present. Subjective Date/time seen: 01/21/24 patient was extubated yesterday after a successful weaning trial. He is on room air. He has good urine output. Yesterday patient was agitated and delusional and was started on Precedex infusion. He who had to be physically restrained. Sitter was placed at bedside. He has history of suicidal ideation and attempts in the past. This morning he appears calm and follows commands. He denies any pain except sore throat. All other systems were reviewed and were negative. Interval history: Reason for consult: Acute respiratory failure, encephalopathy, likely secondary to seizures, aspiration pneumonia as he was found in a hotel room lying in emesis on the bed unknown amount of time, rhabdomyolysis, septic shock, alcohol dependence, illicit drug use, seizures and patient has been out of seizure medications 01/12: Intubated in the ER 01/19 extubated Exam Narrative: General: Pt is alert awake and in NAD Lungs/Chest: Trachea central Clear BS B/L, No crackles or wheezing. Cardiac: RRR. Normal S1 S2. No murmurs Circulation: Pedal pulses are intact and symmetrical. Abdomen: Normal bowel sounds.. Soft. NT. ND. Extremities: No clubbing, cyanosis or edema. Warm : Bates in place Neurologic: Follows commands. Moves all 4 extremities PERRL AO x3 Skin: No Rash Objective Data Vital Signs Vital Signs: Vital Signs - 24 hr 01/20/24 10:00 01/20/24 10:00 01/20/24 10:00 Temperature Pulse Rate 83 82 82 Respiratory Rate 20 20 20 Blood Pressure Pulse Oximetry Oxygen Delivery Oxygen Flow Rate Fraction of Inspired Oxygen 01/20/24 10:13 01/20/24 10:24 01/20/24 10:25 Temperature Pulse Rate 78 78 78 Respiratory Rate 20 20 20 Blood Pressure Pulse Oximetry Oxygen Delivery Oxygen Flow Rate Fraction of Inspired Oxygen 01/20/24 10:25 01/20/24 10:00 01/20/24 10:00 Temperature 36.9 C Pulse Rate 78 62 80 Respiratory Rate 20 23 H Blood Pressure 131/75 Pulse Oximetry 94 Oxygen Delivery Oxygen Flow Rate Fraction of Inspired Oxygen 01/20/24 11:20 01/20/24 11:04 01/20/24 12:00 Temperature Pulse Rate 67 65 66 Respiratory Rate 20 21 H Blood Pressure Pulse Oximetry 96 Oxygen Delivery Mechanical Ventilation Oxygen Flow Rate Fraction of Inspired Oxygen 30 01/20/24 12:51 01/20/24 12:00 01/20/24 12:53 Temperature Pulse Rate 60 60 86 Respiratory Rate 12 21 H 19 Blood Pressure Pulse Oximetry Oxygen Delivery Oxygen Flow Rate Fraction of Inspired Oxygen 01/20/24 12:00 01/20/24 12:54 01/20/24 13:40 Temperature Pulse Rate 60 81 90 Respiratory Rate 21 H 19 17 Blood Pressure Pulse Oximetry Oxygen Delivery Oxygen Flow Rate Fraction of Inspired Oxygen 01/20/24 14:00 01/20/24 14:21 01/20/24 14:45 Temperature Pulse Rate 109 H 81 85 Respiratory Rate 23 H 20 16 Blood Pressure Pulse Oximetry Oxygen Delivery Oxygen Flow Rate Fraction of Inspired Oxygen 01/20/24 16:19 01/20/24 12:00 01/20/24 12:00 Temperature Pulse Rate 48 L 48 L Respiratory Rate 16 16 Blood Pressure Pulse Oximetry 96 Oxygen Delivery Mechanical Ventilation Oxygen Flow Rate Fraction of Inspired Oxygen 30 30 01/20/24 16:00 01/20/24 12:00 01/20/24 14:00 Temperature Pulse Rate 48 L 88 102 H Respiratory Rate 16 Blood Pressure Pulse Oximetry 96 Oxygen Delivery Mechanical Ventilation Oxygen Flow Rate Fraction of Inspired Oxygen 30 01/20/24 16:00 01/20/24 12:00 01/20/24 14:00 Temperature 37.4 C 38.0 C H Pulse Rate 42 L 60 102 H Respiratory Rate 21 H 24 H Blood Pressure 136/80 180/95 H Pulse Oximetry 96 94 Oxygen Delivery Oxygen Flow Rate Fraction of Inspired Oxygen 01/20/24 16:00 01/20/24 16:00 01/20/24 13:40 Temperature 37.8 C H Pulse Rate 45 L 45 L 102 H Respiratory Rate 12 12 21 H Blood Pressure 140/84 Pulse Oximetry 96 Oxygen Delivery Oxygen Flow Rate Fraction of Inspired Oxygen 01/20/24 13:40 01/20/24 13:40 01/20/24 17:23 Temperature Pulse Rate 102 H 102 H 45 L Respiratory Rate 24 H 24 H 13 Blood Pressure Pulse Oximetry Oxygen Delivery Oxygen Flow Rate Fraction of Inspired Oxygen 01/20/24 17:57 01/20/24 17:57 01/20/24 18:00 Temperature Pulse Rate 46 L 46 L 45 L Respiratory Rate 17 17 14 Blood Pressure 143/83 H Pulse Oximetry 96 Oxygen Delivery Oxygen Flow Rate Fraction of Inspired Oxygen 01/20/24 18:00 01/20/24 18:00 01/20/24 18:44 Temperature Pulse Rate 52 L 52 L 41 L Respiratory Rate 13 15 Blood Pressure Pulse Oximetry Oxygen Delivery Oxygen Flow Rate Fraction of Inspired Oxygen 01/20/24 19:28 01/20/24 20:00 01/20/24 20:00 Temperature Pulse Rate 48 L 48 L Respiratory Rate 16 Blood Pressure Pulse Oximetry 98 96 Oxygen Delivery Nasal Cannula Nasal Cannula Oxygen Flow Rate 3 3 Fraction of Inspired Oxygen 01/20/24 20:00 01/20/24 20:00 01/20/24 22:00 Temperature 36.9 C Pulse Rate 62 49 L 41 L Respiratory Rate 14 Blood Pressure 147/87 H Pulse Oximetry 97 Oxygen Delivery Oxygen Flow Rate Fraction of Inspired Oxygen 01/20/24 22:00 01/20/24 22:00 01/21/24 00:00 Temperature Pulse Rate 41 L 58 L 42 L Respiratory Rate 14 16 Blood Pressure 152/86 H Pulse Oximetry 97 98 Oxygen Delivery Nasal Cannula Oxygen Flow Rate 2 Fraction of Inspired Oxygen 01/21/24 00:00 01/21/24 00:00 01/21/24 00:00 Temperature 37.3 C Pulse Rate 41 L 42 L 43 L Respiratory Rate 12 12 Blood Pressure 155/82 H Pulse Oximetry 98 Oxygen Delivery Oxygen Flow Rate Fraction of Inspired Oxygen 01/21/24 02:00 01/21/24 03:42 01/21/24 03:46 Temperature 37.3 C Pulse Rate 43 L 45 L Respiratory Rate 22 H 21 H Blood Pressure 168/88 H 173/90 H Pulse Oximetry 96 96 96 Oxygen Delivery Nasal Cannula Oxygen Flow Rate 2 Fraction of Inspired Oxygen 01/21/24 02:42 01/21/24 02:42 01/21/24 04:00 Temperature Pulse Rate 44 L 44 L 40 L Respiratory Rate 21 H 21 H 26 H Blood Pressure Pulse Oximetry Oxygen Delivery Oxygen Flow Rate Fraction of Inspired Oxygen 01/21/24 04:00 01/21/24 05:14 01/21/24 06:00 Temperature Pulse Rate 45 L 40 L 41 L Respiratory Rate 27 H Blood Pressure 165/89 H Pulse Oximetry 96 Oxygen Delivery Oxygen Flow Rate Fraction of Inspired Oxygen 01/21/24 06:00 01/21/24 07:33 01/21/24 07:33 Temperature Pulse Rate 43 L 42 L Respiratory Rate 26 H 25 H Blood Pressure Pulse Oximetry 94 Oxygen Delivery Nasal Cannula Oxygen Flow Rate 1.5 Fraction of Inspired Oxygen 01/21/24 07:33 01/21/24 08:00 01/21/24 08:25 Temperature Pulse Rate 42 L 43 L Respiratory Rate 25 H 25 H Blood Pressure 161/86 H Pulse Oximetry 92 93 Oxygen Delivery Room Air Oxygen Flow Rate Fraction of Inspired Oxygen 21 Intake/Output Intake/Output: Intake & Output 01/18/24 01/19/24 01/20/24 01/21/24 23:59 23:59 23:59 23:59 Intake Total 3254.4 3561.6 1818.2 450.2 Output Total 5025 4050 1400 550 Balance -1770.6 -488.4 418.2 -99.8 Meds/Results Medications: Active Medications Generic Name Dose Route Start Last Admin Trade Name Freq PRN Reason Stop Dose Admin Acetaminophen 650 mg 01/13/24 22:59 01/19/24 20:30 Acetaminophen Elixir 325 Mg/10.15 Ml Udc FEED TUBE 650 mg Q4H PRN Administration Mild Pain (1-3) or Fever Albuterol/Ipratropium 3 ml 01/14/24 12:30 01/20/24 02:36 Ipratropium 0.5 Mg/Albuterol Sulfate 2.5 Mg Ampul.Neb 3 Ml NEBULIZE 3 ml Q6HRT PRN Administration wheezing Enoxaparin Sodium 40 mg 01/14/24 09:00 01/21/24 09:05 Enoxaparin 40 Mg/0.4 Ml Syringe SUB-Q 40 mg DAILY GERBER Administration Folic Acid 1 mg 01/15/24 09:00 01/21/24 09:05 Folic Acid 1 Mg Tablet FEED TUBE 1 mg DAILY GERBER Administration Hydralazine HCl 20 mg 01/19/24 19:50 Hydralazine Hcl 20 Mg/Ml Vial IV PUSH Q4H PRN SBP >160 Levetiracetam 1,000 mg in 100 mls @ 400 mls/hr 01/13/24 21:00 01/21/24 09:06 Keppra Iv IVPB 400 mls/hr Q12HR GERBER Administration Piperacillin Sod/Tazobactam Sod 4.5 gm in 100 mls @ 200 mls/hr 01/16/24 18:00 01/21/24 06:47 Zosyn 4.5 Gm/Ns 100 Ml IVPB 01/22/24 23:59 Infused Q6H GERBER Infusion Dexmedetomidine HCl 400 mcg in 100 mls @ 10.5 mls/hr 01/20/24 13:45 01/21/24 07:33 Precedex 400 Mcg/100 Ml IV CONT 0.5 mcg/kg/hr .Q9H32M GERBER 10.5 mls/hr Administration Protocol 0.5 MCG/KG/HR Lorazepam 2 mg 01/20/24 14:44 01/20/24 23:00 Lorazepam Inj (*Crx) 2 Mg/Ml Vial IV PUSH 2 mg Q1H PRN Administration Acute Agitation on precedex Morphine Sulfate 2 mg 01/13/24 16:22 01/16/24 05:33 Morphine Sulfate (*Crx) 2 Mg/Ml Inj IV PUSH 2 mg Q2H PRN Administration Pain Rated 7-10 Multi-Ingred Cream/Lotion/Oil/Oint 1 applic 01/14/24 09:00 01/21/24 09:06 Mineral Oil/White Petrolatum Ointment EACH EYE 1 applic Q12HR GERBER Administration Ondansetron HCl 4 mg 01/13/24 16:22 Ondansetron Inj 4 Mg/2 Ml Vial IV PUSH Q4H PRN Nausea Pantoprazole Sodium 40 mg 01/16/24 21:00 01/21/24 09:06 Pantoprazole Sodium Iv 40 Mg Vial IV PUSH 40 mg Q12HR GERBER Administration Sodium Chloride 10 ml 01/13/24 22:00 01/21/24 05:54 Central Line Flush IV PUSH 10 ml Q8HR GERBER Administration Sodium Chloride 20 ml 01/13/24 20:18 Central Line Flush IV PUSH PRN PRN after blood draws Thiamine HCl 100 mg 01/15/24 09:00 01/21/24 09:06 Thiamine Hcl 100 Mg Tablet FEED TUBE 100 mg QAM GERBER Administration Radiology Results: ITS Impressions Head CT 01/13/24 15:43 IMPRESSION: No acute intracranial findings. Chest/Abdomen/Pelvis CT 01/14/24 11:18 IMPRESSION: 1. Diffuse lung disease, consistent with pneumonia. 2. Small pleural effusions. 3. Small volume of ascites. Abdomen X-Ray 01/16/24 09:15 IMPRESSION: 1. Normal bowel gas pattern. 2. Airspace opacities in the lungs bilaterally, right worse than left, consistent with pneumonia. 3. Small pleural effusions. Chest X-Ray 01/21/24 05:56 Impression: Hazy right basilar airspace disease. Correlate for pulmonary edema versus infection. Support line, as above. Labs Labs: Laboratory Results - last 24 hr 01/20/24 01/21/24 13:23 05:50 WBC 7.1 RBC 3.78 L Hgb 12.2 L Hct 36.4 L MCV 96.3 MCH 32.3 MCHC 33.5 RDW 13.0 Plt Count 213 MPV 9.7 Puncture Site Left radial ABG pH 7.647 H* ABG pCO2 22.4 L* ABG pO2 74.5 L ABG PO2/FiO2 Ratio 2.48 ABG HCO3 24.0 ABG O2 Saturation 97.4 ABG O2 Content 17.9 ABG Base Excess 4.7 A-a Gradient 113.1 Oxyhemoglobin 95.5 Total Hemoglobin 13.3 O2 Delivery Device Ventilator O2 Liters/Min Not Reportable Minute Volume Not Reportable Vent Rate 20 Vent Mode Cmv FiO2 30 Tidal Volume 470 PEEP 8 Peak Inspir Pressure Not Reportable Pressure Support Not Reportable Sodium 137 Potassium 3.3 L Chloride 107 Carbon Dioxide 26 Anion Gap 4 BUN 32 H Creatinine 0.80 Estim Creat Clear Calc 100 Estimated GFR > 60 Glucose 104 Calcium 8.3 L Magnesium 2.2 Total Bilirubin 1.0 AST 61 H ALT 53 H Alkaline Phosphatase 70 Total Protein 6.0 L Albumin 3.5 Quality VTE Prophylaxis VTE prophylaxis: pharmacologic ordered
--- NOTE | 2024-01-21 10:32 | PCFNICU ---
ICU Rounding Note: Pt current nutrition is Regular. Nutrition recommendation: Advance diet and monitor intake Last recorded weight is 84.3 kg. Bowel Motility: +BM 01/20 Labs Reviewed: Hgb:12.2, HCT:36.4, K:3.3, BUN:32 Meds Noted: lovenox, zofran, folic acid Skin: WNL Additional Notes: Pt has been extubated, tube feedings d/c'd now. Regular diet to start today at lunch. Pt is waking and becoming alert and oriented per nursing. Following daily in ICU rounds. Will monitor weight, labs, skin, follow up in 3 days.
[2024-01-21] MEDS: AMOXICILLIN/CLAVULANATE K 875-125 MG TAB 1 TABLET PO (12:10)
[2024-01-21] MEDS: LORazepam INJ (*CRX) 2 MG/ML VIAL IV PUSH (19:50)
--- NOTE | 2024-01-21 20:10 | PM.EVENT ---
Event Note Event Note Event Note: Event: Called by bedside nursing about patient seizing and respiratory rate in the 40s. upon assessment patient is alert and Tachypneic. Nursing reported that they gave a dose of Ativan 2 mg IV push and reported that the seizure lasted about 1 minute. They placed a phone call to who instructed them to the Keppra 1 g IV piggyback now for his seizure activity. He is currently on 4 L nasal cannula with saturation of 96-97%. his tachypnea is likely related to his alcohol withdrawal. His urine drug screen on admission was positive for methadone and benzodiazepines, his alcohol level was less than 10. patient has known history of seizures and is currently on Keppra however he also has been on Methadone which decreases seizure threshold. Spoke with bedside nursing to watch for any more seizures after he receives the 1 g of Keppra. He may need an increase in his Keppra dosing if he still has breakthrough seizures. Exam: General: In no acute distress Head: atraumatic, acute encephalopathy likely due to postictal state from seizure activity Eyes: PERRLA, sclera clear ENT: moist mucous membranes, nasal passages clear Neck: supple, no JVD, no adenopathy, trachea midline Cardiac: Normal S1 and S2. RRR, normal sinus rhythm the monitor, no ectopy.No murmur, gallops or friction rubs, peripheral pulses intact. Respiratory: Rhonchi noted bilaterally right greater than left, coughing up sputum, tachypneic likely secondary to alcohol withdrawal, currently on 4 L nasal cannula with oxygen saturations 96-97% Gastrointestinal: soft, non-distended, non-tender, normoactive bowel sounds. : Bates catheter in place Extremities: moves all extremities well, no edema Skin: clean, dry, intact. No wounds or lesions. Neuro: Alert, no visible neuro deficits Plan: give 1 g of Keppra now per sales administration specialist recommendations continue to monitor for breakthrough seizures nursing to call if patient experiences another seizure tonight patient is awake and able to protect his own airway, continue to wean O2 for sat greater than 92%
[2024-01-22] VITALS (13 sets, daily range): BP systolic 138–158; BP diastolic 76–91; PULSE 73–97; RESP 17–28; TEMP 37.2–37.4; O2SAT 93–97
[2024-01-22] MEDS: CENTRAL LINE FLUSH 10 ML IV PUSH ×3 (05:07→19:59)
--- NOTE | 2024-01-22 05:46 | PCRCNOTE ---
Morning ABG not obtained due to patient being uncooperative and agitated with therapist. Nurse aware.
[2024-01-22 05:52] LABS: Hematocrit 37.1 % (42.0-52.0); Hemoglobin 12.8 g/dL (14.0-18.0); Mean Corpuscular HGB Conc 34.5 g/dl (32-36); Mean Corpuscular Hemoglobin 32.2 pg (26-34); Mean Corpuscular Volume 93.2 fl (80-100); Mean Platelet Volume 9.3 fl (7.4-10.4); Platelet Count Result 327 k/mm3 (150-375); Red Blood Count 3.98 M/mm3 (4.6-6.20); Red Cell Distribution Width 12.6 % (11.5-14.5); White Blood Count 11.3 K/mm3 (4.5-10.0)
[2024-01-22 06:20] LABS: Alanine Aminotransferase 52 U/L (6-50); Albumin Level 3.4 g/dL (3.5-5.1); Alkaline Phosphatase 80 U/L (38-126); Anion Gap 7 mmol/L (4-12); Aspartate Amino Transferase 47 U/L (17-59); Bilirubin,Total 1.2 mg/dL (0.2-1.3); Blood Urea Nitrogen 18 mg/dL (9-20); Carbon Dioxide 23 mmol/L (22-30); Chloride 107 mmol/L (98-107); Estimated CRCL calculation 114 ml/min; Estimated Glomerular Filt Rate > 60; Glucose 94 mg/dL (65-110); Magnesium 2.2 mg/dL (1.6-2.3); Potassium 2.6 mmol/L (3.4-5.0); Sodium 137 mmol/L (137-145)
[2024-01-22] MEDS: LORazepam INJ (*CRX) 2 MG/ML VIAL IV PUSH (06:54)
[2024-01-22] MEDS: ENOXAPARIN 40 MG/0.4 ML SYRINGE SUB-Q (08:58)
[2024-01-22] MEDS: ACETAMINOPHEN ELIXIR 325 MG/10.15 ML UDC 650 MG PO ×2 (08:58→13:28)
[2024-01-22] MEDS: FOLIC ACID 1 MG TABLET PO (08:58)
[2024-01-22] MEDS: AMOXICILLIN/CLAVULANATE K 875-125 MG TAB 1 TABLET PO ×2 (08:58→20:13)
[2024-01-22] MEDS: KCL 40 MEQ/WATER 100 ML 100 ML 25 ML IVPB ×3 (08:59→21:45)
[2024-01-22] MEDS: levETIRAcetam 1000MG/NACL100ML 1,000 MG/100 ML BAG 400 MG IVPB (09:00)
[2024-01-22] MEDS: THIAMINE HCL 100 MG TABLET PO (09:02)
--- NOTE | 2024-01-22 10:47 | PCFNICU ---
ICU Rounding Note: Pt current nutrition is Regular. Last recorded weight is 84.1 kg, up from 81.4 kg Bowel Motility: +BM reported 01/21 Labs Reviewed: K 2.6, Alb 3.4 Meds Noted: Miralax, Thiamine, Keppra. Skin: WNL Additional Notes: Diet order has advanced to regular diet. No further nutritional interventions needed. Following daily in ICU rounds. Will monitor weight, labs, skin, tube feeding tolerance, meds every 7 days.
--- NOTE | 2024-01-22 11:44 | PC.NURSE ---
Addendum entered by Laura Brumfield RN 01/22/24 11:56: Poison control contacted this AM to verify whether he is being followed by them still. Per Mireya RN and MaiRN there are no further recommendations or study requests from poison control's standpoint and to defer to the physician for medical clearance. Original Note: Dr. Grewal and Dr. Guadalupe rounded on patient this AM. Updated on events overnight regarding his seizure activity early this AM around 0600. Patient sitter remains at the bedside due to state of confusion and for his safety. At this time I am unsure if this is his baseline mental status due to his extensive psych history and encephalopathic conditions for this admission. Currently not appropriate for crisis evaluation since he is still acutely being managed by the hospitalist team. [place] suicide assessment negative despite his current level of orientation only being to person and sometimes place. There is no documentation that I can find showing that this overdose was an intentional attempt on his life. However, he did have an attempt a month ago in which he was involved in a standoff with emergency personnel. He was then treated inpatient in [place] following that incident. Will ensure patient safety and continue 1:[address] the bedside[address] Dr. Grewal notified for orders
--- NOTE | 2024-01-22 12:16 | WPDNEUROPN ---
Progress Note: A&P Assessment and Plan (1) Seizures: Code(s): R56.9 - Unspecified convulsions Status: Acute (2) Polysubstance (including opioids) dependence with physiological dependence: Code(s): F19.20 - Other psychoactive substance dependence, uncomplicated Status: Acute (3) Paranoid schizophrenia: Code(s): F20.0 - Paranoid schizophrenia Status: Acute (4) Chronic alcoholism: Code(s): F10.20 - Alcohol dependence, uncomplicated Status: Acute Plan CT scan of brain performed on 01/13/2024 did not show any significant abnormalities. He is currently on Keppra 1000 mg twice a day. Since he has had a seizure I would suggest increase the dose of this to 50 mg twice a day. Neurology will follow. Subjective Date/time seen: 01/22/24 12:16 Interval history: 48-year-old with history of a alcohol and polysubstance abuse is now extubated complaints of body ache. 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 Is currently on Keppra 1000 mg twice a day. Review of Systems Review of Systems: Complaints of pain all over the body Exam Narrative: fully conscious alert however no aphasia or dysarthria. According to the staff he has been at times having auditory hallucinations. Currently stable. Cranial nerves you testing intact. Motor system does not cooperate very well however moving both upper and lower limbs. No significant weakness noted. No involuntary movements are seen. Objective Data Vital Signs Vital Signs: Vital Signs - 24 hr 01/21/24 16:00 01/21/24 16:00 01/21/24 14:00 Temperature Pulse Rate 87 81 Respiratory Rate 19 Blood Pressure 145/101 H Pulse Oximetry 96 Oxygen Delivery Room Air Oxygen Flow Rate Fraction of Inspired Oxygen 01/21/24 16:00 01/21/24 18:00 01/21/24 20:00 Temperature Pulse Rate 84 79 Respiratory Rate Blood Pressure Pulse Oximetry 96 Oxygen Delivery Nasal Cannula Oxygen Flow Rate 3 Fraction of Inspired Oxygen 01/21/24 20:00 01/21/24 20:00 01/21/24 21:19 Temperature 99 F Pulse Rate 85 87 Respiratory Rate 20 Blood Pressure 116/69 Pulse Oximetry 96 96 Oxygen Delivery Nasal Cannula Oxygen Flow Rate 3 Fraction of Inspired Oxygen 01/22/24 00:00 01/22/24 00:00 01/22/24 00:00 Temperature 99.4 F Pulse Rate 92 89 Respiratory Rate 26 H Blood Pressure 142/91 H Pulse Oximetry 96 96 Oxygen Delivery Nasal Cannula Oxygen Flow Rate 3 Fraction of Inspired Oxygen 01/22/24 04:00 01/22/24 04:00 01/22/24 04:00 Temperature 99 F Pulse Rate 78 83 Respiratory Rate 17 Blood Pressure 151/82 H Pulse Oximetry 96 96 Oxygen Delivery Nasal Cannula Oxygen Flow Rate 3 Fraction of Inspired Oxygen 01/22/24 09:01 01/22/24 09:15 01/22/24 08:00 Temperature Pulse Rate Respiratory Rate Blood Pressure Pulse Oximetry 97 97 96 Oxygen Delivery Nasal Cannula Room Air Nasal Cannula Oxygen Flow Rate 2 2 Fraction of Inspired Oxygen 28 21 01/22/24 08:00 01/22/24 08:00 01/22/24 10:00 Temperature Pulse Rate 94 97 91 Respiratory Rate 19 Blood Pressure 143/76 H Pulse Oximetry 95 Oxygen Delivery Oxygen Flow Rate Fraction of Inspired Oxygen 01/22/24 11:00 Temperature Pulse Rate 95 Respiratory Rate 21 H Blood Pressure 158/77 H Pulse Oximetry 96 Oxygen Delivery Oxygen Flow Rate Fraction of Inspired Oxygen Intake/Output Intake/Output: Intake & Output 01/19/24 01/20/24 01/21/24 01/22/24 23:59 23:59 23:59 23:59 Intake Total 3561.6 1818.2 568.0 220 Output Total 4050 6049 352 9899 Balance -488.4 418.2 18.0 -980 Meds/Results Medications: Active Medications Generic Name Dose Route Start Last Admin Trade Name Freq PRN Reason Stop Dose Admin Acetaminophen 650 mg 01/21/24 11:24 01/22/24 08:58 Acetaminophen Elixir 325 Mg/10.15 Ml Udc PO 650 mg Q4H PRN Administration Mild Pain (1-3) or Fever Albuterol/Ipratropium 3 ml 01/14/24 12:30 01/20/24 02:36 Ipratropium 0.5 Mg/Albuterol Sulfate 2.5 Mg Ampul.Neb 3 Ml NEBULIZE 3 ml Q6HRT PRN Administration wheezing Amoxicillin/Clavulanate Potassium 1 tablet 01/21/24 11:25 01/22/24 08:58 Amoxicillin/Clavulanate K 875-125 Mg Tab PO 01/23/24 11:24 1 tablet Q12HR GERBER Administration Enoxaparin Sodium 40 mg 01/14/24 09:00 01/22/24 08:58 Enoxaparin 40 Mg/0.4 Ml Syringe SUB-Q 40 mg DAILY GERBER Administration Folic Acid 1 mg 01/22/24 09:00 01/22/24 08:58 Folic Acid 1 Mg Tablet PO 1 mg DAILY GERBER Administration Hydralazine HCl 20 mg 01/19/24 19:50 Hydralazine Hcl 20 Mg/Ml Vial IV PUSH Q4H PRN SBP >160 Dexmedetomidine HCl 400 mcg in 100 mls @ 0 mls/hr 01/20/24 13:45 01/21/24 12:00 Precedex 400 Mcg/100 Ml IV CONT 0 mcg/kg/hr .Q0M GERBER 0 mls/hr Titration Protocol 0 MCG/KG/HR Levetiracetam 1,000 mg in 100 mls @ 400 mls/hr 01/21/24 21:00 01/22/24 09:15 Keppra Iv IVPB Infused Q12HR GERBER Infusion Lorazepam 2 mg 01/20/24 14:44 01/22/24 06:54 Lorazepam Inj (*Crx) 2 Mg/Ml Vial IV PUSH 2 mg Q1H PRN Administration Acute Agitation on precedex Morphine Sulfate 2 mg 01/13/24 16:22 01/16/24 05:33 Morphine Sulfate (*Crx) 2 Mg/Ml Inj IV PUSH 2 mg Q2H PRN Administration Pain Rated 7-10 Ondansetron HCl 4 mg 01/13/24 16:22 Ondansetron Inj 4 Mg/2 Ml Vial IV PUSH Q4H PRN Nausea Sodium Chloride 10 ml 01/13/24 22:00 01/22/24 05:07 Central Line Flush IV PUSH 10 ml Q8HR GERBER Administration Sodium Chloride 20 ml 01/13/24 20:18 Central Line Flush IV PUSH PRN PRN after blood draws Thiamine HCl 100 mg 01/22/24 09:00 01/22/24 09:02 Thiamine Hcl 100 Mg Tablet PO 100 mg QAM GERBER Administration Radiology Results: ITS Impressions Head CT 01/13/24 15:43 IMPRESSION: No acute intracranial findings. Chest/Abdomen/Pelvis CT 01/14/24 11:18 IMPRESSION: 1. Diffuse lung disease, consistent with pneumonia. 2. Small pleural effusions. 3. Small volume of ascites. Abdomen X-Ray 01/16/24 09:15 IMPRESSION: 1. Normal bowel gas pattern. 2. Airspace opacities in the lungs bilaterally, right worse than left, consistent with pneumonia. 3. Small pleural effusions. Chest X-Ray 01/22/24 06:39 Impression: Minimal residual hazy right basilar airspace disease, nonspecific. Stable support line. Labs Labs: Laboratory Results - last 24 hr 01/22/24 05:27 WBC 11.3 H RBC 3.98 L Hgb 12.8 L Hct 37.1 L MCV 93.2 MCH 32.2 MCHC 34.5 RDW 12.6 Plt Count 327 D MPV 9.3 Sodium 137 Potassium 2.6 L* Chloride 107 Carbon Dioxide 23 Anion Gap 7 BUN 18 D Creatinine 0.70 Estim Creat Clear Calc 114 Estimated GFR > 60 Glucose 94 Calcium 8.0 L Magnesium 2.2 Total Bilirubin 1.2 AST 47 ALT 52 H Alkaline Phosphatase 80 Total Protein 6.0 L Albumin 3.4 L
--- NOTE | 2024-01-22 13:36 | P.PNIM_ITS ---
Progress Note: A&P Assessment and Plan (1) Seizures: Code(s): R56.9 - Unspecified convulsions Status: Acute Assessment and Plan: Patient has a history of seizures and has been out of seizure medications. This could be the cause of his encephalopathy. Also that he took methadone which does decrease seizure threshold Currently on Keppra but had 2 seizures overnight. Discussed with neurology who recommended increasing Keppra which was done. Contineu seizure precautions. (2) Acute respiratory failure with hypoxia and hypercapnia: Code(s): J96.01 - Acute respiratory failure with hypoxia; J96.02 - Acute respiratory failure with hypercapnia Status: Acute Assessment and Plan: Patient admitted with acute respiratory failure, encephalopathy likely secondary to seizures, aspiration pneumonia as he was found in a hotel room lying in emesis on the bed unknown amount of time, rhabdomyolysis, septic shock, alcohol dependence, illicit drug use with methadone and seizure. Patient has been out of seizure medications per family Patient has been having cough with thick sputum for over a month according to mother but has refused to be evaluated by a doctor or come to the ER. ABG showing 6.93/116/83.5 on MV. Patient was intubated on 01/12 CT chest showed diffuse lung disease consistent with pneumonia WBG improved. Tolerated vent wean and able to be extubated 01/19 On room air now. Encourage incentive spirometry (3) Septic shock: Code(s): A41.9 - Sepsis, unspecified organism; R65.21 - Severe sepsis with septic shock Status: Acute Assessment and Plan: Patient with septic shock likely secondary to pneumonia, ARDS. Treated with pressors. BP stabilized and and able to be weaned off. IV fluids now off. Off steroids as well BCx negative. UCx negative. Sputum culture grew yeast Treated with Zosyn (01/13) and now changed to Augmentin to complete a course MRSA screen was negative. Vancomycin was discontinued (4) Aspiration pneumonia: Qualifiers: Aspiration pneumonia type: unspecified Laterality: bilateral Lung location: unspecified part of lung Qualified Code(s): J69.0 - Pneumonitis due to inhalation of food and vomit Code(s): J69.0 - Pneumonitis due to inhalation of food and vomit Status: Acute Assessment and Plan: As above (5) Polysubstance (including opioids) dependence with physiological dependence: Code(s): F19.20 - Other psychoactive substance dependence, uncomplicated Status: Acute Assessment and Plan: Patient took methadone which was given to him by a neighbor The mother states that was the only time he did drugs Patient does drink alcohol and has alcohol dependence Psych evaluation pending (6) Encephalopathy: Code(s): G93.40 - Encephalopathy, unspecified Status: Acute Assessment and Plan: Patient was encephalopathic when brought in to the ED likely was secondary to either postictal from seizures and/or overdose from opioid and/or severe resp iratory failure. Head CT was negative on admission. Normal ammonia level Patient now awake and alert but altered. Could be related to his schizophrenia (7) Chronic alcoholism: Code(s): F10.20 - Alcohol dependence, uncomplicated Status: Acute Assessment and Plan: Patient is out of the window for withdrawals. Continue thiamine, folic acid (8) Rhabdomyolysis: Qualifiers: Rhabdomyolysis type: non-traumatic Qualified Code(s): M62.82 - Rhabdomyolysis Code(s): M62.82 - Rhabdomyolysis Status: Acute Assessment and Plan: CK was 3000. Probably secondary to seizures and/or from laying on the floor for prolonged period of time. He received adequate amount of IV fluids Cr slightly elevated at 1.3 but normalized. He did requir diuresis due to volume overload and edema CK levels trended down (9) Acidosis: Code(s): E87.20 - Acidosis, unspecified Status: Acute Assessment and Plan: Lactic acid was 7.1 status post bicarb infusion Lactic normal now. Acidosis resolved. (10) Electrolyte abnormality: Code(s): E87.8 - Other disorders of electrolyte and fluid balance, not elsewhere classified Status: Acute Assessment and Plan: Potassium low this morning and replacement ordered. Continue to replace potassium as needed (11) Abnormal thyroid function test: Code(s): R94.6 - Abnormal results of thyroid function studies Status: Acute Assessment and Plan: TSH and T4 level low. Free T3 is low Likely euthyroid syndrome Plan to repeat studies in 4-6 weeks. (12) Paranoid schizophrenia: Code(s): F20.0 - Paranoid schizophrenia Status: Acute Assessment and Plan: Patient was clearly delusional and hallucinating after extubation. He was also agitated. Family stating that approximately 1 month ago, patient had a 8 hours stand off at home and he tried to kill himself. He was taken to [facility] where he was on 72 hour hold. After that he was discharged to inpatient psychiatric facility [facility] where he was for 2 days and was discharged. She does not know his diagnosis. Records requested Continue sitter at bedside Will request crisis evaluation when close to discharge PT/OT Plan DVT prophylaxis - Lovenox Code Status - Full Code Remove central line Subjective Date/time seen: 01/22/24 13:36 Interval history: 48yo male with bipolar disorder, paranoid schizophrenia, chronic alcohol abuse and seizure disorder who presented to the ER via EMS from local hotel after patient had been found down unresponsive. Assuming care. Chart reviewed. Had 2 seizures last night treated with Keppra and then Ativan. Patient is alert but confused an thus unable to provide hx. Review of Systems Review of Systems: ROS unobtainable: Yes unobtainable due to mental status Exam Narrative: AF 99.3 140/78 83 28 94% ra Gen - NARD Neck - Rt IJ TLC in place. Chest - right base inspiratory crackles o/w clear. CV - RRR S1/S2. Telemetry showing no significant dysrhythmias Abd - Soft, NT/ND, Positive BS Ext - No pedal edema. 2+ DP pulses bilaterally Neuro -alert but confused. Moving all extremities equally. He may be having hallucinations. Psych -cooperative at times Skin - Warm and dry Objective Data Vital Signs Vital Signs: Vital Signs - 24 hr 01/21/24 16:00 01/21/24 16:00 01/21/24 14:00 Temperature Pulse Rate 87 81 Respiratory Rate 19 Blood Pressure 145/101 H Pulse Oximetry 96 Oxygen Delivery Room Air Oxygen Flow Rate Fraction of Inspired Oxygen 01/21/24 16:00 01/21/24 18:00 01/21/24 20:00 Temperature Pulse Rate 84 79 Respiratory Rate Blood Pressure Pulse Oximetry 96 Oxygen Delivery Nasal Cannula Oxygen Flow Rate 3 Fraction of Inspired Oxygen 01/21/24 20:00 01/21/24 20:00 01/21/24 21:19 Temperature 99 F Pulse Rate 85 87 Respiratory Rate 20 Blood Pressure 116/69 Pulse Oximetry 96 96 Oxygen Delivery Nasal Cannula Oxygen Flow Rate 3 Fraction of Inspired Oxygen 01/22/24 00:00 01/22/24 00:00 01/22/24 00:00 Temperature 99.4 F Pulse Rate 92 89 Respiratory Rate 26 H Blood Pressure 142/91 H Pulse Oximetry 96 96 Oxygen Delivery Nasal Cannula Oxygen Flow Rate 3 Fraction of Inspired Oxygen 01/22/24 04:00 01/22/24 04:00 01/22/24 04:00 Temperature 99 F Pulse Rate 78 83 Respiratory Rate 17 Blood Pressure 151/82 H Pulse Oximetry 96 96 Oxygen Delivery Nasal Cannula Oxygen Flow Rate 3 Fraction of Inspired Oxygen 01/22/24 09:01 01/22/24 09:15 01/22/24 08:00 Temperature Pulse Rate Respiratory Rate Blood Pressure Pulse Oximetry 97 97 96 Oxygen Delivery Nasal Cannula Room Air Nasal Cannula Oxygen Flow Rate 2 2 Fraction of Inspired Oxygen 28 01/22/24 08:00 01/22/24 08:00 01/22/24 10:00 Temperature Pulse Rate 94 97 91 Respiratory Rate 19 Blood Pressure 143/76 H Pulse Oximetry 95 Oxygen Delivery Oxygen Flow Rate Fraction of Inspired Oxygen 01/22/24 11:00 01/22/24 12:00 01/22/24 12:00 Temperature 99.3 F Pulse Rate 95 90 Respiratory Rate 21 H 28 H Blood Pressure 158/77 H 140/78 Pulse Oximetry 96 94 94 Oxygen Delivery Room Air Oxygen Flow Rate Fraction of Inspired Oxygen 01/22/24 12:00 Temperature Pulse Rate 83 Respiratory Rate Blood Pressure Pulse Oximetry Oxygen Delivery Oxygen Flow Rate Fraction of Inspired Oxygen Intake/Output Intake/Output: Intake & Output 01/19/24 01/20/24 01/21/24 01/22/24 23:59 23:59 23:59 23:59 Intake Total 3561.6 1818.2 568.0 340 Output Total 4050 3509 474 4685 Balance -488.4 418.2 18.0 -860 Meds/Results Medications: Active Medications Generic Name Dose Route Start Last Admin Trade Name Freq PRN Reason Stop Dose Admin Acetaminophen 650 mg 01/21/24 11:24 01/22/24 13:28 Acetaminophen Elixir 325 Mg/10.15 Ml Udc PO 650 mg Q4H PRN Administration Mild Pain (1-3) or Fever Albuterol/Ipratropium 3 ml 01/14/24 12:30 01/20/24 02:36 Ipratropium 0.5 Mg/Albuterol Sulfate 2.5 Mg Ampul.Neb 3 Ml NEBULIZE 3 ml Q6HRT PRN Administration wheezing Amoxicillin/Clavulanate Potassium 1 tablet 01/21/24 11:25 01/22/24 08:58 Amoxicillin/Clavulanate K 875-125 Mg Tab PO 01/23/24 11:24 1 tablet Q12HR GERBER Administration Enoxaparin Sodium 40 mg 01/14/24 09:00 01/22/24 08:58 Enoxaparin 40 Mg/0.4 Ml Syringe SUB-Q 40 mg DAILY GERBER Administration Folic Acid 1 mg 01/22/24 09:00 01/22/24 08:58 Folic Acid 1 Mg Tablet PO 1 mg DAILY GERBER Administration Hydralazine HCl 20 mg 01/19/24 19:50 Hydralazine Hcl 20 Mg/Ml Vial IV PUSH Q4H PRN SBP >160 Dexmedetomidine HCl 400 mcg in 100 mls @ 0 mls/hr 01/20/24 13:45 01/21/24 12:00 Precedex 400 Mcg/100 Ml IV CONT 0 mcg/kg/hr .Q0M GERBER 0 mls/hr Titration Protocol 0 MCG/KG/HR Levetiracetam 1,000 mg in 100 mls @ 400 mls/hr 01/21/24 21:00 01/22/24 09:15 Keppra Iv IVPB Infused Q12HR GERBER Infusion Lorazepam 2 mg 01/20/24 14:44 01/22/24 06:54 Lorazepam Inj (*Crx) 2 Mg/Ml Vial IV PUSH 2 mg Q1H PRN Administration Acute Agitation on precedex Morphine Sulfate 2 mg 01/13/24 16:22 01/16/24 05:33 Morphine Sulfate (*Crx) 2 Mg/Ml Inj IV PUSH 2 mg Q2H PRN Administration Pain Rated 7-10 Ondansetron HCl 4 mg 01/13/24 16:22 Ondansetron Inj 4 Mg/2 Ml Vial IV PUSH Q4H PRN Nausea Sodium Chloride 10 ml 01/13/24 22:00 01/22/24 13:30 Central Line Flush IV PUSH 10 ml Q8HR GERBER Administration Sodium Chloride 20 ml 01/13/24 20:18 Central Line Flush IV PUSH PRN PRN after blood draws Thiamine HCl 100 mg 01/22/24 09:00 01/22/24 09:02 Thiamine Hcl 100 Mg Tablet PO 100 mg QAM GERBER Administration Radiology Results: ITS Impressions Head CT 01/13/24 15:43 IMPRESSION: No acute intracranial findings. Chest/Abdomen/Pelvis CT 01/14/24 11:18 IMPRESSION: 1. Diffuse lung disease, consistent with pneumonia. 2. Small pleural effusions. 3. Small volume of ascites. Abdomen X-Ray 01/16/24 09:15 IMPRESSION: 1. Normal bowel gas pattern. 2. Airspace opacities in the lungs bilaterally, right worse than left, consistent with pneumonia. 3. Small pleural effusions. Chest X-Ray 01/22/24 06:39 Impression: Minimal residual hazy right basilar airspace disease, nonspecific. Stable support line. Labs Labs: Laboratory Results - last 24 hr 01/22/24 05:27 WBC 11.3 H RBC 3.98 L Hgb 12.8 L Hct 37.1 L MCV 93.2 MCH 32.2 MCHC 34.5 RDW 12.6 Plt Count 327 D MPV 9.3 Sodium 137 Potassium 2.6 L* Chloride 107 Carbon Dioxide 23 Anion Gap 7 BUN 18 D Creatinine 0.70 Estim Creat Clear Calc 114 Estimated GFR > 60 Glucose 94 Calcium 8.0 L Magnesium 2.2 Total Bilirubin 1.2 AST 47 ALT 52 H Alkaline Phosphatase 80 Total Protein 6.0 L Albumin 3.4 L
[2024-01-22 14:02] LABS: Potassium 2.7 mmol/L (3.4-5.0)
[2024-01-22] MEDS: levETIRAcetam 1500MG/NACL100ML 1,500 MG/100 ML BAG 400 MG IVPB (20:13)
[2024-01-22 21:02] LABS: Potassium 2.8 mmol/L (3.4-5.0)
[2024-01-23] VITALS (11 sets, daily range): BP systolic 129–153; BP diastolic 65–83; PULSE 74–100; RESP 22–30; TEMP 36.6–37.3; O2SAT 92–97
[2024-01-23] MEDS: CENTRAL LINE FLUSH 10 ML IV PUSH (04:39)
[2024-01-23 06:06] LABS: Hematocrit 39.5 % (42.0-52.0); Hemoglobin 12.8 g/dL (14.0-18.0); Mean Corpuscular HGB Conc 32.4 g/dl (32-36); Mean Corpuscular Hemoglobin 31.1 pg (26-34); Mean Corpuscular Volume 96.1 fl (80-100); Platelet Count Result 348 k/mm3 (150-375); Red Blood Count 4.11 M/mm3 (4.6-6.20); Red Cell Distribution Width 12.9 % (11.5-14.5); White Blood Count 8.1 K/mm3 (4.5-10.0)
[2024-01-23 06:20] LABS: Alanine Aminotransferase 48 U/L (6-50); Albumin Level 3.5 g/dL (3.5-5.1); Alkaline Phosphatase 75 U/L (38-126); Anion Gap 7 mmol/L (4-12); Aspartate Amino Transferase 35 U/L (17-59); Bilirubin,Total 1.2 mg/dL (0.2-1.3); Blood Urea Nitrogen 17 mg/dL (9-20); Calcium 8.2 mg/dL (8.4-10.2); Carbon Dioxide 22 mmol/L (22-30); Chloride 112 mmol/L (98-107); Estimated CRCL calculation 100 ml/min; Estimated Glomerular Filt Rate > 60; Glucose 109 mg/dL (65-110); Magnesium 2.4 mg/dL (1.6-2.3); Potassium 3.5 mmol/L (3.4-5.0); Sodium 141 mmol/L (137-145)
[2024-01-23] MEDS: ENOXAPARIN 40 MG/0.4 ML SYRINGE SUB-Q (08:46)
[2024-01-23] MEDS: FOLIC ACID 1 MG TABLET PO (08:47)
[2024-01-23] MEDS: levETIRAcetam 1500MG/NACL100ML 1,500 MG/100 ML BAG 400 MG IVPB (08:49)
[2024-01-23] MEDS: THIAMINE HCL 100 MG TABLET PO (08:49)
[2024-01-23] MEDS: AMOXICILLIN/CLAVULANATE K 875-125 MG TAB 1 TABLET PO (08:49)
--- NOTE | 2024-01-23 12:56 | PM.IMPN ---
Progress Note: A&P Assessment and Plan (1) Seizures: Code(s): R56.9 - Unspecified convulsions Status: Acute Assessment and Plan: Patient has a history of seizures and has been out of seizure medications. This could be the cause of his encephalopathy. Also that he took methadone which does decrease seizure threshold Currently on Keppra but had 2 seizures overnight. Discussed with neurology who recommended increasing Keppra which was done. Contineu seizure precautions. Change to oral Keppra and remove centrral line (2) Acute respiratory failure with hypoxia and hypercapnia: Code(s): J96.01 - Acute respiratory failure with hypoxia; J96.02 - Acute respiratory failure with hypercapnia Status: Acute Assessment and Plan: Patient admitted with acute respiratory failure, encephalopathy likely secondary to seizures, aspiration pneumonia as he was found in a hotel room lying in emesis on the bed unknown amount of time, rhabdomyolysis, septic shock, alcohol dependence, illicit drug use with methadone and seizure. Patient has been out of seizure medications per family Patient has been having cough with thick sputum for over a month according to mother but has refused to be evaluated by a doctor or come to the ER. ABG showing 6.93/116/83.5 on MV. Patient was intubated on 01/12 CT chest showed diffuse lung disease consistent with pneumonia ABG improved. Tolerated vent wean and able to be extubated 01/19 On room air now. Encourage incentive spirometry (3) Septic shock: Code(s): A41.9 - Sepsis, unspecified organism; R65.21 - Severe sepsis with septic shock Status: Acute Assessment and Plan: Patient with septic shock likely secondary to pneumonia, ARDS. Treated with pressors. BP stabilized and and able to be weaned off. IV fluids now off. Off steroids as well BCx negative. UCx negative. Sputum culture grew yeast Treated with Zosyn (01/13) and now changed to Augmentin to complete a course loose stools related to tube feeding and abx. Monitor MRSA screen was negative. Vancomycin was discontinued (4) Aspiration pneumonia: Qualifiers: Aspiration pneumonia type: unspecified Laterality: bilateral Lung location: unspecified part of lung Qualified Code(s): J69.0 - Pneumonitis due to inhalation of food and vomit Code(s): J69.0 - Pneumonitis due to inhalation of food and vomit Status: Acute Assessment and Plan: As above (5) Polysubstance (including opioids) dependence with physiological dependence: Code(s): F19.20 - Other psychoactive substance dependence, uncomplicated Status: Acute Assessment and Plan: Patient took methadone which was given to him by a neighbor The mother states that was the only time he did drugs Patient does have alcohol dependence Psych evaluation pending (6) Encephalopathy: Code(s): G93.40 - Encephalopathy, unspecified Status: Acute Assessment and Plan: Patient was encephalopathic when brought in to the ED likely was secondary to either postictal from seizures and/or overdose from opioid and/or severe respiratory failure. Head CT was negative on admission. Normal ammonia level Patient now awake and alert. Stil confused but much better overall today Some symptoms could be related to his schizophrenia (7) Chronic alcoholism: Code(s): F10.20 - Alcohol dependence, uncomplicated Status: Acute Assessment and Plan: Patient is out of the window for withdrawals. Continue thiamine, folic acid (8) Rhabdomyolysis: Qualifiers: Rhabdomyolysis type: non-traumatic Qualified Code(s): M62.82 - Rhabdomyolysis Code(s): M62.82 - Rhabdomyolysis Status: Acute Assessment and Plan: CK was 3000. Probably secondary to seizures and/or from laying on the floor for prolonged period of time. He received adequate amount of IV fluids Cr slightly elevated at 1.3 but normalized now He did require diuresis due to volume overload and edema CK levels trended down (9) Acidosis: Code(s): E87.20 - Acidosis, unspecified Status: Acute Assessment and Plan: Lactic acid was 7.1 status post bicarb infusion Lactic normal now. Acidosis resolved. (10) Electrolyte abnormality: Code(s): E87.8 - Other disorders of electrolyte and fluid balance, not elsewhere classified Status: Acute Assessment and Plan: Potassium low on 01/21 and replacement ordered. Potassium normal now Continue to replace potassium as needed (11) Abnormal thyroid function test: Code(s): R94.6 - Abnormal results of thyroid function studies Status: Acute Assessment and Plan: TSH and T4 level low. Free T3 is low Likely euthyroid syndrome Plan to repeat studies in 4-6 weeks. (12) Paranoid schizophrenia: Code(s): F20.0 - Paranoid schizophrenia Status: Acute Assessment and Plan: Patient was clearly delusional and hallucinating after extubation. He was also agitated. Family stating that approximately 1 month ago, patient had a 8 hours stand off at home and he tried to kill himself. He was taken to [facility] where he was on 72 hour hold. After that he was discharged to inpatient psychiatric facility [facility] where he was for 2 days and was discharged. She does not know his diagnosis. Records requested Continue sitter at bedside Will request crisis evaluation when close to discharge PT/OT Plan DVT prophylaxis - Lovenox Code Status - Full Code Remove central line Subjective Date/time seen: 01/23/24 12:56 Interval history: 48yo male with bipolar disorder, paranoid schizophrenia, chronic alcohol abuse and seizure disorder who presented to the ER via EMS from local hotel after patient had been found down unresponsive. Patient more awake and alert. He is feeding himself at mealtimes. He was able to stand at the bedside. Still having loose stools. Patient is alert but confused still. Review of Systems Review of Systems: ROS unobtainable: Yes unobtainable due to mental status Exam Narrative: AF 98.0 131/65 91 24 94% ra Gen - NARD Neck - Rt IJ TLC in place. Chest -distant breath sounds CV - RRR S1/S2. Telemetry showing no significant dysrhythmias Abd - Soft, NT/ND, Positive BS Ext - No pedal edema. 2+ DP pulses bilaterally Neuro -alert but confused. Oriented to month. Moving all extremities equally. Psych -cooperative at times. Slow to respond. Laughs inappropriately Skin - Warm and dry Objective Data Vital Signs Vital Signs: Vital Signs - 24 hr 01/22/24 14:00 01/22/24 14:59 01/22/24 16:00 Temperature Pulse Rate 77 Respiratory Rate Blood Pressure Pulse Oximetry 93 Oxygen Delivery Room Air Room Air 01/22/24 16:00 01/22/24 16:00 01/22/24 17:58 Temperature 99 F Pulse Rate 79 73 96 Respiratory Rate 27 H Blood Pressure 140/83 Pulse Oximetry 93 Oxygen Delivery 01/22/24 19:54 01/22/24 19:54 01/22/24 20:00 Temperature 99 F Pulse Rate 76 81 Respiratory Rate 20 Blood Pressure 138/89 Pulse Oximetry 93 93 Oxygen Delivery Room Air 01/23/24 00:00 01/23/24 00:00 01/23/24 00:00 Temperature 99.2 F Pulse Rate 74 77 Respiratory Rate 22 H Blood Pressure 140/83 Pulse Oximetry 95 93 Oxygen Delivery Room Air 01/23/24 04:00 01/23/24 04:00 01/23/24 04:00 Temperature 99.2 F Pulse Rate 79 77 Respiratory Rate 28 H Blood Pressure 150/83 H Pulse Oximetry 93 93 Oxygen Delivery Room Air 01/23/24 08:00 01/23/24 08:00 01/23/24 10:00 Temperature 98.9 F Pulse Rate 79 79 99 Respiratory Rate 29 H Blood Pressure 144/83 H Pulse Oximetry 92 Oxygen Delivery 01/23/24 10:00 01/23/24 08:00 01/23/24 12:00 Temperature Pulse Rate 99 79 91 Respiratory Rate 29 H 29 H 24 H Blood Pressure 153/80 H Pulse Oximetry 94 92 94 Oxygen Delivery Room Air Room Air 01/23/24 12:00 01/23/24 12:00 Temperature 98 F Pulse Rate 91 91 Respiratory Rate 24 H Blood Pressure 131/65 Pulse Oximetry 94 Oxygen Delivery Intake/Output Intake/Output: Intake & Output 01/20/24 01/21/24 01/22/24 01/23/24 23:59 23:59 23:59 23:59 Intake Total 1818.2 568.0 780 945 Output Total 1736 165 2763 850 Balance 418.2 18.0 -1270 95 Meds/Results Medications: Active Medications Generic Name Dose Route Start Last Admin Trade Name Freq PRN Reason Stop Dose Admin Acetaminophen 650 mg 01/22/24 19:09 Acetaminophen Elixir 325 Mg/10.15 Ml Udc PO Q4H PRN Mild Pain (1-5) Or Fever Hydrocodone Bitart/Acetaminophen 1 tab 01/22/24 19:09 Hydrocodone/Acetaminophen (*Crx) 5-325 Mg Tablet PO Q6H PRN Pain Rated 6 or Greater Albuterol/Ipratropium 3 ml 01/14/24 12:30 01/20/24 02:36 Ipratropium 0.5 Mg/Albuterol Sulfate 2.5 Mg Ampul.Neb 3 Ml NEBULIZE 3 ml Q6HRT PRN Administration wheezing Enoxaparin Sodium 40 mg 01/14/24 09:00 01/23/24 08:46 Enoxaparin 40 Mg/0.4 Ml Syringe SUB-Q 40 mg DAILY GERBER Administration Folic Acid 1 mg 01/22/24 09:00 01/23/24 08:47 Folic Acid 1 Mg Tablet PO 1 mg DAILY GERBER Administration Hydralazine HCl 20 mg 01/19/24 19:50 Hydralazine Hcl 20 Mg/Ml Vial IV PUSH Q4H PRN SBP >160 Dexmedetomidine HCl 400 mcg in 100 mls @ 0 mls/hr 01/20/24 13:45 01/21/24 12:00 Precedex 400 Mcg/100 Ml IV CONT 0 mcg/kg/hr .Q0M GERBER 0 mls/hr Titration Protocol 0 MCG/KG/HR Levetiracetam 1,500 mg in 100 mls @ 400 mls/hr 01/22/24 21:00 01/23/24 08:49 Keppra Iv IVPB 400 mls/hr Q12HR GERBER Administration Lorazepam 2 mg 01/22/24 19:09 Lorazepam Inj (*Crx) 2 Mg/Ml Vial IV PUSH Q1H PRN Seizure Activity Ondansetron HCl 4 mg 01/13/24 16:22 Ondansetron Inj 4 Mg/2 Ml Vial IV PUSH Q4H PRN Nausea Sodium Chloride 20 ml 01/13/24 20:18 Central Line Flush IV PUSH PRN PRN after blood draws Thiamine HCl 100 mg 01/22/24 09:00 01/23/24 08:49 Thiamine Hcl 100 Mg Tablet PO 100 mg QAM GERBER Administration Radiology Results: ITS Impressions Head CT 01/13/24 15:43 IMPRESSION: No acute intracranial findings. Chest/Abdomen/Pelvis CT 01/14/24 11:18 IMPRESSION: 1. Diffuse lung disease, consistent with pneumonia. 2. Small pleural effusions. 3. Small volume of ascites. Abdomen X-Ray 01/16/24 09:15 IMPRESSION: 1. Normal bowel gas pattern. 2. Airspace opacities in the lungs bilaterally, right worse than left, consistent with pneumonia. 3. Small pleural effusions. Chest X-Ray 01/23/24 06:31 Impression: Possible persistent minimal residual haziness at the right lung base. Stable right IJ line. Labs Labs: Laboratory Results - last 24 hr 01/22/24 01/22/24 01/23/24 13:38 20:42 05:48 WBC 8.1 RBC 4.11 L Hgb 12.8 L Hct 39.5 L MCV 96.1 MCH 31.1 MCHC 32.4 RDW 12.9 Plt Count 348 MPV 9.0 Sodium 141 Potassium 2.7 L* 2.8 L* 3.5 Chloride 112 H Carbon Dioxide 22 Anion Gap 7 BUN 17 Creatinine 0.80 Estim Creat Clear Calc 100 Estimated GFR > 60 Glucose 109 Calcium 8.2 L Magnesium 2.4 H Total Bilirubin 1.2 AST 35 ALT 48 Alkaline Phosphatase 75 Total Protein 7.0 Albumin 3.5
[2024-01-23] MEDS: ONDANSETRON INJ 4 MG/2 ML VIAL IV PUSH (18:31)
[2024-01-23] MEDS: levETIRAcetam 500 MG TABLET 1500 MG PO (20:05)
[2024-01-24] VITALS (13 sets, daily range): BP systolic 122–158; BP diastolic 72–93; PULSE 70–90; RESP 20–26; TEMP 36.8–37.8; O2SAT 94–95
[2024-01-24 04:46] LABS: Hematocrit 37.9 % (42.0-52.0); Mean Corpuscular HGB Conc 34.3 g/dl (32-36); Mean Corpuscular Hemoglobin 32.3 pg (26-34); Mean Corpuscular Volume 94.3 fl (80-100); Platelet Count Result 335 k/mm3 (150-375); Red Blood Count 4.02 M/mm3 (4.6-6.20); Red Cell Distribution Width 12.7 % (11.5-14.5); White Blood Count 7.7 K/mm3 (4.5-10.0)
[2024-01-24 04:58] LABS: Alanine Aminotransferase 52 U/L (6-50); Albumin Level 3.5 g/dL (3.5-5.1); Alkaline Phosphatase 77 U/L (38-126); Anion Gap 5 mmol/L (4-12); Aspartate Amino Transferase 36 U/L (17-59); Blood Urea Nitrogen 20 mg/dL (9-20); Calcium 8.4 mg/dL (8.4-10.2); Carbon Dioxide 24 mmol/L (22-30); Chloride 110 mmol/L (98-107); Estimated CRCL calculation 114 ml/min; Estimated Glomerular Filt Rate > 60; Glucose 121 mg/dL (65-110); Magnesium 2.2 mg/dL (1.6-2.3); Potassium 3.4 mmol/L (3.4-5.0); Sodium 139 mmol/L (137-145)
--- NOTE | 2024-01-24 09:09 | P.PNIM_ITS ---
Progress Note: A&P Assessment and Plan (1) Seizures: Code(s): R56.9 - Unspecified convulsions Status: Acute Assessment and Plan: Patient has a history of seizures and has been out of seizure medications. This could be the cause of his encephalopathy. Also that he took methadone which does decrease seizure threshold Currently on Keppra. No further seizures Continue seizure precautions. Changed to oral Keppra at higher dose (2) Acute respiratory failure with hypoxia and hypercapnia: Code(s): J96.01 - Acute respiratory failure with hypoxia; J96.02 - Acute respiratory failure with hypercapnia Status: Acute Assessment and Plan: Patient admitted with acute respiratory failure, encephalopathy likely secondary to seizures, aspiration pneumonia as he was found in a hotel room lying in emesis on the bed unknown amount of time, rhabdomyolysis, septic shock, alcohol dependence, illicit drug use with methadone and seizure. Patient has been out of seizure medications per family Patient has been having cough with thick sputum for over a month according to mother but has refused to be evaluated by a doctor or come to the ER. ABG showing 6.93/116/83.5 on MV. Patient was intubated on 01/12 CT chest showed diffuse lung disease consistent with pneumonia ABG improved. Tolerated vent wean and able to be extubated 01/19 On room air now. Encourage incentive spirometry. Completed a course of abx CXR today showing mild pulmonary edema. Exam not consistent with fluid overload. He does have tachypnea but not hypoxic. Lasix IV once to see if tachypnea improves. Potassium x1. (3) Septic shock: Code(s): A41.9 - Sepsis, unspecified organism; R65.21 - Severe sepsis with septic shock Status: Acute Assessment and Plan: Patient with septic shock likely secondary to pneumonia, ARDS. Treated with pressors. BP stabilized and and able to be weaned off. IV fluids now off. Off steroids as well BCx negative. UCx negative. Sputum culture grew yeast. MRSA screen was negative. Vancomycin was discontinued Treated with Zosyn (01/13) then Augmentin and completed a course Loose stools related to tube feeding and abx. Had multiple yesterday and FCS placed but nothing documented overngiht. Monitor. Remove FCS. Consider CDiff if persistent diarrhea despite being off abx and eating normally. (4) Aspiration pneumonia: Qualifiers: Aspiration pneumonia type: unspecified Laterality: bilateral Lung location: unspecified part of lung Qualified Code(s): J69.0 - Pneumonitis due to inhalation of food and vomit Code(s): J69.0 - Pneumonitis due to inhalation of food and vomit Status: Acute Assessment and Plan: As above (5) Polysubstance (including opioids) dependence with physiological dependence: Code(s): F19.20 - Other psychoactive substance dependence, uncomplicated Status: Acute Assessment and Plan: Patient took methadone which was given to him by a neighbor The mother states that was the only time he did drugs Patient does have alcohol dependence Crisis to evaluate. Okay for discharge. (6) Encephalopathy: Code(s): G93.40 - Encephalopathy, unspecified Status: Acute Assessment and Plan: Patient was encephalopathic when brought in to the ED likely was secondary to either postictal from seizures and/or overdose from opioid and/or severe respiratory failure. Head CT was negative on admission. Normal ammonia level Suspect ICU delirium. Patient now awake,alert and oriented. Some symptoms could be related to his schizophrenia (7) Chronic alcoholism: Code(s): F10.20 - Alcohol dependence, uncomplicated Status: Acute Assessment and Plan: Patient is out of the window for withdrawals. Continue thiamine, folic acid (8) Rhabdomyolysis: Qualifiers: Rhabdomyolysis type: non-traumatic Qualified Code(s): M62.82 - Rhabdomyolysis Code(s): M62.82 - Rhabdomyolysis Status: Acute Assessment and Plan: CK was 3000. Probably secondary to seizures and/or from laying on the floor for prolonged period of time. He received adequate amount of IV fluids Cr slightly elevated at 1.3 but normalized now He did require diuresis due to volume overload and edema CK levels trended down (9) Acidosis: Code(s): E87.20 - Acidosis, unspecified Status: Acute Assessment and Plan: Lactic acid was 7.1 status post bicarb infusion Lactic normal now. Acidosis resolved. (10) Electrolyte abnormality: Code(s): E87.8 - Other disorders of electrolyte and fluid balance, not elsewhere classified Status: Acute Assessment and Plan: Potassium low on 01/21 and replacement ordered. Potassium normal now Continue to replace potassium as needed (11) Abnormal thyroid function test: Code(s): R94.6 - Abnormal results of thyroid function studies Status: Acute Assessment and Plan: TSH and T4 level low. Free T3 is low Likely euthyroid syndrome Plan to repeat studies in 4-6 weeks. (12) Paranoid schizophrenia: Code(s): F20.0 - Paranoid schizophrenia Status: Acute Assessment and Plan: Patient was clearly delusional and hallucinating after extubation. He was also agitated. Family stating that approximately 1 month ago, patient had a 8 hours stand off at home and he tried to kill himself. He was taken to [facility] where he was on 72 hour hold. After that he was discharged to inpatient psychiatric facility [facility] where he was for 2 days and was discharged. She does not know his diagnosis. Records requested Continue sitter at bedside Will request crisis evaluation Continue PT/OT Plan DVT prophylaxis - Lovenox Code Status - Full Code Subjective Date/time seen: 01/24/24 09:09 Interval history: 48yo male with bipolar disorder, paranoid schizophrenia, chronic alcohol abuse and seizure disorder who presented to the ER via EMS from local hotel after patient had been found down unresponsive. Patient feels. Slept well last night. Patient does not take any medication for his psychiatric disorder. Father states the patient has bipolar disorder. Exam Narrative: AF 98.3 143/74 74 24 94% ra Gen - NARD Chest -distant clear breath sounds CV - RRR S1/S2. Telemetry showing no significant dysrhythmias Abd - Soft, NT/ND, Positive BS Ext - No pedal edema. 2+ DP pulses bilaterally Neuro -alert and oriented x4. Psych -cooperative. More responsive and appropriate. Good eye contact Skin - Warm and dry Objective Data Vital Signs Vital Signs: Vital Signs - 24 hr 01/23/24 10:00 01/23/24 10:00 01/23/24 12:00 Temperature Pulse Rate 99 99 91 Respiratory Rate 29 H 24 H Blood Pressure 153/80 H Pulse Oximetry 94 94 Oxygen Delivery Room Air 01/23/24 12:00 01/23/24 12:00 01/23/24 14:14 Temperature 98 F Pulse Rate 91 91 Respiratory Rate 24 H Blood Pressure 131/65 Pulse Oximetry 94 97 Oxygen Delivery Room Air 01/23/24 14:00 01/23/24 16:00 01/23/24 16:00 Temperature 97.9 F Pulse Rate 92 100 100 Respiratory Rate 30 H Blood Pressure 129/77 Pulse Oximetry 97 Oxygen Delivery 01/23/24 16:00 01/23/24 18:00 01/23/24 20:00 Temperature 98.1 F Pulse Rate 100 89 77 Respiratory Rate 30 H 25 H Blood Pressure 134/80 Pulse Oximetry 97 94 Oxygen Delivery Room Air 01/23/24 20:00 01/23/24 22:00 01/24/24 00:00 Temperature 98.7 F Pulse Rate 78 77 76 Respiratory Rate 26 H Blood Pressure 136/85 Pulse Oximetry 95 Oxygen Delivery 01/24/24 00:00 01/24/24 02:00 01/24/24 04:20 Temperature 98.3 F Pulse Rate 76 71 70 Respiratory Rate 24 H Blood Pressure 143/74 H Pulse Oximetry 94 Oxygen Delivery 01/24/24 04:00 01/24/24 06:00 Temperature Pulse Rate 86 74 Respiratory Rate Blood Pressure Pulse Oximetry Oxygen Delivery Intake/Output Intake/Output: Intake & Output 01/21/24 01/22/24 01/23/24 01/24/24 23:59 23:59 23:59 23:59 Intake Total 568.0 780 1465 600 Output Total 550 2050 1250 700 Balance 18.0 -1270 215 -100 Meds/Results Medications: Active Medications Generic Name Dose Route Start Last Admin Trade Name Freq PRN Reason Stop Dose Admin Acetaminophen 650 mg 01/22/24 19:09 Acetaminophen Elixir 325 Mg/10.15 Ml Udc PO Q4H PRN Mild Pain (1-5) Or Fever Hydrocodone Bitart/Acetaminophen 1 tab 01/22/24 19:09 Hydrocodone/Acetaminophen (*Crx) 5-325 Mg Tablet PO Q6H PRN Pain Rated 6 or Greater Albuterol/Ipratropium 3 ml 01/14/24 12:30 01/20/24 02:36 Ipratropium 0.5 Mg/Albuterol Sulfate 2.5 Mg Ampul.Neb 3 Ml NEBULIZE 3 ml Q6HRT PRN Administration wheezing Enoxaparin Sodium 40 mg 01/14/24 09:00 01/23/24 08:46 Enoxaparin 40 Mg/0.4 Ml Syringe SUB-Q 40 mg DAILY GERBER Administration Folic Acid 1 mg 01/22/24 09:00 01/23/24 08:47 Folic Acid 1 Mg Tablet PO 1 mg DAILY GERBER Administration Hydralazine HCl 20 mg 01/19/24 19:50 Hydralazine Hcl 20 Mg/Ml Vial IV PUSH Q4H PRN SBP >160 Levetiracetam 1,500 mg 01/23/24 21:00 01/23/24 20:05 Levetiracetam 500 Mg Tablet PO 1,500 mg Q12HR GERBER Administration Lorazepam 2 mg 01/22/24 19:09 Lorazepam Inj (*Crx) 2 Mg/Ml Vial IV PUSH Q1H PRN Seizure Activity Ondansetron HCl 4 mg 01/13/24 16:22 01/23/24 18:31 Ondansetron Inj 4 Mg/2 Ml Vial IV PUSH 4 mg Q4H PRN Administration Nausea Sodium Chloride 20 ml 01/13/24 20:18 Central Line Flush IV PUSH PRN PRN after blood draws Thiamine HCl 100 mg 01/22/24 09:00 01/23/24 08:49 Thiamine Hcl 100 Mg Tablet PO 100 mg QAM GERBER Administration Radiology Results: ITS Impressions Head CT 01/13/24 15:43 IMPRESSION: No acute intracranial findings. Chest/Abdomen/Pelvis CT 01/14/24 11:18 IMPRESSION: 1. Diffuse lung disease, consistent with pneumonia. 2. Small pleural effusions. 3. Small volume of ascites. Abdomen X-Ray 01/16/24 09:15 IMPRESSION: 1. Normal bowel gas pattern. 2. Airspace opacities in the lungs bilaterally, right worse than left, consistent with pneumonia. 3. Small pleural effusions. Chest X-Ray 01/24/24 06:43 IMPRESSION: 1. Likely mild pulmonary edema at the lower lung zones and very small bilateral pleural effusions. Labs Labs: Laboratory Results - last 24 hr 01/24/24 04:35 WBC 7.7 RBC 4.02 L Hgb 13.0 L Hct 37.9 L MCV 94.3 MCH 32.3 MCHC 34.3 RDW 12.7 Plt Count 335 MPV 9.0 Sodium 139 Potassium 3.4 Chloride 110 H Carbon Dioxide 24 Anion Gap 5 BUN 20 Creatinine 0.70 Estim Creat Clear Calc 114 Estimated GFR > 60 Glucose 121 H Calcium 8.4 Magnesium 2.2 Total Bilirubin 1.0 AST 36 ALT 52 H Alkaline Phosphatase 77 Total Protein 6.0 L Albumin 3.5
[2024-01-24] MEDS: ENOXAPARIN 40 MG/0.4 ML SYRINGE SUB-Q (09:39)
[2024-01-24] MEDS: levETIRAcetam 500 MG TABLET 1500 MG PO ×2 (09:39→20:50)
[2024-01-24] MEDS: FUROSEMIDE INJ 40 MG/4 ML VIAL IV PUSH (09:39)
[2024-01-24] MEDS: POTASSIUM CHLORIDE 20 MEQ ER TABLET 40 MEQ PO (09:40)
[2024-01-24] MEDS: FOLIC ACID 1 MG TABLET PO (09:40)
[2024-01-24] MEDS: THIAMINE HCL 100 MG TABLET PO (09:40)
[2024-01-25] VITALS (14 sets, daily range): BP systolic 131–164; BP diastolic 70–87; PULSE 66–114; RESP 14–25; TEMP 36.7–36.9; O2SAT 92–97
[2024-01-25 04:29] LABS: Hematocrit 38.8 % (42.0-52.0); Hemoglobin 13.6 g/dL (14.0-18.0); Mean Corpuscular HGB Conc 35.1 g/dl (32-36); Mean Corpuscular Hemoglobin 32.5 pg (26-34); Mean Corpuscular Volume 92.6 fl (80-100); Mean Platelet Volume 8.8 fl (7.4-10.4); Platelet Count Result 370 k/mm3 (150-375); Red Blood Count 4.19 M/mm3 (4.6-6.20); Red Cell Distribution Width 12.6 % (11.5-14.5); White Blood Count 8.7 K/mm3 (4.5-10.0)
[2024-01-25 04:59] LABS: Anion Gap 4 mmol/L (4-12); Carbon Dioxide 25 mmol/L (22-30); Chloride 107 mmol/L (98-107); Potassium 3.4 mmol/L (3.4-5.0); Sodium 136 mmol/L (137-145)
[2024-01-25 05:00] LABS: Bilirubin,Total 0.9 mg/dL (0.2-1.3); Blood Urea Nitrogen 17 mg/dL (9-20); Calcium 8.7 mg/dL (8.4-10.2); Estimated CRCL calculation 114 ml/min; Estimated Glomerular Filt Rate > 60; Glucose 129 mg/dL (65-110); Magnesium 2.1 mg/dL (1.6-2.3)
[2024-01-25 05:01] LABS: Alanine Aminotransferase 62 U/L (6-50); Albumin Level 3.7 g/dL (3.5-5.1); Alkaline Phosphatase 84 U/L (38-126); Aspartate Amino Transferase 53 U/L (17-59); Total Protein 6.8 g/dL (6.3-8.2)
[2024-01-25] MEDS: levETIRAcetam 500 MG TABLET 1500 MG PO ×2 (09:02→20:46)
[2024-01-25] MEDS: POTASSIUM CHLORIDE 20 MEQ ER TABLET 40 MEQ PO (09:02)
[2024-01-25] MEDS: FOLIC ACID 1 MG TABLET PO (09:12)
[2024-01-25] MEDS: THIAMINE HCL 100 MG TABLET PO (09:12)
[2024-01-25] MEDS: ENOXAPARIN 40 MG/0.4 ML SYRINGE SUB-Q (09:12)
--- NOTE | 2024-01-25 10:23 | P.PNIM_ITS ---
Progress Note: A&P Assessment and Plan (1) Seizures: Code(s): R56.9 - Unspecified convulsions Status: Acute Assessment and Plan: Patient has a history of seizures and has been out of seizure medications. This could be the cause of his encephalopathy. Also that he took methadone which does decrease seizure threshold Was on Keppra at home dose and was having breakthrough seizures. No further seizures since advancing the dose. Continue seizure precautions. Continue oral Keppra at higher dose (2) Acute respiratory failure with hypoxia and hypercapnia: Code(s): J96.01 - Acute respiratory failure with hypoxia; J96.02 - Acute respiratory failure with hypercapnia Status: Acute Assessment and Plan: Patient admitted with acute respiratory failure, encephalopathy likely secondary to seizures, aspiration pneumonia as he was found in a hotel room lying in e mesis on the bed unknown amount of time, rhabdomyolysis, septic shock, alcohol dependence, illicit drug use with methadone and seizure. Patient has been out of seizure medications per family Patient has been having cough with thick sputum for over a month according to mother but has refused to be evaluated by a doctor or come to the ER. ABG showing 6.93/116/83.5 on MV. Patient was intubated on 01/12 CT chest showed diffuse lung disease consistent with pneumonia ABG improved. Tolerated vent wean and able to be extubated 01/19 On room air now. Encourage incentive spirometry. Completed a course of abx CXR 01/23 showing mild pulmonary edema and was given Lasix IV once with some improvement in his tachypnea (3) Septic shock: Code(s): A41.9 - Sepsis, unspecified organism; R65.21 - Severe sepsis with septic shock Status: Acute Assessment and Plan: Patient with septic shock likely secondary to pneumonia, ARDS. Treated with pressors. BP stabilized and and able to be weaned off. IV fluids now off. Off steroids as well BCx negative. UCx negative. Sputum culture grew yeast. MRSA screen was negative. Vancomycin was discontinued Treated with Zosyn (01/13) then Augmentin and completed a course Loose stools initally felt related to tube feeding and abx. He continues to have multiple stools and FCS was not removed. Stool output not documented so unclear if this volume is tapering off. Monitor. Add metamucil. Consider CDiff treatment if volume does not improve (4) Paranoid schizophrenia: Code(s): F20.0 - Paranoid schizophrenia Status: Acute Assessment and Plan: Patient was clearly delusional and hallucinating after extubation. He was also agitated. Family stating that approximately 1 month ago, patient had a 8 hours stand off at home and he tried to kill himself. He was taken to [facility] where he was on 72 hour hold. After that he was discharged to [facility] where he was for 2 days and was discharged. She does not know his diagnosis. Records requested. Crisis evaluation showing that he does not need inpatient psych. Continue sitter at bedside Continue PT/OT. Try to obtain the discharge summary to see what medications he should be on for his psych disorder. (5) Aspiration pneumonia: Qualifiers: Aspiration pneumonia type: unspecified Laterality: bilateral Lung location: unspecified part of lung Qualified Code(s): J69.0 - Pneumonitis due to inhalation of food and vomit Code(s): J69.0 - Pneumonitis due to inhalation of food and vomit Status: Acute Assessment and Plan: As above (6) Polysubstance (including opioids) dependence with physiological dependence: Code(s): F19.20 - Other psychoactive substance dependence, uncomplicated Status: Acute Assessment and Plan: Patient took methadone which was given to him by a neighbor The mother states that was the only time he did drugs Patient does have alcohol dependence. Follow (7) Encephalopathy: Code(s): G93.40 - Encephalopathy, unspecified Status: Acute Assessment and Plan: Patient was encephalopathic when brought in to the ED likely was secondary to either postictal from seizures and/or overdose from opioid and/or severe respiratory failure. Head CT was negative on admission. Normal ammonia level Suspect ICU delirium. Patient now awake,alert and oriented. Still having issues with hallucinations which could be related to his schizophrenia Follow. Contineu to orient. (8) Chronic alcoholism: Code(s): F10.20 - Alcohol dependence, uncomplicated Status: Acute Assessment and Plan: Patient is out of the window for withdrawals. Continue thiamine, folic acid (9) Rhabdomyolysis: Qualifiers: Rhabdomyolysis type: non-traumatic Qualified Code(s): M62.82 - Rhabdomyolysis Code(s): M62.82 - Rhabdomyolysis Status: Acute Assessment and Plan: CK was 3000. Probably secondary to seizures and/or from laying on the floor for prolonged period of time. He received adequate amount of IV fluids Cr slightly elevated at 1.3 but normalized now He did require diuresis due to volume overload and edema CK levels trended down (10) Acidosis: Code(s): E87.20 - Acidosis, unspecified Status: Acute Assessment and Plan: Lactic acid was 7.1 status post bicarb infusion Lactic normal now. Acidosis resolved. (11) Electrolyte abnormality: Code(s): E87.8 - Other disorders of electrolyte and fluid balance, not elsewhere classified Status: Acute Assessment and Plan: Potassium low on 01/21 and replacement ordered. Potassium normal now Continue to replace potassium as needed (12) Abnormal thyroid function test: Code(s): R94.6 - Abnormal results of thyroid function studies Status: Acute Assessment and Plan: TSH and T4 level low. Free T3 is low Likely euthyroid syndrome Plan to repeat studies in 4-6 weeks. Plan DVT prophylaxis - Lovenox Code Status - Full Code Subjective Date/time seen: 01/25/24 10:23 Interval history: 48yo male with bipolar disorder, paranoid schizophrenia, chronic alcohol abuse and seizure disorder who presented to the ER via EMS from local hotel after patient had been found down unresponsive. Eating okay. Slight cough. No SOB. Having diarrhea and SHELTER still in place. RN states patient hallucinating and trying to get out of bed. He was seeing fruit flies around his food. He thought there was a stove in the room. Exam Narrative: Tm 100.1 98.1 139/87 114 20 92% ra Gen - NARD sitting up in the chair. Chest -few basilar crackles. nml RR CV - regular, tach. Telemetry showing sinus tachy since being up out of bed this morning Abd - Soft, NT/ND, Positive BS Ext - No pedal edema Neuro -alert and oriented x4. Psych -cooperative. Responsive to questions. Reluctant to answer some questions. Skin - Warm and dry Objective Data Vital Signs Vital Signs: Vital Signs - 24 hr 01/24/24 12:00 01/24/24 12:00 01/24/24 12:36 Temperature Pulse Rate 83 78 78 Respiratory Rate 20 Blood Pressure 122/72 Pulse Oximetry Oxygen Delivery 01/24/24 16:00 01/24/24 16:00 01/24/24 17:24 Temperature 98.2 F Pulse Rate 79 79 79 Respiratory Rate 23 H Blood Pressure 127/73 Pulse Oximetry Oxygen Delivery 01/24/24 20:00 01/24/24 20:00 01/24/24 20:00 Temperature 98.4 F Pulse Rate 76 76 Respiratory Rate 26 H Blood Pressure 151/78 H Pulse Oximetry 95 Oxygen Delivery Room Air 01/24/24 22:00 01/25/24 00:00 01/25/24 00:00 Temperature 98.2 F Pulse Rate 81 89 89 Respiratory Rate 17 Blood Pressure 146/81 H Pulse Oximetry 96 Oxygen Delivery 01/25/24 00:00 01/25/24 02:00 01/25/24 04:00 Temperature Pulse Rate 66 Respiratory Rate Blood Pressure Pulse Oximetry Oxygen Delivery Room Air Room Air 01/25/24 04:00 01/25/24 04:00 01/25/24 06:00 Temperature 98.1 F Pulse Rate 71 71 72 Respiratory Rate Blood Pressure 131/77 Pulse Oximetry 95 Oxygen Delivery 01/25/24 08:00 01/25/24 08:00 01/25/24 10:00 Temperature Pulse Rate 72 114 H 114 H Respiratory Rate 20 Blood Pressure 139/87 Pulse Oximetry 92 Oxygen Delivery Intake/Output Intake/Output: Intake & Output 01/22/24 01/23/24 01/24/24 01/25/24 23:59 23:59 23:59 23:59 Intake Total 780 1465 1140 600 Output Total 2050 1250 2000 800 Balance -1270 215 -860 -200 Meds/Results Medications: Active Medications Generic Name Dose Route Start Last Admin Trade Name Freq PRN Reason Stop Dose Admin Acetaminophen 650 mg 01/22/24 19:09 Acetaminophen Elixir 325 Mg/10.15 Ml Udc PO Q4H PRN Mild Pain (1-5) Or Fever Hydrocodone Bitart/Acetaminophen 1 tab 01/22/24 19:09 Hydrocodone/Acetaminophen (*Crx) 5-325 Mg Tablet PO Q6H PRN Pain Rated 6 or Greater Albuterol/Ipratropium 3 ml 01/14/24 12:30 01/20/24 02:36 Ipratropium 0.5 Mg/Albuterol Sulfate 2.5 Mg Ampul.Neb 3 Ml NEBULIZE 3 ml Q6HRT PRN Administration wheezing Enoxaparin Sodium 40 mg 01/14/24 09:00 01/25/24 09:12 Enoxaparin 40 Mg/0.4 Ml Syringe SUB-Q 40 mg DAILY GERBER Administration Folic Acid 1 mg 01/22/24 09:00 01/25/24 09:12 Folic Acid 1 Mg Tablet PO 1 mg DAILY GERBER Administration Hydralazine HCl 20 mg 01/19/24 19:50 Hydralazine Hcl 20 Mg/Ml Vial IV PUSH Q4H PRN SBP >160 Levetiracetam 1,500 mg 01/23/24 21:00 01/25/24 09:02 Levetiracetam 500 Mg Tablet PO 1,500 mg Q12HR GERBER Administration Lorazepam 2 mg 01/22/24 19:09 Lorazepam Inj (*Crx) 2 Mg/Ml Vial IV PUSH Q1H PRN Seizure Activity Ondansetron HCl 4 mg 01/13/24 16:22 01/23/24 18:31 Ondansetron Inj 4 Mg/2 Ml Vial IV PUSH 4 mg Q4H PRN Administration Nausea Sodium Chloride 20 ml 01/13/24 20:18 Central Line Flush IV PUSH PRN PRN after blood draws Thiamine HCl 100 mg 01/22/24 09:00 01/25/24 09:12 Thiamine Hcl 100 Mg Tablet PO 100 mg QAM GERBER Administration Radiology Results: ITS Impressions Head CT 01/13/24 15:43 IMPRESSION: No acute intracranial findings. Chest/Abdomen/Pelvis CT 01/14/24 11:18 IMPRESSION: 1. Diffuse lung disease, consistent with pneumonia. 2. Small pleural effusions. 3. Small volume of ascites. Abdomen X-Ray 01/16/24 09:15 IMPRESSION: 1. Normal bowel gas pattern. 2. Airspace opacities in the lungs bilaterally, right worse than left, consistent with pneumonia. 3. Small pleural effusions. Chest X-Ray 01/24/24 06:43 IMPRESSION: 1. Likely mild pulmonary edema at the lower lung zones and very small bilateral pleural effusions. Labs Labs: Laboratory Results - last 24 hr 01/25/24 04:24 WBC 8.7 RBC 4.19 L Hgb 13.6 L Hct 38.8 L MCV 92.6 MCH 32.5 MCHC 35.1 RDW 12.6 Plt Count 370 MPV 8.8 Sodium 136 L Potassium 3.4 Chloride 107 Carbon Dioxide 25 Anion Gap 4 BUN 17 Creatinine 0.70 Estim Creat Clear Calc 114 Estimated GFR > 60 Glucose 129 H Calcium 8.7 Magnesium 2.1 Total Bilirubin 0.9 AST 53 ALT 62 H Alkaline Phosphatase 84 Total Protein 6.8 Albumin 3.7
[2024-01-25] MEDS: calcium polycarbophiL 625 MG TABLET 1250 MG PO ×2 (10:51→17:05)
[2024-01-26] VITALS (19 sets, daily range): BP systolic 111–137; BP diastolic 77–97; PULSE 74–132; RESP 12–27; TEMP 36.4–37.6; O2SAT 96–100
[2024-01-26] MEDS: diphenhydrAMINE HCl INJ 50 MG/ML VIAL IV PUSH (01:54)
[2024-01-26] MEDS: HALOPERIDOL LACTATE 5 MG/ML VIAL IV PUSH (01:55)
[2024-01-26] MEDS: LORazepam INJ (*CRX) 2 MG/ML VIAL 1 MG IV PUSH (01:55)
--- NOTE | 2024-01-26 02:00 | PC.NURSE ---
0145 While waiting for medications to be verified by pharmacy, the CCT sitting with patient yelled for patient to let her go and for staff assistance. Upon entering room found patient kneeling on bed and holding onto CCT''s arm. Patient instructed to let CCT go and to lay back in the bed. Patient was belligerent and threatening staff. Staff assisted patient to laying down in the bed. Patient placed in restraints for staff and patient safety. Dr. Rosado called and notified of the change in patient. Dr. Rosado stated she would place an order for restraints.
--- NOTE | 2024-01-26 04:45 | PC.NURSE ---
Patient's bed was zero'd on day shift 01/25/24. Weight updated.
[2024-01-26] MEDS: VANCOMYCIN HCL 125 MG ORAL CAPSULE PO ×2 (07:18→11:56)
[2024-01-26] MEDS: ENOXAPARIN 40 MG/0.4 ML SYRINGE SUB-Q (08:08)
[2024-01-26] MEDS: FOLIC ACID 1 MG TABLET PO (08:08)
[2024-01-26] MEDS: calcium polycarbophiL 625 MG TABLET 1250 MG PO ×2 (08:08→16:53)
[2024-01-26] MEDS: levETIRAcetam 500 MG TABLET 1500 MG PO (08:08)
[2024-01-26] MEDS: THIAMINE HCL 100 MG TABLET PO (08:08)
--- NOTE | 2024-01-26 12:57 | PM.IMPN ---
Progress Note: A&P Assessment and Plan (1) Seizures: Code(s): R56.9 - Unspecified convulsions Status: Acute Assessment and Plan: Patient has a history of seizures and was out of seizure medications. This could be the cause of his encephalopathy. Also, he took methadone which does decrease seizure threshold. We resumed Keppra at home dose but was having breakthrough seizures so Keppra advanced. No further seizures since advancing the dose. Continue seizure precautions. Continue oral Keppra at higher dose (2) Acute respiratory failure with hypoxia and hypercapnia: Code(s): J96.01 - Acute respiratory failure with hypoxia; J96.02 - Acute respiratory failure with hypercapnia Status: Acute Assessment and Plan: Patient admitted with acute respiratory failure, encephalopathy likely secondary to seizures, aspiration pneumonia as he was found in a hotel room lying in emesis on the bed unknown amount of time, rhabdomyolysis, septic shock, alcohol dependence, illicit drug use with methadone and seizure. Patient has been out of seizure medications per family Patient has been having cough with thick sputum for over a month according to mother but has refused to be evaluated by a doctor or come to the ER. Patient was intubated on 01/12. ABG showing 6.93/116/83.[address] chest showed diffuse lung disease consistent with pneumonia. ABG improved. Tolerated vent wean and able to be extubated 01/19 On room air now. Encourage incentive spirometry. Completed a course of abx CXR 01/23 showing mild pulmonary edema and was given Lasix IV once with some improvement in his tachypnea (3) Septic shock: Code(s): A41.9 - Sepsis, unspecified organism; R65.21 - Severe sepsis with septic shock Status: Acute Assessment and Plan: Patient with septic shock likely secondary to pneumonia, ARDS. Treated with pressors. BP stabilized and and able to be weaned off. IV fluids now off. Off steroids as well BCx negative. UCx negative. Sputum culture grew yeast. MRSA screen was negative. Vancomycin was discontinued Treated with Zosyn (01/13) then Augmentin and completed a course Loose stools initially felt related to tube feeding and abx. He continues to have multiple stools and FCS was not removed. Stool output still elevated. Metamucil added. Check CDiff and starte Vanco. Monitor (4) Paranoid schizophrenia: Code(s): F20.0 - Paranoid schizophrenia Status: Acute Assessment and Plan: Patient was clearly delusional and hallucinating after extubation. He was also agitated. Family stating that approximately 1 month ago, patient had a 8 hours stand off at home and he tried to kill himself. He was taken to [facility] where he was on 72 hour hold. After that he was discharged to inpatient psychiatric facility [facility] where he was for 2 days and was discharged. She does not know his diagnosis. Records requested. Crisis evaluation showing that he does not need inpatient psych. Continue sitter at bedside Continue PT/OT. We tried to obtain the discharge summary from psych facility to see what medications he should be on for his psych disorder. Now having hallucinations and more combative with staff. Discussed with psychiatrist who recommended Risperidone 1mg Q12hr and advance daily to 3mg Q12hr as tolerated. Crisis to re-evaluate. (5) Aspiration pneumonia: Qualifiers: Aspiration pneumonia type: unspecified Laterality: bilateral Lung location: unspecified part of lung Qualified Code(s): J69.0 - Pneumonitis due to inhalation of food and vomit Code(s): J69.0 - Pneumonitis due to inhalation of food and vomit Status: Acute Assessment and Plan: As above (6) Polysubstance (including opioids) dependence with physiological dependence: Code(s): F19.20 - Other psychoactive substance dependence, uncomplicated Status: Acute Assessment and Plan: Patient took methadone which was given to him by a neighbor The mother states that was the only time he did drugs Patient does have alcohol dependence. Follow (7) Encephalopathy: Code(s): G93.40 - Encephalopathy, unspecified Status: Acute Assessment and Plan: Patient was encephalopathic when brought in to the ED likely was secondary to either postictal from seizures and/or overdose from opioid and/or severe respiratory failure. Head CT was negative on admission. Normal ammonia level Suspect ICU delirium. Patient was awake,alert and oriented but still having issues with hallucinations which felt to be related to his schizophrenia Follow. As above (8) Chronic alcoholism: Code(s): F10.20 - Alcohol dependence, uncomplicated Status: Acute Assessment and Plan: Patient is out of the window for withdrawals. Continue thiamine, folic acid (9) Rhabdomyolysis: Qualifiers: Rhabdomyolysis type: non-traumatic Qualified Code(s): M62.82 - Rhabdomyolysis Code(s): M62.82 - Rhabdomyolysis Status: Acute Assessment and Plan: CK was 3000. Probably secondary to seizures and/or from laying on the floor for prolonged period of time. He received adequate amount of IV fluids Cr slightly elevated at 1.3 but normalized now He did require diuresis due to volume overload and edema CK levels trended down (10) Acidosis: Code(s): E87.20 - Acidosis, unspecified Status: Acute Assessment and Plan: Lactic acid was 7.1 status post bicarb infusion Lactic normal now. Acidosis resolved. (11) Electrolyte abnormality: Code(s): E87.8 - Other disorders of electrolyte and fluid balance, not elsewhere classified Status: Acute Assessment and Plan: Potassium low on 01/21 and replacement ordered. Potassium normal now Continue to replace potassium as needed (12) Abnormal thyroid function test: Code(s): R94.6 - Abnormal results of thyroid function studies Status: Acute Assessment and Plan: TSH and T4 level low. Free T3 is low Likely euthyroid syndrome Plan to repeat studies in 4-6 weeks. Plan DVT prophylaxis - Lovenox Code Status - Full Code Subjective Date/time seen: 01/26/24 12:57 Interval history: 48yo male with bipolar disorder, paranoid schizophrenia, chronic alcohol abuse and seizure disorder who presented to the ER via EMS from local hotel after patient had been found down unresponsive. More agitated last night with grabbing at staff. He was given Ativan, Benadryl and Haldol. He is hallucinating seeing snakes and also has paranoia feeling the staff are poisining him. His family feels the patient has chronic diarrhea. Exam Narrative: AF 97.7 137/97 99 19 100% ra Gen - NARD Chest -right base crackles o/w clear. nml RR CV - RRR S1/S2. Telemetry showing no significant dysrhythmias Abd - Soft, NT/ND, Positive BS Ext - No pedal edema Neuro -alert but confused. Psych -cooperative. laughs inappropriately. visual hallucinations. Skin - Warm and dry Objective Data Vital Signs Vital Signs: Vital Signs - 24 hr 01/25/24 13:06 01/25/24 15:49 01/25/24 18:00 Temperature Pulse Rate 86 95 86 Respiratory Rate Blood Pressure Pulse Oximetry Oxygen Delivery 01/25/24 16:00 01/25/24 20:15 01/25/24 20:00 Temperature 98.4 F Pulse Rate 94 77 89 Respiratory Rate 25 H 18 14 Blood Pressure 164/81 H 134/70 Pulse Oximetry 92 97 Oxygen Delivery Room Air 01/25/24 20:00 01/25/24 22:00 01/26/24 00:00 Temperature Pulse Rate 89 82 92 Respiratory Rate 23 H Blood Pressure Pulse Oximetry 96 Oxygen Delivery Room Air 01/26/24 00:00 01/26/24 00:00 01/26/24 01:45 Temperature 99.6 F 98.5 F Pulse Rate 92 92 101 H Respiratory Rate 23 H 21 H Blood Pressure 137/90 132/90 Pulse Oximetry 96 100 Oxygen Delivery 01/26/24 02:00 01/26/24 02:15 01/26/24 02:00 Temperature 97.7 F Pulse Rate 100 90 92 Respiratory Rate 15 18 Blood Pressure 125/82 Pulse Oximetry 100 100 Oxygen Delivery 01/26/24 02:30 01/26/24 02:00 01/26/24 02:45 Temperature Pulse Rate 94 100 96 Respiratory Rate 14 12 Blood Pressure 125/85 125/77 Pulse Oximetry 100 100 Oxygen Delivery 01/26/24 03:00 01/26/24 04:08 01/26/24 04:00 Temperature Pulse Rate 82 74 75 Respiratory Rate 15 19 19 Blood Pressure 129/81 129/84 129/84 Pulse Oximetry 100 99 99 Oxygen Delivery 01/26/24 04:00 01/26/24 04:00 01/26/24 05:00 Temperature Pulse Rate 75 75 82 Respiratory Rate 19 21 H Blood Pressure 133/81 Pulse Oximetry 99 100 Oxygen Delivery Room Air 01/26/24 06:00 01/26/24 08:00 01/26/24 08:00 Temperature Pulse Rate 105 H 77 90 Respiratory Rate 21 H Blood Pressure 125/89 Pulse Oximetry 100 Oxygen Delivery 01/26/24 10:00 01/26/24 08:00 01/26/24 12:00 Temperature Pulse Rate 89 89 99 Respiratory Rate 21 H 19 Blood Pressure Pulse Oximetry 100 100 Oxygen Delivery Room Air Room Air 01/26/24 12:00 01/26/24 12:00 Temperature Pulse Rate 99 99 Respiratory Rate 19 Blood Pressure 137/97 H Pulse Oximetry 100 Oxygen Delivery Intake/Output Intake/Output: Intake & Output 01/23/24 01/24/24 01/25/24 01/26/24 23:59 23:59 23:59 23:59 Intake Total 1465 1140 800 970 Output Total 1250 2000 1150 1100 Balance 717 -860 -350 -130 Meds/Results Medications: Active Medications Generic Name Dose Route Start Last Admin Trade Name Freq PRN Reason Stop Dose Admin Acetaminophen 650 mg 01/22/24 19:09 Acetaminophen Elixir 325 Mg/10.15 Ml Udc PO Q4H PRN Mild Pain (1-5) Or Fever Hydrocodone Bitart/Acetaminophen 1 tab 01/22/24 19:09 Hydrocodone/Acetaminophen (*Crx) 5-325 Mg Tablet PO Q6H PRN Pain Rated 6 or Greater Albuterol/Ipratropium 3 ml 01/14/24 12:30 01/20/24 02:36 Ipratropium 0.5 Mg/Albuterol Sulfate 2.5 Mg Ampul.Neb 3 Ml NEBULIZE 3 ml Q6HRT PRN Administration wheezing Calcium Polycarbophil 1,250 mg 01/25/24 10:50 01/26/24 08:08 Calcium Polycarbophil 625 Mg Tablet PO 1,250 mg BID GERBER Administration Enoxaparin Sodium 40 mg 01/14/24 09:00 01/26/24 08:08 Enoxaparin 40 Mg/0.4 Ml Syringe SUB-Q 40 mg DAILY GERBER Administration Folic Acid 1 mg 01/22/24 09:00 01/26/24 08:08 Folic Acid 1 Mg Tablet PO 1 mg DAILY GERBER Administration Hydralazine HCl 20 mg 01/19/24 19:50 Hydralazine Hcl 20 Mg/Ml Vial IV PUSH Q4H PRN SBP >160 Levetiracetam 1,500 mg 01/23/24 21:00 01/26/24 08:08 Levetiracetam 500 Mg Tablet PO 1,500 mg Q12HR GERBER Administration Lorazepam 2 mg 01/22/24 19:09 Lorazepam Inj (*Crx) 2 Mg/Ml Vial IV PUSH Q1H PRN Seizure Activity Ondansetron HCl 4 mg 01/13/24 16:22 01/23/24 18:31 Ondansetron Inj 4 Mg/2 Ml Vial IV PUSH 4 mg Q4H PRN Administration Nausea Risperidone 1 mg 01/26/24 13:00 Risperidone 1 Mg Tablet PO Q12HR GERBER Sodium Chloride 20 ml 01/13/24 20:18 Central Line Flush IV PUSH PRN PRN after blood draws Thiamine HCl 100 mg 01/22/24 09:00 01/26/24 08:08 Thiamine Hcl 100 Mg Tablet PO 100 mg QAM GERBER Administration Vancomycin HCl 125 mg 01/26/24 07:15 01/26/24 11:56 Vancomycin Hcl 125 Mg Oral Capsule PO 125 mg Q6HR GERBER Administration Radiology Results: ITS Impressions Head CT 01/13/24 15:43 IMPRESSION: No acute intracranial findings. Chest/Abdomen/Pelvis CT 01/14/24 11:18 IMPRESSION: 1. Diffuse lung disease, consistent with pneumonia. 2. Small pleural effusions. 3. Small volume of ascites. Abdomen X-Ray 01/16/24 09:15 IMPRESSION: 1. Normal bowel gas pattern. 2. Airspace opacities in the lungs bilaterally, right worse than left, consistent with pneumonia. 3. Small pleural effusions. Chest X-Ray 01/24/24 06:43 IMPRESSION: 1. Likely mild pulmonary edema at the lower lung zones and very small bilateral pleural effusions.
[2024-01-26] MEDS: risperiDONE 1 MG TABLET PO (13:10)
[2024-01-26 13:38] LABS: Basophils Percent Auto 0.4 % (0.2-1.2); Eosinophils Absolute Auto 0.2 K/mm3 (0-0.3); Eosinophils Percent Auto 1.9 % (0-4.4); Hematocrit 40.7 % (42.0-52.0); Hemoglobin 13.5 g/dL (14.0-18.0); Immature Granulocyte Absolute 0.03 K/mm3 (0.00-0.031); Immature Granulocyte Percent A 0.4 % (0-0.5); Lymphocytes Absolute Auto 0.74 K/mm3 (0.9-3.2); Lymphocytes Percent Auto 8.9 % (18.3-44.2); Mean Corpuscular HGB Conc 33.2 g/dl (32-36); Mean Corpuscular Hemoglobin 31.8 pg (26-34); Mean Corpuscular Volume 95.8 fl (80-100); Mean Platelet Volume 9.2 fl (7.4-10.4); Monocytes Absolute Auto 0.8 K/mm3 (0.1-0.6); Monocytes Percent Auto 9.4 % (2.6-8.5); Neutrophils Absolute Auto 6.6 K/mm3 (1.3-6.7); Platelet Count Result 420 k/mm3 (150-375); Red Blood Count 4.25 M/mm3 (4.6-6.20); Red Cell Distribution Width 12.6 % (11.5-14.5); White Blood Count 8.3 K/mm3 (4.5-10.0)
[2024-01-26 13:53] LABS: Alanine Aminotransferase 79 U/L (6-50); Albumin Level 4.1 g/dL (3.5-5.1); Alkaline Phosphatase 78 U/L (38-126); Anion Gap 10 mmol/L (4-12); Aspartate Amino Transferase 52 U/L (17-59); Bilirubin,Total 0.9 mg/dL (0.2-1.3); Blood Urea Nitrogen 17 mg/dL (9-20); Calcium 8.9 mg/dL (8.4-10.2); Carbon Dioxide 19 mmol/L (22-30); Chloride 106 mmol/L (98-107); Estimated CRCL calculation 108 ml/min; Estimated Glomerular Filt Rate > 60; Glucose 143 mg/dL (65-110); Magnesium 2.4 mg/dL (1.6-2.3); Sodium 135 mmol/L (137-145)
[2024-01-26 14:06] LABS: Toxigenic C. Diff NEGATIVE (NEGATIVE)
[2024-01-27] VITALS (11 sets, daily range): BP systolic 127–152; BP diastolic 81–90; PULSE 76–120; RESP 17–30; TEMP 36.6–37; O2SAT 98–100
[2024-01-27] MEDS: levETIRAcetam 1500MG/NACL100ML 1,500 MG/100 ML BAG 400 MG IVPB ×3 (01:06→21:38)
[2024-01-27] MEDS: ENOXAPARIN 40 MG/0.4 ML SYRINGE SUB-Q (09:38)
--- NOTE | 2024-01-27 10:16 | PCSTNOTE ---
Please refer to the Bedside Swallow Evaluation in the EMR. Please note, silent aspiration cannot be ruled out at bedside.
--- NOTE | 2024-01-27 13:15 | P.PNIM_ITS ---
Progress Note: A&P Assessment and Plan (1) Encephalopathy: Code(s): G93.40 - Encephalopathy, unspecified Status: Acute Assessment and Plan: Patient was encephalopathic when brought in to the ED likely was secondary to either postictal from seizures and/or overdose from opioid and/or severe respiratory failure. Head CT was negative on admission. Normal ammonia level Suspect ICU delirium. Patient was awake,alert and oriented but still having issues with hallucinations which felt to be related to his psychiatric issues. Patient was agressive with staff and was given Ativan and Haldol at 1am on 01/25. He was also having paranoia and hallucinations. After discussing with psychiatry, he was started on Risperidone 1mg Q12h (one dose given 1pm on 01/25). He developed mental status changes the evening of 01/25 that continue today. Discussed with psychiatry who recommended benztropine 1mg IM once. If beneficial, then plan for repeat dosing. Risperidone stopped. (2) Bipolar 1 disorder: Code(s): F31.9 - Bipolar disorder, unspecified Status: Acute Assessment and Plan: Patient was clearly delusional and hallucinating after extubation. He was also agitated. Family stating that approximately 1 month ago, patient had a 8 hours stand off at home and he tried to kill himself. He was taken to [facility] where he was on 72 hour hold. After that he was discharged to inpatient psychiatric facility at [facility] where he was for 2 days and was discharged on 12/18. Records show he has Bipolar disorder Type I (mixed, severe w/o psychotic features). Discharged on Xanax 2mg BID and Keppra (dose not listed). Patient was having hallucinations but mother who is present today state that patient developed similar symptoms of halucination and aggressive behavior when on keppra 1500mg bid with improvement in his symptoms when decreased to 1000mg bid. He had breakthrough seizures on the 1000mg dose but may have been withdrawing from benzodiazepines. Crisis evaluation a few days ago felt that he does not need inpatient psych. Continue sitter at bedside Continue PT/OT. Still feel he may have schizophrenia but will need to have him mentally clear to assess properly. Hold on any further treatment for his psychiatric disorder. (3) Seizures: Code(s): R56.9 - Unspecified convulsions Status: Acute Assessment and Plan: Patient has a history of seizures and was out of seizure medications. This could be the cause of his encephalopathy. Also, he took methadone which does decrease seizure threshold. We resumed Keppra at home dose but was having breakthrough seizures so Keppra advanced. He does take alprazolam chronically and was on Versed through 01/19 while intubated. He may have had breakthrough seizures due to stopping benzos. No further seizures since advancing Keppra dose. Continue seizure precautions. Continue Keppra at curent dose. Check level (4) Acute respiratory failure with hypoxia and hypercapnia: Code(s): J96.01 - Acute respiratory failure with hypoxia; J96.02 - Acute respiratory failure with hypercapnia Status: Acute Assessment and Plan: Patient admitted with acute respiratory failure, encephalopathy likely secondary to seizures, aspiration pneumonia as he was found in a hotel room lying in emesis on the bed unknown amount of time, rhabdomyolysis, septic shock, alcohol dependence, illicit drug use with methadone and seizure. Patient has been out of seizure medications per family Patient has been having cough with thick sputum for over a month according to mother but has refused to be evaluated by a doctor or come to the ER. Patient was intubated on 01/12. ABG showing 6.93/116/[address] chest showed diffuse lung disease consistent with pneumonia. ABG improved. Tolerated vent wean and able to be extubated 01/19. Completed a course of abx On room air now. Encourage incentive spirometry. CXR 01/23 showing mild pulmonary edema and was given Lasix IV once with improvement in his tachypnea Resolved (5) Septic shock: Code(s): A41.9 - Sepsis, unspecified organism; R65.21 - Severe sepsis with septic shock Status: Acute Assessment and Plan: Patient with septic shock likely secondary to pneumonia, ARDS. Treated with pressors. BP stabilized and able to be weaned off. IV fluids now off. Off steroids as well BCx negative. UCx negative. Sputum culture grew yeast. MRSA screen was negative. Vancomycin was discontinued Treated with Zosyn (01/13) then Augmentin and completed a course Loose stools initially felt related to tube feeding and abx. CDiff negative. Metamucil added. Resolved (6) Aspiration pneumonia: Qualifiers: Aspiration pneumonia type: unspecified Laterality: bilateral Lung location: unspecified part of lung Qualified Code(s): J69.0 - Pneumonitis due to inhalation of food and vomit Code(s): J69.0 - Pneumonitis due to inhalation of food and vomit Status: Acute Assessment and Plan: As above (7) Polysubstance (including opioids) dependence with physiological dependence: Code(s): F19.20 - Other psychoactive substance dependence, uncomplicated Status: Acute Assessment and Plan: Patient took methadone which was given to him by a neighbor The mother states that was the only time he did drugs Patient does have alcohol dependence. Follow (8) Chronic alcoholism: Code(s): F10.20 - Alcohol dependence, uncomplicated Status: Acute Assessment and Plan: Patient is out of the window for withdrawals. Continue thiamine, folic acid (9) Rhabdomyolysis: Qualifiers: Rhabdomyolysis type: non-traumatic Qualified Code(s): M62.82 - Rhabdomyolysis Code(s): M62.82 - Rhabdomyolysis Status: Acute Assessment and Plan: CK was 3000. Probably secondary to seizures and/or from laying on the floor for prolonged period of time. He received adequate amount of IV fluids Cr slightly elevated at 1.3 but normalized now He did require diuresis due to volume overload and edema Resolved (10) Acidosis: Code(s): E87.20 - Acidosis, unspecified Status: Acute Assessment and Plan: Lactic acid was 7.1 status post bicarb infusion Lactic normal now. Acidosis resolved. Resolved (11) Electrolyte abnormality: Code(s): E87.8 - Other disorders of electrolyte and fluid balance, not elsewhere classified Status: Acute Assessment and Plan: Potassium low on 01/21 and replacement ordered. Potassium normal now Continue to replace potassium as needed (12) Abnormal thyroid function test: Code(s): R94.6 - Abnormal results of thyroid function studies Status: Acute Assessment and Plan: TSH and T4 level low. Free T3 is low Likely euthyroid syndrome Plan to repeat studies in 4-6 weeks. Plan DVT prophylaxis - Lovenox Code Status - Full Code Subjective Date/time seen: 01/27/24 13:15 Interval history: 48yo male with bipolar disorder, paranoid schizophrenia, chronic alcohol abuse and seizure disorder who presented to the ER via EMS from local hotel after patient had been found down unresponsive. Patient developed dysphagia and altered mental status last night. He received Keppra IV since he could not take oral. Exam Narrative: AF 98.6 127/89 99 30 99% ra Gen - NARD sititn gup in bed Chest - distant BS to quiet respirations CV - RRR S1/S2. Telemetry showing no significant dysrhythmias Abd - Soft, NT/ND, Positive BS Ext - No pedal edema Neuro -awake and alert but paucity of speech. Speech clear when he talks. Psych - difficult to assess Skin - Warm and dry Objective Data Vital Signs Vital Signs: Vital Signs - 24 hr 01/26/24 14:00 01/26/24 16:00 01/26/24 16:00 Temperature 97.6 F Pulse Rate 92 104 H 99 Respiratory Rate 27 H 19 Blood Pressure 111/79 Pulse Oximetry 100 100 Oxygen Delivery Room Air Fraction of Inspired Oxygen 01/26/24 16:00 01/26/24 18:00 01/26/24 20:00 Temperature Pulse Rate 108 H 109 H 109 H Respiratory Rate 19 Blood Pressure Pulse Oximetry 100 Oxygen Delivery Room Air Fraction of Inspired Oxygen 21 01/27/24 00:00 01/26/24 20:00 01/27/24 00:00 Temperature 97.9 F 98.3 F Pulse Rate 99 123 H 92 Respiratory Rate 20 23 H 20 Blood Pressure 137/89 148/90 H Pulse Oximetry 100 100 100 Oxygen Delivery Room Air Fraction of Inspired Oxygen 01/26/24 20:00 01/26/24 22:00 01/27/24 00:00 Temperature Pulse Rate 132 H 100 94 Respiratory Rate Blood Pressure Pulse Oximetry Oxygen Delivery Fraction of Inspired Oxygen 01/27/24 02:00 01/27/24 04:00 01/27/24 04:00 Temperature Pulse Rate 90 90 90 Respiratory Rate 20 Blood Pressure Pulse Oximetry 100 Oxygen Delivery Room Air Fraction of Inspired Oxygen 21 01/27/24 04:00 01/27/24 06:00 01/27/24 08:00 Temperature 98.2 F Pulse Rate 91 89 86 Respiratory Rate 17 21 H Blood Pressure 152/88 H Pulse Oximetry 100 100 Oxygen Delivery Room Air Fraction of Inspired Oxygen 01/27/24 08:00 01/27/24 08:00 01/27/24 10:00 Temperature 97.8 F Pulse Rate 76 95 101 H Respiratory Rate 21 H Blood Pressure 147/81 H Pulse Oximetry 100 Oxygen Delivery Fraction of Inspired Oxygen 01/27/24 10:00 01/27/24 12:00 01/27/24 12:00 Temperature Pulse Rate 120 H 91 91 Respiratory Rate 25 H Blood Pressure Pulse Oximetry 99 Oxygen Delivery Room Air Fraction of Inspired Oxygen 01/27/24 12:00 Temperature 98.6 F Pulse Rate 99 Respiratory Rate 30 H Blood Pressure 127/89 Pulse Oximetry 99 Oxygen Delivery Fraction of Inspired Oxygen Intake/Output Intake/Output: Intake & Output 01/24/24 01/25/24 01/26/24 01/27/24 23:59 23:59 23:59 23:59 Intake Total 8298 360 4832 Output Total 1999 1150 1900 750 Balance -860 -350 -450 -750 Meds/Results Medications: Active Medications Generic Name Dose Route Start Last Admin Trade Name Freq PRN Reason Stop Dose Admin Acetaminophen 650 mg 01/22/24 19:09 Acetaminophen Elixir 325 Mg/10.15 Ml Udc PO Q4H PRN Mild Pain (1-5) Or Fever Hydrocodone Bitart/Acetaminophen 1 tab 01/22/24 19:09 Hydrocodone/Acetaminophen (*Crx) 5-325 Mg Tablet PO Q6H PRN Pain Rated 6 or Greater Albuterol/Ipratropium 3 ml 01/14/24 12:30 01/20/24 02:36 Ipratropium 0.5 Mg/Albuterol Sulfate 2.5 Mg Ampul.Neb 3 Ml NEBULIZE 3 ml Q6HRT PRN Administration wheezing Calcium Polycarbophil 1,250 mg 01/25/24 10:50 01/27/24 10:06 Calcium Polycarbophil 625 Mg Tablet PO Not Given BID GERBER Enoxaparin Sodium 40 mg 01/14/24 09:00 01/27/24 09:38 Enoxaparin 40 Mg/0.4 Ml Syringe SUB-Q 40 mg DAILY GERBER Administration Folic Acid 1 mg 01/22/24 09:00 01/27/24 10:06 Folic Acid 1 Mg Tablet PO Not Given DAILY GERBER Hydralazine HCl 20 mg 01/19/24 19:50 Hydralazine Hcl 20 Mg/Ml Vial IV PUSH Q4H PRN SBP >160 Levetiracetam 1,500 mg 01/23/24 21:00 01/27/24 10:06 Levetiracetam 500 Mg Tablet PO Not Given Q12HR GERBER Lorazepam 2 mg 01/22/24 19:09 Lorazepam Inj (*Crx) 2 Mg/Ml Vial IV PUSH Q1H PRN Seizure Activity Ondansetron HCl 4 mg 01/13/24 16:22 01/23/24 18:31 Ondansetron Inj 4 Mg/2 Ml Vial IV PUSH 4 mg Q4H PRN Administration Nausea Risperidone 1 mg 01/26/24 13:00 01/27/24 10:06 Risperidone 1 Mg Tablet PO Not Given Q12HR [facility] Sodium Chloride 20 ml 01/13/24 20:18 Central Line Flush IV PUSH PRN PRN after blood draws Thiamine HCl 100 mg 01/22/24 09:00 01/27/24 10:06 Thiamine Hcl 100 Mg Tablet PO Not Given QAM [facility] Radiology Results: ITS Impressions Head CT 01/13/24 15:43 IMPRESSION: No acute intracranial findings. Chest/Abdomen/Pelvis CT 01/14/24 11:18 IMPRESSION: 1. Diffuse lung disease, consistent with pneumonia. 2. Small pleural effusions. 3. Small volume of ascites. Abdomen X-Ray 01/16/24 09:15 IMPRESSION: 1. Normal bowel gas pattern. 2. Airspace opacities in the lungs bilaterally, right worse than left, consistent with pneumonia. 3. Small pleural effusions. Chest X-Ray 01/24/24 06:43 IMPRESSION: 1. Likely mild pulmonary edema at the lower lung zones and very small bilateral pleural effusions. Labs Labs: Laboratory Results - last 24 hr 01/26/24 01/26/24 01/26/24 13:07 13:20 13:30 WBC 8.3 RBC 4.25 L Hgb 13.5 L Hct 40.7 L MCV 95.8 MCH 31.8 MCHC 33.2 RDW 12.6 Plt Count 420 H MPV 9.2 Immature Gran % (Auto) 0.4 Neut % (Auto) 79.0 H Lymph % (Auto) 8.9 L [place] % (Auto) 9.4 H Eos % (Auto) 1.9 Baso % (Auto) 0.4 Lymph # (Auto) 0.74 L [place] # (Auto) 0.8 H Eos # (Auto) 0.2 Baso # (Auto) 0.0 Abs Immat Gran (auto) 0.03 Absolute Neuts (auto) 6.6 Absolute Nucleated RBC 0.000 Nucleated RBC % 0.0 Sodium 135 L Potassium 4.0 Chloride 106 Carbon Dioxide 19 L Anion Gap 10 BUN 17 Creatinine 0.70 Estim Creat Clear Calc 108 Estimated GFR > 60 Glucose 143 H Calcium 8.9 Magnesium 2.4 H Total Bilirubin 0.9 AST 52 ALT 79 H Alkaline Phosphatase 78 Total Protein 8.0 Albumin 4.1 C. difficile (PCR) Negative
[2024-01-27] MEDS: BENZTROPINE MESYLATE INJ 1 MG/ML AMPUL 2 MG IM (19:07)
[2024-01-27] MEDS: BENZTROPINE MESYLATE INJ 1 MG/ML AMPUL IM (21:37)
[2024-01-28] VITALS (16 sets, daily range): BP systolic 117–140; BP diastolic 68–94; PULSE 81–117; RESP 12–25; TEMP 36.4–37.3; O2SAT 97–100
[2024-01-28] MEDS: THIAMINE HCL 100 MG TABLET PO (08:27)
[2024-01-28] MEDS: FOLIC ACID 1 MG TABLET PO (08:27)
[2024-01-28] MEDS: ENOXAPARIN 40 MG/0.4 ML SYRINGE SUB-Q (08:27)
[2024-01-28] MEDS: levETIRAcetam 1500MG/NACL100ML 1,500 MG/100 ML BAG 400 MG IVPB ×2 (08:28→20:40)
[2024-01-28] MEDS: calcium polycarbophiL 625 MG TABLET 1250 MG PO ×2 (08:28→16:11)
[2024-01-28] MEDS: LORazepam INJ (*CRX) 2 MG/ML VIAL 1 MG IV PUSH (08:34)
--- NOTE | 2024-01-28 11:02 | PCNFU ---
Nutrition Follow-Up Complete: Suboptimal Energy Intake as related to mechanical ventilation as evidenced by NPO. Goal: Meet estimated nutritional needs. Patient has limited progress towards goal. We will continue current goal. Pt current nutrition is Clear liquids. Last recorded weight is 65.3 kg. Bowel Motility:+BM reported 01/15 Labs Reviewed:no labs to report Meds Noted: Keppra,Thiamine,Folic Acid Skin: WNL Additional Notes:Patient had Bedside Swallow 01/26 recommending liquids at this time till MBS can be performed. Patient currently on a clear liquid diet and refusing meals. Diet supplements of Ensure Clear on trays for an additional 240 kcals and 8 gm protein. Will monitor for diet order advancement. Will monitor weight, labs, skin, tube feeding tolerance, meds every 3 days.
--- NOTE | 2024-01-28 11:51 | PC.NURSE ---
Patient repeatedly trying to stand at bedside and go to my room. Unable to be reoriented to situation, place. Threatening to take 8 or 9 guns and shoot all of you. Patients balance noted to be very unsteady when trying to get out of bed. security called and called to bedside. Patient given haldol and repositioned in bed without injury or incident. Soft restraints applied. Bed alarm on.
[2024-01-28] MEDS: HALOPERIDOL LACTATE 5 MG/ML VIAL IV PUSH (11:54)
--- NOTE | 2024-01-28 13:21 | P.PNIM_ITS ---
Progress Note: A&P Assessment and Plan (1) Encephalopathy: Code(s): G93.40 - Encephalopathy, unspecified Status: Acute Assessment and Plan: Patient was encephalopathic when brought in to the ED likely was secondary to either postictal from seizures and/or overdose from opioid and/or severe respiratory failure. Head CT was negative on admission. Normal ammonia level Suspect ICU delirium. Patient was awake,alert and oriented but still having issues with hallucinations which felt to be related to his psychiatric issues. Patient was agressive with staff and was given Ativan and Haldol at 1am on 01/25. He was also having paranoia and hallucinations. After discussing with psychiatry, he was started on Risperidone 1mg Q12h (one dose given 1pm on 01/25). He developed mental status changes the evening of 01/25 that continue today. Discussed with psychiatry who recommended benztropine 1mg IM once. If beneficial, then plan for repeat dosing. Risperidone stopped. 01/28/24 Remains aggressive and confused. Will continue to use Ativan Haldol as needed. (2) Bipolar 1 disorder: Code(s): F31.9 - Bipolar disorder, unspecified Status: Acute Assessment and Plan: Patient was clearly delusional and hallucinating after extubation. He was also agitated. Family stating that approximately 1 month ago, patient had a 8 hours stand off at home and he tried to kill himself. He was taken to [facility] where he was on 72 hour hold. After that he was discharged to inpatient psychiatric facility at [facility] where he was for 2 days and was discharged on 12/18. Records show he has Bipolar disorder Type I (mixed, severe w/o psychotic features). Discharged on Xanax 2mg BID and Keppra (dose not listed). Patient was having hallucinations but mother who is present today state that patient developed similar symptoms of halucination and aggressive behavior when on keppra 1500mg bid with improvement in his symptoms when decreased to 1000mg bid. He had breakthrough seizures on the 1000mg dose but may have been withdrawing from benzodiazepines. Crisis evaluation a few days ago felt that he does not need inpatient psych. Continue sitter at bedside Continue PT/OT. Still feel he may have schizophrenia but will need to have him mentally clear to assess properly. Hold on any further treatment for his psychiatric disorder. 01/28/24 Remains aggressive and confused. Will continue Haldol and Ativan p.r.n. (3) Seizures: Code(s): R56.9 - Unspecified convulsions Status: Acute Assessment and Plan: Patient has a history of seizures and was out of seizure medications. This could be the cause of his encephalopathy. Also, he took methadone which does decrease seizure threshold. We resumed Keppra at home dose but was having breakthrough seizures so Keppra advanced. He does take alprazolam chronically and was on Versed through 01/19 while intubated. He may have had breakthrough seizures due to stopping benzos. No further seizures since advancing Keppra dose. Continue seizure precautions. Continue Keppra at curent dose. Check level 01/28/24 Stable on current medication (4) Acute respiratory failure with hypoxia and hypercapnia: Code(s): J96.01 - Acute respiratory failure with hypoxia; J96.02 - Acute respiratory failure with hypercapnia Status: Acute Assessment and Plan: Patient admitted with acute respiratory failure, encephalopathy likely secondary to seizures, aspiration pneumonia as he was found in a hotel room lying in emesis on the bed unknown amount of time, rhabdomyolysis, septic shock, alcohol dependence, illicit drug use with methadone and seizure. Patient has been out of seizure medications per family Patient has been having cough with thick sputum for over a month according to mother but has refused to be evaluated by a doctor or come to the ER. Patient was intubated on 01/12. ABG showing 6.93/116/[address] chest showed diffuse lung disease consistent with pneumonia. ABG improved. Tolerated vent wean and able to be extubated 01/19. Completed a course of abx On room air now. Encourage incentive spirometry. CXR 01/23 showing mild pulmonary edema and was given Lasix IV once with improvement in his tachypnea Resolved (5) Septic shock: Code(s): A41.9 - Sepsis, unspecified organism; R65.21 - Severe sepsis with septic shock Status: Acute Assessment and Plan: Patient with septic shock likely secondary to pneumonia, ARDS. Treated with pressors. BP stabilized and able to be weaned off. IV fluids now off. Off steroids as well BCx negative. UCx negative. Sputum culture grew yeast. MRSA screen was negative. Vancomycin was discontinued Treated with Zosyn (01/13) then Augmentin and completed a course Loose stools initially felt related to tube feeding and abx. CDiff negative. Metamucil added. Resolved (6) Aspiration pneumonia: Qualifiers: Aspiration pneumonia type: unspecified Laterality: bilateral Lung location: unspecified part of lung Qualified Code(s): J69.0 - Pneumonitis due to inhalation of food and vomit Code(s): J69.0 - Pneumonitis due to inhalation of food and vomit Status: Acute Assessment and Plan: As above (7) Polysubstance (including opioids) dependence with physiological dependence: Code(s): F19.20 - Other psychoactive substance dependence, uncomplicated Status: Acute Assessment and Plan: Patient took methadone which was given to him by a neighbor The mother states that was the only time he did drugs Patient does have alcohol dependence. Follow (8) Chronic alcoholism: Code(s): F10.20 - Alcohol dependence, uncomplicated Status: Acute Assessment and Plan: Patient is out of the window for withdrawals. Continue thiamine, folic acid (9) Rhabdomyolysis: Qualifiers: Rhabdomyolysis type: non-traumatic Qualified Code(s): M62.82 - Rhabdomyolysis Code(s): M62.82 - Rhabdomyolysis Status: Acute Assessment and Plan: CK was 3000. Probably secondary to seizures and/or from laying on the floor for prolonged period of time. He received adequate amount of IV fluids Cr slightly elevated at 1.3 but normalized now He did require diuresis due to volume overload and edema Resolved (10) Acidosis: Code(s): E87.20 - Acidosis, unspecified Status: Acute Assessment and Plan: Lactic acid was 7.1 status post bicarb infusion Lactic normal now. Acidosis resolved. Resolved (11) Electrolyte abnormality: Code(s): E87.8 - Other disorders of electrolyte and fluid balance, not elsewhere classified Status: Acute Assessment and Plan: Potassium low on 01/21 and replacement ordered. Potassium normal now Continue to replace potassium as needed (12) Abnormal thyroid function test: Code(s): R94.6 - Abnormal results of thyroid function studies Status: Acute Assessment and Plan: TSH and T4 level low. Free T3 is low Likely euthyroid syndrome Plan to repeat studies in 4-6 weeks. Plan DVT prophylaxis - Lovenox Code Status - Full Code Subjective Date/time seen: 01/28/24 13:21 Interval history: 48yo male with bipolar disorder, paranoid schizophrenia, chronic alcohol abuse and seizure disorder who presented to the ER via EMS from local hotel after p dominic had been found down unresponsive. Patient was seen during the morning rounds today. Patient alert but not oriented to place and time. Patient remain aggressive. No other complaints. Review of Systems Review of Systems: ROS unobtainable: Yes unobtainable due to endotracheal tube, unobtainable due to medical condition and unobtainable due to mental status Exam Narrative: AF 98.6 127/89 99 30 99% ra Gen - NARD sititn gup in bed Chest - distant BS to quiet respirations CV - RRR S1/S2. Telemetry showing no significant dysrhythmias Abd - Soft, NT/ND, Positive BS Ext - No pedal edema Neuro -awake and alert but paucity of speech. Speech clear when he talks. Psych - Aggressive Behavior Skin - Warm and dry Const: Other: No acute distress, intubated, sedated head of the bed at 30? HENMT: Other: Head is normocephalic atraumatic, mucous membranes are dry, dental implants in place Eyes: Other: Pupils are equal and reactive, no scleral icterus, no conjunctival pallor Neck: Other: No JVD, mild anterior cervical lymphadenopathy Resp: Other: Coarse crackles bilaterally, tachypneic, equal breath sounds Cardio: Other: Mildly tachycardic, 2+ bilateral radial pedal pulses GI: Other: Soft, nondistended, nontender, positive bowel sounds : Other: Bates catheter in place with clear dark yellow urine Skin: Other: Numerous tattoos on bilateral hands, chest, arms, no jaundice, no petechiae, 4-5 second cap refill, no mottling, he was linear scarring tracking up the lateral dorsal forearms history due to history of cutting Neuro: Other: Patient is moving all extremities has gag reflex PEEP pupils are equal and reactive, patient is difficult to redirect despite multiple sedatives Extrem: Other: No clubbing, cyanosis or edema Psych: Other: Pulling at tubes and lines, restraints in place, on multiple sedatives Objective Data Vital Signs Vital Signs: Vital Signs - 24 hr 01/27/24 14:00 01/27/24 16:00 01/27/24 16:00 Temperature 36.8 C Pulse Rate 91 110 H 98 Respiratory Rate 17 25 H Blood Pressure 134/84 Pulse Oximetry 98 99 Oxygen Delivery Room Air Fraction of Inspired Oxygen 01/27/24 16:00 01/27/24 20:00 01/27/24 20:00 Temperature 36.6 C Pulse Rate 94 94 92 Respiratory Rate 25 H 22 H Blood Pressure 137/85 Pulse Oximetry 99 100 Oxygen Delivery Room Air Fraction of Inspired Oxygen 21 01/27/24 20:00 01/27/24 22:00 01/28/24 00:00 Temperature Pulse Rate 92 82 82 Respiratory Rate 22 H Blood Pressure Pulse Oximetry 100 Oxygen Delivery Room Air Fraction of Inspired Oxygen 21 01/28/24 04:00 01/28/24 00:00 01/28/24 02:00 Temperature Pulse Rate 82 84 85 Respiratory Rate 22 H Blood Pressure Pulse Oximetry 100 Oxygen Delivery Room Air Fraction of Inspired Oxygen 21 01/28/24 04:00 01/28/24 00:00 01/28/24 04:00 Temperature 36.8 C 36.7 C Pulse Rate 90 84 90 Respiratory Rate 12 19 Blood Pressure 140/84 138/87 Pulse Oximetry 100 100 Oxygen Delivery Fraction of Inspired Oxygen 01/28/24 06:00 01/28/24 08:00 01/28/24 08:00 Temperature Pulse Rate 96 103 H 103 H Respiratory Rate 25 H Blood Pressure Pulse Oximetry 99 Oxygen Delivery Room Air Fraction of Inspired Oxygen 01/28/24 08:00 01/28/24 11:45 01/28/24 12:00 Temperature 36.4 C L 36.6 C Pulse Rate 103 H 106 H 103 H Respiratory Rate 25 H 23 H 20 Blood Pressure 139/85 140/68 121/70 Pulse Oximetry 99 98 98 Oxygen Delivery Fraction of Inspired Oxygen 01/28/24 10:00 01/28/24 12:00 01/28/24 12:00 Temperature 36.6 C Pulse Rate 110 H 103 H 103 H Respiratory Rate 20 Blood Pressure 121/70 Pulse Oximetry 98 Oxygen Delivery Fraction of Inspired Oxygen 01/28/24 12:00 01/28/24 12:15 01/28/24 12:30 Temperature 36.6 C Pulse Rate 103 H 95 99 Respiratory Rate 20 17 25 H Blood Pressure 118/81 117/89 Pulse Oximetry 98 99 98 Oxygen Delivery Room Air Fraction of Inspired Oxygen 01/28/24 12:45 01/28/24 13:01 Temperature Pulse Rate 93 93 Respiratory Rate 19 19 Blood Pressure 120/94 H 124/85 Pulse Oximetry 99 97 Oxygen Delivery Fraction of Inspired Oxygen Intake/Output Intake/Output: Intake & Output 01/25/24 01/26/24 01/27/24 01/28/24 23:59 23:59 23:59 23:59 Intake Total 800 1450 100 Output Total 1150 1900 750 700 Balance -350 -450 -650 -700 Meds/Results Medications: Active Medications Generic Name Dose Route Start Last Admin Trade Name Freq PRN Reason Stop Dose Admin Acetaminophen 650 mg 01/22/24 19:09 Acetaminophen Elixir 325 Mg/10.15 Ml Udc PO Q4H PRN Mild Pain (1-5) Or Fever Hydrocodone Bitart/Acetaminophen 1 tab 01/22/24 19:09 Hydrocodone/Acetaminophen (*Crx) 5-325 Mg Tablet PO Q6H PRN Pain Rated 6 or Greater Albuterol/Ipratropium 3 ml 01/14/24 12:30 01/20/24 02:36 Ipratropium 0.5 Mg/Albuterol Sulfate 2.5 Mg Ampul.Neb 3 Ml NEBULIZE 3 ml Q6HRT PRN Administration wheezing Calcium Polycarbophil 1,250 mg 01/25/24 10:50 01/28/24 08:28 Calcium Polycarbophil 625 Mg Tablet PO 1,250 mg BID GERBER Administration Enoxaparin Sodium 40 mg 01/14/24 09:00 01/28/24 08:27 Enoxaparin 40 Mg/0.4 Ml Syringe SUB-Q 40 mg DAILY GERBER Administration Folic Acid 1 mg 01/22/24 09:00 01/28/24 08:27 Folic Acid 1 Mg Tablet PO 1 mg DAILY GERBER Administration Hydralazine HCl 20 mg 01/19/24 19:50 Hydralazine Hcl 20 Mg/Ml Vial IV PUSH Q4H PRN SBP >160 Levetiracetam 1,500 mg in 100 mls @ 400 mls/hr 01/27/24 21:00 01/28/24 08:28 Keppra Iv IVPB 400 mls/hr Q12HR GERBER Administration Levetiracetam 1,500 mg 01/23/24 21:00 01/27/24 10:06 Levetiracetam 500 Mg Tablet PO Not Given Q12HR GERBER Lorazepam 2 mg 01/22/24 19:09 Lorazepam Inj (*Crx) 2 Mg/Ml Vial IV PUSH Q1H PRN Seizure Activity Lorazepam 1 mg 01/27/24 19:21 01/28/24 08:34 Lorazepam Inj (*Crx) 2 Mg/Ml Vial IV PUSH 1 mg Q6H PRN Administration Anxiety Ondansetron HCl 4 mg 01/13/24 16:22 01/23/24 18:31 Ondansetron Inj 4 Mg/2 Ml Vial IV PUSH 4 mg Q4H PRN Administration Nausea Sodium Chloride 20 ml 01/13/24 20:18 Central Line Flush IV PUSH PRN PRN after blood draws Thiamine HCl 100 mg 01/22/24 09:00 01/28/24 08:27 Thiamine Hcl 100 Mg Tablet PO 100 mg QAM GERBER Administration Radiology Results: ITS Impressions Head CT 01/13/24 15:43 IMPRESSION: No acute intracranial findings. Chest/Abdomen/Pelvis CT 01/14/24 11:18 IMPRESSION: 1. Diffuse lung disease, consistent with pneumonia. 2. Small pleural effusions. 3. Small volume of ascites. Abdomen X-Ray 01/16/24 09:15 IMPRESSION: 1. Normal bowel gas pattern. 2. Airspace opacities in the lungs bilaterally, right worse than left, consistent with pneumonia. 3. Small pleural effusions. Chest X-Ray 01/24/24 06:43 IMPRESSION: 1. Likely mild pulmonary edema at the lower lung zones and very small bilateral pleural effusions. Quality VTE Prophylaxis VTE prophylaxis: pharmacologic ordered
[2024-01-28] MEDS: DEXTROSE 5%/0.45% SOD CHL 1,000 ML 100 ML IV CONT (16:11)
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
[2024-01-29] VITALS (12 sets, daily range): BP systolic 123–149; BP diastolic 77–90; PULSE 80–101; RESP 15–22; TEMP 36.4–36.9; O2SAT 98–100
[2024-01-29 00:36] LABS: Hemoglobin A1C 5.6 % (<5.7)
[2024-01-29 00:58] LABS: Vitamin D 25 Hydroxy 23.3 ng/mL
[2024-01-29 01:10] LABS: Hepatitis B Surface Antigen Negative (Negative)
[2024-01-29 01:16] LABS: HAV RESULT Negative (Negative); Hepatitis B Core IgM Result Negative (Negative)
[2024-01-29 01:22] LABS: HIV 1/2 Ab P24 Ag Result Negative (Negative)
[2024-01-29 01:27] LABS: Hepatitis C Virus Antibody Negative (Negative)
[2024-01-29] MEDS: DEXTROSE 5%/0.45% SOD CHL 1,000 ML 100 ML IV CONT ×2 (02:11→12:18)
[2024-01-29] MEDS: THIAMINE HCL 100 MG TABLET PO (09:36)
[2024-01-29] MEDS: ENOXAPARIN 40 MG/0.4 ML SYRINGE SUB-Q (09:36)
[2024-01-29] MEDS: FOLIC ACID 1 MG TABLET PO (09:36)
[2024-01-29] MEDS: calcium polycarbophiL 625 MG TABLET 1250 MG PO (09:36)
[2024-01-29] MEDS: levETIRAcetam 1500MG/NACL100ML 1,500 MG/100 ML BAG 400 MG IVPB ×2 (09:37→20:24)
[2024-01-29 11:09] LABS: Levetiracetam Keppra 25.7 mcg/mL (6.0-46.0)
--- NOTE | 2024-01-29 12:36 | P.PNIM_ITS ---
Progress Note: A&P Assessment and Plan (1) Encephalopathy: Code(s): G93.40 - Encephalopathy, unspecified Status: Acute Assessment and Plan: Patient now oriented x3, however having some hallucinations Patient has a history of Schizophrenia Psych following and adjusting Haldol patient now impulsive and on Haldol per Psych continue Haldol and further recommendations per psych Crisis management consulted for possible inpatient psych transfer (2) Bipolar 1 disorder: Code(s): F31.9 - Bipolar disorder, unspecified Status: Acute Assessment and Plan: Patient was clearly delusional and hallucinating after extubation. He was also agitated. Family stating that approximately 1 month ago, patient had a 8 hours stand off at home and he tried to kill himself. He was taken to [facility] where he was on 72 hour hold. After that he was discharged to inpatient psychiatric facility at [facility] where he was for 2 days and was discharged on 12/18. Records show he has Bipolar disorder Type I (mixed, severe w/o psychotic features). Discharged on Xanax 2mg BID and Keppra (dose not listed). Patient was having hallucinations but mother who is present today state that patient developed similar symptoms of halucination and aggressive behavior when on keppra 1500mg bid with improvement in his symptoms when decreased to 1000mg bid. He had breakthrough seizures on the 1000mg dose but may have been withdrawing from benzodiazepines. Crisis evaluation a few days ago felt that he does not need inpatient psych. Continue sitter at bedside Continue PT/OT. Still feel he may have schizophrenia but will need to have him mentally clear to assess properly. Hold on any further treatment for his psychiatric disorder. 01/28/24 Remains aggressive and confused. Will continue Haldol and Ativan p.r.n. 01/29/24 Patient calm at bedside, however nurse noted he is still impulsive (3) Seizures: Code(s): R56.9 - Unspecified convulsions Status: Acute Assessment and Plan: Patient has a history of seizures and was out of seizure medications. This could be the cause of his encephalopathy. Also, he took methadone which does decrease seizure threshold. We resumed Keppra at home dose but was having breakthrough seizures so Keppra advanced. He does take alprazolam chronically and was on Versed through 01/19 while intubated. He may have had breakthrough seizures due to stopping benzos. No further seizures since advancing Keppra dose. Continue seizure precautions. Continue Keppra at curent dose. Check level 01/28/24 Stable on current medication (4) Acute respiratory failure with hypoxia and hypercapnia: Code(s): J96.01 - Acute respiratory failure with hypoxia; J96.02 - Acute respiratory failure with hypercapnia Status: Acute Assessment and Plan: Patient admitted with acute respiratory failure, encephalopathy likely secondary to seizures, aspiration pneumonia as he was found in a hotel room lying in emesis on the bed unknown amount of time, rhabdomyolysis, septic shock, alcohol dependence, illicit drug use with methadone and seizure. Patient has been out of seizure medications per family Patient has been having cough with thick sputum for over a month according to mother but has refused to be evaluated by a doctor or come to the ER. Patient was intubated on 01/12. ABG showing 6.93/116/83.[address] chest showed diffuse lung disease consistent with pneumonia. ABG improved. Tolerated vent wean and able to be extubated 01/19. Completed a course of abx On room air now. Encourage incentive spirometry. CXR 01/23 showing mild pulmonary edema and was given Lasix IV once with improvement in his tachypnea Resolved ECHO showed grade I diastolic function repeat CXR pending (5) Septic shock: Code(s): A41.9 - Sepsis, unspecified organism; R65.21 - Severe sepsis with septic shock Status: Acute Assessment and Plan: Patient with septic shock likely secondary to pneumonia, ARDS. Treated with pressors. BP stabilized and able to be weaned off. IV fluids now off. Off steroids as well BCx negative. UCx negative. Sputum culture grew yeast. MRSA screen was negative. Vancomycin was discontinued Treated with Zosyn (01/13) then Augmentin and completed a course Loose stools initially felt related to tube feeding and abx. CDiff negative. Metamucil added. Resolved (6) Aspiration pneumonia: Qualifiers: Aspiration pneumonia type: unspecified Laterality: bilateral Lung location: unspecified part of lung Qualified Code(s): J69.0 - Pneumonitis due to inhalation of food and vomit Code(s): J69.0 - Pneumonitis due to inhalation of food and vomit Status: Acute Assessment and Plan: As above (7) Polysubstance (including opioids) dependence with physiological dependence: Code(s): F19.20 - Other psychoactive substance dependence, uncomplicated Status: Acute Assessment and Plan: Patient took methadone which was given to him by a neighbor The mother states that was the only time he did drugs Patient does have alcohol dependence. Follow (8) Chronic alcoholism: Code(s): F10.20 - Alcohol dependence, uncomplicated Status: Acute Assessment and Plan: Patient is out of the window for withdrawals. Continue thiamine, folic acid (9) Rhabdomyolysis: Qualifiers: Rhabdomyolysis type: non-traumatic Qualified Code(s): M62.82 - Rhabdomyolysis Code(s): M62.82 - Rhabdomyolysis Status: Acute Assessment and Plan: CK was 3000. Probably secondary to seizures and/or from laying on the floor for prolonged period of time. He received adequate amount of IV fluids Cr slightly elevated at 1.3 but normalized now He did require diuresis due to volume overload and edema Resolved (10) Acidosis: Code(s): E87.20 - Acidosis, unspecified Status: Acute Assessment and Plan: Lactic acid was 7.1 status post bicarb infusion Lactic normal now. Acidosis resolved. Resolved (11) Electrolyte abnormality: Code(s): E87.8 - Other disorders of electrolyte and fluid balance, not elsewhere classified Status: Acute Assessment and Plan: Potassium low on 01/21 and replacement ordered. Potassium normal now Continue to replace potassium as needed (12) Abnormal thyroid function test: Code(s): R94.6 - Abnormal results of thyroid function studies Status: Acute Assessment and Plan: TSH and T4 level low. Free T3 is low Likely euthyroid syndrome Plan to repeat studies in 4-6 weeks. Plan DVT prophylaxis - Lovenox Code Status - Full Code Patient stable for discharge from medical standpoint PT/OT consulted awaiting crisis management consulted for possible inpatient psych Subjective Date/time seen: 01/29/24 12:36 Interval history: Patient alert and oriented at the time of this encounter. On room air and eating. completed antibiotics. Nurse noted that patient is impulsive however psychi is on board and adjusting psych meds Patient is medically stable for discharge Crisis management consulted for inpatient psych consideration Review of Systems Review of Systems: ROS unobtainable: Yes unobtainable due to endotracheal tube, unobtainable due to medical condition and unobtainable due to mental status Exam Narrative: Gen - Alert and oriented x3 Chest - distant BS to quiet respirations CV - RRR S1/S2. Telemetry showing no significant dysrhythmias Abd - Soft, NT/ND, Positive BS Ext - No pedal edema Neuro -awake and alert but paucity of speech. Speech clear when he talks. Psych - Aggressive Behavior Skin - Warm and dry Const: Other: No acute distress, intubated, sedated head of the bed at 30? HENMT: Other: Head is normocephalic atraumatic, mucous membranes are dry, dental implants in place Eyes: Other: Pupils are equal and reactive, no scleral icterus, no conjunctival pallor Neck: Other: No JVD, mild anterior cervical lymphadenopathy Resp: Other: Coarse crackles bilaterally, tachypneic, equal breath sounds Cardio: Other: Mildly tachycardic, 2+ bilateral radial pedal pulses GI: Other: Soft, nondistended, nontender, positive bowel sounds : Other: Bates catheter in place with clear dark yellow urine Skin: Other: Numerous tattoos on bilateral hands, chest, arms, no jaundice, no petechiae, 4-5 second cap refill, no mottling, he was linear scarring tracking up the lateral dorsal forearms history due to history of cutting Neuro: Other: Patient is moving all extremities has gag reflex PEEP pupils are equal and reactive, patient is difficult to redirect despite multiple sedatives Extrem: Other: No clubbing, cyanosis or edema Psych: Other: Pulling at tubes and lines, restraints in place, on multiple sedatives Objective Data Vital Signs Vital Signs: Vital Signs - 24 hr 01/28/24 12:45 01/28/24 13:01 01/28/24 14:45 Temperature Pulse Rate 93 93 94 Respiratory Rate 19 19 20 Blood Pressure 120/94 H 124/85 124/85 Pulse Oximetry 99 97 98 Oxygen Delivery Fraction of Inspired Oxygen 01/28/24 16:00 01/28/24 16:00 01/28/24 16:00 Temperature 99.1 F Pulse Rate 117 H 117 H 117 H Respiratory Rate 23 H 23 H Blood Pressure 131/94 H Pulse Oximetry 99 99 Oxygen Delivery Room Air Fraction of Inspired Oxygen 01/28/24 20:00 01/28/24 20:00 01/28/24 20:00 Temperature 98.2 F Pulse Rate 81 97 97 Respiratory Rate 23 H 22 H Blood Pressure 127/82 Pulse Oximetry 99 100 Oxygen Delivery Room Air Fraction of Inspired Oxygen 01/28/24 22:00 01/29/24 00:00 01/29/24 00:00 Temperature Pulse Rate 101 H 101 H 100 Respiratory Rate 22 H Blood Pressure Pulse Oximetry 100 Oxygen Delivery Room Air Fraction of Inspired Oxygen 21 01/29/24 00:00 01/29/24 02:00 01/29/24 04:00 Temperature 97.9 F Pulse Rate 100 88 88 Respiratory Rate 20 20 Blood Pressure 123/77 Pulse Oximetry 98 98 Oxygen Delivery Room Air Fraction of Inspired Oxygen 01/29/24 04:00 01/29/24 04:00 01/29/24 06:00 Temperature 98.2 F Pulse Rate 86 86 87 Respiratory Rate 19 Blood Pressure 133/89 Pulse Oximetry 98 Oxygen Delivery Fraction of Inspired Oxygen 01/29/24 08:00 01/29/24 11:44 Temperature 98.5 F 97.6 F Pulse Rate 90 82 Respiratory Rate 15 21 H Blood Pressure 133/80 124/78 Pulse Oximetry 100 100 Oxygen Delivery Fraction of Inspired Oxygen Intake/Output Intake/Output: Intake & Output 01/26/24 01/27/24 01/28/24 01/29/24 23:59 23:59 23:59 23:59 Intake Total 1450 531 046 6953 Output Total 1058 847 6670 1150 Balance -450 -650 -300 1150 Meds/Results Medications: Active Medications Generic Name Dose Route Start Last Admin Trade Name Freq PRN Reason Stop Dose Admin Acetaminophen 650 mg 01/22/24 19:09 Acetaminophen Elixir 325 Mg/10.15 Ml Udc PO Q4H PRN Mild Pain (1-5) Or Fever Hydrocodone Bitart/Acetaminophen 1 tab 01/22/24 19:09 Hydrocodone/Acetaminophen (*Crx) 5-325 Mg Tablet PO Q6H PRN Pain Rated 6 or Greater Albuterol/Ipratropium 3 ml 01/14/24 12:30 01/20/24 02:36 Ipratropium 0.5 Mg/Albuterol Sulfate 2.5 Mg Ampul.Neb 3 Ml NEBULIZE 3 ml Q6HRT PRN Administration wheezing Calcium Polycarbophil 1,250 mg 01/25/24 10:50 01/29/24 09:36 Calcium Polycarbophil 625 Mg Tablet PO 1,250 mg BID GERBER Administration Enoxaparin Sodium 40 mg 01/14/24 09:00 01/29/24 09:36 Enoxaparin 40 Mg/0.4 Ml Syringe SUB-Q 40 mg DAILY GERBER Administration Folic Acid 1 mg 01/22/24 09:00 01/29/24 09:36 Folic Acid 1 Mg Tablet PO 1 mg DAILY GERBER Administration Haloperidol 5 mg 01/29/24 21:00 Haloperidol 5 Mg Tablet PO BEDTIME PRN Psychosis Hydralazine HCl 20 mg 01/19/24 19:50 Hydralazine Hcl 20 Mg/Ml Vial IV PUSH Q4H PRN SBP >160 Levetiracetam 1,500 mg in 100 mls @ 400 mls/hr 01/27/24 21:00 01/29/24 09:52 Keppra Iv IVPB Infused Q12HR GERBER Infusion Dextrose/Sodium Chloride 1,000 mls @ 100 mls/hr 01/28/24 16:05 01/29/24 12:18 Dextrose 5% Sodium Chloride 0.45% IV CONT 100 mls/hr .Q10H GERBER Administration Levetiracetam 1,500 mg 01/23/24 21:00 01/27/24 10:06 Levetiracetam 500 Mg Tablet PO Not Given Q12HR GERBER Lorazepam 2 mg 01/22/24 19:09 Lorazepam Inj (*Crx) 2 Mg/Ml Vial IV PUSH Q1H PRN Seizure Activity Lorazepam 1 mg 01/27/24 19:21 01/28/24 08:34 Lorazepam Inj (*Crx) 2 Mg/Ml Vial IV PUSH 1 mg Q6H PRN Administration Anxiety Ondansetron HCl 4 mg 01/13/24 16:22 01/23/24 18:31 Ondansetron Inj 4 Mg/2 Ml Vial IV PUSH 4 mg Q4H PRN Administration Nausea Sodium Chloride 20 ml 01/13/24 20:18 Central Line Flush IV PUSH PRN PRN after blood draws Thiamine HCl 100 mg 01/22/24 09:00 01/29/24 09:36 Thiamine Hcl 100 Mg Tablet PO 100 mg QAM GERBER Administration Radiology Results: ITS Impressions Head CT 01/13/24 15:43 IMPRESSION: No acute intracranial findings. Chest/Abdomen/Pelvis CT 01/14/24 11:18 IMPRESSION: 1. Diffuse lung disease, consistent with pneumonia. 2. Small pleural effusions. 3. Small volume of ascites. Abdomen X-Ray 01/16/24 09:15 IMPRESSION: 1. Normal bowel gas pattern. 2. Airspace opacities in the lungs bilaterally, right worse than left, consistent with pneumonia. 3. Small pleural effusions. Chest X-Ray 01/24/24 06:43 IMPRESSION: 1. Likely mild pulmonary edema at the lower lung zones and very small bilateral pleural effusions. Labs Labs: Laboratory Results - last 24 hr 01/27/24 01/29/24 17:57 00:24 Hemoglobin A1c 5.6 Vitamin D 25-Hydroxy 23.3 TSH (Reflex) 2.610 Levetiracetam 25.7 Hepatitis A IgM Ab Negative Hep Bs Antigen Negative Hep B Core IgM Ab Negative Hepatitis C Ab Screen Negative HIV 1&2 Ab/P24 Ag 4thGn Negative Quality VTE Prophylaxis VTE prophylaxis: pharmacologic ordered
[2024-01-29] MEDS: ONDANSETRON INJ 4 MG/2 ML VIAL IV PUSH (17:27)
[2024-01-29] MEDS: HYDROcodone/acetaminophen (*CRX) 5-325 MG TABLET 1 TAB PO (23:20)
[2024-01-29] MEDS: LORazepam INJ (*CRX) 2 MG/ML VIAL 1 MG IV PUSH (23:21)
[2024-01-30] VITALS: BP 125/97; PULSE 81; RESP 16; TEMP 36.5; O2SAT 100
[2024-01-30 07:46] LABS: Basophils Percent Auto 0.5 % (0.2-1.2); Eosinophils Absolute Auto 0.2 K/mm3 (0-0.3); Eosinophils Percent Auto 3.4 % (0-4.4); Hematocrit 38.4 % (42.0-52.0); Hemoglobin 13.2 g/dL (14.0-18.0); Immature Granulocyte Absolute 0.01 K/mm3 (0.00-0.031); Immature Granulocyte Percent A 0.2 % (0-0.5); Lymphocytes Absolute Auto 1.08 K/mm3 (0.9-3.2); Lymphocytes Percent Auto 24.5 % (18.3-44.2); Mean Corpuscular HGB Conc 34.4 g/dl (32-36); Mean Platelet Volume 8.8 fl (7.4-10.4); Monocytes Absolute Auto 0.5 K/mm3 (0.1-0.6); Monocytes Percent Auto 11.3 % (2.6-8.5); Neutrophils Absolute Auto 2.7 K/mm3 (1.3-6.7); Neutrophils Percent Auto 60.1 % (45.5-73.1); Platelet Count Result 312 k/mm3 (150-375); Red Blood Count 4.13 M/mm3 (4.6-6.20); White Blood Count 4.4 K/mm3 (4.5-10.0)
[2024-01-30 08:00] VITALS: BP 148/92; PULSE 116; PULSE 81; RESP 16; TEMP 36.4; O2SAT 100; O2SAT 98
[2024-01-30 08:24] LABS: Alanine Aminotransferase 65 U/L (6-50); Albumin Level 3.9 g/dL (3.5-5.1); Alkaline Phosphatase 92 U/L (38-126); Anion Gap 10 mmol/L (4-12); Aspartate Amino Transferase 33 U/L (17-59); Bilirubin,Total 0.7 mg/dL (0.2-1.3); Blood Urea Nitrogen 12 mg/dL (9-20); Calcium 9.1 mg/dL (8.4-10.2); Carbon Dioxide 24 mmol/L (22-30); Chloride 105 mmol/L (98-107); Estimated CRCL calculation 94 ml/min; Estimated Glomerular Filt Rate > 60; Glucose 108 mg/dL (65-110); Potassium 3.9 mmol/L (3.4-5.0); Sodium 139 mmol/L (137-145)
[2024-01-30] MEDS: FOLIC ACID 1 MG TABLET PO (09:53)
[2024-01-30] MEDS: THIAMINE HCL 100 MG TABLET PO (09:53)
[2024-01-30] MEDS: ENOXAPARIN 40 MG/0.4 ML SYRINGE SUB-Q (09:53)
[2024-01-30] MEDS: levETIRAcetam 1500MG/NACL100ML 1,500 MG/100 ML BAG 400 MG IVPB (09:53)
--- NOTE | 2024-01-30 10:47 | PCNFU ---
Nutrition Follow-Up Complete: Suboptimal Energy Intake as related to mechanical ventilation as evidenced by NPO. Goal: Meet estimated nutritional needs. Patient is meeting goal. No new goal. Pt current nutrition is Regular. Last recorded weight is stable at this time. Bowel Motility: +BM reported 01/29-Diarrhea. Labs Reviewed: Hgb 13.2, Hct 38.4 Meds Noted:Keppra, Folic Acid, Thiamine Skin: WNL Additional Notes: Patient current with regular diet. Oral Intake has improved at > 75% of meals. No further nutritional interventions needed. Will monitor weight, labs, skin, diet orders, meds every 7 days.
[2024-01-30 12:10] VITALS: BP 134/83; PULSE 116; RESP 24; TEMP 36.4; O2SAT 97
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
[2024-01-30 13:46] LABS: Rapid Plasma Reagin Non-Reactive (NonReactive)
== END 2024-01-30 13:31 | disposition home or self-care (01) | DRG 720 ==
LOC: ANHED 13:52 → ANHICU 16:45
PROVIDERS: Internal Medicine; Psychiatry & Neurology Psychiatry; Admitting Provider Internal Medicine; Emergency Provider Emergency Medicine; Visit Provider Internal Medicine
DX: A41.9 Sepsis, unspecified organism (principal); J96.01 Acute respiratory failure with hypoxia; J96.02 Acute respiratory failure with hypercapnia; J69.0 Pneumonitis due to inhalation of food and vomit; B37.1 Pulmonary candidiasis; R65.21 Severe sepsis with septic shock; G93.40 Encephalopathy, unspecified; E87.20 Acidosis, unspecified; M62.82 Rhabdomyolysis; E87.70 Fluid overload, unspecified; E87.6 Hypokalemia; E53.8 Deficiency of other specified B group vitamins; R94.6 Abnormal results of thyroid function studies; G40.909 Epilepsy, unspecified, not intractable, without status epilepticus; F20.0 Paranoid schizophrenia; F13.20 Sedative, hypnotic or anxiolytic dependence, uncomplicated; F11.20 Opioid dependence, uncomplicated; F31.9 Bipolar disorder, unspecified; F17.210 Nicotine dependence, cigarettes, uncomplicated; F10.20 Alcohol dependence, uncomplicated
CPT/HCPCS: 31500; 36415; 36600; 70450; 71045; 71250; 74019; 74176; 80048; 80053; 80074; 80143; 80164; 80177; 80179; 80202; 80307; 81001; 82077; 82140; 82306; 82375; 82533; 82550; 82607; 82746; 82805; 83036; 83050; 83605; 83690; 83735; 84100; 84132; 84145; 84439; 84443; 84478; 84480; 84484; 85018; 85025; 85027; 85055; 85610; 85730; 86140; 86592; 86703; 87040; 87070; 87086; 87205; 87493; 87641; 92610; 93005; 93306; 94002; 94003; 94640; 96365; 96366; 96368; 96375; 97110; 97162; 97166; 97530; 97535; 99291; A9270; C1751; G0432; J0330; J0456; J0515; J0613; J1200; J1630; J1650; J1720; J1940; J1953; J2060; J2250; J2270; J2405; J2470; J2543; J2704; J3010; J3370; J3411; J3480; J7030; J7050; J7120; J7639

== ENCOUNTER 2024-03-23 12:54 | Outpatient (CLI) | payer OTHER, SELFPAY ==
--- NOTE | ~2024-03-23 | MR_ITS ---
EXAMINATION: MR lumbar spine wo con DATE: 03/23/2024 14:00 INDICATION: Radiculopathy, lumbar region. TECHNIQUE: Magnetic resonance imaging (MRI) of the lumbar spine was performed without intravenous con trast. Sequences included sagittal T2-weighted FSE, sagittal T2-weighted FS FSE, sagittal T1-weighted FSE, and axial T2-weighted FSE. COMPARISON: Lumbar spine MRI 07/17/2010 FINDINGS: L5 is a transitional segment. Vertebral body heights are normal. There is mildly decreased disc height at L3-L4. The distal spinal cord signal intensity is normal. The conus medullaris is at T 12-L1. The following disc levels are specifically discussed: L1-L2: The disc does not extend beyond the endplate margin. There is moderate right and mild left fac et joint osteoarthritis. There is no neural foraminal stenosis. There is no central canal stenosis. L2-L3: The disc does not extend beyond the endplate margin. There is moderate right and mild left fac et joint osteoarthritis. There is no neural foraminal stenosis. There is no central canal stenosis. L3-L4: The disc is bulging with superimposed left foraminal extrusion. There is mild bilateral facet joint osteoarthritis. There is mild right and moderate left neural foraminal stenosis. There is no ce ntral canal stenosis. L4-L5: There is a right foraminal extrusion. There is mild bilateral facet joint osteoarthritis. Ther e is mild right neural foraminal stenosis. There is no central canal stenosis. L5-S1: The disc does not extend beyond the endplate margin. There is no facet joint osteoarthritis. T here is no neural foraminal stenosis. There is no central canal stenosis. IMPRESSION: 1. Moderate left neural foraminal stenosis at L3-L4. Otherwise mild lumbar spondylosis. Reviewed, dictated and finalized at location B. ATION REPORTER IMPRESSION: 1. Moderate left neural foraminal stenosis at L3-L4. Otherwise mild lumbar spon dylosis.
--- NOTE | ~2024-03-23 | MR_ITS ---
EXAMINATION: MR thoracic spine wo con DATE: 03/23/2024 14:00 INDICATION: Disease of spinal cord. TECHNIQUE: Magnetic resonance imaging (MRI) of the thoracic spine was performed without intravenous c ontrast. Sagittal localizer T1-weighted FSE of the cervicothoracic spine was obtained. Thoracic spine sequences included sagittal T2-weighted FSE, sagittal T1-weighted SE, Sagittal T2-weighted FS FSE, a nd axial T2-weighted FSE. COMPARISON: None FINDINGS: Alignment is normal.Vertebral body heights are normal.There are Schmorl's nodes along multiple endpla renny in the mid to lower thoracic spine. Bone marrow signal is normal. There is multilevel disc height loss, moderate at T5-T6 through T8-T9 and mild at the remaining levels from T3-T4 through T11-T12. T he discs do not extend beyond the endplate margins with no central canal stenosis. There is normal sp inal cord signal. The conus terminates at T12-L1. There is multilevel bilateral thoracic facet osteoa rthritis, mild in the upper thoracic spine and moderate in the mid to lower thoracic spine. There is minimal to mild neural foraminal stenosis at a few levels in the mid to lower thoracic spine. Paraver tebral soft tissues are unremarkable. IMPRESSION: 1. Mild to moderate thoracic spondylosis. Reviewed, dictated and finalized at location A. CAL CSR
--- NOTE | ~2024-03-23 | MR_ITS ---
EXAMINATION: MR cervical spine wo con DATE: 03/23/2024 14:00 INDICATION: Disease of spinal cord with neck pain TECHNIQUE: Magnetic resonance imaging (MRI) of the cervical spine was performed without intravenous c ontrast. Sequences included sagittal T2-weighted FSE, sagittal T2-weighted FS FSE, sagittal T1-weight ed FSE, axial MERGE and axial T2-weighted FSE. COMPARISON: None FINDINGS: Straightening of the normal cervical lordosis. No spondylolisthesis or facet subluxation. Vertebral body heights are normal. Bone marrow signal intensity is normal. Mild disc height loss with annular fissures at C5-C6 and C6-C7. Cord signal intensity is normal. Cervical soft tissues are unremarkable. The following disc levels are specifically discussed: C2-C3: The disc does not extend beyond the endplate margin. There is no uncovertebral joint osteoarth ritis. There is mild left facet joint osteoarthritis. There is no neural foraminal stenosis. There is no central canal stenosis. C3-C4: The disc does not extend beyond the endplate margin. There is mild bilateral uncovertebral axel nt osteoarthritis. There is mild bilateral facet joint osteoarthritis. There is no neural foraminal s tenosis. There is no central canal stenosis. C4-C5: The disc does not extend beyond the endplate margin. There is mild left uncovertebral joint os teoarthritis. There is mild left facet joint osteoarthritis. There is no neural foraminal stenosis. T here is no central canal stenosis. C5-C6: Small posterior disc osteophyte complex. There is mild right and moderate left uncovertebral j oint osteoarthritis. There is no facet joint osteoarthritis. There is mild to moderate right and mode rate left neural foraminal stenosis. There is mild to moderate left-sided predominant central canal s tenosis measuring 9 mm AP in the mid sagittal plane. There is indentation of the ventral surface of t he cord, more prominent on the left. C6-C7: Small posterior disc osteophyte complex. There is mild left and moderate right uncovertebral j oint osteoarthritis. There is mild left facet joint osteoarthritis. There is mild left and moderate t o severe right neural foraminal stenosis. There is moderate central canal stenosis with the central c anal measuring 7 mm AP in the mid sagittal plane. There is indentation of the ventral surface of the cord C7-T1: The disc does not extend beyond the endplate margin. There is mild bilateral uncovertebral axel nt osteoarthritis. There is mild bilateral facet joint osteoarthritis. There is mild right neural for aminal stenosis. There is no central canal stenosis. IMPRESSION: 1. Mild cervical spondylosis. Reviewed, dictated and finalized at location A. ACTIONS TECHNICIAN
== END 2024-03-23 12:55 | disposition home or self-care (01) ==
LOC: ANHIMG 12:57
PROVIDERS: Visit Provider Neurological Surgery
DX: M47.814 Spondylosis without myelopathy or radiculopathy, thoracic region (principal); M48.061 Spinal stenosis, lumbar region without neurogenic claudication; M47.812 Spondylosis without myelopathy or radiculopathy, cervical region; M47.816 Spondylosis without myelopathy or radiculopathy, lumbar region; G95.9 Disease of spinal cord, unspecified; M21.372 Foot drop, left foot
CPT/HCPCS: 72141; 72146; 72148

== ENCOUNTER 2024-08-03 13:02 | Emergency (ER) | payer OTHER, SELFPAY ==
--- NOTE | 2024-08-03 13:09 | ED_ITS ---
HPI - URI/Sore Throat General Chief Complaint: Upper Respiratory Infection Stated Complaint: Sinus/Congestion Time Seen by Provider: 08/03/24 13:19 Source: patient, RN notes reviewed and old records reviewed Mode of arrival: ambulatory Limitations: no limitations History of Present Illness HPI Narrative: 48-year-old male presents to the [facility] with 2-3 week history of sinus congestion and productive cough States that he has been taking vitamins but otherwise no treatment prior to arrival. Patient is currently a smoker Denies fevers, chest pain, shortness of breath Related Data Allergies Allergy/AdvReac Type Severity Reaction Status Date / Time duloxetine Allergy Intermediate headaches Verified 08/03/24 13:17 gabapentin Allergy Intermediate migraines Verified 08/03/24 13:17 amitriptyline Allergy Mild unknown Verified 08/03/24 13:17 amoxicillin Allergy Unknown Unknown Verified 08/03/24 13:17 Sulfa (Sulfonamide Allergy Unknown Unknown Verified 08/03/24 13:17 Antibiotics) ranitidine AdvReac Unknown BLURRED Verified 08/03/24 13:17 VISION trazodone AdvReac Unknown Insomnia Verified 08/03/24 13:17 [email or web address] (From Ambien) AdvReac Confusion Verified 08/03/24 13:17 Review of Systems Review of Systems: All systems reviewed & are unremarkable except as noted in HPI and below Constitutional: Constitutional: Reports no additional constitutional complaints ENT: Reports as per HPI Cardiovascular: Cardiovascular: Reports no additional cardiovascular complaints, Denies chest pain and Denies dyspnea Respiratory: Respiratory: Reports as per HPI, Denies chest congestion, Reports cough and Denies dyspnea Musculoskeletal: Musculoskeletal: Reports no additional musculoskeletal complaints Integumentary/Breasts: Skin/Breast: Reports system reviewed and no additional complaints, except as docu PMFSH Past Medical History Medical History Peripheral neuropathy Bipolar disorder Paranoid schizophrenia Folic acid deficiency Seizure disorder Surgical History Surgical History Dental root implant present Family History Family History Father Acute myocardial infarction S/P CABG x 5, Onset Age: 64 Mother Paroxysmal A-fib, Onset Age: 69 Sibling Muscular dystrophy Social History Social History Social History: The patient lives in his own home. He receives home health recreational assistant through [facility] and his mother is his home health aide. Patient has 2 sons ages 22 and age 15. The patient's mother is raising the patient's 15-year-old son. The patient has smoked 1 pack of cigarettes per day since he was a teenager. He has history of chronic opiate dependence. He uses marijuana. He started drinking heavily in mid 2021. Smoking packs per day: 1 Smoking cigarettes per day: 20.0 Years smoked: 30 Smoking pack-years: 30.00 Smoking status: Former smoker Alcohol intake: current Do You Feel Safe in your Home?: Yes Lack of Transportation: No Lack of Food: Never True Current Housing: I Have Housing Concerned About Future Housing: No Difficulty Paying Gas/Electric Bills: No Difficulty Paying for Meds: No Currently Unemployed: No Education: Don't Know Difficulty w/ Childcare or Family Care: No Spiritual care concerns: No Comments At the time of my signature, I reviewed and agree with the nursing past medical, surgical, social, and family history. There is no relevant family history pert inent to the patient complaint. Exam Const: General: cooperative, healthy appearing, comfortable, no acute distress, well developed, alert and well nourished Nutritional Appearance: well nourished Orientation/consciousness: patient oriented x3 Limitations: no limitations HENMT: Head: normal to inspection Ears: hearing grossly normal bilaterally, external ears normal, TM's normal bilaterally, EAC's normal, mastoids normal and no periauricular adenopathy Mouth: Yes Normal oral and palatal mucosa present, Yes lip normal, Yes tongue normal and Yes moist mucous membranes Throat: posterior oropharynx normal, uvula midline and no uvular edema Eyes: General: appearance normal, both eyes and all related structures Alignment and Position: alignment normal Neck: Neck: normal visual inspection, full ROM, no lymphadenopathy and no meningeal signs Chest: Chest palpation & inspection: normal inspection of the chest Resp: Effort & Inspection: normal respiratory effort and able to speak in complete sentences Auscultation: clear to auscultation bilaterally, no crackles, no rales, no rhonchi and no wheezes Cardio: Rate: regular rate Skin: General skin exam: normal color and no rashes or lesions noted Neuro: General: patient oriented x3, gait normal, moves all extremities and no meningeal signs Cognition (Neuro): normal cognition Speech: normal speech Gait exam (Neuro): Normal gait present Extrem: General: normal to inspection, full ROM, capillary refill normal and normal gait Psych: Appearance: grossly normal and well kempt Mental Status: mental status grossly normal Speech and movement: Normal speech and movement present and Clear speech present Affect: normal affect Attitude: cooperative Course Course Level of Care: Express Care Visit Vital Signs Vital signs: Vital Signs Temperature 97.6 F 08/03/24 13:17 Pulse Rate 96 08/03/24 13:17 Respiratory Rate 16 08/03/24 13:17 Blood Pressure 138/73 08/03/24 13:17 Pulse Oximetry 99 08/03/24 13:17 Oxygen Delivery Room Air 08/03/24 13:17 Temperature 97.6 F 08/03/24 13:17 Pulse Rate 96 08/03/24 13:17 Respiratory Rate 16 08/03/24 13:17 Blood Pressure 138/73 08/03/24 13:17 Pulse Oximetry 99 08/03/24 13:17 Oxygen Delivery Room Air 08/03/24 13:17 Reviewed MDM - URI/Sore Throat MDM Narrative Medical decision making narrative: Patient sitting in exam room. Patient is nontoxic, vitals are stable. Patient presents with 2-3 week history of sinus congestion and cough. Discussed treatment plan with doxycycline which patient is refusing states that he does not trust any medications but Augmentin. Will write for Augmentin Encourage patient to follow-up with primary care provider Patient appropriate for outpatient treatment with close follow-up Discharge instructions reviewed with patient, as well as provided in writing per nursing staff. The instructions also include specific and strict return/GO TO THE ER as well as f/u information. All questions have been answered, and the patient deny any further questions with discharge and discharge plan. Some parts of this dictation were generated by voice recognition software and may contain typographical and/or grammatical inaccuracies. Differential Diagnosis Differential diagnosis: Likely upper respiratory infection, otitis media, sinusitis, viral infection and bronchitis Critical Care Time Critical Care Time Critical Care Time: No Discharge Plan Discharge Clinical Impression: Bronchitis Sinusitis Qualifiers: Sinusitis location: pansinusitis Chronicity: acute Recurrence: not specified as recurrent Qualified Code(s): J01.40 - Acute pansinusitis, unspecified Patient Disposition: Home Condition: Stable Instructions: Antibiotic Form, Sinusitis (ED), Acute Bronchitis (ED) Additional Instructions: It is very important to treat your symptoms. Drink plenty of water, Gatorade, Pedialyte, ice pops or Jell-O. -Alternate Tylenol and Motrin per package directions for fever or pain. You can alternate every 4 hours -Antihistamine medication such as Zyrtec/Claritin/Sarina during the day can help improve symptoms. -doing daily nasal irrigations can help relieve pressure your sinuses. Things like a Neti pot -Use Flonase twice a day for 5 days then daily to help reduce the inflammation and dry up your sinuses. -You can also use Mucinex. Be sure to drink plenty of water with this medication at least 8 ounces with every dose and it is important to drink 8 to 10 glasses of water per day. Water is a natural decongestant -Eat and drink things that are easy to swallow, like tea or soup, or popsicles. -Oral rinses such as: Salt water gargles and/or may use topical anesthetic (eg. Chloraseptic spray) or lozenges to relieve dryness or throat pain). -Frequent hand washing or hand lubrication technician is one of the best ways to prevent spread of infection. -Using a vaporizer or humidifier at night will also help thin secretions and help with coughing up phlegm. -Follow up with primary care provider in 7-10 days if condition is not improving - For new or worsening symptoms go directly to the nearest ER Patient Language: Yi Prescriptions: New amoxicillin-pot clavulanate 875-125 mg tablet 1 tablet PO Q12H Qty: 14 0RF No Action levetiracetam 1,000 mg tablet See Rx Instructions .ROUTE .COMPLEX Qty: 180 0RF Dose Instruction: TAKE 1 TABLET BY MOUTH EVERY 12 HOURS Rx Instructions: TAKE 1 TABLET BY MOUTH EVERY 12 HOURS Follow-up/Referrals: PHYSICIAN,CALL CENTER REPRESENTATIVE [Primary Care Provider] - Time of Disposition: 13:30
[2024-08-03 13:17] VITALS: BP 138/73; PULSE 96; RESP 16; TEMP 36.4; O2SAT 99
== END 2024-08-03 13:35 | disposition home or self-care (01) ==
PROVIDERS: Emergency Provider Nurse Practitioner
DX: J01.40 Acute pansinusitis, unspecified (principal); J40 Bronchitis, not specified as acute or chronic; Z87.891 Personal history of nicotine dependence
CPT/HCPCS: 99213; G0463

== ENCOUNTER 2024-09-30 16:49 | Emergency (ER) | payer OTHER, SELFPAY ==
--- NOTE | ~2024-09-30 | XR_ITS ---
EXAMINATION: XR wrist LT min 3V DATE: 09/30/2024 17:11 INDICATION: Left wrist pain post injury TECHNIQUE: Posteroanterior, ulnar deviation, oblique, and lateral views of the left wrist were obtain ed. COMPARISON: none FINDINGS: Alignment is normal. No fracture. Joint spaces are normal. Soft tissues are unremarkable. IMPRESSION: 1. Negative left wrist radiographs. Reviewed, dictated and finalized at location A.
--- NOTE | ~2024-09-30 | XR_ITS ---
CHEST RADIOGRAPH, PA AND LATERAL CLINICAL HISTORY: productive cough/sob . COMPARISON: 01/29/2024 TECHNIQUE: PA and lateral views of the chest. FINDINGS The cardiomediastinal silhouette is unremarkable. The lungs are clear. IMPRESSION: No focal infiltrate or effusion. Reviewed, dictated and finalized at location A.
--- NOTE | 2024-09-30 16:51 | ED.URI ---
HPI - URI/Sore Throat General Chief Complaint: Upper Respiratory Infection Stated Complaint: Left Wrist Pain/Sinus Time Seen by Provider: 09/30/24 16:50 Source: patient Mode of arrival: ambulatory Limitations: no limitations History of Present Illness HPI Narrative: Aiden is a 49 year old male patient presenting to the clinic today with multiple complaints. C/o left wrist pain, sinus congestion, sinus headache, chest congestion, and rash in his groin. He reports he injured the left wrist today when lifting a coffee table. Having pain with movement of the left wrist with radiation of pain into the hand. Also reporting cough with white phlegm, chest congestion, sinus headache, and sinus congestion x 2-3 weeks. He reports the he has had bilateral aspiration pneumonia-had seizure and aspirated. Feels as though the antibiotics he had when that occurred did not fully clear the infection. Was seen in August and Dx with sinusitis/bronchitis. Was given 7 day course of Augmentin and he states he finished that. Has also reports rash in the groin for a couple weeks. Nurse looked at it and told him to apply baby powder. States that his symptoms are not improving. Rash is itchy and painful in the groin. Takes Keppra daily for seizure disorder-psych history of schizophrenia and bipolar. Related Data Allergies Allergy/AdvReac Type Severity Reaction Status Date / Time duloxetine Allergy Intermediate headaches Verified 09/30/24 16:54 gabapentin Allergy Intermediate migraines Verified 09/30/24 16:54 amitriptyline Allergy Mild unknown Verified 09/30/24 16:54 amoxicillin Allergy Unknown Unknown Verified 09/30/24 16:54 Sulfa (Sulfonamide Allergy Unknown Unknown Verified 09/30/24 16:54 Antibiotics) ranitidine AdvReac Unknown BLURRED Verified 09/30/24 16:54 VISION trazodone AdvReac Unknown Insomnia Verified 09/30/24 16:54 zolpidem (From Ambien) AdvReac Confusion Verified 09/30/24 16:54 Review of Systems Review of Systems: Pertinent positives per HPI. Patient denies any fever, chills, rash, visual changes, dizziness, runny nose, sore throat, chest pain, palpitations, nausea, vomiting, diarrhea, constipation, abdominal pain, or any urinary issues. [facility] Past Medical History Medical History Peripheral neuropathy Bipolar disorder Paranoid schizophrenia Folic acid deficiency Seizure disorder Surgical History Surgical History Dental root implant present Family History Family History Father Acute myocardial infarction S/P CABG x 5, Onset Age: 64 Mother Paroxysmal A-fib, Onset Age: 69 Sibling Muscular dystrophy Social History Social History Social History: The patient lives in his own home. He receives home health quality assurance assistant through [facility] and his mother is his home health aide. Patient has 2 sons ages 22 and age 15. The patient's mother is raising the patient's 15-year-old son. The patient has smoked 1 pack of cigarettes per day since he was a teenager. He has history of chronic opiate dependence. He uses marijuana. He started drinking heavily in mid 2021. Smoking packs per day: 1 Smoking cigarettes per day: 20.0 Years smoked: 30 Smoking pack-years: 30.00 Smoking status: Former smoker Alcohol intake: current Do You Feel Safe in your Home?: Yes Lack of Transportation: No Lack of Food: Never True Current Housing: I Have Housing Concerned About Future Housing: No Difficulty Paying Gas/Electric Bills: No Difficulty Paying for Meds: No Currently Unemployed: No Education: Don't Know Difficulty w/ Childcare or Family Care: No Spiritual care concerns: No Comments At the time of my signature, I reviewed and agree with the nursing past medical, surgical, social, and family history. There is no relevant family history pertinent to the patient complaint. Exam Narrative: General: Well-developed, well nourished, anxious appearing Head: Normocephalic, atraumatic Eyes: Pupils equally round and reactive to light bilaterally, EOM intact, sclera and conjunctive clear, no discharge, lids normal Ears: TMs intact and congested, ear canals clear, no drainage, grossly hearing normal. Nose: Nares patent, green nasal discharge, moderate with inflammation and white striae, maxillary sinus tenderness. Mouth: Oropharynx without lesions or masses, good dentition, MMM. Neck: Supple, trachea midline, no enlargement of anterior or posterior cervical nodes, no thyroid masses or goiter palpable. Cardio: Regular rate and rhythm, s1 and s2 normal, no murmur appreciated. Resp: Clear to auscultation bilaterally anteriorly and posteriorly, no rhonchi, rales, wheezing or rubs Musculoskeletal: No deformity, tender to palpation over the left wrist, pain with flexion and extension with radiation of pain in the hand, grossly normal range of motion, muscle strength strong and equal, peripheral pulse strong, no edema, no cyanosis, normal gait and station Integumentary: [place], warm, and dry, intact without lesion, pustular lesions over the pubic hair follicles-mildly tender to palpation without palpable abscess Course Course Emergency Course: Portions of this record may have been created with voice recognition software. Level of Care: Express Care Visit Vital Signs Vital signs: Vital Signs Temperature 36.9 C 09/30/24 16:57 Pulse Rate 93 09/30/24 16:57 Respiratory Rate 16 09/30/24 16:57 Blood Pressure 166/136 H 09/30/24 16:57 Pulse Oximetry 96 09/30/24 16:57 Oxygen Delivery Room Air 09/30/24 16:57 Temperature 36.9 C 09/30/24 16:57 Pulse Rate 93 09/30/24 16:57 Respiratory Rate 16 09/30/24 16:57 Blood Pressure 160/100 H 09/30/24 17:30 Pulse Oximetry 96 09/30/24 16:57 Oxygen Delivery Room Air 09/30/24 16:57 Vital signs reviewed MDM - URI/Sore Throat MDM Narrative Medical decision making narrative: At the time of visit patient is resting comfortably on the exam table. Patient appears to be nontoxic. C/o left wrist pain, sinus congestion, sinus headache and chest congestion. He reports he injured the left wrist today when lifting a coffee table. Having pain with movement of the left wrist with radiation of pain into the hand. Also reporting cough with white phlegm, chest congestion, and sinus congestion. He reports the he has had bilateral aspiration pneumonia-had seizure and aspirated. Feels as though the antibiotics he had when that occurred did not fully clear the infection. Was seen in August and Dx with sinusitis/bronchitis. Was given 7 day course of Augmentin and he states he finished that. Takes Keppra daily for seizure disorder. Diagnostics: X-ray of the left wrist and chest was performed. X-ray of the chest is negative for any acute cardiopulmonary process. X-ray of the left wrist is negative for any sign fracture or malalignment. Medications: Duoneb tx given in the clinic today. Plan: I suspect patient has folliculitis, elevated blood pressure without diagnosis of hypertension, left wrist sprain, sinusitis, and bronchitis. Supportive measures were discussed with the patient and they voiced understanding discharge instructions and agrees to treatment plan. Return precautions reviewed Differential Diagnosis Differential diagnosis: Likely upper respiratory infection, otitis media, sinusitis, viral infection, bronchitis, influenza, pharyngitis and other (COVID, pneumonia, pleurisy, left wrist fracture, left wrist sprain, left wrist tendinitis) Imaging Data Radiologist's impression: ITS Impressions Chest X-Ray 09/30/24 17:25 IMPRESSION: No focal infiltrate or effusion. Wrist X-Ray 09/30/24 17:25 IMPRESSION: 1. Negative left wrist radiographs. Discharge Plan Discharge Clinical Impression: Bronchitis, Acute bacterial rhinosinusitis, Folliculitis, Elevated blood pressure reading in office without diagnosis of hypertension Left wrist sprain Qualifiers: Encounter type: initial encounter Wrist sprain location: unspecified location Qualified Code(s): S63.502A - Unspecified sprain of left wrist, initial encounter Patient Disposition: Home Condition: Stable Instructions: Antibiotic Form, Acute Bronchitis (ED), Rhinosinusitis (ED), Folliculitis (ED), Wrist Sprain (ED) Additional Instructions: Wrist sprain discharge instructions: X-ray of the left wrist is negative for any sign of fracture or malalignment. Rest, ice, elevate, and wear shemar wrap as directed Tylenol/motrin for pain as discussed. Follow up with your PCP if symptoms persist more than 1 week. Sinusitis/Bronchitis discharge instructions: Chest x-rays negative for any sign of pneumonia. DuoNeb handheld treatment was given in the clinic today. Take prescription medications only as prescribed-doxycycline and albuterol inhaler Increase fluids and stay well hydrated Tylenol/motrin for pain/fever Flonase and OTC antihistamines as directed Vicks vapor rub to open sinuses Sinus rinses for congestion Cepacol spray, cough drops, throat lozenges, warm tea with honey/lemon, gargle salt water to soothe throat BRAT diet for diarrhea Clear liquids x 24 hours then advance as tolerated for nausea/vomiting Go to the ED if you develop a worsening in your condition- high fever not controlled by Tylenol or Motrin, dehydration, weakness, lethargy, shortness of breath, or chest pain. Follow up with your PCP in 3-5 days if symptoms persist. You have an elevated blood pressure in the clinic today and I recommend follow-up with primary care physician to have this reevaluated within the next week if symptoms persist. [place] [facility] guidelines state that normal blood pressure is 120/80 or less. Anything over 120/80 is considered elevated and should be monitored. You may need to decrease you salt intake and eat a heart healthy diet to help lower you blood pressure, other treatments would include decreasing stress, weight loss, stop caffeine, and quit smoking. Your primary care provider can determine whether you need to start antihypertensive medications. Untreated high blood pressure can cause dizziness, headaches, visual changes, blindness, kidney failure, stroke, heart attack, and male impotence. Patient Language: Liberian Prescriptions: New doxycycline monohydrate 100 mg capsule 100 mg PO BID 10 Days Qty: 20 0RF albuterol sulfate 90 mcg/actuation HFA aerosol inhaler 2 puff inhalation Q4-6H PRN (Reason: shortness of breath or wheezing) 30 Days Qty: 8.5 0RF No Action levetiracetam 1,000 mg tablet See Rx Instructions .ROUTE .COMPLEX Qty: 180 2RF Dose Instruction: TAKE 1 TABLET BY MOUTH EVERY 12 HOURS Rx Instructions: TAKE 1 TABLET BY MOUTH EVERY 12 HOURS Follow-up/Referrals: PHYSICIAN,REAL ESTATE ACQUISITION ANALYST [Primary Care Provider] - Time of Disposition: 17:42 Quality NIHSS Nursing Documentation ED NIHSS nursing documentation: reviewed/agree
[2024-09-30 16:57] VITALS: BP 166/136; PULSE 93; RESP 16; TEMP 36.9; O2SAT 96
[2024-09-30 17:30] VITALS: BP 160/100
[2024-09-30] MEDS: IPRATROPIUM 0.5 MG/ALBUTEROL SULFATE 2.5 MG AMPUL.NEB 3 ML INHALATION (17:34)
== END 2024-09-30 18:06 | disposition home or self-care (01) ==
PROVIDERS: Emergency Provider Nurse Practitioner Family
DX: S63.502A Unspecified sprain of left wrist, initial encounter (principal); J40 Bronchitis, not specified as acute or chronic; J01.90 Acute sinusitis, unspecified; B96.89 Other specified bacterial agents as the cause of diseases classified elsewhere; L73.9 Follicular disorder, unspecified; R03.0 Elevated blood-pressure reading, without diagnosis of hypertension; G40.909 Epilepsy, unspecified, not intractable, without status epilepticus; Z87.891 Personal history of nicotine dependence; Z79.899 Other long term (current) drug therapy; X50.3XXA Overexertion from repetitive movements, initial encounter
CPT/HCPCS: 71046; 73110; 99214; G0463

== ENCOUNTER 2024-10-15 05:17 | Emergency (ER) | payer OTHER, SELFPAY ==
--- NOTE | ~2024-10-15 | CT_ITS ---
EXAMINATION: CT BRAIN W/O DATE: 10/15/2024 05:57 INDICATION: Altered mental status TECHNIQUE: Computed tomography (CT) of the head was performed without intravenous contrast. The dose- length product was 605.33 mGy-cm. Automated exposure control and iterative reconstruction technique w ere employed. COMPARISON: CT dated 01/13/2024 FINDINGS: Normal brain parenchymal volume for age. Normal hollingsworth-white differentiation. No acute intrac ranial hemorrhage, infarction, mass or mass effect. No ventriculomegaly or midline shift. Midline sagittal images demonstrate a normal corpus callosum, c raniovertebral junction and sella turcica. Basilar cisterns are patent. There is mild mucosal thickening of the sphenoid sinus. IMPRESSION: 1. No acute intracranial abnormality. Reviewed, dictated and finalized at location A.
[2024-10-15 05:21] VITALS: BP 138/110; PULSE 102; RESP 12; TEMP 37; O2SAT 95
--- NOTE | 2024-10-15 05:31 | ECG_ITS ---
Test Date: 2024-10-15 06:08:57 Measurements Intervals [place] Rate: 90 P: 76 TX: 192 QRS: 101 QRSD: 100 T: 67 QT: 357 QTc: 438 Interpretive Statements SINUS RHYTHM MISSING LEAD V5 RIGHT AXIS DEVIATION POSSIBLE LEFT ATRIAL ENLARGEMENT INCOMPLETE RIGHT BUNDLE BRANCH BLOCK BORDERLINE R WAVE PROGRESSION, ANTERIOR LEADS BORDERLINE ECG Compared to ECG 01/13/2024 14:10:39 HEART RATE HAS DECREASED Incomplete right bundle-branch block now present Electronically Signed On 10-15-2024 06:31:19 CDT by Khanh Grace D.O.
--- OUTSIDE RECORDS SUMMARY | 2024-10-15 05:46 | XMS_ITS | Clinical Summary ---
Author Organization [facility] Address [address] [place] [address] Phone Care Team Providers Care Bench Shear Operator Name Role Phone Provider, None Primary Care Provider Jeff Camara MD Unavailable [phone] Allergies Active Allergy Reactions Criticality Noted Date Comments Amitriptyline Other (see Comments) High 12/04/2016 seizures Clindamycin Hives,Other (see Comments) Medium 07/27/19 19 Sulfa Antibiotics Other (see Comments) High 07/18/19 23 Medications LevETIRAcetam (KEPPRA) 1000 MG Tablet Take 1 Tablet by mouth 2 times daily. 08/26/2023 Active lamoTRIgine (LaMICtal) 25 MG Tablet Take one tab po daily x 2 week then 1 tab po bid x 2 week, then 2 tab po bid x 2 weeks then 3 tabs po bid x 2 weeks then 4 tabs po bid x 2 weeks. 294 Tablet 02/04/2024 Active Active Problems Problem Noted Date Diagnosed Date Seizure 01/02/2024 Schizophrenia 01/02/2024 Other chronic pain 01/02/2024 Bipolar 1 disorder 01/02/2024 Family History Medical History Relation Name Comments Kidney Cancer Maternal Grandfather Colon Cancer Maternal Grandmother Chronic Obstructive Pulmonary Disease Mother Heart Attack Mother Hypoglycemia Mother Other-comment Mother Afib Relation Name Status Comments Maternal Grandfather Maternal Grandmother Mother Alive Social History Tobacco Use Types Packs/Day Years Used Date Smoking Tobacco: Some Days Cigarettes Smokeless Tobacco: Never Tobacco Cessation:Ready to Q uit: Not Asked; Counseling Given: Not Answered Alcohol Use Standard Drinks/Week Comments Not Currently 0 (1 standard drink = 0.6 oz pur e alcohol) PHQ-2 Answer Date Recorded Total Score - Questions 1-9 0 11/0 03/2023 Sex and Gender Information Value Date Recorded Sex Assigned at Male 01/26/2024 4:55 PM SAP PORTAL ARCHITECT Legal Sex Male 12:36 PM CDT Gender Identity Male 01/26/2024 4:55 PM SAP PORTAL ARCHITECT Sexual Orientation Straight 01/26/2024 4: 55 PM SAP PORTAL ARCHITECT Last Filed Vital Signs Vital Sign Reading Time Taken Comments Blood Pressure 140/102 02/04/2024 1:03 PM SAP PORTAL ARCHITECT Pulse 94 02/04/2024 1:03 PM SAP PORTAL ARCHITECT Temperature 37.2 C (98.9 F) 02/04/2024 1:03 PM SAP PORTAL ARCHITECT Respiratory Rate 17 02/04/2024 1:03 PM SAP PORTAL ARCHITECT Oxygen Saturation 99% 02/04/2024 1:03 PM SAP PORTAL ARCHITECT Inhaled Oxygen Concentration - - Weight 68.4 kg (150 lb 12.8 oz) 02/04/2024 1:03 PM SAP PORTAL ARCHITECT Height 180.3 cm (5' 11) 02/04/2024 1:03 PM SAP PORTAL ARCHITECT Body Mass Index 21.03 02/04/2024 1:03 PM SAP PORTAL ARCHITECT Plan of Treatment Health Maintenance Due Date Last Done Comments Hepatitis C Virus (HCV) Screening 1977 TdaP Immunization 1977 Hepatitis B Immunization (1 of 3 - 19+ 3-dose series) 1996 Pneumococcal Immunization Co mbined (1 of 2 - PCV) 1996 Cologuard 2022 Colonoscopy 2022 Colorectal Cancer Screening 2022 Immunochemical Fecal Occult Blood 2022 SARS-COV-2 Immunization ( season) 2023 Influenza Immunization (#1) 2024 Respiratory Syncytial Virus (RSV) Immunization (Adult) (1 - 1-dose 75+ series) 2052 Human Papillomavirus (HPV) Immunization Aged Out No longer eligible b ased on patient's age to complete this topic Meningococcal Immunization (ACWY) Aged Out No longer eligible based on patient's age to complete this topic Rotavirus Immunization Aged Out No lo nger eligible based on patient's age to complete this topic Insurance MEDICAID [employer] Care Teams Bench Shear Operator Relationship Specialty Start Date End Date Provider, None [place] PCP - General 01/02/24 Jeff Ray MD [address] [place] [id number] Consulting Physician Neurology 02/04/24
--- OUTSIDE RECORDS SUMMARY | 2024-10-15 05:46 | XMS_ITS | Clinical Summary ---
Author Organization [facility] Address [address] [place] [address] Care Team Providers Care Security Systems Installer Name Role Phone Dilan Cintron MD Primary Care Provider [phone] Source Comments [facility],non-owned Affiliates and Associated Physician Practices is amultiple site organization consisting of ambulatory clinics and hospital sitesin [place], [place], [place] and [place]. This disclosure is being madepursuant to the Care Everywhere program and may not contain all information available regarding this patient. Last updated 17.[facility] Allergies Active Allergy Reactions Criticality Noted Date Comments Amitriptyline Other,Seizures High 12/04/2016 seizures Clindamycin Urticaria Medium 07/26/2018 Risperidone Dizziness 02/09/2024 And anger issues Sulfa Drugs Nausea and/or Vomiting High 07/17/2022 sulfa [Other] Unknown Unclear, reported by patient Trazodone Other 02/09/2024 Side effects dehydration Medications * Be aware that medications may not be up to date on this document. Alwaysverify current medications with the patient. chlorhexidine (Peridex) 0.12 % solution SWISH 15ML IN MOUTH FOR 30 SECONDS AND SPIT TWICE DAILY Active levETIRAcetam (Keppra) 1000 MG tablet Take 1 (one) tablet by mouth 2 times daily Active Active Problems Problem Noted Date Diagnosed Date Bipolar 1 disorder 01/02/2024 Insomnia 04/08/2023 Seizure disorder 07/16/2022 07/17/2022 Anxiety 06/05/2022 07/17/2022 Chronic neck pain 12/11/2020 Schizophrenia 12/11/2020 Tobacco abuse 12/04/2016 Resolved Problems Problem Noted Date Diagnosed Date Resolved Date Cough 11/20/2023 01/29/2024 Skin lesion 10/29/2023 02/09/2024 COVID-19 10/28/2022 02/09/2024 Onychomycosis due to dermatophyte 07/17/2022 023 02/09/2024 Pain in joint of right shoulder 07/16/2022 3 02/09/2024 Seizure 12/11/2020 02/09/2024 Chest pain 12/04/2016 02/09/2024 Seizure 12/04/2016 02/09/2024 Encounters Date Type Department Care Team Description 10/14/2024 Telephone [facility] - Centralized Scheduling [address] [place] [address] Heidy Boswell PA-C Reschedule Appointment (10/14-Left message to reschedule Andreia's 12/24 appt -reschedule to the next available. MyChart note entered.[facility]) 07/30/2024 Travel from Last 3 Months Family History Medical History Relation Name Comments CAD (Coronary Artery Disease) Father CAD (Coronary Artery Disease) Maternal Grandfather CAD (Coronary Artery Disease) Maternal Grandmother Cancer - Colon Maternal Grandmother Other - Hepatic/Liver Maternal Grandmother CAD (Coronary Artery Disease) Mother Seizures Mother Diabetes - Type 2 Paternal Grandfather Congenital Heart defect Paternal Grandmother Relation Name Status Comments Father Alive Maternal Grandfather Maternal Grandmother Mother Alive Paternal Grandfather Paternal Grandmother Social History Tobacco Use Types Packs/Day Years Used Date Smoking Tobacco: Former Cigarettes 2 28 S tarted: 03/03/1995 Smokeless Tobacco: Never Tobacco Cessation:Counseling Given: Yes Comments:quit July 2018 Alcohol Use Standard Drinks/Week Comments No 0 (1 standard drink = 0.6 oz pur e alcohol) PHQ-2 Answer Date Recorded Patient Health Questionnaire-2 Score 0 02/09/2024 Sex and Gender Information Value Date Recorded Sex Assigned at Not on file Legal Sex Male 5:17 PM TRAINING PROGRAM ASSISTANT Gender Identity Not on file Sexual Orientation Not on file Last Filed Vital Signs Vital Sign Reading Time Taken Comments Blood Pressure 135/89 02/09/2024 11:51 AM TRAINING PROGRAM ASSISTANT Pulse 97 02/09/2024 11:51 AM TRAINING PROGRAM ASSISTANT Temperature 36.2 C (97.2 F) 01/01/2024 2:57 PM CDT Respiratory Rate 20 02/09/2024 11:5 1 AM TRAINING PROGRAM ASSISTANT Oxygen Saturation 100% 02/09/2024 11: 51 AM TRAINING PROGRAM ASSISTANT Inhaled Oxygen Concentration - - Weight 68.4 kg (150 lb 12.8 oz) 024 11:51 AM TRAINING PROGRAM ASSISTANT Height 180.3 cm (5' 11) 02/09/2024 11: 51 AM TRAINING PROGRAM ASSISTANT Body Mass Index 21.03 02/09/2024 11:51 AM TRAINING PROGRAM ASSISTANT Plan of Treatment Health Maintenance Due Date Last Done Comments COLOGUARD (AGES 45-75) - COLON CA SCREENING 1977 COLON MONITORING 1977 COLONOSCOPY - COLON CA SCREENING 1977 CT COLONOGRAPHY - COLON CA SCREENING 1977 Colorectal Cancer Screening 1977 FIT - COLON CA SCREENING 1977 FLEX SIG - COLON CA SCREENING 1977 HIV SCREENING 1992 HEPATITIS C SCREENING 09/13/1995 DTAP/TDAP/TD VACCINES (1 - Tdap) 1996 HEPATITIS B VACCINE (1 of 3 - 19+ 3-dose series) 1996 INFLUENZA VACCINE (#1) 2024 COVID-19 VACCINE (1 - 2023-2 5 season) 2025 Postponed from 11/01 (Patient Refused) ZOSTER VACCINE (1 of 2) 09/18/2027 LIPID TESTING 12/15/2028 12/16/2023, 12/16/2023 HIB VACCINE Aged Out No longer eligi ble based on patient's age to complete this topic HPV VACCINE Aged Out No longer eligi ble based on patient's age to complete this topic MENINGOCOCCAL (Group B) VACCINE SHARED DECISION-MAKING Aged Out No longer eligible b ased on patient's age to complete this topic MENINGOCOCCAL GROUPS A/C/Y/W VACCINE Aged Out No longer eligible b ased on patient's age to complete this topic PNEUMOCOCCAL VACCINE Aged Out No long er eligible based on patient's age to complete this topic Insurance [facility] Care Teams Security Systems Installer Relationship Specialty Start Date End Date Dilan Cintron MD [address] [place] [address] PCP - General 03/09/24
--- OUTSIDE RECORDS SUMMARY | 2024-10-15 05:46 | XMS_ITS | Encounter Summary ---
Author Organization [facility] Address [address] [place] [address] Phone Care Team Providers Care Viscosity Inspector Name Role Phone Provider, None Primary Care Provider Jeff Camara MD Unavailable Encounter Details Date Type Department Care Team (Late st Contact Info) Description 02/27/2024 [facility]phone [facility] [address] [place] [address] Jeff Ray MD [address] [place] [address] Social History Tobacco Use Types Packs/Day Years Used Date Smoking Tobacco: Some Days Cigarettes Smokeless Tobacco: Never Alcohol Use Standard Drinks/Week Comments Not Currently 0 (1 standard drink = 0.6 oz pur e alcohol) PHQ-2 Answer Date Recorded Total Score - Questions 1-9 0 11/0 03/2023 Sex and Gender Information Value Date Recorded Sex Assigned at Male 01/26/2024 4:55 PM POWER SWITCHBOARD OPERATOR Legal Sex Male 12:36 PM CDT Gender Identity Male 01/26/2024 4:55 PM POWER SWITCHBOARD OPERATOR Sexual Orientation Straight 01/26/2024 4: 55 PM POWER SWITCHBOARD OPERATOR documented as of this encounter Miscellaneous Notes * Telephone Encounter - Lynda Oakley - 02/27/2024 8:52 AM CST 2nd request Telephone encounter sent to provider / nurse pool SITUATION: Insurance / Payor requesting provider review MRI C-SPINE Referral. BACKGROUND: Referral unable to be processed. ASSESSMENT: Request for provider review due to the following reason(s): Lack of necessary clinical information. RECOMMENDATION: Based on the above information the provider has the following option(s): Additional clinical documentation needed for insurance provider. [employer] Clinical Guideline 040 for Cervical Spine MRI was used to make this decision. This decision was based on the notes that were sent: you have neck pain. Before we can approve, we need the following notes: doctor's notes that say you did six weeks of neck exercises (physical therapy, chiropractic treatments, or medically directed home exercise program) in the last six months. We need to know the number of visits you went to. If you did this, the notes do not show the dates that you did the exercises. We also need to know you did not get better. These were not given to us Your doctor knows about this decision. He/she can call to talk to us about this decision by [phone]. Tracking Number: [id number] Lynda Oakley [facility] - Referrals opt 7 Close R SWITCHBOARD OPERATOR documented in this encounter Plan of Treatment Not on file documented as of this encounter Visit Diagnoses Not on filedocumented in this encounter Additional Health Concerns Assessment Noted Time PHQ-9 Depression Total Score: 0 01/02/20 24 1:58 PM CDT documented as of this encounter Care Teams Viscosity Inspector Relationship Specialty Start Date End Date Provider, None [place] PCP - General 01/02/24 Jeff Ray MD [address] [place] [address] Consulting Physician Neurology 02/04/24 documented as of this encounter
--- OUTSIDE RECORDS SUMMARY | 2024-10-15 05:46 | XMS_ITS | Encounter Summary ---
Author Organization [facility] Address [address] [place] [address] Care Team Providers Care Mail Sorter And Delivery Name Role Phone Unavailable Primary Care Provider Unavailabl e Encounter Details Date Type Department Care Team (Late st Contact Info) Description 12/16/2023 Lab Requisition [facility] [address] [address] Chi Alba MD [address] [place] [address] Social History Tobacco Use Types Packs/Day Years Used Date Smoking Tobacco: Never Assessed Sex and Gender Information Value Date Recorded Sex Assigned at Not on file Legal Sex Male 10:02 PM CDT Gender Identity Not on file Sexual Orientation Not on file documented as of this encounter Plan of Treatment Not on file documented as of this encounter Procedures Procedure Name Priority Date/Time Associated Diagnosis Comments HEMOGLOBIN A1C Routine 12/16/2023 5:00 AM CDT GLUCOSE FASTING Routine 12/16/2023 5:00 AM CDT LIPID PANEL Routine 12/16/2023 5:00 AM CDT documented in this encounter Results * HEMOGLOBIN A1C (12/16/2023 5:00 AM CDT) HEMOGLOBIN A1C 5.4 <=5.6 % 12/16/2023 7:42 AM CDT [facility] EST. AVG GLUCOSE, A1C 108 mg/dL 12/16/2023 7:42 AM CDT [facility] Blood Venipuncture / Unknown 12/16/2023 5:00 AM CDT 12/16/2023 6:42 AM CDT Narrative [facility] - 12/16/2023 7:42 AM CDT HGB A1C INTERPRETATION NORMAL: <5.7% PRE-DIABETES: 5.7 - 6.4% DIABETES: 6.5% OR GREATER Chi Alba MD CHEMISTRY ORDERABLES Final Res ult Performing Organization Address City/[facility]/ZIP Co de Phone Number [facility] [id number] [address] [place] [phone] * GLUCOSE FASTING (12/16/2023 5:00 AM CDT) GLUCOSE-FASTIN G 102 70 - 115 mg/dL 12/16/2023 7:41 AM CDT [facility] Blood Venipuncture / Unknown 12/16/2023 5:00 AM CDT 12/16/2023 6:42 AM CDT Chi Alba MD CHEMISTRY ORDERABLES Final Res ult Performing Organization Address City/[facility]/ZIP Co de Phone Number [facility] [id number] [address] [place] [phone] * (ABNORMAL) LIPID PANEL (12/16/2023 5:00 AM CDT) CHOLESTEROL 225(H) <200 mg/dL 12/16/2023 7:41 AM CDT [facility] TRIGLYCERIDE 167(H) <150 mg/dL 12/16/2023 7:41 AM CDT [facility] HDL 40 40 - 59 mg/dL 12/16/2023 7:41 AM CDT [facility] LDL CALCULATED 152(H) <100 mg/dL 12/16/2023 7:41 AM CDT [facility] NON-HDL CHOLESTEROL 185(H) <130 mg/dL 12/16/2023 7:41 AM CDT [facility] Blood Venipuncture / Unknown 12/16/2023 5:00 AM CDT 12/16/2023 6:42 AM CDT Narrative [facility] - 12/16/2023 7:41 AM CDT TOTAL CHOLESTEROL mg/dL Desirable <200 Borderline high 200-239 High >=240 TRIGLYCERIDES mg/dL Normal <150 Borderline high 150-199 High 200-499 Very high >=500 HDL CHOLESTEROL mg/dL Low <40 Normal 40-59 Desirable >=60 NON HDL CHOLESTEROL mg/dL Optimal <130 Near Optimal 130-159 Borderline High 160-189 Very High >=190 CALCULATED LDL mg/dL LDL <70, OPTIMAL if have Atherosclerotic cardiovascular disease (ASCVD) or intermediate or higher (>7.5%) 10 year risk of ASCVD including most adults with diabetes. LDL <100, Optimal in adult patients with low (<7.5%) 10 year ASCVD risk LDL 100-160, Suboptimal LDL >160, High LDL >190, Very high ATPIII Guidelines Reference Ranges for Lipid Panels (NCEP/AMA) . us Chi Alba MD CHEMISTRY ORDERABLES Final Res ult [facility] [id number] [address] [place] [address] documented in this encounter Visit Diagnoses Not on filedocumented in this encounter
--- OUTSIDE RECORDS SUMMARY | 2024-10-15 05:46 | XMS_ITS | Clinical Summary ---
Author Organization [employer] [address] [place] [address] Address [address] [place] [address] Care Team Providers Care Cook Jelly Name Role Phone Unavailable Primary Care Provider Unavailabl e Social History Tobacco Use Types Packs/Day Years Used Date Smoking Tobacco: Never Assessed Sex and Gender Information Value Date Recorded Sex Assigned at Not on file Legal Sex Male 10:02 PM CDT Gender Identity Not on file Sexual Orientation Not on file Plan of Treatment Health Maintenance Due Date Last Done Comments DTAP/TDAP/TD VACCINES (1 - Tdap) 1996 HEPATITIS B VACCINES (1 of 3 - 19+ 3-dose series) 08/31 COLORECTAL SCREENING 2022 Colorectal Cancer Screening 2022 FIT-DNA Q 3 years 2022 FIT/FOBT Q 1 year 2022 Flex Sig/CT Colonography Q 5 years 2022 INFLUENZA VACCINE (#1) 2024 Insurance MEDICAID
--- OUTSIDE RECORDS SUMMARY | 2024-10-15 05:46 | XMS_ITS | Encounter Summary ---
Author Organization [facility] Address [address] [place] [address] Care Team Providers Care Cigar Sorter Name Role Phone Dilan Cintron MD Primary Care Provider [phone] Reason for Visit * Reason Onset Date Comments Reschedule Appointment 10/14/202410/14-Left message to reschedule Andreia's 12/24 appt -reschedule to the next available. MyChart note entered.DL-MS Encounter Details Date Type Department Care Team (Late st Contact Info) Description 10/14/2024 Telephone [facility] - Centralized Scheduling [address] [place] [address] Heidy Boswell PA-C [address] [facility] [place] [address] Reschedule Appointment (10/14-Left message to reschedule Andreia's 12/24 appt -reschedule to the next available. MyChart note entered.[facility] Social History Tobacco Use Types Packs/Day Years Used Date Smoking Tobacco: Former Cigarettes 2 28 S tarted: 03/03/1995 Smokeless Tobacco: Never Comments:quit July 2018 Alcohol Use Standard Drinks/Week Comments No 0 (1 standard drink = 0.6 oz pur e alcohol) PHQ-2 Answer Date Recorded Patient Health Questionnaire-2 Score 0 02/09/2024 Sex and Gender Information Value Date Recorded Sex Assigned at Not on file Legal Sex Male 5:17 PM OCCUPATIONAL THERAPY AIDE Gender Identity Not on file Sexual Orientation Not on file documented as of this encounter Miscellaneous Notes * Telephone Encounter - Michael Radha - 10/14/2024 2:23 PM CDT Good day, This communication is in regard to your appointment that was scheduled for 12/24. KIMBERLY Boswell is no longer available for that appointment. Please contact us at [phone] at your earliest convenience to be rescheduled. Thank you for choosing [facility], Search Lead [facility] documented in this encounter Plan of Treatment Not on file documented as of this encounter Visit Diagnoses Not on filedocumented in this encounter Care Teams Cigar Sorter Relationship Specialty Start Date End Date Dilan Cintron MD [address] [facility] [place] [address] PCP - General 03/09/24 documented as of this encounter
--- OUTSIDE RECORDS SUMMARY | 2024-10-15 05:46 | XMS_ITS | Clinical Summary ---
Author Organization [facility] Address [address] [place] [address] Care Team Providers Care Ballast Regulator Operator Name Role Phone Non-Staff, Provider Primary Care Provider Unavai lable Allergies Active Allergy Reactions Criticality Noted Date Comments Amitriptyline Seizure 09/22/2017 Clindamycin Hives 07/26/2018 Medications hydrocodone-acet aminophen 10-325 MG tablet Take 1 tablet by mouth every 6 (six) hours as needed. 0 07/13/2018 Active amoxicillin-clav ulanate (AUGMENTIN) 875-125 MG tablet Take 1 tablet (875 mg total) by mouth 2 (two) times daily. Active ALPRAZolam (XANAX) 2 MG tablet Take 1 tablet (2 mg total) by mouth 3 (three) times daily as needed. Active levETIRAcetam (KEPPRA) 1000 MG tablet Take 1 tablet (1,000 mg total) by mouth 3 (three) times daily. 30 tablet 08/26/2023 Active Social History Tobacco Use Types Packs/Day Years Used Date Smoking Tobacco: Former Cigarettes Tobacco Cessation:Counseling Given: Not Answered Sex and Gender Information Value Date Recorded Sex Assigned at Not on file Legal Sex Male 5:33 PM CDT Gender Identity Not on file Sexual Orientation Not on file Last Filed Vital Signs Vital Sign Reading Time Taken Comments Blood Pressure 144/99 02/12/2024 11:26 AM APPLE PEELER OPERATOR Pulse 79 02/12/2024 11:26 AM APPLE PEELER OPERATOR Temperature 36.7 C (98.1 F) 02/12/2024 9:41 AM APPLE PEELER OPERATOR Respiratory Rate 18 02/12/2024 11:26 AM APPLE PEELER OPERATOR Oxygen Saturation 98% 02/12/2024 11:26 AM APPLE PEELER OPERATOR Inhaled Oxygen Concentration - - Weight 70.5 kg (155 lb 6.8 oz) 02/12/2024 9:41 A M APPLE PEELER OPERATOR Height 180.3 cm (5' 11) 02/12/2024 9:41 AM APPLE PEELER OPERATOR Body Mass Index 21.68 02/12/2024 9:41 AM APPLE PEELER OPERATOR Plan of Treatment Health Maintenance Due Date Last Done Comments Colorectal Cancer Screening Colonoscopy (10 Years) 1977 Annual Physical 1980 Hepatitis C 09/18/1995 DTaP, Tdap and Td Vaccines ( 1 - Tdap) 1996 Hepatitis B Vaccines (1 of 3 - 19+ 3-dose series) 1996 COVID-19 Vaccine (2023-2 5 season) 2023 Meningococcal B Vaccine Aged Out No l onger eligible based on patient's age to complete this topic Meningococcal Vaccine Aged Out No clarita kym eligible based on patient's age to complete this topic Pneumococcal Vaccine: Pediat rics (0 to 5 Years) and At-Risk Patients (6 to 49 Years) Aged Out No longer eligible b ased on patient's age to complete this topic RSV Immunizations Under 20 Months Aged Out No longer eligible based on patient's age to complete this topic Insurance Care Teams Ballast Regulator Operator Relationship Specialty Start Date End Date Non-Staff, Provider PCP - General UNKNOWN PHYSICIAN SPECIALTY 08/26/23
--- OUTSIDE RECORDS SUMMARY | 2024-10-15 05:46 | XMS_ITS | Encounter Summary ---
Author Organization [facility] Address [address] [place] [address] Phone Care Team Providers Care District Sales Coordinator Name Role Phone Provider, None Primary Care Provider Jeff Camara MD Unavailable [phone] Encounter Details Date Type Department Care Team (Late st Contact Info) Description 02/16/2024 [facility]phone [facility] [address] [place] [address] Jeff Ray MD [address] [place] [address] Social History Tobacco Use Types Packs/Day Years Used Date Smoking Tobacco: Some Days Cigarettes Smokeless Tobacco: Never Alcohol Use Standard Drinks/Week Comments Not Currently 0 (1 standard drink = 0.6 oz pur e alcohol) PHQ-2 Answer Date Recorded Total Score - Questions 1-9 0 11/0 03/2023 Sex and Gender Information Value Date Recorded Sex Assigned at Male 01/26/2024 4:55 PM BOTTOM FINISHER Legal Sex Male 12:36 PM CDT Gender Identity Male 01/26/2024 4:55 PM BOTTOM FINISHER Sexual Orientation Straight 01/26/2024 4: 55 PM BOTTOM FINISHER documented as of this encounter Miscellaneous Notes * Telephone Encounter - Lynda Oakley - 02/16/2024 7:28 AM CST SITUATION: Insurance / Payor requesting provider review [...] talk to us about this decision by [phone]. Tracking Number: [id number] Lynda Oakley [facility] - Referrals opt 7 OM FINISHER documented in this encounter Plan of Treatment Not on file documented as of this encounter Visit Diagnoses Not on filedocumented in this encounter Additional Health Concerns Assessment Noted Time PHQ-9 Depression Total Score: 0 01/02/20 24 1:58 PM CDT documented as of this encounter Care Teams District Sales Coordinator Relationship Specialty Start Date End Date Provider, None [place] PCP - General 01/02/24 Jeff Ray MD [address] [place] [id number] Consulting Physician Neurology 02/04/24 documented as of this encounter
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
[2024-10-15 06:30] LABS: Hematocrit 46.0 % (42.0-52.0); Hemoglobin 15.2 g/dL (14.0-18.0); Immature Granulocyte Percent A 0.8 % (0-0.5); Lymphocytes Absolute Auto 2.01 K/mm3 (0.9-3.2); Mean Corpuscular HGB Conc 33.0 g/dl (32-36); Mean Corpuscular Hemoglobin 32.2 pg (26-34); Mean Corpuscular Volume 97.5 fl (80-100); Nucleated Red Blood Cells Absolute Auto 0.000 K/mm3 (0.0-0.012); Nucleated Red Blood Cells Perc 0.0 % (0.0-0.2); Platelet Count Result 143 k/mm3 (150-375); Red Blood Count 4.72 M/mm3 (4.6-6.20); White Blood Count 4.9 K/mm3 (4.5-10.0)
[2024-10-15 06:32] LABS: Add Urine Microscopic? NO; Appearance Urine Clear (Clear); Glucose Urine UA Negative (Negative); Leukocyte Esterase Ur Negative LEU/UL (Negative); Nitrate Urine Negative (Negative); Specific Grav Ur 1.007 (1.001-1.035)
[2024-10-15] MEDS: levETIRAcetam 1000MG/NACL100ML 1,000 MG/100 ML BAG 400 MG IVPB (06:37)
[2024-10-15] MEDS: THIAMINE HCL INJ 100 MG, FOLIC ACID INJ 1 MG, MAGNESIUM SULFATE INJ 1 GM in LACTATED RI... 1000 MG IV CONT (06:37)
[2024-10-15 06:39] LABS: Alanine Aminotransferase 66 U/L (6-50); Albumin Level 4.4 g/dL (3.5-5.1); Alkaline Phosphatase 75 U/L (38-126); Anion Gap 12 mmol/L (4-12); Aspartate Amino Transferase 70 U/L (17-59); Bilirubin,Total 0.6 mg/dL (0.2-1.3); Blood Urea Nitrogen 10 mg/dL (9-20); Calcium 8.7 mg/dL (8.4-10.2); Carbon Dioxide 26 mmol/L (22-30); Chloride 104 mmol/L (98-107); Estimated CRCL calculation 93 ml/min; Estimated Glomerular Filt Rate > 60; Glucose 147 mg/dL (65-110); Potassium 3.8 mmol/L (3.4-5.0); Sodium 142 mmol/L (137-145); Total Protein 6.9 g/dL (6.3-8.2)
[2024-10-15 07:23] LABS: Cannabinoid Screen Urine Negative (Negative)
[2024-10-15 07:27] VITALS: BP 139/96
--- NOTE | 2024-10-15 07:28 | PC.NURSE ---
bedside shift report received from Keith RN, patient complaining that iv continues to beep - patient educated that arm needs to be kept straight so the line doesn't occlude and can continue infusing.
--- NOTE | 2024-10-15 07:54 | PC.NURSE ---
patient was beligerantly yelling, this rn entered the room patient was being verbally agressive, ripping at iv and wristband, stating that he needed his iv out right now because I'm leaving and going to a hospital that won't put me in a room and treat me like a bum patient educated that he was getting iv medications and fluids to help his seizures and alcohol symptoms. patient stated that I'm just gonna go out of here and get a drink, might as well since I came for help and can't get none patient educated again that he was getting iv infusions of medications that would help. iv removed, patient stated that he had a sober ride coming to pick him up from the hospital. ERP aware. patient demanded to wait in the waiting room for his ride- his dad- and stated that if I can't wait out of this room you're gonna have to call security and police and might as well call swat because I'm not gonna be calm and wait here patient then began growling and jumping around the room, security and rn birthing at bedside walking patient to waiting room to wait for his ride.
== END 2024-10-15 07:50 | disposition home or self-care (01) ==
PROVIDERS: Emergency Provider Student in an Organized Health Care Education/Training Program
DX: F10.129 Alcohol abuse with intoxication, unspecified (principal); Y90.8 Blood alcohol level of 240 mg/100 ml or more; G40.909 Epilepsy, unspecified, not intractable, without status epilepticus; G62.9 Polyneuropathy, unspecified; F17.210 Nicotine dependence, cigarettes, uncomplicated; Z79.899 Other long term (current) drug therapy
CPT/HCPCS: 36415; 70450; 80053; 80307; 81003; 82077; 83605; 85025; 93005; 96365; 99284; J1953; J3411; J3475; J7120

== ENCOUNTER 2024-10-16 23:37 | Emergency (ER) | payer OTHER, SELFPAY ==
--- OUTSIDE RECORDS SUMMARY | 2024-10-16 23:40 | XMS_ITS | Clinical Summary ---
Author Organization [facility] Address [address] [place] [address] Phone Care Team Providers Care Core Paster Name Role Phone Provider, None Primary Care Provider Jeff Camara MD Unavailable [phone] Allergies Active Allergy Reactions Criticality Noted Date [...] Sex Assigned at Male 01/26/2024 4:55 PM FLIGHT OPERATIONS ENGINEER Legal Sex Male 12:36 PM CDT Gender Identity Male 01/26/2024 4:55 PM FLIGHT OPERATIONS ENGINEER Sexual Orientation Straight 01/26/2024 4: 55 PM FLIGHT OPERATIONS ENGINEER Last Filed Vital Signs Vital Sign Reading Time Taken Comments Blood Pressure 140/102 02/04/2024 1:03 PM FLIGHT OPERATIONS ENGINEER Pulse 94 02/04/2024 1:03 PM FLIGHT OPERATIONS ENGINEER Temperature 37.2 C (98.9 F) 02/04/2024 1:03 PM FLIGHT OPERATIONS ENGINEER Respiratory Rate 17 02/04/2024 1:03 PM FLIGHT OPERATIONS ENGINEER Oxygen Saturation 99% 02/04/2024 1:03 PM FLIGHT OPERATIONS ENGINEER Inhaled Oxygen Concentration - - Weight 68.4 kg (150 lb 12.8 oz) 02/04/2024 1:03 PM FLIGHT OPERATIONS ENGINEER Height 180.3 cm (5' 11) 02/04/2024 1:03 PM FLIGHT OPERATIONS ENGINEER Body Mass Index 21.03 02/04/2024 1:03 PM FLIGHT OPERATIONS ENGINEER Plan of Treatment Health Maintenance Due Date [...] Insurance MEDICAID [employer] Care Teams Core Paster Relationship Specialty Start Date End Date Provider, None [place] PCP - General 01/02/24 Jeff Ray MD [address] [place] [id number] Consulting Physician Neurology 02/04/24
--- OUTSIDE RECORDS SUMMARY | 2024-10-16 23:40 | XMS_ITS | Encounter Summary ---
Author Organization [facility] Address [address] [place] [address] Phone Care Team Providers Care Valve Inspector Name Role Phone Provider, None Primary Care Provider Jeff Camara MD Unavailable Encounter Details Date Type Department Care Team (Late st Contact Info) Description [facility]/27[facility] [address] [place] [address] Jeff Ray MD [address] [place] [address] Social History Tobacco Use Types Packs/Day Years Used Date Smoking Tobacco: Some Days Cigarettes Smokeless Tobacco: Never Alcohol Use Standard Drinks/Week Comments Not Currently 0 (1 standard drink = 0.6 oz pur e alcohol) PHQ-2 Answer Date Recorded Total Score - Questions 1-9 0 11/0 03/2023 Sex and Gender Information Value Date Recorded Sex Assigned at Male 01/26/2024 4:55 PM LAYOUT MAN Legal Sex Male 12:36 PM CDT Gender Identity Male 01/26/2024 4:55 PM LAYOUT MAN Sexual Orientation Straight 01/26/2024 4: 55 PM LAYOUT MAN documented as of this encounter Miscellaneous Notes [...] talk to us about this decision by [phone]. Tracking Number: [id number] Lynda Oakley [facility] - Referrals opt 7 Close [place] MAN documented in this encounter Plan of Treatment Not on file documented as of this encounter Visit Diagnoses Not on filedocumented in this encounter Additional Health Concerns Assessment Noted Time PHQ-9 Depression Total Score: 0 01/02/20 24 1:58 PM CDT documented as of this encounter Care Teams Valve Inspector Relationship Specialty Start Date End Date Provider, None [place] PCP - General 01/02/24 Jeff Ray MD [address] [place] [address] Consulting Physician Neurology 02/04/24 documented as of this encounter
--- OUTSIDE RECORDS SUMMARY | 2024-10-16 23:40 | XMS_ITS | Encounter Summary ---
Author Organization [facility] Address [address] [place] [address] Care Team Providers Care Jig Hand Name Role Phone Unavailable Primary Care Provider Unavailabl e Encounter Details Date Type Department Care Team (Late st Contact Info) Description 12/16/2023 Lab Requisition [facility] Laboratory Services [address] [address] Chi Alba MD [address] [place] [address] Social History Tobacco Use Types Packs/Day [...] 5.4 <=5.6 % 12/16/2023 7:42 AM CDT [facility] [place] ([facility] EST. AVG GLUCOSE, A1C 108 mg/dL 12/16/2023 7:42 AM CDT [facility] Blood Venipuncture / Unknown 12/16/2023 5:00 AM CDT 12/16/2023 6:42 AM CDT Narrative [facility] - 12/16/2023 7:42 AM CDT HGB A1C INTERPRETATION NORMAL: <5.7% PRE-DIABETES: 5.7 - 6.4% DIABETES: 6.5% OR GREATER Chi Alba MD CHEMISTRY ORDERABLES Final Res ult Performing Organization Address City/[facility]/ZIP Co de Phone Number [facility] [id number] [address] [place] [address] * GLUCOSE FASTING (12/16/2023 5:00 AM CDT) GLUCOSE-FASTIN G 102 70 - 115 mg/dL 12/16/2023 7:41 AM CDT [facility] Blood Venipuncture / Unknown 12/16/2023 5:00 AM CDT 12/16/2023 6:42 AM CDT Chi Alba MD CHEMISTRY ORDERABLES Final Res ult Performing Organization Address City/[facility]/ZIP Co de Phone Number [facility] [id number] [address] [place] [address] * (ABNORMAL) LIPID PANEL (12/16/2023 5:00 AM CDT) CHOLESTEROL 225(H) <200 mg/dL 12/16/2023 7:41 AM CDT [facility] TRIGLYCERIDE 167(H) <150 mg/dL 12/16/2023 7:41 AM CDT [facility] HDL 40 40 - 59 mg/dL 12/16/2023 7:41 AM CDT [facility] LDL CALCULATED 152(H) <100 mg/dL 12/16/2023 7:41 AM CDT [facility] NON-HDL CHOLESTEROL 185(H) <130 mg/dL 12/16/2023 7:41 AM CDT [facility] Blood Venipuncture / Unknown 12/16/2023 5:00 AM CDT 12/16/2023 6:42 AM CDT Narrative [facility] - 12/16/2023 7:41 AM CDT TOTAL [...] Alba MD CHEMISTRY ORDERABLES Final Res ult [facility] [id number] [address] [place] [address] documented in this encounter Visit Diagnoses Not on filedocumented in this encounter
--- OUTSIDE RECORDS SUMMARY | 2024-10-16 23:40 | XMS_ITS | Clinical Summary ---
Author Organization [facility] Address [address] [place] [address] Care Team Providers Care Foil Operator Name Role Phone Non-Staff, Provider Primary [...] Comments Blood Pressure 144/99 02/12/2024 11:26 AM OIL BURNER MECHANIC Pulse 79 02/12/2024 11:26 AM OIL BURNER MECHANIC Temperature 36.7 C (98.1 F) 02/12/2024 9:41 AM OIL BURNER MECHANIC Respiratory Rate 18 02/12/2024 11:26 AM OIL BURNER MECHANIC Oxygen Saturation 98% 02/12/2024 11:26 AM OIL BURNER MECHANIC Inhaled Oxygen Concentration - - Weight 70.5 kg (155 lb 6.8 oz) 02/12/2024 9:41 A M OIL BURNER MECHANIC Height 180.3 cm (5' 11) 02/12/2024 9:41 AM OIL BURNER MECHANIC Body Mass Index 21.68 02/12/2024 9:41 AM OIL BURNER MECHANIC Plan of Treatment Health Maintenance Due Date [...] to complete this topic Insurance Care Teams Foil Operator Relationship Specialty Start Date End Date Non-Staff, Provider PCP - General UNKNOWN PHYSICIAN SPECIALTY 08/26/23
--- OUTSIDE RECORDS SUMMARY | 2024-10-16 23:40 | XMS_ITS | Encounter Summary ---
Author Organization [facility] Address [address] [place] [address] Phone Care Team Providers Care Reconstructive Dentist Name Role Phone Provider, None Primary Care Provider Jeff Camara MD Unavailable [phone] Encounter Details Date Type Department Care Team (Late st Contact Info) Description 02/16/2024 [facility] [address] [place] [address] Jeff Ray MD [address] [place] [address] Social History Tobacco Use Types Packs/Day Years Used Date Smoking Tobacco: Some Days Cigarettes Smokeless Tobacco: Never Alcohol Use Standard Drinks/Week Comments Not Currently 0 (1 standard drink = 0.6 oz pur e alcohol) PHQ-2 Answer Date Recorded Total Score - Questions 1-9 0 11/0 03/2023 Sex and Gender Information Value Date Recorded Sex Assigned at Male 01/26/2024 4:55 PM PLASTIC CARD GRADER CARDROOM Legal Sex Male 12:36 PM CDT Gender Identity Male 01/26/2024 4:55 PM PLASTIC CARD GRADER CARDROOM Sexual Orientation Straight 01/26/2024 4: 55 PM PLASTIC CARD GRADER CARDROOM documented as of this encounter Miscellaneous Notes [...] talk to us about this decision by [phone]. Tracking Number: [id number] Lynda Oakley [facility] - Referrals opt 7 TIC CARD GRADER CARDROOM documented in this encounter Plan of Treatment Not on file documented as of this encounter Visit Diagnoses Not on filedocumented in this encounter Additional Health Concerns Assessment Noted Time PHQ-9 Depression Total Score: 0 01/02/20 24 1:58 PM CDT documented as of this encounter Care Teams Reconstructive Dentist Relationship Specialty Start Date End Date Provider, None [place] PCP - General 01/02/24 Jeff Ray MD [address] [place] [phone] Consulting Physician Neurology 02/04/24 documented as of this encounter
--- OUTSIDE RECORDS SUMMARY | 2024-10-16 23:40 | XMS_ITS | Clinical Summary ---
Author Organization [facility] [address] [place] [address] Address [address] [place] [address] Care Team Providers Care Powered Bridge Specialist Name Role Phone Unavailable Primary Care Provider [...]
--- OUTSIDE RECORDS SUMMARY | 2024-10-16 23:40 | XMS_ITS | Clinical Summary ---
Author Organization [facility] [employer] Address [address] [place] [address] Care Team Providers Care Concert Singer Name Role Phone Dilan Cintron MD Primary Care Provider Source Comments [facility],non-owned Affiliates and Associated Physician Practices is amultiple site organization consisting of ambulatory clinics and hospital sitesin [place], [place], [place] and [place]. This disclosure is being madepursuant to the Care Everywhere program and may not contain all information available regarding this patient. Last updated 17.[facility] [employer] Allergies Active Allergy Reactions Criticality Noted Date [...] [facility] [address] [place] [address] Heidy Boswell PA-C Reschedule Appointment (10/14-Left message [...] on file Legal Sex Male 5:17 PM URGENT CARE PHYSICIAN Gender Identity Not on file Sexual Orientation Not on file Last Filed Vital Signs Vital Sign Reading Time Taken Comments Blood Pressure 135/89 02/09/2024 11:51 AM URGENT CARE PHYSICIAN Pulse 97 02/09/2024 11:51 AM URGENT CARE PHYSICIAN Temperature 36.2 C (97.2 F) 01/01/2024 2:57 PM CDT Respiratory Rate 20 02/09/2024 11:5 1 AM URGENT CARE PHYSICIAN Oxygen Saturation 100% 02/09/2024 11: 51 AM URGENT CARE PHYSICIAN Inhaled Oxygen Concentration - - Weight 68.4 kg (150 lb 12.8 oz) 024 11:51 AM URGENT CARE PHYSICIAN Height 180.3 cm (5' 11) 02/09/2024 11: 51 AM URGENT CARE PHYSICIAN Body Mass Index 21.03 02/09/2024 11:51 AM URGENT CARE PHYSICIAN Plan of Treatment Health Maintenance Due Date [...] patient's age to complete this topic Insurance [facility] Care Teams Concert Singer Relationship Specialty Start Date End Date Dilan Cintron MD [address] [place] [address] PCP - General 03/09/24
[2024-10-16 23:41] VITALS: BP 148/87; PULSE 105; RESP 14; TEMP 36.3; O2SAT 94
--- NOTE | 2024-10-16 23:41 | ECG_ITS ---
Test Date: 2024-10-16 23:53:38 Measurements Intervals [place] Rate: 100 P: 76 GA: 166 QRS: 116 QRSD: 92 T: 72 QT: 345 QTc: 447 Interpretive Statements SINUS TACHYCARDIA RIGHT AXIS DEVIATION CONSIDER ANTERIOR INFARCT, AGE INDETERMINATE ABNORMAL ECG Compared to ECG 10/15/2024 06:08:57 HEART RATE HAS INCREASED Electronically Signed On 10-17-2024 07:36:36 CDT by Khanh Grace D.O.
--- OUTSIDE RECORDS SUMMARY | 2024-10-17 01:46 | XMS_ITS | Clinical Summary ---
Author Organization [facility] Address [address] [place] [address] Phone Care Team Providers Care Doll Wig Hackler Name Role Phone Provider, None Primary Care Provider Jeff Camara MD Unavailable Allergies Active Allergy Reactions Criticality Noted Date [...] Sex Assigned at Male 01/26/2024 4:55 PM MERCHANDISING EXECUTION MANAGER Legal Sex Male 12:36 PM CDT Gender Identity Male 01/26/2024 4:55 PM MERCHANDISING EXECUTION MANAGER Sexual Orientation Straight 01/26/2024 4: 55 PM MERCHANDISING EXECUTION MANAGER Last Filed Vital Signs Vital Sign Reading Time Taken Comments Blood Pressure 140/102 02/04/2024 1:03 PM MERCHANDISING EXECUTION MANAGER Pulse 94 02/04/2024 1:03 PM MERCHANDISING EXECUTION MANAGER Temperature 37.2 C (98.9 F) 02/04/2024 1:03 PM MERCHANDISING EXECUTION MANAGER Respiratory Rate 17 02/04/2024 1:03 PM MERCHANDISING EXECUTION MANAGER Oxygen Saturation 99% 02/04/2024 1:03 PM MERCHANDISING EXECUTION MANAGER Inhaled Oxygen Concentration - - Weight 68.4 kg (150 lb 12.8 oz) 02/04/2024 1:03 PM MERCHANDISING EXECUTION MANAGER Height 180.3 cm (5' 11) 02/04/2024 1:03 PM MERCHANDISING EXECUTION MANAGER Body Mass Index 21.03 02/04/2024 1:03 PM MERCHANDISING EXECUTION MANAGER Plan of Treatment Health Maintenance Due Date [...] Insurance MEDICAID [employer] Care Teams Doll Wig Hackler Relationship Specialty Start Date End Date Provider, None [place] PCP - General 01/02/24 Jeff Ray MD [address] [place] [phone] Consulting Physician Neurology 02/04/24
--- OUTSIDE RECORDS SUMMARY | 2024-10-17 01:46 | XMS_ITS | Encounter Summary ---
Author Organization [facility] Address [address] [place] [address] Care Team Providers Care Teleprinter Name Role Phone Unavailable Primary Care Provider Unavailabl e Encounter Details Date Type Department Care Team (Late st Contact Info) Description 12/16/2023 Lab Requisition [facility] Laboratory Services [address] [address] Chi Alba MD [address] [place] [address] Social History Tobacco Use Types Packs/Day [...] 5.4 <=5.6 % 12/16/2023 7:42 AM CDT [facility] [email or web address] [facility] EST. AVG GLUCOSE, A1C 108 mg/dL 12/16/2023 7:42 AM CDT [facility] Blood Venipuncture / Unknown 12/16/2023 5:00 AM CDT 12/16/2023 6:42 AM CDT Narrative [facility] - 12/16/2023 7:42 AM CDT HGB A1C INTERPRETATION NORMAL: <5.7% PRE-DIABETES: 5.7 - 6.4% DIABETES: 6.5% OR GREATER Chi Alba MD CHEMISTRY ORDERABLES Final Res ult Performing Organization Address City/[facility]/ZIP Co de Phone Number [facility] [id number] [address] [place] [address] * GLUCOSE FASTING (12/16/2023 5:00 AM CDT) GLUCOSE-FASTIN G 102 70 - 115 mg/dL 12/16/2023 7:41 AM CDT [facility] Blood Venipuncture / Unknown 12/16/2023 5:00 AM CDT 12/16/2023 6:42 AM CDT Chi Alba MD CHEMISTRY ORDERABLES Final Res ult Performing Organization Address City/[facility]/ZIP Co de Phone Number [facility] [id number] [address] [place] [address] * (ABNORMAL) LIPID PANEL (12/16/2023 5:00 AM CDT) CHOLESTEROL 225(H) <200 mg/dL 12/16/2023 7:41 AM CDT [facility] TRIGLYCERIDE 167(H) <150 mg/dL 12/16/2023 7:41 AM CDT [facility] HDL 40 40 - 59 mg/dL 12/16/2023 7:41 AM CDT [facility] LDL CALCULATED 152(H) <100 mg/dL 12/16/2023 7:41 AM CDT [facility] NON-HDL CHOLESTEROL 185(H) <130 mg/dL 12/16/2023 7:41 AM CDT [facility] Blood Venipuncture / Unknown 12/16/2023 5:00 AM CDT 12/16/2023 6:42 AM CDT Narrative [facility] - 12/16/2023 7:41 AM CDT TOTAL [...] Alba MD CHEMISTRY ORDERABLES Final Res ult [facility] [id number] [address] [place] [address] documented in this encounter Visit Diagnoses Not on filedocumented in this encounter
--- OUTSIDE RECORDS SUMMARY | 2024-10-17 01:46 | XMS_ITS | Encounter Summary ---
Author Organization [facility] Address [address] [place] [address] Phone Care Team Providers Care Director Of Research Name Role Phone Provider, None Primary Care Provider Jeff Camara MD Unavailable [phone] Encounter Details Date Type Department Care Team (Late st Contact Info) Description [facility]/16[facility]20[facility] [address] [place] [address] Jeff Ray MD [address] [place] [address] Social History Tobacco Use Types Packs/Day Years Used Date Smoking Tobacco: Some Days Cigarettes Smokeless Tobacco: Never Alcohol Use Standard Drinks/Week Comments Not Currently 0 (1 standard drink = 0.6 oz pur e alcohol) PHQ-2 Answer Date Recorded Total Score - Questions 1-9 0 11/0 03/2023 Sex and Gender Information Value Date Recorded Sex Assigned at Male 01/26/2024 4:55 PM FIELD CROP FARMING SUPERVISOR Legal Sex Male 12:36 PM CDT Gender Identity Male 01/26/2024 4:55 PM FIELD CROP FARMING SUPERVISOR Sexual Orientation Straight 01/26/2024 4: 55 PM FIELD CROP FARMING SUPERVISOR documented as of this encounter Miscellaneous Notes [...] talk to us about this decision by [phone]. Tracking Number: [id number] Lynda Oakley [facility] - Referrals opt 7 D CROP FARMING SUPERVISOR documented in this encounter Plan of Treatment Not on file documented as of this encounter Visit Diagnoses Not on filedocumented in this encounter Additional Health Concerns Assessment Noted Time PHQ-9 Depression Total Score: 0 01/02/20 24 1:58 PM CDT documented as of this encounter Care Teams Director Of Research Relationship Specialty Start Date End Date Provider, None [place] PCP - General 01/02/24 Jeff Ray MD [address] [place] [phone] Consulting Physician Neurology 02/04/24 documented as of this encounter
--- OUTSIDE RECORDS SUMMARY | 2024-10-17 01:46 | XMS_ITS | Clinical Summary ---
Author Organization [facility] Address [address] [place] [address] Care Team Providers Care Renewable Energy Trader Name Role Phone Non-Staff, Provider Primary Care [...] Comments Blood Pressure 144/99 02/12/2024 11:26 AM PULMONARY CARE NURSE Pulse 79 02/12/2024 11:26 AM PULMONARY CARE NURSE Temperature 36.7 C (98.1 F) 02/12/2024 9:41 AM PULMONARY CARE NURSE Respiratory Rate 18 02/12/2024 11:26 AM PULMONARY CARE NURSE Oxygen Saturation 98% 02/12/2024 11:26 AM PULMONARY CARE NURSE Inhaled Oxygen Concentration - - Weight 70.5 kg (155 lb 6.8 oz) 02/12/2024 9:41 A M PULMONARY CARE NURSE Height 180.3 cm (5' 11) 02/12/2024 9:41 AM PULMONARY CARE NURSE Body Mass Index 21.68 02/12/2024 9:41 AM PULMONARY CARE NURSE Plan of Treatment Health Maintenance Due Date [...] to complete this topic Insurance Care Teams Renewable Energy Trader Relationship Specialty Start Date End Date Non-Staff, Provider PCP - General UNKNOWN PHYSICIAN SPECIALTY 08/26/23
--- OUTSIDE RECORDS SUMMARY | 2024-10-17 01:46 | XMS_ITS | Encounter Summary ---
Author Organization [facility] Address [address] [place] [address] Phone Care Team Providers Care Burrer Machine Name Role Phone Provider, None Primary Care Provider Jeff Camara MD Unavailable Encounter Details Date Type Department Care Team (Late st Contact Info) Description 02/27/20[facility] [address] [place] [address] Jeff Ray MD [address] [place] [address] Social History Tobacco Use Types Packs/Day Years Used Date Smoking Tobacco: Some Days Cigarettes Smokeless Tobacco: Never Alcohol Use Standard Drinks/Week Comments Not Currently 0 (1 standard drink = 0.6 oz pur e alcohol) PHQ-2 Answer Date Recorded Total Score - Questions 1-9 0 11/0 03/2023 Sex and Gender Information Value Date Recorded Sex Assigned at Male 01/26/2024 4:55 PM CANDLE WRAPPING MACHINE OPERATOR Legal Sex Male 12:36 PM CDT Gender Identity Male 01/26/2024 4:55 PM CANDLE WRAPPING MACHINE OPERATOR Sexual Orientation Straight 01/26/2024 4: 55 PM CANDLE WRAPPING MACHINE OPERATOR documented as of this encounter Miscellaneous [...] talk to us about this decision by [phone]. Tracking Number: [id number] Lynda Oakley [facility] - Referrals opt 7 Close LE WRAPPING MACHINE OPERATOR documented in this encounter Plan of Treatment Not on file documented as of this encounter Visit Diagnoses Not on filedocumented in this encounter Additional Health Concerns Assessment Noted Time PHQ-9 Depression Total Score: 0 01/02/20 24 1:58 PM CDT documented as of this encounter Care Teams Burrer Machine Relationship Specialty Start Date End Date Provider, None [place] PCP - General 01/02/24 Jeff Ray MD [address] [place] [address] Consulting Physician Neurology 02/04/24 documented as of this encounter
--- OUTSIDE RECORDS SUMMARY | 2024-10-17 01:46 | XMS_ITS | Clinical Summary ---
Author Organization [facility] [employer] Address [address] [facility] [place] [address] Care Team Providers Care Hall Tender Name Role Phone Dilan Cintron MD Primary Care Provider Source Comments [facility],non-owned Affiliates and Associated Physician Practices is amultiple site organization consisting of ambulatory clinics and hospital sitesin [place], [place], [place] and [place]. This disclosure is being madepursuant to the Care Everywhere program and may not contain all information available regarding this patient. Last updated 17.[facility] [employer] Allergies Active Allergy Reactions Criticality Noted Date [...] [facility] [address] [place] [address] Heidy Boswell PA-C Reschedule Appointment (10/14-Left message [...] on file Legal Sex Male 5:17 PM TRIM SAWYER Gender Identity Not on file Sexual Orientation Not on file Last Filed Vital Signs Vital Sign Reading Time Taken Comments Blood Pressure 135/89 02/09/2024 11:51 AM TRIM SAWYER Pulse 97 02/09/2024 11:51 AM TRIM SAWYER Temperature 36.2 C (97.2 F) 01/01/2024 2:57 PM CDT Respiratory Rate 20 02/09/2024 11:5 1 AM TRIM SAWYER Oxygen Saturation 100% 02/09/2024 11: 51 AM TRIM SAWYER Inhaled Oxygen Concentration - - Weight 68.4 kg (150 lb 12.8 oz) 024 11:51 AM TRIM SAWYER Height 180.3 cm (5' 11) 02/09/2024 11: 51 AM TRIM SAWYER Body Mass Index 21.03 02/09/2024 11:51 AM TRIM SAWYER Plan of Treatment Health Maintenance Due Date [...] patient's age to complete this topic Insurance [facility] Care Teams Hall Tender Relationship Specialty Start Date End Date Dilan Cintron MD [address] [place] [address] PCP - General 03/09/24
--- OUTSIDE RECORDS SUMMARY | 2024-10-17 01:46 | XMS_ITS | Clinical Summary ---
Author Organization [facility] [address] [place] [address] Address [address] [place] [address] Care Team Providers Care Medical Reimbursement Specialist Name Role Phone Unavailable Primary Care [...]
== END 2024-10-17 01:39 | disposition left against medical advice (07) ==
LOC: ANHED 10-17 01:44
PROVIDERS: Emergency Provider Student in an Organized Health Care Education/Training Program
DX: R42 Dizziness and giddiness (principal)
CPT/HCPCS: 93005; 99199

== ENCOUNTER 2025-01-10 19:28 | Emergency (ER) | payer OTHER, SELFPAY ==
--- OUTSIDE RECORDS SUMMARY | 2024-11-07 18:00 | XMS_ITS | Continuity of Care Document ---
Author Organization [facility] Address [address] [place] [address] Phone Care Team Providers Care Hoop Punch And Coiler Operator Helper Name Role Phone Ezio CHEUNG, FACC, Dalton MOSQUEDA Unavailable U navailable Procedures Procedure Date ELECTROCARDIOGRAM REPORT ELECTROCARDIOGRAM REPORT Advance Directives Directive Yes / No Effective Date File Name No Information Encounters Encounter Description Practice Location Reason(s) For Visit Diagnoses Date Provider Providers Copied on Encounter [facility], [address] [place] [address], [address] [place] [address], tel:[phone] [facility] No Information Ezio Hoffman. [address] [place] [address], [id number], . tel:[phone] Referring Provider: Dalton Cano, [address] [place] [address], [id number]. tel:[phone] [facility], [address] [place] [address], [id number], tel:[phone] [facility] No Information Margot Stroud. [address] [place] [address], [id number], . tel:[phone] Referring Provider: Luanne Frost, [address] [place] [address], [place], [address]. tel:[phone] Family History Family Member Type Diagnosis Age At Onset No Information Payers Payer name Insurance type Covered libertarian ID Thomas jain(s) [employer] CI [id number] Social History Type Description Quantity Date Captured Comments Sex Male Smoking Status No Information Chief Complaint And Reason For Visit No Information Reason For Referral Reason For Referral No Information History Of Present Illness Encounter Date Complaint History Of Prese nt Illness No Information Functional Status Date Functional Assessmen t No Information Instructions Date Instruction Additional Infor mation No Information Assessments Type Assessment Date No Information Patient Care Teams Name Effective Dates (start - stop) Status Members No Information
--- NOTE | ~2025-01-10 | XR_ITS ---
XR chest 1V portable INDICATION:cough . REFERENCE: None FINDINGS: A single AP of the chest demonstrates normal heart size. The lungs are clear. There is no evidence of pneumothorax or pleural effusion. IMPRESSION: No acute pulmonary findings. Reviewed, dictated and finalized at location S. 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
[2025-01-10 19:28] VITALS: BP 130/89; PULSE 104; RESP 16; TEMP 36.6; O2SAT 100
--- NOTE | 2025-01-10 19:36 | ECG_ITS ---
Test Date: 2025-01-10 19:57:40 Measurements Intervals [place] Rate: 101 P: 70 DE: 193 QRS: 101 QRSD: 88 T: 74 QT: 319 QTc: 414 Interpretive Statements SINUS TACHYCARDIA RIGHT AXIS DEVIATION [QRS AXIS > 100] possible old septal mi Compared to ECG 10/16/2024 23:53:38 no changes Electronically Signed On 01-11-2025 17:32:08 PARTNERSHIP MARKETING MANAGER by Meir Licea M.D.
--- NOTE | 2025-01-10 19:46 | ED_ITS ---
HPI - Seizure General Chief Complaint: Seizure Stated Complaint: SEIZURE LIKE ACTIVITY X 2 MINUTES PER FAMILY Source: patient, family and EMS Mode of arrival: EMS Limitations: no limitations History of Present Illness HPI Narrative: This is a 49-year-old male with history of epilepsy on Keppra who presents the ED for seizures. Per family, patient had couple seizures that lasted approximately 2 minutes total. He does have a history of seizures and has been taking his Keppra as prescribed. He states that he was drinking fireball this morning and he believes he stops about 12 hours ago. He has no history of alcohol withdrawal seizures that he is aware of. He is unsure of how much he drank but he usually drinks anywhere from 5-20 shots of fireball at a time. Denies any other substance use at this time. Seizure History: Yes Related Data Allergies Allergy/AdvReac Type Severity Reaction Status Date / Time duloxetine Allergy Intermediate headaches Verified 09/30/24 16:54 gabapentin Allergy Intermediate migraines Verified 09/30/24 16:54 amitriptyline Allergy Mild unknown Verified 09/30/24 16:54 amoxicillin Allergy Unknown Unknown Verified 09/30/24 16:54 Sulfa (Sulfonamide Allergy Unknown Unknown Verified 09/30/24 16:54 Antibiotics) ranitidine AdvReac Unknown BLURRED Verified 09/30/24 16:54 VISION trazodone AdvReac Unknown Insomnia Verified 09/30/24 16:54 zolpidem (From Ambien) AdvReac Confusion Verified 09/30/24 16:54 Review of Systems 2 Review of Systems: Gen.: Denies fevers or chills Eyes: Denies eye pain or visual change ENT: Denies congestion Respiratory: Denies shortness of breath or cough CV: Denies chest pain or palpitations GI: Denies abdominal pain nausea, emesis or diarrhea denies burning, urgency, frequency or hematuria Musculoskeletal: Denies back pain or muscle pain Neuro: Denies numbness, tingling, weakness or focal weakness Skin: Denies rash Except as documented, all other systems reviewed and negative [facility] Past Medical History Medical History Peripheral neuropathy Bipolar disorder Paranoid schizophrenia Folic acid deficiency Seizure disorder Surgical History Surgical History Dental root implant present Family History Family History Father Acute myocardial infarction S/P CABG x 5, Onset Age: 64 Mother Paroxysmal A-fib, Onset Age: 69 Sibling Muscular dystrophy Social History Social History Social History: The patient lives in his own home. He receives home health chemical laboratory assistant through [facility] and his mother is his home health aide. Patient has 2 sons ages 22 and age 15. The patient's mother is raising the patient's 15-year-old son. The patient has smoked 1 pack of cigarettes per day since he was a teenager. He has history of chronic opiate dependence. He uses marijuana. He started drinking heavily in mid 2021. Smoking packs per day: 1 Smoking cigarettes per day: 20.0 Years smoked: 30 Smoking pack-years: 30.00 Alcohol intake: current Do You Feel Safe in your Home?: Yes Lack of Transportation: No Lack of Food: Never True Current Housing: I Have Housing Concerned About Future Housing: No Difficulty Paying Gas/Electric Bills: No Difficulty Paying for Meds: No Currently Unemployed: No Education: Don't Know Difficulty w/ Childcare or Family Care: No Spiritual care concerns: No Exam 2 Narrative: APPEARANCE: No acute distress, nontoxic, resting in bed EYES: EOMI HEENT: Normocephalic, atraumatic, OMM RESPIRATORY: No respiratory distress Clear to auscultation bilaterally with no rhonchi wheezing or rales. CARDIOVASCULAR: Regular rate and rhythm without murmurs rubs or gallops. ABDOMINAL: Soft, nontender, nondistended, no rebound or guarding MUSCULOSKELETAL: Moves all extremities. No clubbing, cyanosis or edema. NEURO: Awake and alert. Following commands, Slurred speech, no focal deficits SKIN:: Warm, dry. No rashes lesions or abrasions PSYCHIATRIC: Normal affect/mood, Course Vital Signs Vital signs: Vital Signs Temperature 98 F 01/10/25 19:28 Pulse Rate 104 H 01/10/25 19:28 Respiratory Rate 16 01/10/25 19:28 Blood Pressure 130/89 01/10/25 19:28 Pulse Oximetry 100 01/10/25 19:28 Oxygen Delivery Room Air 01/10/25 19:28 Temperature 98 F 01/10/25 19:28 Pulse Rate 101 H 01/10/25 23:17 Respiratory Rate 16 01/10/25 23:17 Blood Pressure 130/89 01/10/25 23:17 Pulse Oximetry 100 01/10/25 23:17 Oxygen Delivery Room Air 01/10/25 19:28 MDM - Seizure MDM Narrative Medical decision making narrative: 49-year-old male Presenting for seizure activity. On initial evaluation patient was in no acute distress afebrile, hemodynamic stable. Differentials include but are not limited to: CVA, TIA, seizure, drug intoxication, alcohol intoxication, hypoglycemia, electrolyte abnormality Notable exam findings: Slurring speech. No focal deficits. Heart and lungs clear. Notable lab findings: CBC and CMP without significant abnormalities. Alcohol elevated at 322. Notable imaging findings: Chest x-ray showed no acute process. EKG without concerning findings. Patient was given additional dose of Keppra here in the ED. Patient had increasing anxiety and agitation so he was given 5 mg Valium x2. He continued to become increasingly agitated and was subsequently given Haldol and Benadryl. Patient now awake and ambulating and feeling better. He was able to ambulate through the department without any significant difficulty. He was able to urinate. Patient's father is still here and is able to take care of the patient. Patient was deemed appropriate for discharge at this time. Patient was advised follow-up with their PCP and neurologist in the next week for re- evaluation. Patient was agreeable to this plan. Given strict return precautions. Medical Records Attestation: I reviewed the patient's medical records. Lab Data Attestation: I reviewed the patient's lab results. 01/10/25 19:57 01/10/25 19:57 Labs: Lab Results 01/10/25 Range/Units 19:57 WBC 4.7 (4.5-10.0) K/mm3 RBC 4.92 (4.6-6.20) M/mm3 Hgb 16.5 (14.0-18.0) g/dL Hct 48.7 (42.0-52.0) % MCV 99.0 (80-100) fl MCH 33.5 (26-34) pg MCHC 33.9 (32-36) g/dl RDW 13.0 (11.5-14.5) % Plt Count 178 (150-375) k/mm3 MPV 8.1 (7.4-10.4) fl Immature Gran % (Auto) 0.2 (0-0.5) % Neut % (Auto) 38.5 L (45.5-73.1) % Lymph % (Auto) 45.5 H (18.3-44.2) % Edmunds % (Auto) 12.6 H (2.6-8.5) % Eos % (Auto) 2.6 (0-4.4) % Baso % (Auto) 0.6 (0.2-1.2) % Lymph # (Auto) 2.13 (0.9-3.2) K/mm3 Edmunds # (Auto) 0.6 (0.1-0.6) K/mm3 Eos # (Auto) 0.1 (0-0.3) K/mm3 Baso # (Auto) 0.0 (0.0-0.1) K/mm3 Abs Immat Gran (auto) 0.01 (0.00-0.031) K/mm3 Absolute Neuts (auto) 1.8 (1.3-6.7) K/mm3 Absolute Nucleated RBC 0.000 (0.0-0.012) K/mm3 Nucleated RBC % 0.0 (0.0-0.2) % Sodium 147 H (137-145) mmol/L Potassium 4.3 (3.4-5.0) mmol/L Chloride 107 (98-107) mmol/L Carbon Dioxide 32 H (22-30) mmol/L Anion Gap 8 (4-12) mmol/L BUN 11 (9-20) mg/dL Creatinine 1.03 (0.7-1.3) mg/dL Estim Creat Clear Calc 83 ml/min Estimated GFR > 60 (59 - ) Glucose 97 (65-110) mg/dL Calcium 9.9 (8.4-10.2) mg/dL Total Bilirubin 0.6 (0.2-1.3) mg/dL AST 47 (17-59) U/L ALT 50 (6-50) U/L Alkaline Phosphatase 88 (38-126) U/L Total Protein 7.4 (6.3-8.2) g/dL Albumin 4.4 (3.5-5.1) g/dL Ethyl Alcohol 322 H* (<10) mg/dL Imaging Data Attestation: I personally reviewed and interpreted this imaging study as follows: My impression: Chest x-ray: Normal cardiac silhouette, no consolidations, no pleural effusions, no pulmonary vascular congestion Radiologist's impression: Impressions Chest X-Ray 01/10/25 21:44 IMPRESSION: No acute pulmonary findings. ECG Data EKG #1: Attestation: I personally reviewed and interpreted this ECG as follows: ECG completion date: 01/10/25 ECG completion time: 19:57 Interpretation: Sinus tachycardia rate of 101, right axis deviation, no acute ST or T-wave changes Discharge Plan Discharge Clinical Impression: Breakthrough seizure Alcohol intoxication Qualifiers: Complication of substance-induced condition: uncomplicated Qualified Code(s): F 10.920 - Alcohol use, unspecified with intoxication, uncomplicated Patient Disposition: Home Condition: Stable Instructions: Antibiotic Form, Epilepsy (ED) Additional Instructions: Continue to take Keppra as prescribed. Follow up with her neurologist in the next week for re-evaluation. Please seek help for alcohol cessation. Return to the ED for any new or worsening symptoms. Patient Language: Kenyan Prescriptions: No Action doxycycline monohydrate 100 mg capsule 100 mg PO BID 10 Days Qty: 20 0RF albuterol sulfate 90 mcg/actuation HFA aerosol inhaler 2 puff inhalation Q4-6H PRN (Reason: shortness of breath or wheezing) 30 Days Qty: 8.5 0RF levetiracetam 1,000 mg tablet See Rx Instructions .ROUTE .COMPLEX Qty: 180 2RF Dose Instruction: TAKE 1 TABLET BY MOUTH EVERY 12 HOURS Rx Instructions: TAKE 1 TABLET BY MOUTH EVERY 12 HOURS Follow-up/Referrals: Kee Fountain MD [Physician, Family Practice] Basil Jaimes MD [Physician, Neurology] PHYSICIAN,MACHINE MAINTENANCE TECHNICIAN [Primary Care Provider, Internal Medicine]
[2025-01-10 20:10] LABS: Hematocrit 48.7 % (42.0-52.0); Hemoglobin 16.5 g/dL (14.0-18.0); Immature Granulocyte Percent A 0.2 % (0-0.5); Lymphocytes Absolute Auto 2.13 K/mm3 (0.9-3.2); Mean Corpuscular HGB Conc 33.9 g/dl (32-36); Mean Corpuscular Hemoglobin 33.5 pg (26-34); Mean Corpuscular Volume 99.0 fl (80-100); Nucleated Red Blood Cells Absolute Auto 0.000 K/mm3 (0.0-0.012); Nucleated Red Blood Cells Perc 0.0 % (0.0-0.2); Platelet Count Result 178 k/mm3 (150-375); Red Blood Count 4.92 M/mm3 (4.6-6.20); White Blood Count 4.7 K/mm3 (4.5-10.0)
[2025-01-10] MEDS: SODIUM CHLORIDE 0.9% IV 1,000 ML 999 ML IV CONT ×2 (20:11→22:41)
[2025-01-10] MEDS: levETIRAcetam 1000MG/NACL100ML 1,000 MG/100 ML BAG 400 MG IVPB (20:12)
[2025-01-10 20:20] LABS: Alanine Aminotransferase 50 U/L (6-50); Albumin Level 4.4 g/dL (3.5-5.1); Alkaline Phosphatase 88 U/L (38-126); Anion Gap 8 mmol/L (4-12); Aspartate Amino Transferase 47 U/L (17-59); Bilirubin,Total 0.6 mg/dL (0.2-1.3); Blood Urea Nitrogen 11 mg/dL (9-20); Calcium 9.9 mg/dL (8.4-10.2); Carbon Dioxide 32 mmol/L (22-30); Chloride 107 mmol/L (98-107); Estimated CRCL calculation 83 ml/min; Estimated Glomerular Filt Rate > 60; Glucose 97 mg/dL (65-110); Potassium 4.3 mmol/L (3.4-5.0); Sodium 147 mmol/L (137-145); Total Protein 7.4 g/dL (6.3-8.2)
[2025-01-10] MEDS: diazePAM INJ (*CRX) 10 MG/2 ML SYRINGE 5 MG IV PUSH ×2 (20:24→21:31)
--- OUTSIDE RECORDS SUMMARY | 2025-01-10 20:30 | XMS_ITS | Encounter Summary ---
Author Organization [facility] Address [address] [place] [address] Care Team Providers Care Plating Machine Operator Name Role Phone Unavailable Primary Care Provider Unavailabl e Encounter Details Date Type Department Care Team (Late st Contact Info) Description 12/16/2023 Lab Requisition [facility] [address] [address] Chi Alba MD [address] [place] [address] Social History Tobacco Use Types Packs/Day [...] 5.4 <=5.6 % 12/16/2023 7:42 AM CDT [facility] EST. AVG GLUCOSE, A1C 108 mg/dL 12/16/2023 7:42 AM CDT [facility] Blood Venipuncture / Unknown 12/16/2023 5:00 AM CDT 12/16/2023 6:42 AM CDT Narrative [facility] - 12/16/2023 7:42 AM CDT HGB A1C INTERPRETATION NORMAL: <5.7% PRE-DIABETES: 5.7 - 6.4% DIABETES: 6.5% OR GREATER Chi Alba MD CHEMISTRY ORDERABLES Final Res ult Performing Organization Address City/[facility]/ZIP Co de Phone Number [facility] [id number] [address] [place] [phone] * GLUCOSE FASTING (12/16/2023 5:00 AM CDT) GLUCOSE-FASTIN G 102 70 - 115 mg/dL 12/16/2023 7:41 AM CDT [facility] Blood Venipuncture / Unknown 12/16/2023 5:00 AM CDT 12/16/2023 6:42 AM CDT Chi Alba MD CHEMISTRY ORDERABLES Final Res ult Performing Organization Address City/[facility]/ZIP Co de Phone Number [facility] [id number] [address] [place] [id number] * (ABNORMAL) LIPID PANEL (12/16/2023 5:00 AM CDT) CHOLESTEROL 225(H) <200 mg/dL 12/16/2023 7:41 AM CDT [facility] TRIGLYCERIDE 167(H) <150 mg/dL 12/16/2023 7:41 AM CDT [facility] HDL 40 40 - 59 mg/dL 12/16/2023 7:41 AM CDT [facility] LDL CALCULATED 152(H) <100 mg/dL 12/16/2023 7:41 AM CDT [facility] NON-HDL CHOLESTEROL 185(H) <130 mg/dL 12/16/2023 7:41 AM CDT [facility] Blood Venipuncture / Unknown 12/16/2023 5:00 AM CDT 12/16/2023 6:42 AM CDT Narrative [facility] - 12/16/2023 7:41 AM CDT TOTAL [...] Alba MD CHEMISTRY ORDERABLES Final Res ult [facility] [id number] [address] [place] [address] documented in this encounter Visit Diagnoses Not on filedocumented in this encounter
--- OUTSIDE RECORDS SUMMARY | 2025-01-10 20:30 | XMS_ITS | Encounter Summary ---
Author Organization [facility] Address [address] [place] [address] Phone Care Team Providers Care Shooter'S Helper Name Role Phone Provider, None Primary Care Provider Jeff Camara MD Unavailable [phone] Encounter Details Date Type Department Care Team (Late st Contact Info) Description 02/27/2024 Telephone [facility] [address] [place] [address] Jeff Ray MD [address] [place] [address] Social History Tobacco Use Types Packs/Day Years Used Date Smoking Tobacco: Some Days Cigarettes Smokeless Tobacco: Never Alcohol Use Standard Drinks/Week Comments Not Currently 0 (1 standard drink = 0.6 oz pur e alcohol) PHQ-2 Answer Date Recorded Total Score - Questions 1-9 0 11/0 03/2023 Sex and Gender Information Value Date Recorded Sex Assigned at Male 01/26/2024 4:55 PM ENGINEERING INSPECTION ASSISTANT Legal Sex Male 12:36 PM CDT Gender Identity Male 01/26/2024 4:55 PM ENGINEERING INSPECTION ASSISTANT Sexual Orientation Straight 01/26/2024 4: 55 PM ENGINEERING INSPECTION ASSISTANT documented as of this encounter Miscellaneous Notes * Telephone Encounter - Lynda Oakley Rene - 02/27/2024 8:52 AM CST 2nd request [...] talk to us about this decision by [phone]. Tracking Number: [id number] Lynda Oakley [facility] - Referrals opt 7 Close NEERING INSPECTION ASSISTANT documented in this encounter Plan of Treatment Not on file documented as of this encounter Visit Diagnoses Not on filedocumented in this encounter Additional Health Concerns Assessment Noted Time PHQ-9 Depression Total Score: 0 01/02/20 24 1:58 PM CDT documented as of this encounter Care Teams Shooter'S Helper Relationship Specialty Start Date End Date Provider, None [place] PCP - General 01/02/24 Jeff Ray MD [address] [place] [address] Consulting Physician Neurology 02/04/24 documented as of this encounter
--- OUTSIDE RECORDS SUMMARY | 2025-01-10 20:30 | XMS_ITS | Clinical Summary ---
Author Organization [facility] [address] [place] [address] [address] [place] [address] Care Team Providers Care Yeast Fermentation Attendant Name Role Phone Unavailable Primary Care Provider [...]
--- OUTSIDE RECORDS SUMMARY | 2025-01-10 20:30 | XMS_ITS | Clinical Summary ---
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 Name Role Phone Unknown, Notinfile Primary Care Provider Unavail able Allergies Active Allergy Reactions Criticality Noted Date Comments Alprazolam Amitriptyline Seizures High Reaction: Seizure, Diazepam Medications levETIRAcetam (KEPPRA) 1,000 mg tablet Take 1 tablet (1,000 mg total) by mouth 2 (two) times a day 08/26/2023 Active ALPRAZolam (XANAX) 2 mg tablet Take 1 tablet (2 mg total) by mouth 3 (three) times a day as needed 07/06/2022 Active HYDROcodone-acet aminophen (NORCO) 10-325 mg per tablet Take 1 tablet by mouth every 12 (twelve) hours as needed 03/26/2017 Active labetaloL (NORMODYNE,TRAND ATE) 200 mg tablet Take 1 tablet (200 mg total) by mouth 2 (two) times a day 60 tablet 12/31/2024 Active Active Problems Problem Noted Date Diagnosed Date Alcohol use 12/04/2024 Encounters Date Type Department Care Team Description 01/04/2025 [facility] Post Discharge Follow up phone call Emergency Department [id number] [place] [id number] Bartolome Armando RN 12/31/2024 6:16 AM CDT - 12/31/2024 11:12 AM CDT Emergency Emergency Department [address] [place] [address] Juana Green MD Chest pain, unspecified type (Primary Dx); Hypertension, unspecified type; Polysubstance abuse Discharge Disposition: Discharge to home or self care 12/05/2024 3:46 AM CDT - 12/05/2024 9:58 AM CDT Hospital Encounter [address] [place] [address] Anastacio Vazquez MD Discharge Disposition: Left Against Medical Advice 12/05/2024 2:59 AM CDT - 12/05/2024 11:59 PM CDT Hospital Encounter [facility] Emergency, Room R Discharge Disposition: Discharge to home or self care 12/04/2024 6:24 PM CDT - 12/05/2024 3:03 AM CDT Emergency [facility] Emergency Department [address] [place] [address] Enrique Spencer MD Alcoholic intoxication with complication (Primary Dx); Seizure (HCC) Discharge Disposition: Discharge to a critical access hospital 11/09/2024 Documentation [facility] [address] [place], [place] [phone] Herrera Sara EDayo 11/02/2024 Documentation [facility] [address] [place] [phone] Herrera, Sara EDayo 10/25/2024 Documentation [facility] [address] [place], [place] [phone] Rashida Bermeo from Last 3 Months Social History Tobacco Use Types Packs/Day Years Used Date Smoking Tobacco: Every Day Cigarettes Tobacco Cessation:Ready to Q uit: Not Asked; Counseling Given: Not Answered Personal Safety Answer Date Recorded Have you ever been in or are you currently in a harmful physical or emotional relationship or is someone making you feel afraid or unsafe? 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 Gender Identity Not on file Sexual Orientation Not on file Last Filed Vital Signs Vital Sign Reading Time Taken Comments Blood Pressure 150/97 12/31/2024 10:00 AM CDT Pulse 87 12/31/2024 10:00 AM CDT Temperature 36.8 C (98.3 F) 12/31/2024 6:25 AM CDT Respiratory Rate 20 12/31/2024 10:00 AM CDT Oxygen Saturation 92% 12/31/2024 10:00 AM CDT Inhaled Oxygen Concentration - - Weight 72.6 kg (160 lb 0.9 oz) 12/31/2024 7:24 A M CDT Height 180.3 cm (5' 11) 12/05/2024 5:00 AM CDT Body Mass Index 22.32 12/05/2024 5:00 AM CDT Plan of Treatment Health Maintenance Due Date Last Done Comments Colon Cancer Screening-Colonoscopy 1977 Depression Screening 1977 Hepatitis C Screening 1977 DTaP/Tdap/Td Vaccine (1 - Tdap) 1988 Hepatitis B Screening 09/18/1995 Regular Well Visit/Exam 18-64 09/18/1995 Pneumococcal vaccine <65 (1 of 2 - PCV) 1996 Influenza Vaccine (#1) 2024 Procedures Procedure Name Priority Date/Time Associated Diagnosis Comments TROPONIN T HIGH-SENSITIVITY 2-HOUR Timed 12/31/2024 8:39 AM CDT RESPIRATORY PATHOGEN PANEL STAT 12/31/2024 8:39 AM CDT D-DIMER, QUANTITATIVE STAT 12/31/2024 7:18 AM CDT XR CHEST PA LATERAL 2 VIEWS ED 12/31/2024 7:06 AM CDT EGFR STAT 12/31/2024 6:33 AM CDT DIFFERENTIAL AUTO STAT 12/31/2024 6:3 3 AM CDT TROPONIN T HIGH-SENSITIVITY SERIES (BASELINE, 2HR, 4HR, 6HR) STAT 12/31/2024 6:33 AM CDT COMPREHENSIVE METABOLIC PANEL STAT 12/31/2024 6:33 AM CDT CBC WITH AUTO DIFFERENTIAL STAT 12/31/2024 6:33 AM CDT ECG 12-LEAD STAT 12/31/2024 6:16 AM CDT CBC WITHOUT DIFFERENTIAL Routine 12/05/2024 5:12 AM CDT EGFR Routine 12/05/2024 5:01 AM CDT ETHANOL Routine 12/05/2024 5:01 AM CDT BASIC METABOLIC PANEL Routine 12/05/2024 5:01 AM CDT SEPSIS LACTATE WITH REFLEX STAT 12/04/2024 9:43 PM CDT XR CHEST 1 VIEW ED 12/04/2024 8:31 PM CDT DRUGS OF ABUSE SCREEN, URINE WITHOUT CONFIRMATION STAT 12/04/2024 8:03 PM CDT URINALYSIS AND REFLEX TO MICROSCOPIC AND CULTURE STAT 12/04/2024 8:03 PM CDT CA CRITICAL CARE ILL/INJURED PATIENT INIT 30-74 MIN Routine 12/04/2024 7:[address] HEAD WO CONTRAST ED 12/04/2024 7 :00 PM CDT COVID-19 CORONAVIRUS RNA STAT 12/04/2024 6:43 PM CDT ECG 12-LEAD STAT 12/04/2024 6:38 PM CDT EGFR STAT 12/04/2024 6:37 PM CDT DIFFERENTIAL AUTO STAT 12/04/2024 6:3 7 PM CDT LACTATE STAT 12/04/2024 6:37 PM CDT THYROID FUNCTION CASCADE Add-On 12/04/2024 6:37 PM CDT ACETAMINOPHEN LEVEL STAT 12/04/2024 6 :37 PM CDT SALICYLATE LEVEL STAT 12/04/2024 6:37 PM CDT ETHANOL STAT 12/04/2024 6:37 PM CDT COMPREHENSIVE METABOLIC PANEL STAT 12/04/2024 6:37 PM CDT CBC WITH AUTO DIFFERENTIAL STAT 12/04/2024 6:37 PM CDT from Last 3 Months Results * Troponin T high-sensitivity 2-hour (12/31/2024 8:39 AM CDT) Pathologist [facility] Trop T hs 6 <=22 ng/L Comment: Interpretive Data For further hscTnT resources including the diagnostic algorithm and an aid in interpretation, copy and paste this link: https://nrl.testcatalog.org/show/hsTrop Current Interpretive Data last revised 2020. Trop T hs delta -1 ng/L [facility] Trop T hs interp Insignificant [facility]ER Blood 12/31/2024 8:39 AM CDT 12/31/2024 8:42 AM CDT Tiffanie Lam MD LAB BLOOD ORDERABLES Fin al Result Performing Organization Address City/State/[facility] Co de Phone Number [facility] [address] Department of Laboratories [place], [place] [phone] * Respiratory pathogen panel Nasopharyngeal (12/31/2024 8:39 AM CDT) [facility] Influenza A RNA Not Detected Not Detected CH Influenza B RNA Not Detected Not Detected [facility] CH RSV RNA Not Detected Not Detected [facility] CH COVID-19 RNA Not Detected Not Detected [facility] CH Coronavirus 229E RNA Not Detected Not Detected [facility] CH Coronavirus HKU1 RNA Not Detected Not Detected CERNER Coronavirus NL63 RNA Not Detected Not Detected CERNER Coronavirus OC43 RNA Not Detected Not Detected C[facility]ER Adenovirus DNA Not Detected Not Detected [facility]ER Metapneumovirus RNA Not Detected Not Detected [facility] Rhinovirus/Enterov irus RNA Not Detected Not Detected [facility] Parainfluenza 1 RNA Not Detected Not Detected [facility] Parainfluenza 2 RNA Not Detected Not Detected [facility] Parainfluenza 3 RNA Not Detected Not Detected [facility] Parainfluenza 4 RNA Not Detected Not Detected [facility] B. pertussis DNA Not Detected Not Detected [facility] B. parapertussis DNA Not Detected Not Detected [facility] C. pneumoniae DNA Not Detected Not Detected [facility] M. pneumoniae DNA Not Detected Not Detected [facility] Comment: Interpretive Data The [employer] FilmArray Respiratory Panel (RP2.1) assay is a multiplexed real-time PCR based nucleic acid test capable of simultaneous qualitative detection and identification of multiple respiratory viral and bacterial nucleic acids, including SARS Coronavirus 2 (the causative agent of COVID-19). The following bacteria, viruses and virus subtypes can be identified using the FilmArray RP2.1 assay: Bordetella pertussis, Bordetella parapertussis, Chlamydia pneumoniae, Mycoplasma pneumoniae, Adenovirus, SARS Coronavirus 2, seasonal coronaviruses (Coronavirus HKU1, Coronavirus NL63, Coronavirus 229E, and Coronavirus OC43), Influenza A, Influenza A subtype H1, Influenza A subtype H3, Influenza A subtype 2009 H1, Influenza B, Metapneumovirus, Parainfluenza 1, Parainfluenza 2, Parainfluenza 3, Parainfluenza 4, RSV, Rhinovirus/Enterovirus. Due to the genetic similarity between human Rhinovirus and Enterovirus, the FilmArray RP2.1 assay cannot reliably differentiate them. Coronavirus OC43 may cross-react with some isolates of Coronavirus HKU1. A dual positive result may be due to cross-reactivity or may indicate a co- infection. The detection and identification of specific viral and bacterial nucleic acids from individuals exhibiting signs and symptoms of a respiratory infection aids in the diagnosis of respiratory infection if used in conjunction with other clinical and epidemiological information. The results of this test should not be used as the sole basis for diagnosis, treatment, or other management decisions. Negative results in the setting of a respiratory illness may be due to infection with pathogens that are not detected by this test. Positive results do not rule out infection/co-infection with other organisms. The agent(s) detected by the FilmArray RP2.1 may not be the definite cause of disease. Additional testing (lab, imaging, etc.) may be necessary when evaluating a patient with possible respiratory tract infection. The FilmArray RP2.1 assay has FDA clearance for testing of VARITYPE OPERATOR swabs. The performance characteristics of this assay have been determined by Laboratory. Current interpretive data was last revised on 2020. Nasopharyngeal 12/31/2024 8: 39 AM CDT 12/31/2024 8:42 AM CDT Narrative [facility] - 12/31/2024 9:33 AM CDT Is the Patient experiencing symptoms consistent with COVID?->Unknown Surveillance testing for transplant patient?->No Juana Green MD LAB MICROBIOLOGY - [facility] Final Result [facility] [address] [place] [address] CH * D-dimer, quantitative (12/31/2024 7:18 AM CDT) D-Dimer 333 <=499 ng/mL FEU Comment: Interpretive data FDA approved the D-dimer, in conjunction with a low or moderate pretest probability score, to exclude venous thromboembolic events (VTE) (PE and DVT) in outpatients when the D-dimer result is < 500 ng/ml FEU. Evidence supports using an age-adjusted D-dimer cut-off for outpatients older than 50 (age x 10) to improve specificity without sacrificing sensitivity. Example: age 68, VTE cut-off 680 ng/ml FEU. References; Schouten HT et al. Brit Med J. 2013;346:f2492. Theo et al. Annals Int Med. 2015;163:701-11. Current interpretive data was last revised on 2019. Blood 12/31/2024 7:18 AM CDT 12/31/2024 7:18 AM CDT Juana Green MD LAB BLOOD ORDERABLES Final Resu lt Performing Organization Address City/State/[facility] Co de Phone Number [facility] [place] [address] Department [place] [address] * XR Chest Pa Lateral 2 Views (12/31/2024 7:06 AM CDT) Anatomical Region Laterality Modality Body, Chest N/A Computed Radiogr aphy 12/31/2024 7:21 AM CDT Impressions 12/31/2024 7:21 AM CDT No acute findings. Electronically signed by: Brett Pryor M.D. Narrative 12/31/2024 7:21 AM CDT EXAMINATION: XR CHEST PA LATERAL 2 VIEWS HISTORY: Chest pain COMPARISON: 12/04/2024 FINDINGS: Heart size and pulmonary vasculature normal. No airspace disease. Mild degenerative changes present in the spine. No acute or suspicious bony abnormalities. Procedure Note Brett Pryor III, MD - 12/31/2024 EXAMINATION: XR CHEST PA LATERAL 2 VIEWS HISTORY: Chest pain COMPARISON: 12/04/2024 FINDINGS: Heart size and pulmonary vasculature normal. No airspace disease. Mild degenerative changes present in the spine. No acute or suspicious bony abnormalities. IMPRESSION: No acute findings. Electronically signed by: Brett Pryor M.D. us Tiffanie Lam MD IMG XR PROCEDURES Final Result * Troponin T high-sensitivity series (baseline, 2hr, 4hr, 6hr) (12/31/2024 6:33 AM CDT) Trop T hs 7 <=22 ng/L Comment: Interpretive Data For further hscTnT resources including the diagnostic algorithm and an aid in interpretation, copy and paste this link: https://nrl.testcatalog.org/show/hsTrop Current Interpretive Data last revised 2020. Blood 12/31/2024 6:33 AM CDT 12/31/2024 6:37 AM CDT us Tiffanie Lam MD LAB BLOOD ORDERABLES Fin al Result Performing Organization Address City/[facility] Co de Phone Number [facility] [place] [address] Department [place] [address] * eGFR (12/31/2024 6:33 AM CDT) eGFR >90 >=60 mL/min/1. 73 m2 Comment: Interpretive Data Reference Interval Normal >/= 90 mL/min/1.73m2 Mildly decreased* 60 - 89 mL/min/1.73m2 Mildly to moderately decreased 45 - 59 mL/min/1.73m2 Moderately to severely decreased 30 - 44 mL/min/1.73m2 Severely decreased 15 - 29 mL/min/1.73m2 Kidney Failure < 15 mL/min/1.73m2 *Relative to young adult level Estimated glomerular filtration rate is determined by the 2020 CKD-EPI equation recommended by the National Kidney Foundation (A Unifying Approach to GFR Estimation: Recommendations of the NKF-ASK Task Force on Reassessing the Inclusion of Race in Diagnosing Kidney Disease, JASN 2020). The CKD-EPI equation should not be used for patients with unstable renal function and has not been validated in children and those over 70. Current interpretive data was last reviewed 2021. Blood 12/31/2024 6:33 AM CDT 12/31/2024 6:37 AM CDT us Tiffanie Lam MD LAB BLOOD ORDERABLES Fin al Result Performing Organization Address [facility] Co de Phone Number [facility] [place] [address] Department [place] [address] * Differential, auto (12/31/2024 6:33 AM CDT) Neutrophil abs 4.84 1.50 - 6.50 K/cumm Imm gran abs 0.01 0.00 - 0.10 K/cumm [facility] Lymphocyte abs 1.01 0.80 - 3.30 K/cumm [facility] Monocyte abs 0.52 0.20 - 0.80 K/cumm [facility] Eosinophil abs 0.01 0.00 - 0.50 K/cumm [facility] Basophil abs 0.03 0.00 - 0.10 K/cumm [facility] Neutrophil pct 75.3 % [facility] Comment: Interpretive Data Percent cell count reference ranges are not reported, since discordance with absolute values may lead to misinterpretation of CBC data. Current Interpretive Data was last revised on 2017. Imm gran pct 0.2 % [facility] Comment: Interpretive Data Percent cell count reference ranges are not reported, since discordance with absolute values may lead to misinterpretation of CBC data. Current Interpretive Data was last revised on 2017. Lymphocyte pct 15.7 % [facility] Comment: Interpretive Data Percent cell count reference ranges are not reported, since discordance with absolute values may lead to misinterpretation of CBC data. Current Interpretive Data was last revised on 2017. Monocyte pct 8.1 % [facility] Comment: Interpretive Data Percent cell count reference ranges are not reported, since discordance with absolute values may lead to misinterpretation of CBC data. Current Interpretive Data was last revised on 2017. Eosinophil pct 0.2 % [facility] Comment: Interpretive Data Percent cell count reference ranges are not reported, since discordance with absolute values may lead to misinterpretation of CBC data. Current Interpretive Data was last revised on 2017. Basophil pct 0.5 % [facility] Comment: Interpretive Data Percent cell count reference ranges are not reported, since discordance with absolute values may lead to misinterpretation of CBC data. Current Interpretive Data was last revised on 2017. Blood 12/31/2024 6:33 AM CDT 12/31/2024 6:37 AM CDT us Tiffanie Lam MD LAB BLOOD ORDERABLES Fin al Result [facility] [address] Department [place] [address] * (ABNORMAL) CBC with auto differential (12/31/2024 6:33 AM CDT) WBC 6.42 3.80 - 9.90 K/cumm Hgb 16.4 13.0 - 17.5 g/dL [facility] Hct 46.1 38.9 - 50.3 % [facility] Plt 188 150 - 400 K/cumm [facility] MPV 8.6(L) 9.1 - 12.3 fL [facility] RBC 4.90 4.30 - 5.80 M/cumm [facility] MCV 94.1 81.3 - 96.4 fL [facility] MCH 33.5(H) 27.1 - 33.3 pg [facility] MCHC 35.6 32.3 - 35.7 g/dL [facility] RDW CV 12.2 11.1 - 14.9 % [facility] RDW SD 42.5 35.7 - 48.1 fL [facility] NRBC abs 0.00 0.00 - 0.01 K/cumm [facility] Blood 12/31/2024 6:33 AM CDT 12/31/2024 6:37 AM CDT us Tiffanie Lam MD LAB BLOOD ORDERABLES Fin al Result [facility] [address] Department [place] [address] * (ABNORMAL) Comprehensive metabolic panel (12/31/2024 6:33 AM CDT) Sodium 134(L) 135 - 145 mmol/L Potassium, pl 3.7 3.3 - 4.9 mmol/L [facility] Chloride 95(L) 97 - 110 mmol/L [facility] CO2 20(L) 22 - 32 mmol/L [facility] Anion gap 19(H) 2 - 15 mmol/L [facility] BUN 16 6 - 25 mg/dL [facility] Creatinine 0.80 0.80 - 1.30 mg/dL [facility] Glucose 124 70 - 199 mg/dL [facility] Comment: Interpretive Data Fasting glucose >/= 126 mg/dl is diagnostic for diabetes. Fasting is defined as no caloric intake for at least 8 hours. Fasting glucose between 100 mg/dl to 125 mg/dl is diagnostic of prediabetes. In a patient with classic symptoms of hyperglycemia or hyperglycemic crisis, a random glucose >/= 200 mg/dl is diagnostic for diabetes. In the absence of unequivocal hyperglycemia, results should be confirmed by repeat testing. The classification and Diagnosis of Diabetes Diabetes Care 2021; 46: S19-S40. Current interpretive data was last revised 2022. Calcium 8.7 8.5 - 10.3 mg/dL [facility] Bilirubin, total 0.5 0.1 - 1.2 mg/dL [facility] Protein, pl 6.9 6.5 - 8.5 g/dL [facility] Albumin 4.2 3.5 - 5.0 g/dL [facility] Alk phos 118 40 - 130 Units/L [facility] ALT 53 7 - 55 Units/L [facility] AST 108(H) 10 - 50 Units/L [facility] Blood 12/31/2024 6:33 AM CDT 12/31/2024 6:37 AM CDT us Tiffanie Lam MD LAB BLOOD ORDERABLES Fin al Result Performing Organization Address City/[facility]/ZIP Co de Phone Number [facility] [address] Department [place] [address] * ECG 12 lead (12/31/2024 6:16 AM CDT) 12/31/2024 6:16 AM CDT Narrative [facility] - 12/31/2024 10:30 AM CDT Vent Rate: 118 bpm RR Interval: 508 msec CA Interval: 191 msec QRS Duration: 82 msec QT Interval: 316 msec QTC Interval: 386 msec P-R-T [place]: 89 - 143 - 67 degrees IMPRESSION: SINUS TACHYCARDIA POSSIBLE RIGHT VENTRICULAR HYPERTROPHY [SOME/ALL OF: PROMINENT R IN V1, LATE TRANSITION, RAD, DANIEL, SSS] ABNORMAL ECG Electronically Signed By: Yunior Christine MD us Jean Pierre HARRIS ECG ORDERABLES Final Result Performing Organization Address City/[facility]/ZIP Co de Phone Number [facility] [employer] [facility] * (ABNORMAL) CBC without differential (12/05/2024 5:12 AM CDT) WBC 5.51 3.80 - 9.90 K/cumm Hgb 15.1 13.0 - 17.5 g/dL [facility] Hct 45.7 38.9 - 50.3 % [facility] Plt 225 150 - 400 K/cumm [facility] MPV 8.5(L) 9.1 - 12.3 fL [facility] RBC 4.54 4.30 - 5.80 M/cumm [facility] MCV 100.7(H) 81.3 - 96.4 fL [facility] MCH 33.3 27.1 - 33.3 pg [facility] MCHC 33.0 32.3 - 35.7 g/dL [facility] RDW CV 14.0 11.1 - 14.9 % [facility] RDW SD 52.0(H) 35.7 - 48.1 fL [facility] NRBC abs 0.00 0.00 - 0.01 K/cumm [facility] Blood 12/05/2024 5:12 AM CDT 12/05/2024 5:12 AM CDT us Lizette Pearl MD LAB BLOOD ORDERABLES Final Re sult [facility] [address] Department of Laboratories [place] [phone] * eGFR (12/05/2024 5:01 AM CDT) eGFR >90 >=60 mL/min/1. 73 m2 Comment: Interpretive Data Reference Interval Normal >/= 90 mL/min/1.73m2 Mildly decreased* 60 - 89 mL/min/1.73m2 Mildly to moderately decreased 45 - 59 mL/min/1.73m2 Moderately to severely decreased 30 - 44 mL/min/1.73m2 Severely decreased 15 - 29 mL/min/1.73m2 Kidney Failure < 15 mL/min/1.73m2 *Relative to young adult level Estimated glomerular filtration rate is determined by the 2020 CKD-EPI equation recommended by the National Kidney Foundation (A Unifying Approach to GFR Estimation: Recommendations of the NKF-ASK Task Force on Reassessing the Inclusion of Race in Diagnosing Kidney Disease, JASN 2020). The CKD-EPI equation should not be used for patients with unstable renal function and has not been validated in children and those over 70. Current interpretive data was last reviewed 2021. Blood 12/05/2024 5:01 AM CDT 12/05/2024 5:11 AM CDT Lizette Pearl MD LAB BLOOD ORDERABLES Final Re sult Performing Organization Address [facility] de Phone Number [facility] [place] [place] [address] * (ABNORMAL) Ethanol (12/05/2024 5:01 AM CDT) Ethanol 241(H) <=10 mg/dL Comment: Interpretive Data Legal limit of intoxication > or = 80 mg/dL Levels > or = 400 mg/dL are potentially TOXIC. Current interpretive data was last revised on 2018. Blood 12/05/2024 5:01 AM CDT 12/05/2024 5:11 AM CDT Lizette Pearl MD LAB BLOOD ORDERABLES Final Re sult Performing Organization Address [facility] de Phone Number [facility] [place]OVALL [address] [facility] [place] [address] * (ABNORMAL) Basic metabolic panel (12/05/2024 5:01 AM CDT) Sodium 142 135 - 145 mmol/L Potassium, pl 4.2 3.3 - 4.9 mmol/L [facility] Chloride 106 97 - 110 mmol/L [facility] CO2 21(L) 22 - 32 mmol/L [facility] Anion gap 15 2 - 15 mmol/L [facility] BUN 9 6 - 25 mg/dL [facility] Creatinine 0.82 0.80 - 1.30 mg/dL [facility] Glucose 100 70 - 199 mg/dL [facility] Comment: Interpretive Data Fasting glucose >/= 126 mg/dl is diagnostic for diabetes. Fasting is defined as no caloric intake for at least 8 hours. Fasting glucose between 100 mg/dl to 125 mg/dl is diagnostic of prediabetes. In a patient with classic symptoms of hyperglycemia or hyperglycemic crisis, a random glucose >/= 200 mg/dl is diagnostic for diabetes. In the absence of unequivocal hyperglycemia, results should be confirmed by repeat testing. The classification and Diagnosis of Diabetes Diabetes Care 2021; 46: S19-S40. Current interpretive data was last revised 2022. Calcium 8.0(L) 8.5 - 10.3 mg/dL [facility] Blood 12/05/2024 5:01 AM CDT 12/05/2024 5:11 AM CDT Lizette Pearl MD LAB BLOOD ORDERABLES Final Re sult [facility] [address] Department [place] [address] * Sepsis Lactate w/ Reflex (12/04/2024 9:43 PM CDT) Sepsis Lactate 1.8 0.7 - 2.0 mmol/L Blood 12/04/2024 9:43 PM CDT 12/04/2024 9:47 PM CDT Alyse HARRIS LAB BLOOD ORDERABLES Sandy l Result [facility] [place] [address] * XR Chest 1 Vw Portable (12/04/2024 8:31 PM CDT) Anatomical Region Laterality Modality Body, Chest N/A Computed Radiogr aphy 12/04/2024 8:52 PM CDT Narrative 12/04/2024 8:53 PM CDT EXAM DESCRIPTION: XR CHEST 1 VIEW REASON FOR STUDY: Possible aspiration Patient arrives to ED via EMS from [place] with complaint of etoh intoxication. States anxiety and depression, denies SI/HI. EMS reports once he was told he was going to the waiting room he went unresponsive. Patient placed in room 16, was notified of straight cath procedures and started talking to PA. Patient does state hx of seizures, takes keppra, has not missed any doses. Very limited triage, patient just yells I don't know to most nursing questions. TECHNIQUE: There are 2 radiographic view(s) of the chest. COMPARISON: Prior exam 11/11/2005, old exam. FINDINGS: LUNGS: Pulmonary vascularity appears normal. No infiltrate or effusion. Extreme right costophrenic angle cut from view. HEART/MEDIASTINUM: Cardiac silhouette normal in size. Mediastinal and hilar contours appear normal. LINES/TUBES: None. BONES: No acute osseous abnormality. IMPRESSION: No acute cardiopulmonary abnormality. Extreme right costophrenic angle cut from view, but no abnormality is seen over the visualized portions. THIS IS AN ELECTRONICALLY VERIFIED FINAL REPORT 12/04/2024 8:53 PM - Electronically signed by Antonio Garcia M.D. MJ: NATACHA Report ID: [id number] Reading Location: [id number] Procedure Note Antonio Garcia MD - 12/04/2024 EXAM DESCRIPTION: XR CHEST 1 VIEW REASON FOR STUDY: Possible aspiration Patient arrives to ED via EMS from [place] with complaint of etoh intoxication. States anxiety and depression, denies SI/HI. EMS reports once he was told he was going to the waiting room he went unresponsive. Patient placed in room 16, was notified of straight cath procedures and started talking to PA. Patient does state hx of seizures, takes keppra,has not missed any doses. Very limited triage, patient just yells I don'tknow to most nursing questions. TECHNIQUE: There are 2 radiographic view(s) of the chest. COMPARISON: Prior exam 11/11/2005, old exam. FINDINGS: LUNGS: Pulmonary vascularity appears normal. No infiltrate or effusion. Extreme right costophrenic angle cut from view. HEART/MEDIASTINUM: Cardiac silhouette normal in size. Mediastinal andhilar contours appear normal. LINES/TUBES: None. BONES: No acute osseous abnormality. IMPRESSION: No acute cardiopulmonary abnormality. Extreme right costophrenic angle cut from view, but no abnormality is seen over the visualized portions. THIS IS AN ELECTRONICALLY VERIFIED FINAL REPORT 12/04/2024 8:53 PM - Electronically signed by Anotnio Garcia M.D. MJ: NATACHA Report ID: [id number] Reading Location: [place] [address] Alyse [facility] IMG XR PROCEDURES Final R esult * Urinalysis reflex to microscopic and culture Urine (12/04/2024 8:03 PM CDT) Color, ur Straw Yellow Clarity, ur Clear Clear [facility] ([place]) Specific gravity, ur 1.004 1.003 - 1.030 [facility] ([place]) pH, urine 5.5 [facility] ([place]) Comment: Interpretive Data U rine pH is affected by diet, medications, systemic acid-base disturbances, and renal tubular function. pH may affect urinary stone formation. For example, urine pH below 6.0 may help reduce the tendency for calcium phosphate stones and pH greater than 6.0 may reduce the tendency for uric acid stone formation. Source: [facility] [employer] Current Interpretive Data was last revised on 2017 Protein, ur ql Negative Negative [facility] ([place]) Glucose, ur ql Negative Negative [facility] ([place]) Ketones, ur Negative Negative [facility] ([place]) Bilirubin, ur Negative Negative [facility] ([place]) Blood, ur Negative Negative [facility] ([place]) Urobilinogen, ur <2.0 <2.0 mg/dL [facility] ([place]) Nitrite, ur Negative Negative [facility] ([place]) Leukocyte esterase, ur Negative Negative [facility] ([place]) UA reflex comment Reflex conditions for microscopic UA and culture not met. [facility] ([place]) Urine 12/04/2024 8:03 PM CDT 12/04/2024 8:25 PM CDT Alyse [facility] LAB MICROBIOLOGY - GENERA L ORDERABLES Final Result [facility] ([place]) 1 [facility] [place] [address] * (ABNORMAL) Drugs of Abuse Screen, Urine without Confirmation (12/04/2024 8:03 PM CDT) Amphetamine, ur Not Detected CutOff 500ng/mL [facility] ([place]) Comment: Interpretive Data - Amphetamines: Samples containing greater than 500 ng/mL d-methamphetamine or other cross-reacting amphetamine compounds are reported as positive. Amphetamine immunoassays are subject to significant false positive rates due to cross-reactivity of non-amphetamine drugs. Confirmatory testing required for definitive results. Current Interpretive Data was last reviewed 2022. Barbiturates, ur Not Detected CutOff 200ng/mL [facility] ([place]) Comment: Interpretive Data - Barbiturates: Samples containing greater than 200 ng/mL secobarbital or other cross-reacting barbiturate compounds are reported as positive. False positive and false negative results are possible. Confirmatory testing required for definitive results. Current Interpretive Data was last reviewed 2022. Benzodiazepines, ur Screen Positive, presumptive (A) CutOff 100ng/mL [facility] ([place]) Comment: Interpretive Data - Benzodiazepines: Samples containing greater than 100 ng/mL nordiazepam or other cross-reacting compounds are reported as positive. False positive and false negative results are possible. Confirmatory testing required for definitive results. Current Interpretive Data was last reviewed 2022. Cannabinoids, ur Not Detected CutOff 50 ng/mL [facility] ([place]) Comment: Interpretive Data - Cannabinoids: Samples containing greater than 50 ng/mL delta-9 THC -COOH or other cross- reacting compounds are reported as positive. False positive and false negative results are possible. Confirmatory testing required for definitive results. Current Interpretive Data was last reviewed 2022. Cocaine, ur Not Detected CutOff 150ng/mL [facility] ([place]) Comment: Interpretive Data - Cocaine: Samples containing greater than 150 ng/mL benzoylecgonine or other cross- reacting compounds are reported as positive. False positive and false negative results are possible. Confirmatory testing required for definitive results. Current Interpretive Data was last reviewed 2022. Fentanyl, Ur Not Detected CutOff 5 ng/mL [facility] ([place]) Comment: Interpretive Data - Fentanyl: Samples containing greater than 5 ng/mL norfentanyl, fentanyl, or other cross-reacting fentanyl compounds are reported as positive. False positive and false negative results are possible. Confirmatory testing required for definitive results. Current Interpretive Data was last reviewed 2023. Methadone, ur Not Detected CutOff 300ng/mL [facility] ([place]) Comment: Interpretive Data - Methadone: Samples containing greater than 300 ng/mL d,l-methadone or other cross-reacting compounds are reported as positive. False positive and false negative results are possible. Confirmatory testing required for definitive results. Current Interpretive Data was last reviewed 2022. Opiates, ur Screen Positive, presumptive (A) CutOff 300ng/mL [facility] ([place]) Comment: Interpretive Data - Opiates: Samples containing greater than 300 ng/mL morphine or other cross-reacting compounds are reported as positive. False positive and false negative results are possible. Confirmatory testing required for definitive results. Current Interpretive Data was last reviewed 2022. Oxycodone, ur NOT DETECTED CutOff 100ng/mL [facility] ([place]) Comment: Interpretive Data - Oxycodone: Samples containing greater than 100 ng/mL oxycodone or other cross-reacting compounds are reported as positive. False positive and false negative results are possible. Confirmatory testing required for definitive results. Current Interpretive Data was last reviewed 2022. Phencyclidine, ur Not Detected CutOff 25 ng/mL [facility] ([place]) Comment: Interpretive Data - Phencyclidine: Samples containing greater than 25 ng/mL phencyclidine or other cross-reacting compounds are reported as positive. False positive and false negative results are possible. Confirmatory testing required for definitive results. Current Interpretive Data was last reviewed 2022. Urine Creatinine 21 mg/dL [facility] ([place]) Comment: Interpretive Data Urine Creatinine: < 10 mg/dL is extremely dilute = or > 10 but < 20 mg/dL is dilute = or > 20 mg/dL is normal Current Interpretive Data was last revised on 2017. Urine 12/04/2024 8:03 PM CDT 12/04/2024 8:25 PM CDT Narrative [facility] ([place]) - 12/04/2024 8:53 PM CDT Drug of Abuse screening is performed by immunoassay for medical purposes only. This is not to be used for Pain Management purposes. us Alyse [facility] LAB URINE ORDERABLES Sandy l Result [facility] ([place]) 1 [facility] [place] [address] * CA CRITICAL CARE ILL/INJURED PATIENT INIT 30-74 MIN (12/04/2024 7:14 PM CDT) Narrative Enrique Spencer MD - 12/04/2024 7:14 PM CDT Enrique Spencer MD 12/22/2024 12:12 PM Critical Care Performed by: Alyse Mancuso PA Authorized by: Enrique Spencer MD Critical care provider statement: As reflected in the history, physical exam, orders, notes, and/or MDM, I was personally present while the patient was critically ill and provided critical care services for 40 minutes, excluding time involved in separately billable procedures. Critical care was necessary to treat or prevent imminent or life-threatening deterioration of the following condition(s): seizure Critical care was time spent by me providing the following: continuous telemetry, continuous pulse oximetry, interpretation of bedside monitors, imaging, and arterial/venous lab draws, serial laboratory checks and resuscitation with fluids I provided emergent necessary critical care medicine services to this patient. I ordered and reviewed test results and/or imaging studies. I spent time discussing the management of this critically ill patient with consultants and the medical staff. I spent time discussing the management and therapeutic options for this critically ill patient with the patient themselves or with the appropriate designated surrogate decision-maker. I spent time documenting in the medical record. I admitted this patient to an Intensive Care unit (ICU) and discussed management with the admitting team. us Enrique Spencer MD IN CLINIC/BEDSIDE ORDERABLE S Final Result * CT Head WO Contrast (12/04/2024 7:00 PM CDT) Anatomical Region Laterality Modality Head and Neck N/A Computed Tomogra phy 12/04/2024 7:17 PM CDT Narrative 12/04/2024 7:55 PM CDT EXAM DESCRIPTION: CT HEAD WO CONTRAST REASON FOR STUDY: Mental status change, unknown cause Altered mental status TECHNIQUE: Axial images acquired through the brain without intravenous contrast. Images stored on PACS. Automated exposure control was used as a dose optimization technique for this examination. COMPARISON: 11/11/2005 FINDINGS: BRAIN: No hemorrhage, edema or mass effect. No recent infarct. The hollingsworth-white matter differentiation is preserved. No cerebral or cerebellar atrophy. Normal size and morphology of the ventricular system. No acute intraventricular hemorrhage. Basal cisterns are patent. EXTRA-AXIAL SPACES: No fluid collections. No masses. CALVARIUM: No fracture. SINUSES/MASTOIDS: Mucosal thickening of the ethmoid air cells and right sphenoid sinus. Otherwise, no fluid or mucosal thickening. ORBITS: No significant abnormality. OTHER: No other significant abnormality. IMPRESSION: 1. No acute intracranial findings. THIS IS AN ELECTRONICALLY VERIFIED FINAL REPORT 12/04/2024 7:55 PM - Electronically signed by Erika Frias M.D. AT: AT Report ID: [id number] Reading Location: [id number] Procedure Note Erika Frias MD - 12/04/2024 EXAM DESCRIPTION: CT HEAD WO CONTRAST REASON FOR STUDY: Mental status change, unknown cause Altered mental status TECHNIQUE: Axial images acquired through the brain without intravenous contrast. Images stored on PACS. Automated exposure control was used asa dose optimization technique for this examination. COMPARISON: 11/11/2005 FINDINGS: BRAIN: No hemorrhage, edema or mass effect. No recent infarct. The hollingsworth-white matter differentiation is preserved. No cerebral or cerebellar atrophy. Normal size and morphology of the ventricular system. No acute intraventricular hemorrhage. Basal cisterns are patent. EXTRA-AXIAL SPACES: No fluid collections. No masses. CALVARIUM: No fracture. SINUSES/MASTOIDS: Mucosal thickening of the ethmoid air cells and right sphenoid sinus. Otherwise, no fluid or mucosal thickening. ORBITS: No significant abnormality. OTHER: No other significant abnormality. IMPRESSION: 1. No acute intracranial findings. THIS IS AN ELECTRONICALLY VERIFIED FINAL REPORT 12/04/2024 7:55 PM - Electronically signed by Erika Frias M.D. AT: AT Report ID: [id number] Reading Location: [id number] Alyse [facility]IS IMG CT PROCEDURES Final R esult * COVID-19 Coronavirus RNA Nasopharyngeal (12/04/2024 6:43 PM CDT) COVID-19 RNA Negative Negative Nasopharyngeal 12/04/2024 6: 43 PM CDT 12/04/2024 6:44 PM CDT Narrative [facility] ([place]) - 12/04/2024 7:17 PM CDT Is the patient experiencing any symptoms consistent with COVID (eg. Fever, cough, shortness of breath)?->Yes Interpretive data: Testing performed by [facility]. This test is performed using the [employer] Xpert Xpress CoV-2 plus assay. This is a real-time RT-PCR test intended for the qualitative detection of nucleic acid from the SARS-CoV-2. This assay has been cleared by the [place] Food and Drug administration. The performance characteristics have been verified by [facility]. Results must be considered in the clinical context, and a negative result does not rule out infection. Interpretive data last revised 2023. Interpretive data: Testing performed by [facility]. This test is performed using the [employer] Xpert Xpress CoV-2 plus assay. This is a real-time RT-PCR test intended for the qualitative detection of nucleic acid from the SARS-CoV-2. This assay has been cleared by the [place] Food and Drug administration. The performance characteristics have been verified by [facility]. Results must be considered in the clinical context, and a negative result does not rule out infection. Interpretive data last revised 2023. Alyse [facility] LAB MICROBIOLOGY - GENERA L ORDERABLES Final Result Performing Organization Address City/[facility]/ZIP Co de Phone Number [facility] ([place]) 1 [facility] [place] [employer] [place] [address] * ECG 12 lead (12/04/2024 6:38 PM CDT) 12/04/2024 6:38 PM CDT Narrative [facility] - 12/06/2024 6:47 AM CDT Vent Rate: 102 bpm RR Interval: 585 msec CA Interval: 202 msec QRS Duration: 95 msec QT Interval: 353 msec QTC Interval: 412 msec P-R-T [place]: 85 - 111 - 52 degrees IMPRESSION: SINUS TACHYCARDIA POSSIBLE RIGHT VENTRICULAR HYPERTROPHY [SOME/ALL OF: PROMINENT R IN V1, LATE TRANSITION, RAD, DANIEL, SSS] ABNORMAL ECG Electronically Signed By: Israel Meeks MD Alyes HARRIS ECG ORDERABLES Final Res ult Performing Organization Address [facility] Co de Phone Number [facility] [employer] [facility] * (ABNORMAL) Lactate (12/04/2024 6:37 PM CDT) Lactate 4.3(C) 0.7 - 2.0 mmol/L Comment:Critical result call ed to and read back by Marjan Galaviz (ER Charge) on 12/04/2024 18:51:22 CDT_ to Annelise Yoder. Blood 12/04/2024 6:37 PM CDT 12/04/2024 6:42 PM CDT Alyse [facility] LAB BLOOD ORDERABLES Sandy l Result [facility] ([place]) 1 [facility] [place] [address] * eGFR (12/04/2024 6:37 PM CDT) eGFR >90 >=60 mL/min/1. 73 m2 Comment: Interpretive Data Reference Interval Normal >/= 90 mL/min/1.73m2 Mildly decreased* 60 - 89 mL/min/1.73m2 Mildly to moderately decreased 45 - 59 mL/min/1.73m2 Moderately to severely decreased 30 - 44 mL/min/1.73m2 Severely decreased 15 - 29 mL/min/1.73m2 Kidney Failure < 15 mL/min/1.73m2 *Relative to young adult level Estimated glomerular filtration rate is determined by the 2020 CKD-EPI equation recommended by the National Kidney Foundation (A Unifying Approach to GFR Estimation: Recommendations of the NKF-ASK Task Force on Reassessing the Inclusion of Race in Diagnosing Kidney Disease, JASN 2020). The CKD-EPI equation should not be used for patients with unstable renal function and has not been validated in children and those over 70. Current interpretive data was last reviewed 2021. Blood 12/04/2024 6:37 PM CDT 12/04/2024 6:42 PM CDT us Alyse [facility] LAB BLOOD ORDERABLES Sandy seaman Result [facility] ([place]) 1 [facility] [place] [address] * Differential, auto (12/04/2024 6:37 PM CDT) Neutrophil abs 2.63 1.50 - 6.50 K/cumm Imm gran abs 0.03 0.00 - 0.10 K/cumm [facility] ([place]) Lymphocyte abs 2.77 0.80 - 3.30 K/cumm [facility] ([place]) Monocyte abs 0.67 0.20 - 0.80 K/cumm [facility] ([place]) Eosinophil abs 0.17 0.00 - 0.50 K/cumm [facility] ([place]) Basophil abs 0.08 0.00 - 0.10 K/cumm [facility] ([place]) Neutrophil pct 41.3 % [facility] ([place]) Comment: Interpretive Data Percent cell count reference ranges are not reported, since discordance with absolute values may lead to misinterpretation of CBC data. Current Interpretive Data was last revised on 2017. Imm gran pct 0.5 % [facility] ([place]) Comment: Interpretive Data Percent cell count reference ranges are not reported, since discordance with absolute values may lead to misinterpretation of CBC data. Current Interpretive Data was last revised on 2017. Lymphocyte pct 43.6 % [facility] ([place]) Comment: Interpretive Data Percent cell count reference ranges are not reported, since discordance with absolute values may lead to misinterpretation of CBC data. Current Interpretive Data was last revised on 2017. Monocyte pct 10.6 % [facility] ([place]) Comment: Interpretive Data Percent cell count reference ranges are not reported, since discordance with absolute values may lead to misinterpretation of CBC data. Current Interpretive Data was last revised on 2017. Eosinophil pct 2.7 % [facility] ([place]) Comment: Interpretive Data Percent cell count reference ranges are not reported, since discordance with absolute values may lead to misinterpretation of CBC data. Current Interpretive Data was last revised on 2017. Basophil pct 1.3 % [facility] ([place]) Comment: Interpretive Data Percent cell count reference ranges are not reported, since discordance with absolute values may lead to misinterpretation of CBC data. Current Interpretive Data was last revised on 2017. Blood 12/04/2024 6:37 PM CDT 12/04/2024 6:42 PM CDT Alyse [facility] LAB BLOOD ORDERABLES Sandy l Result [facility] ([place]) 1 [facility] [place] [address] * Thyroid Function [place] (12/04/2024 6:37 PM CDT) TSH 0.32 0.30 - 4.20 mcIUnit/mL [facility] ([place]) Blood 12/04/2024 6:37 PM CDT 12/04/2024 6:42 PM CDT Alyse [facility] LAB BLOOD ORDERABLES Sandy l Result [facility] ([place]) 1 [facility] Department [place] [address] * (ABNORMAL) CBC with auto differential (12/04/2024 6:37 PM CDT) Pathologist [facility] WBC 6.35 3.80 - 9.90 K/cumm Hgb 16.1 13.0 - 17.5 g/dL [facility] ([place]) Hct 46.8 38.9 - 50.3 % [facility] ([place]) Plt 251 150 - 400 K/cumm [facility] ([place]) MPV 8.3(L) 9.1 - 12.3 fL [facility] ([place]) RBC 4.79 4.30 - 5.80 M/cumm [facility] ([place]) MCV 97.7(H) 81.3 - 96.4 fL [facility] ([place]) MCH 33.6(H) 27.1 - 33.3 pg [facility] ([place]) MCHC 34.4 32.3 - 35.7 g/dL [facility] ([place]) RDW CV 13.8 11.1 - 14.9 % [facility] ([place]) RDW SD 50.4(H) 35.7 - 48.1 fL [facility] ([place]) NRBC abs 0.00 0.00 - 0.01 K/cumm [facility] ([place]) Blood 12/04/2024 6:37 PM CDT 12/04/2024 6:42 PM CDT us Alyse [facility] LAB BLOOD ORDERABLES Sandy l Result [facility] ([place]) 1 [facility] [employer] [place] [address] * (ABNORMAL) Ethanol (12/04/2024 6:37 PM CDT) Ethanol 411(C) <=10 mg/dL [facility] ([place]) Comment: Critical Result called by [email or web address] at 2024-12-04 19:30:19. Result Read Back by Marjan Galaviz ER Charge Interpretive Data Legal limit of intoxication > or = 80 mg/dL Levels > or = 400 mg/dL are potentially TOXIC. Current interpretive data was last revised on 2018. Blood 12/04/2024 6:37 PM CDT 12/04/2024 6:42 PM CDT Alyse [facility] LAB BLOOD ORDERABLES Sandy l Result [facility] ([place]) 1 [facility] [employer] [place] [address] * Acetaminophen level (12/04/2024 6:37 PM CDT) Acetaminophen 5 <=5 mcg/mL [facility] ([place]) Comment: Markedly elevated levels of Acetaminophen and it's metabolites may lead to false low test results for cholesterol, HDL, triglycerides and uric acid with the manufacturers test methods used by our lab. Interpretive Data Significant hepatic injury may occur and treatment with n-acetyl cysteine is generally recommended if the acetaminophen level exceeds: 150 mcg/mL at 4 hours after ingestion 75 mcg/mL at 8 hours after ingestion 38 mcg/mL at 12 hours after ingestion 19 mcg/mL at 16 hours after ingestion Consult toxicology or poison control ([phone]) for unknown ingestion time. Current interpretive data was last revised 2022. Blood 12/04/2024 6:37 PM CDT 12/04/2024 6:42 PM CDT Alyse [facility] LAB BLOOD ORDERABLES Sandy l Result Performing Organization Address City/[facility]/ZIP Co de Phone Number [facility] ([place]) 1 [facility] [employer] [place] [address] * Salicylate level (12/04/2024 6:37 PM CDT) Salicylate <5.0 <=5.0 mg/dL [facility] ([place]) Comment: Interpretive Data Toxic: 30 mg/dL or greater. Current interpretive data was last revised 2022. Blood 12/04/2024 6:37 PM CDT 12/04/2024 6:42 PM CDT us Alyse [facility]ARR[facility] LAB BLOOD ORDERABLES Sandy l Result [facility] ([place]) 1 [facility] [place] [address] * (ABNORMAL) Comprehensive metabolic panel (12/04/2024 6:37 PM CDT) Sodium 140 135 - 145 mmol/L [facility] ([place]) Potassium, pl 3.6 3.3 - 4.9 mmol/L [facility] ([place]) Chloride 104 97 - 110 mmol/L [facility] ([place]) CO2 20(L) 22 - 32 mmol/L [facility] ([place]) Anion gap 16(H) 2 - 15 mmol/L [facility] ([place]) BUN 9 6 - 25 mg/dL [facility] Creatinine 0.79(L) 0.80 - 1.30 mg/dL [facility] ([place]) Glucose 155 70 - 199 mg/dL [facility] ([place]) Comment: Interpretive Data Fasting glucose >/= 126 mg/dl is diagnostic for diabetes. Fasting is defined as no caloric intake for at least 8 hours. Fasting glucose between 100 mg/dl to 125 mg/dl is diagnostic of prediabetes. In a patient with classic symptoms of hyperglycemia or hyperglycemic crisis, a random glucose >/= 200 mg/dl is diagnostic for diabetes. In the absence of unequivocal hyperglycemia, results should be confirmed by repeat testing. The classification and Diagnosis of Diabetes Diabetes Care 2021; 46: S19-S40. Current interpretive data was last revised 2022. Calcium 8.9 8.5 - 10.3 mg/dL [facility] ([place]) Bilirubin, total 0.4 0.1 - 1.2 mg/dL [facility] ([place]) Protein, pl 7.3 6.5 - 8.5 g/dL [facility] ([place]) Albumin 4.7 3.5 - 5.0 g/dL [facility] ([place]) Alk phos 107 40 - 130 Units/L [facility] ([place]) ALT 51 7 - 55 Units/L [facility] ([place]) AST 80(H) 10 - 50 Units/L [facility] ([place]) Blood 12/04/2024 6:37 PM CDT 12/04/2024 6:42 PM CDT Alyse [facility]ARR[facility] LAB BLOOD ORDERABLES Sandy l Result [facility] ([place]) 1 [facility] [place] [address] from Last 3 Months Insurance Advance Directives For more information, please contact: [phone] * Full Code (Latest Code Status on File) Date Activated Date Inactivated Comments 12/04/2024 11:25 PM 12/05/2024 2:04 PM Care Teams [employer] Tender Relationship Specialty Start Date End Date Unknown, Notinfile PCP - General 12/11/23
--- OUTSIDE RECORDS SUMMARY | 2025-01-10 20:30 | XMS_ITS | Clinical Summary ---
Author Organization [facility] Address [address] [place] [address] Phone Care Team Providers Care Resp Therapist Name Role Phone Provider, None Primary Care Provider Jeff Camara MD Unavailable [phone] Allergies Active Allergy Reactions Criticality Noted Date [...] Sex Assigned at Male 01/26/2024 4:55 PM [employer]ICIAN Legal Sex Male 12:36 PM CDT Gender Identity Male 01/26/2024 4:55 PM [employer]CHNICIAN Sexual Orientation Straight 01/26/2024 4: 55 PM [employer] TECHNICIAN Last Filed Vital Signs Vital Sign Reading Time Taken Comments Blood Pressure 140/102 02/04/2024 1:03 PM [employer] TECHNICIAN Pulse 94 02/04/2024 1:03 PM [employer] TECHNICIAN Temperature 37.2 C (98.9 F) 02/04/2024 1:03 PM [employer] TECHNICIAN Respiratory Rate 17 02/04/2024 1:03 PM [employer] TECHNICIAN Oxygen Saturation 99% 02/04/2024 1:03 PM [employer] TECHNICIAN Inhaled Oxygen Concentration - - Weight 68.4 kg (150 lb 12.8 oz) 02/04/2024 1:03 PM [employer] TECHNICIAN Height 180.3 cm (5' 11) 02/04/2024 1:03 PM [employer] TECHNICIAN Body Mass Index 21.03 02/04/2024 1:03 PM [employer] TECHNICIAN Plan of Treatment Health Maintenance Due Date Last Done Comments Hepatitis C Virus (HCV) Screening 1977 TdaP Immunization 1977 Hepatitis B Immunization (1 of 3 - 19+ 3-dose series) 1996 Pneumococcal Immunization Co mbined (1 of 2 - PCV) 1996 Cologuard 2022 Colonoscopy 2022 Colorectal Cancer Screening 2022 Immunochemical Fecal Occult Blood 2022 Influenza Immunization (#1) 2024 SARS-COV-2 Immunization ( season) 2024 Respiratory Syncytial Virus (RSV) Immunization (Adult) [...] Insurance MEDICAID [employer] Care Teams Resp Therapist Relationship Specialty Start Date End Date Provider, None [place] PCP - General 01/02/24 Jeff Ray MD [address] [place] [id number] Consulting Physician Neurology 02/04/24
--- OUTSIDE RECORDS SUMMARY | 2025-01-10 20:30 | XMS_ITS | Clinical Summary ---
Author Organization [facility] Address [address] [place] [address] Care Team Providers Care Superintendent System Operation Name Role Phone Non-Staff, Provider Primary Care [...] Comments Blood Pressure 144/99 02/12/2024 11:26 AM AIR CONDITIONING SPECIALIST Pulse 79 02/12/2024 11:26 AM AIR CONDITIONING SPECIALIST Temperature 36.7 C (98.1 F) 02/12/2024 9:41 AM AIR CONDITIONING SPECIALIST Respiratory Rate 18 02/12/2024 11:26 AM AIR CONDITIONING SPECIALIST Oxygen Saturation 98% 02/12/2024 11:26 AM AIR CONDITIONING SPECIALIST Inhaled Oxygen Concentration - - Weight 70.5 kg (155 lb 6.8 oz) 02/12/2024 9:41 A M AIR CONDITIONING SPECIALIST Height 180.3 cm (5' 11) 02/12/2024 9:41 AM AIR CONDITIONING SPECIALIST Body Mass Index 21.68 02/12/2024 9:41 AM AIR CONDITIONING SPECIALIST Plan of Treatment Health Maintenance Due Date Last Done Comments Colorectal Cancer Screening Colonoscopy (10 Years) 1977 Annual Physical 1980 Hepatitis C 09/18/1995 DTaP, Tdap and Td Vaccines ( 1 - Tdap) 1996 Hepatitis B Vaccines (1 of 3 - 19+ 3-dose series) 1996 COVID-19 Vaccine ( - 2024-2 6 season) 2024 Influenza Adult (#1) 2024 Hepatitis A Vaccines Aged Out No long er eligible based on patient's age to complete this topic Meningococcal B Vaccine Aged Out No l [...] to complete this topic Insurance Care Teams Superintendent System Operation Relationship Specialty Start Date End Date Non-Staff, Provider PCP - General UNKNOWN PHYSICIAN SPECIALTY 08/26/23
--- OUTSIDE RECORDS SUMMARY | 2025-01-10 20:30 | XMS_ITS | Data Portability ---
Author Organization [place] [facility], Main Office Address [address] [place] [address] Care Team Providers Care Rn Military Name Role Phone MERCEDES MCCRAY ZACHARY Primary Care Provider MERCEDES MCCRAY ZACHARY Referring Provider [phone] Assessment Encounter Date Assessment Date Assessment LastModified by Organization Details LastModified Time 06/18/2023 06/18/2023 47-year-old male presents for evaluation of his left shoulder. He has a history of a shoulder dislocation about 18 years ago, and had surgery for some sort of reconstruction after that. Since then, he has had pain in the shoulder and popping with motion. It is especially painful with lifting and overhead motions. He does report a history of seizures, but has not had a episode recently. He has been taking hydrocodone and occasional ibuprofen. Reports that he was told he has severe damage to his rotator cuff and he feels like his shoulder is constantly dislocated. He is right-hand dominant. He is on disability for his epilepsy. Review of systems per patient questionnaire Physical exam: Range of motion 150/30/lower lumbar, although with pain with elevation. He has good rotator cuff strength, 5- out of 5, and is able to resist elevation, internal, and external rotation. He does have pain with motion in all directions. He has positive Kai, positive Neer and Mccabe. Positive Emmet's. Neurovascular intact. 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 He has a inferior osteophyte with joint space narrowing, and hypertrophy of the AC joint. We discussed that his shoulder is not dislocated and that he does have decent rotator cuff strength on exam. For his shoulder arthritis, I would recommend beginning with a course of physical therapy and anti-inflammatori es, since the only treatment he has had so far are hydrocodone 10 mg every 8 hours and occasional ibuprofen. He was very upset and was convinced that his shoulder is actively dislocated and he needs surgery right away. He says that he would get a 2nd opinion for this. He is welcome to get another opinion, or follow-up with previous orthopedist who was treating him. He may follow-up with us as needed. [email or web address] Not available 06/18/2023 17:35:10 Plan of Treatment Reminders Order Date Submit Date Provider Last Modified By Organization Details Last Modified Time Details Appointments None recorded. Lab lipid panel, serum 2023 024 [email or web address] 4 [facility] [address] [place], [address], 11:43:29 TSH, serum or plasma 2023 024 [email or web address] 4 [facility] [address] [place], [address], 11:43:13 drug screen, urine 2023 024 [email or web address] [facility]), [address] [place], [address], 15:08:09 CBC 2023 024 [email or web address] 4 [facility] [address] [place], [address], 11:42:55 PSA, serum or plasma 2023 024 [email or web address] 4 [facility] [address] [place], [address], 11:42:35 glycohemogl obin, total, blood 2023 024 [email or web address] 4 [facility] [address] [place], [address], 4 11:40:20 CMP, serum or plasma 2023 024 [email or web address] 4 [facility] [address] [place], [address], 4 11:40:38 Referral orthopedic surgeon referral - Please call patient to schedule an appointment . Thank you. 2023 024 [email or web address] [facility], [facility], [address], [place], [address], 4 08:46:[address] referral - Please call patient to schedule an appointment . Thank you. 2023 024 [email or web address] Amy Salas NP, [address] [place], [address], 4 08:46:08 physical therapist referral - eval and treat 2023 024 [email or web address] Not available 4 00:25:31 orthopedic surgeon referral - Please call patient to schedule an appointment . 2023 024 [email or web address] [facility], [address], [place], [address], 4 08:55:49 Procedures colonoscopy screening (PROC) - *Please call pt to schedule* 2023 024 [email or web address] 256 Rei Love MD, [address] [facility] [address], [address], 4 11:15:10 Surgeries None recorded. Imaging XR, shoulder, 2 or more view 2023 024 [facility] [place], [address], [place], [address], 4 15:16:53 Medication Orders hydrocodone 10 mg-acetamin ophen 325 mg tablet 2023 024 [facility], [address] [place], [place], [id number], 4 14:52:15 alprazolam 2 mg tablet 2023 024 [facility] #70411, [address] [place], [place], [id number], 4 14:52:15 hydrocodone 10 mg-acetamin ophen 325 mg tablet [address] [facility], [address], [place], [id number], 4 15:15:29 alprazolam 2 mg tablet 2023 024 [facility] [employer] #57110, [address] [place], [place], [id number], 4 09:00:14 Patient TargetsNo targets recorded. Patient InstructionsNo instructions recorded. Reason for Referral Orthopedic Surgeon Referral for Pain of left shoulder joint Please call patient to schedule an appointment. Referring Physician: [facility]on [facility], Encounter Date: 04/09/2023 Physical Therapist Referral for Pain of left shoulder joint eval and treat Referring Physician: Enrique Ventura, Orthopedic Surgery, Encounter Date: 06/18/2023 Marine Specialist Referral for S kin lesion skin lesion to left inner thigh and right 1st finger Please call patient to schedule an appointment. Thank you. Referring Physician: [facility]on [facility], Encounter Date: 10/29/2023 Orthopedic Surgeon Referral for Pain of left shoulder joint [place] Please call patient to schedule an appointment. Thank you. Referring Physician: Levon Mccray, Family Medicine, Encounter Date: 10/29/2023 Results Created Date Observation Date Name Description Value Unit Range Abnormal Flag Note LastModifiedBy Organization Detail LastModifiedTime 06/18/19 24 XR, shoul pete, 2 or more view No observ ation record ed. [email or web address] [facility] [place] [address], [place], [address], 06/18/2023 15:47:21 Result Notes None recorded. 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 239110523 Active Not Available [facility] 4 21:06:17 Chronic neck pain 3828644980261 Active 2020 Not Available [facility] 4 21:06:17 Schizophre jae 72710886 Active 2020 Not Available [facility] 4 21:06:17 Seizure 21411497 Active 2020 Not Available [facility] 4 21:06:17 Anxiety 23873205 Active 2022 Not Available [facility] 4 21:06:17 Seizure disorder 771831644 Active 2022 Not Available [facility] 4 21:06:17 Pain of right shoulder joint 8885023625394 9100 Active 2022 Not Available [facility] 4 21:06:17 Chronic neck pain for greater than 3 months 3175726932805 03 Active 2022 Not Available [facility] 4 21:06:17 COVID-19 489798106 Active 2022 Not Available [facility] 4 21:06:17 Onychomyco sis of toenails 526031345 Active 2022 Not Available [facility] 4 21:06:17 Insomnia 560728060 Active 2023 MERCEDES [place] [address], [address], [place], [address] , [employer] 4 15:35:31 Pain of left shoulder joint 1834714056436 9109 Active 2023 Levon GENIE M[facility] [address], [address], [place], [address] , [employer] 4 15:46:28 Skin lesion 42196474 Active 2023 Levon GENIE M[facility]ray[facility] [address], [address], [place], [address] , [employer] 4 14:35:22 Cough 57949183 Active 2023 Levon GENEI Mccray-C [address], [address], [place], [address] , [employer] 4 10:32:28 Problem Notes None recorded. Procedures Surgical History Date Name Laterality Status Provider Name and Address Organization Details Recorded Time Unlisted procedure shoulder completed Not Available [facility] 05/01/2022 15:40:40 Shoulder completed MANNIE Mallory [facility] 06/18/2023 15:16:25 Imaging Results None recorded. Procedure Notes None recorded. Medical Equipment None Reported. Allergies Allergen ID Allergen Name Allergen Category Reaction Reaction Severity Criticality Documentation Date Start Date Code Code System Note Provider Name and Address Organization Details Recorded Time 63106 Substance with sulfonami de structure and antibacte rial mechanism of action (substanc e) medicatio n nausea severe Not available 05/01/2022 16826 8003 SNOMED Not Available [facility] 3 15:42:47 80988 amitripty line medicatio n seizure severe Not available 05/01/2022 704 RxNorm Not Available [facility] 3 15:42:47 Medications Name Sig Start Date Stop Date Status Note LastModified by Organization Details LastModified Time azithromyci n 250 mg tablet TAKE 2 TABLETS (500 MG) BY ORAL ROUTE ONCE DAILY FOR 1 DAY THEN 1 TABLET (250 MG) BY ORAL ROUTE ONCE DAILY FOR 4 DAYS active Not Available Not Available No t Available alprazolam 1 mg tablet TAKE 1 AND A HALF TABLETS BY MOUTH FOUR TIMES DAILY NEEDED FOR ANXIETY 12/26 completed Not Available Not Available Not Available benzonatate 200 mg capsule TAKE 1 CAPSULE BY MOUTH THREE TIMES DAILY active Not Available Not Available No t Available levetiracet am 500 mg tablet TAKE 3 TABLETS BY MOUTH TWICE DAILY active Not Available Not Available No t Available bupivacaine HCl 0.5 % (5 mg/mL) injection solution Take 8 mg by injection route. active Not Available Not Available No t Available divalproex 500 mg tablet,jarad yed release TAKE 1 TABLET BY MOUTH FOUR TIMES DAILY 12/26 completed Not Available Not Available Not Available hydrocodone 10 mg-acetamin ophen 325 mg tablet TAKE 1 TABLET BY MOUTH TWICE DAILY NEEDED active Not Available Not Available No t Available peg-electro lyte solution 420 gram oral solution active Not Available Not Available Not Available amoxicillin 500 mg tablet TAKE 1 TABLET BY MOUTH EVERY 8 HOURS UNTIL ALL TAKEN 12/26 completed Not Available Not Available Not Available terbinafine HCl 250 mg tablet TAKE 1 TABLET BY MOUTH EVERY DAY FOR 45 DAYS 04/29 completed Not Available Not Available Not Available Kenalog 10 mg/mL suspension for injection In office injection administe red by the provider active [facility]: 0003- [phone]- 20 Not Available Not Available Not Available polymyxin B sulfate 10,000 unit-trimet hoprim 1 mg/mL eye drops INSTILL 1 DROP IN THE RIGHT EYE EVERY 3 HOURS WHILE AWAKE X 7 DAYS. MAX OF 6 DOSES PER DAY 12/26 completed Not Available Not Available Not Available docusate sodium 100 mg capsule active Not Available Not Available N ot Available alprazolam 2 mg tablet TAKE 1 TABLET BY MOUTH THREE TIMES DAILY NEEDED active Not Available Not Available No t Available amoxicillin 875 mg-potassiu m clavulanate 125 mg tablet TAKE ONE TABLET BY MOUTH EVERY 12 HOURS FOR 10 DAYS 10/28 completed Not Available Not Available Not Available amoxicillin 500 mg-potassiu m clavulanate 125 mg tablet TAKE 1 TABLET BY MOUTH EVERY 12 HOURS FOR 7 DAYS 01/18 completed Not Available Not Available Not Available chlorhexidi ne gluconate 0.12 % mouthwash SWISH 15ML IN MOUTH FOR 30 SECONDS AND SPIT TWICE DAILY active Not Available Not Available No t Available levetiracet am 1,000 mg tablet TAKE 1 TABLET BY MOUTH EVERY 12 HOURS active Not Available Not Available No t Available BinaxNOW COVID-19 Ag Self Test kit TEST DIRECTED TODAY active Not Available Not Available No t Available Paxlovid 300 mg (150 mg x 2)-100 mg tablets in a dose pack TK 2 NIRMATREL VIR TS AND 1 RITONAVIR T TOGETHER PO TWICE DAILY FOR 5 DAYS. 01/06 completed Not Available Not Available Not Available Vitals Date Recorded Body height Body mass index (BMI) Body weight Body temperature Heart rate Oxygen saturation Oxygen saturation in Arterial blood by Pulse oximetry Systolic And Diastolic Provider Name and Address Organization Details Last Updated DateTime 4 175.26 cm 23.6 kg/m2 96269.7 8 g 98.4 [degF] 86 /min 96 % 96 % 128/88 mm[Hg] Eveline Patterson RN [facility] [employer] [facility] 4 15:15:52 Date Recorded Body height Body mass index (BMI) Body weight Provider Name and Address Organization Details Last Updated DateTime 06/18/2023 175.26 cm 23.6 kg/m2 83012.78 g Sherrill Pérez Frederick [facility] [employer] [facility] 06/18/2023 15:14:55 Date Recorded Body height Body mass index (BMI) Body weight Body temperature Heart rate Oxygen saturation Oxygen saturation in Arterial blood by Pulse oximetry Systolic And Diastolic Provider Name and Address Organization Details Last Updated DateTime 4 175.26 cm 23.6 kg/m2 72210.7 8 g 98.7 [degF] 84 /min 96 % 96 % 130/88 mm[Hg] Eveline Patterson RN [facility] [employer] [facility] 4 14:31:05 Date Recorded Body height Body mass index (BMI) Body weight Body temperature Heart rate Oxygen saturation Oxygen saturation in Arterial blood by Pulse oximetry Systolic And Diastolic Provider Name and Address Organization Details Last Updated DateTime 4 175.26 cm 24.5 kg/m2 71385.3 3 g 99 [degF] 111 /min 97 % 97 % 148/94 mm[Hg] Eveline Patterson RN [facility] [employer] [facility] 4 14:17:45 Social History Question Answer Notes LastModified by Organizat Where Details LastModified Time Tobacco Smoking Status Former Smoker LION Velázquez [place] [employer] [facility] 04/09/2023 14:59:30 Do You Have An Advance Directive? No [id number] Information not available 05/01/2022 In The 14 Days Before Symptom Onset, Have You Had Close Contact With A Laboratory-confirm ed COVID-19 While That Case Was Ill? No Information n ot available 04/09/2023 In The 14 Days Before Symptom Onset, Have You Had Close Contact With A Person Who Is Under Investigation For COVID-19 While That Person Was Ill? No Information not available 04/09/2023 What Type Of Diet Are You Following? REGULAR [id number] Information not available 05/01/2022 Do You Have A Medical Power Of Car Driver? No Information not available 04/09/2023 What Was The Date Of Your Most Recent Tobacco Screening? 06/18/2023 [email or web address] Information not available 06/18/2023 Has Tobacco Cessation Counseling Been Provided? No Information not available 04/09/2023 How Many Years Have You Smoked Tobacco? 20 Information not available 04/09/2023 Have You Recently Traveled Abroad? No Information not available 04/09/2023 Do You Have Any Dietary Restrictions? No Information not available 04/09/2023 Sex: Unknown Functional Status Question Answer Note LastModified by [email or web address] Details LastModified Time Do you use any illicit or recreational drugs? No Information not available 04/09/2023 Do you or have you ever used any other forms of tobacco or nicotine? No Information not available 04/09/2023 What is your level of alcohol consumption? Moderate [id number] Information not available 05/01/2022 What is your exercise level? Occasional [id number] Information not available 05/01/2022 Mental Status None recorded. Family History Relationship Description Onset Age of this Age Resolved Age Notes LastModified by Organization Details LastModified Time Father Hypertensive disorder [id number] Not available 05/01/2022 15:40:40 Father Heart disease [id number] Not available 05/01/2022 15:40:40 Father Myocardial infarction [id number] Not available 05/01/2022 15:40:40 Father Aneurysm [email or web address] Not avail able 04/09/2023 14:59:30 Mother Hypertensive disorder [id number] Not available 05/01/2022 15:40:40 Paternal Grandmother Hypertensive disorder [id number] Not available 05/01/2022 15:40:40 Paternal Grandmother Family history of malignant neoplasm [email or web address] Not available 09/2023 14:59:30 Maternal Grandmother Hypertensive disorder [id number] Not available 05/01/2022 15:40:41 Paternal Aunt Diabetes mellitus [id number] Not available 05/01/2022 15:40:41 Medical History Condition Response ARTHRITIS Y SEIZURES/EPILEPSY Y DEPRESSION (INCLUDING POST ) Y STROKE/TIA Y Past Encounters Encounter ID Performer Location Encounter Start Date Encounter Closed Date Diagnosis/Indication Diagnosis SNOMED-CT Code Diagnosis ICD10 Code Diagnosis IMO Codes Diagnosis Note [id number] KIMBERLY Chambers [facility] Primary Care [facility] [address] [facility] [address] [place] [address] 12/11/2020 00:00:00 12/11/2020 18:19:20 [id number] Scot Boston MD [facility] [place] [address] [place] [address] 12/26/2020 00:00:00 12/26/2020 16:38:53 [id number] Lyndon jaime MD [facility] General Surgery 4 [facility], [facility] [address] [place] [address] 01/09/2021 00:00:00 01/10/2021 11:00:55 [id number] KIMBERLY Chambers [facility] Primary Care [facility] [address] [facility] [address] [place] [address] 04/03/2021 00:00:00 04/03/2021 19:36:15 [id number] Scot Boston MD [facility] [place] [address] [place] [address] 05/02/2021 00:00:00 05/02/2021 16:38:45 [id number] KIMBERLY Chambers [facility] Primary Care [place] boy[place] [address] [place] [address] [address] [place] [address] 07/13/2021 00:00:00 07/13/2021 19:29:19 [id number] KIMBERLY Chambers [facility] Primary Care [place] [address] [facility] [address] [place] [address] 10/12/2021 00:00:00 10/12/2021 17:49:57 [id number] KIMBERLY Chambers [facility] Primary Care [place] [address] [facility] [address] [place] [address] 12/04/2021 00:00:00 12/04/2021 16:54:29 [id number] KIMBERLY Chambers [facility] Primary Care [place] [address] [place] [address] [address] [place] [address] 01/18/2022 00:00:00 01/18/2022 16:19:04 [id number] KIMBERLY Chambers [facility] Primary Care [place] [address] [place] [address] [address] [place] [address] 07/16/2022 13:57:39 07/16/2022 14:34:30 Chronic neck pain 5290035204 107 M54.2 Continue hydrocodon e TID PRN. No refills needed today.Will send new referral to neurosurge on. Schizophrenia 18167763 F 20.9 Continue Alprzolam 2mg TID PRN. No refills needed today. Long-term drug therapy 293180060 Z79.899 Seizure disorder 7498394 02 G40.909 Stable. Levetirace orta 1000mg tablets twice daily.Sent new referral to neurology ([facility]), has not called yet. Advised he call to schedule appointmen t to continue management . Pain of ri ght shoulder joint 0700317316 5089074 M25.511 Has f/u scheduled with Dr. Adorno to discuss replacemen t. He is hoping to get surgery scheduled. [id number] Tana Gudino MD [facility] Primary Care [facility] [address] [facility] [address] [place] [address] 01/06/2023 13:51:33 01/06/2023 14:37:45 Long-term drug therapy 209565415 Z79.899 Anxiety 96580291 F41.9 Not well controlled . He is not open to any other maintenanc e medication s.Continue alprazolam . Will need to continue with counseling /psychiatr y if no improvemen t. Onychomyco sis of toenails 242283767 B35.1 Bilateral feet.Will do terbinafin e. Pt. advised to complete for 6 weeks, if not improved then will complete an additional 6 week course. Advised to also use tea tree oil.If no improvemen t, will refer to podiatry. [id number] MERCEDES [place] [facility] Primary Care [address] [facility] [place] [address] 04/09/2023 14:57:54 04/17/2023 14:18:59 Insomnia 837301878 G47.00 -pt has been having insomnia for the last 10 year-only tried using OTC meds-uses xanax 2mg to sleep-sid rome gets 4-5 hrs sleep/nigh t-has tried trazodone in the past-unabl e to use amitriptyl ine Chronic neck pain 690689 1978 107 M54.2 -refills needed Pain of le ft shoulder joint 6841406501 8696920 M25.512 -pt continues to have left shoulder pain-xray has been completed- ROM and strength are limited-or tho surgeon referral given [id number] Enrique Ventura MD [facility] [place] [address] [place] [address] 06/18/2023 14:48:48 06/18/2023 16:20:40 Pain of left shoulder joint 1209568929 4108223 M25.081 [id number] MERCEDES [place] [facility] Primary Care [facility] [address] [facility] [address] [facility] [place] [address] 07/30/2023 14:20:25 07/30/2023 15:05:10 Adult health examination 140610183 Z00.00 Encouraged fresh fruits and veggies-lo w intake bothIncrea se daily water intake-8 bottles/da yEncourage 30 mins of daily exercise-d oes not traditiona lly exerciseCo lonoscopy- orderedLDC T-not a current smoker Long-term drug therapy 636297634 Z79.899 Screening for malignant neoplasm of colon 203786650 Z12.11 Diabetes m ellitus screening 690888299 Z13.1 Screening for malignant neoplasm of prostate 215243243 Z12.5 Anemia screening 5453160 07 Z13.0 Thyroid di sorder screening 390623478 Z13.29 Hyperlipid emia screening 195451198 Z13.373 [id number] MERCEDES [place] [facility] Primary Care [facility] [address] [place] [address] 08/08/2023 11:08:58 08/08/2023 11:44:28 [id number] MERCEDES [place] [facility] Primary Care [facility] [address] [place] [address] 10/29/2023 14:10:15 10/29/2023 14:52:50 Long-term drug therapy 078308904 Z79.899 Pt denies any lending, selling, or borrowing of medication s. Denies any cp, sob, palpitatio ns, or unusual weight loss.Revie wed controlled substance agreement requiremen ts. Refill given.[place] PDMP checked today. Skin lesion 58368315 L98 .9 Pain of le ft shoulder joint 6285880478 9323760 M25.512 -pt continues to have left shoulder pain-xray has been completed- ROM and strength are limited-or tho surgeon referral given Chronic neck pain 269732 4724 107 M54.2 Anxiety 70199869 F41.9 Health Concerns Section Related Observation LastModified by Organization Detai ls LastModified Time None Recorded Concern Status LastModified by Organization Details LastModified Time None Recorded Advance Directives Directive N: Payers Insurance Date Sequence Insurance Name Policy Number Policy Hernández Covered Member ID Hernández Member ID Guarantor Name 12/23/2024 1 [facility] - DOS ON OR AFTER 20 (MEDICAID REPLACEMENT - HMO) Aiden Esposito [id number] Aiden Esposito Notes Date Note Type Note Provider Name and Address Organization Details Recorded Time 04/09/2023 text/html Pt is here for routine f/u [facility] [address], [address], [place], [address], [employer] 04/10/2023 09:00:30 07/30/2023 text/html pt is here for physical [facility] [address], [place], [address], [employer] 07/30/2023 15:02:35 10/29/2023 text/html pt is here for f/u [facility] [address], [place], [address], [employer] 10/29/2023 14:52:37
--- OUTSIDE RECORDS SUMMARY | 2025-01-10 20:30 | XMS_ITS | Encounter Summary ---
Author Organization [facility] Address [address] [place] [address] Phone Care Team Providers Care Prison Officer Name Role Phone Provider, None Primary Care Provider Alissa e Jeff Ray MD Unavailable [phone] Encounter Details Date Type Department Care Team (Late st Contact Info) Description 02/16/2024 Telephone [facility] [address] [place] [address] Jeff Ray MD [address] [place] [address] Social History Tobacco Use Types Packs/Day Years Used Date Smoking Tobacco: Some Days Cigarettes Smokeless Tobacco: Never Alcohol Use Standard Drinks/Week Comments Not Currently 0 (1 standard drink = 0.6 oz pur e alcohol) PHQ-2 Answer Date Recorded Total Score - Questions 1-9 0 11/0 03/2023 Sex and Gender Information Value Date Recorded Sex Assigned at Male 01/26/2024 4:55 PM [employer] ARCHITECT Legal Sex Male 12:36 PM CDT Gender Identity Male 01/26/2024 4:55 PM [employer] ARCHITECT Sexual Orientation Straight 01/26/2024 4: 55 PM [employer]OUD INFRASTRUCTURE ARCHITECT documented as of this encounter Miscellaneous Notes [...] talk to us about this decision by [phone]. Tracking Number: [id number] Lynda Oakley [facility] - Referrals opt 7 D INFRASTRUCTURE ARCHITECT documented in this encounter Plan of Treatment Not on file documented as of this encounter Visit Diagnoses Not on filedocumented in this encounter Additional Health Concerns Assessment Noted Time PHQ-9 Depression Total Score: 0 01/02/20 24 1:58 PM CDT documented as of this encounter Care Teams Prison Officer Relationship Specialty Start Date End Date Provider, None [place] PCP - General 01/02/24 Jeff Ray MD [address] [place] [id number] Consulting Physician Neurology 02/04/24 documented as of this encounter
[2025-01-10] MEDS: ALPRAZolam (*CRX) 0.5 MG TABLET PO (21:01)
[2025-01-10] MEDS: ONDANSETRON INJ 4 MG/2 ML VIAL IV PUSH (21:02)
[2025-01-10] MEDS: HALOPERIDOL LACTATE 5 MG/ML VIAL IV PUSH (22:07)
[2025-01-10 23:17] VITALS: BP 130/89; PULSE 101; RESP 16; O2SAT 100
--- NOTE | 2025-01-10 23:18 | PC.NURSE ---
Pt and RN had multiple interactions of having to instruct the patient on to not self remove his IV and medicate him accordingly for said anxiety. Pt stated multiple times I will rip this (insert multiple different expletives here) out Pt ws medicated according and made more comfortable. Pt and Rn came to a understanding and proceeded with care of Pt. Pt also refused straight cath and has been unsuccessful in providing a urine sample
[2025-01-11] MEDS: SODIUM CHLORIDE 0.9% IV 1,000 ML 150 ML IV CONT (00:15)
[2025-01-11 03:05] VITALS: BP 127/88; PULSE 80; RESP 14; O2SAT 99
== END 2025-01-11 03:06 | disposition home or self-care (01) ==
PROVIDERS: Emergency Provider Student in an Organized Health Care Education/Training Program
DX: G40.909 Epilepsy, unspecified, not intractable, without status epilepticus (principal); R00.0 Tachycardia, unspecified; F31.9 Bipolar disorder, unspecified; F10.920 Alcohol use, unspecified with intoxication, uncomplicated; Y90.8 Blood alcohol level of 240 mg/100 ml or more
CPT/HCPCS: 36415; 71045; 80053; 82077; 85025; 93005; 96361; 96365; 96366; 96375; 96376; 99284; A9270; J1200; J1630; J1953; J2405; J3360; J7030